=== PATIENT | male | born 1935 | race Caucasian/White ===

== ENCOUNTER 2020-10-14 10:46 | Outpatient (REF) | payer MEDICARE, OTHER, SELFPAY ==
[2020-10-14 14:36] LABS: Anion Gap 14 (12-20); Blood Urea Nitrogen 29 mg/dL (9-16); Carbon Dioxide 31 mmol/L (22-29); Chloride 101 mmol/L (96-108); Estimated Glomerular Filt Rate 49; Potassium 4.6 mmol/l (3.3-5.1); Sodium 141 mmol/L (135-145)
== END 2020-10-14 10:47 | disposition home or self-care (01) ==
LOC: HO.10HDL 10:46
PROVIDERS: PCP Family Medicine; Visit Provider Family Medicine
DX: I10 Essential (primary) hypertension (principal)
CPT/HCPCS: 80051; 82565; 84520

== ENCOUNTER 2021-05-25 11:34 | Outpatient (REF) | payer MEDICARE, OTHER, SELFPAY ==
[2021-05-25 12:53] LABS: Anion Gap 11 (12-20); Blood Urea Nitrogen 26 mg/dL (9-16); Carbon Dioxide 32 mmol/L (22-29); Chloride 104 mmol/L (96-108); Estimated Glomerular Filt Rate 46; Potassium 4.2 mmol/L (3.3-5.1); Sodium 143 mmol/L (135-145)
== END 2021-05-25 11:35 | disposition home or self-care (01) ==
LOC: HO.10HDL 11:34
PROVIDERS: Visit Provider Family Medicine
DX: I10 Essential (primary) hypertension (principal)
CPT/HCPCS: 36415; 80051; 82565; 84520

== ENCOUNTER 2021-12-01 12:27 | Outpatient (REF) | payer MEDICARE, OTHER, SELFPAY ==
[2021-12-01 14:33] LABS: Anion Gap 14 (12-20); Blood Urea Nitrogen 30 mg/dL (9-16); Carbon Dioxide 26 mmol/L (22-29); Chloride 107 mmol/L (96-108); Estimated Glomerular Filt Rate 46; Potassium 4.3 mmol/L (3.3-5.1); Sodium 143 mmol/L (135-145)
== END 2021-12-01 12:28 | disposition home or self-care (01) ==
LOC: HO.10HDL 12:27
PROVIDERS: Visit Provider Family Medicine
DX: I10 Essential (primary) hypertension (principal)
CPT/HCPCS: 36415; 80051; 82565; 84520

== ENCOUNTER 2022-06-20 12:03 | Outpatient (REF) | payer MEDICARE, OTHER, SELFPAY ==
[2022-06-20 13:18] LABS: MANUAL DIFF FLAG NO
[2022-06-20 13:26] LABS: Basophils Absolute Auto 0.1 X10*3/uL (0.0-0.2); Basophils Percent Auto 0.8 % (0-2); Eosinophils Absolute Auto 0.2 X10*3/uL (0.0-0.4); Eosinophils Percent Auto 2.9 % (0-4); Hematocrit 39.4 % (42.0-52.0); Hemoglobin 12.2 g/dl (14.0-18.0); Imm Gran Abs Auto 0.01 X10*3/uL (0.00-0.03); Imm Gran Pct Auto 0.2 % (0.0-0.4); Lymphocytes Absolute Auto 1.6 X10*3/uL (1.2-4.9); Lymphocytes Percent Auto 24.1 % (20-40); Mean Corpuscular Hemoglobin 29.1 pg (27.0-33.0); Mean Platelet Volume 10.6 fL (9.4-12.4); Monocytes Absolute Auto 0.6 X10*3/uL (0.1-1.2); Monocytes Percent Auto 9.1 % (2-11); Neutrophils Absolute Auto 4.1 x10*3/uL (2.0-8.3); Neutrophils Percent Auto 62.9 % (45-73); Platelet Count 194 X10*3/uL (160-400); Red Blood Count 4.19 X10*6/uL (4.60-5.80); Red Cell Distribution Width 13.2 % (11.0-16.0); White Blood Count 6.5 X10*3/uL (4.8-10.8)
[2022-06-20 13:52] LABS: Alanine Aminotransferase 11 U/L (0-40); Anion Gap 13 (12-20); Blood Urea Nitrogen 23 mg/dL (9-16); Carbon Dioxide 30 mmol/L (22-29); Chloride 105 mmol/L (96-108); Estimated Glomerular Filt Rate 46; Potassium 4.5 mmol/L (3.3-5.1); Sodium 143 mmol/L (135-145)
== END 2022-06-20 12:04 | disposition home or self-care (01) ==
LOC: HO.10HDL 12:03
PROVIDERS: Visit Provider Family Medicine
DX: I10 Essential (primary) hypertension (principal); G62.9 Polyneuropathy, unspecified
CPT/HCPCS: 36415; 80051; 82565; 84460; 84520; 85025

== ENCOUNTER 2022-12-23 11:24 | Outpatient (REF) | payer MEDICARE, OTHER, SELFPAY ==
[2022-12-23 13:17] LABS: MANUAL DIFF FLAG NO
[2022-12-23 13:22] LABS: Basophils Percent Auto 0.7 % (0-2); Eosinophils Absolute Auto 0.2 X10*3/uL (0.0-0.4); Eosinophils Percent Auto 4.2 % (0-4); Hematocrit 39.2 % (42.0-52.0); Hemoglobin 12.2 g/dl (14.0-18.0); Imm Gran Abs Auto 0.01 X10*3/uL (0.00-0.03); Imm Gran Pct Auto 0.2 % (0.0-0.4); Lymphocytes Absolute Auto 1.3 X10*3/uL (1.2-4.9); Lymphocytes Percent Auto 24.5 % (20-40); Mean Corpuscular HGB Conc 31.1 g/dl (31.0-36.0); Mean Corpuscular Hemoglobin 29.4 pg (27.0-33.0); Mean Corpuscular Volume 94.5 fL (80.0-98.0); Mean Platelet Volume 10.9 fL (9.4-12.4); Monocytes Absolute Auto 0.5 X10*3/uL (0.1-1.2); Monocytes Percent Auto 8.2 % (2-11); Neutrophils Absolute Auto 3.4 x10*3/uL (2.0-8.3); Neutrophils Percent Auto 62.2 % (45-73); Platelet Count 202 X10*3/uL (160-400); Red Blood Count 4.15 X10*6/uL (4.60-5.80); Red Cell Distribution Width 13.8 % (11.0-16.0); White Blood Count 5.5 X10*3/uL (4.8-10.8)
[2022-12-23 14:00] LABS: Alanine Aminotransferase 67 U/L (0-40); Anion Gap 11 (12-20); Blood Urea Nitrogen 20 mg/dL (9-16); Carbon Dioxide 30 mmol/L (22-29); Chloride 108 mmol/L (96-108); Estimated Glomerular Filt Rate 47; Potassium 4.6 mmol/L (3.3-5.1); Sodium 144 mmol/L (135-145)
[2022-12-23 14:18] LABS: Free T4 (Free Thyroxine) 1.04 ng/dL (0.71-1.85)
== END 2022-12-23 11:25 | disposition home or self-care (01) ==
LOC: HO.10HDL 11:24
PROVIDERS: Visit Provider Internal Medicine
DX: R53.83 Other fatigue (principal); I10 Essential (primary) hypertension
CPT/HCPCS: 36415; 80051; 82565; 84439; 84460; 84520; 85025

== ENCOUNTER 2023-03-29 10:36 | Outpatient (REF) | payer MEDICARE, OTHER, SELFPAY ==
[2023-03-29 14:14] LABS: Alanine Aminotransferase 11 U/L (0-40); Alkaline Phosphatase 61 U/L (39-117); Aspartate Amino Transferase 17 U/L (5-37); Bilirubin Direct 0.3 mg/dL (0.0-0.5); Bilirubin Total 0.9 mg/dL (0.0-1.0); Total Protein 6.4 g/dL (6.5-8.0)
== END 2023-03-29 10:37 | disposition home or self-care (01) ==
LOC: HO.10HDL 10:36
PROVIDERS: Internal Medicine; Visit Provider Family Medicine
DX: R94.6 Abnormal results of thyroid function studies (principal)
CPT/HCPCS: 36415; 80076

== ENCOUNTER 2023-09-19 12:18 | Outpatient (REF) | payer MEDICARE, OTHER, SELFPAY ==
[2023-09-19 13:09] LABS: MANUAL DIFF FLAG NO
[2023-09-19 13:17] LABS: Basophils Absolute Auto 0.1 X10*3/uL (0.0-0.2); Basophils Percent Auto 0.9 % (0-2); Eosinophils Absolute Auto 0.2 X10*3/uL (0.0-0.4); Eosinophils Percent Auto 2.2 % (0-4); Hematocrit 36.3 % (42.0-52.0); Hemoglobin 11.4 g/dl (14.0-18.0); Imm Gran Abs Auto 0.02 X10*3/uL (0.00-0.03); Imm Gran Pct Auto 0.3 % (0.0-0.4); Lymphocytes Absolute Auto 1.5 X10*3/uL (1.2-4.9); Lymphocytes Percent Auto 20.6 % (20-40); Mean Corpuscular HGB Conc 31.4 g/dl (31.0-36.0); Mean Corpuscular Hemoglobin 29.4 pg (27.0-33.0); Mean Corpuscular Volume 93.6 fL (80.0-98.0); Mean Platelet Volume 10.3 fL (9.4-12.4); Monocytes Absolute Auto 0.5 X10*3/uL (0.1-1.2); Monocytes Percent Auto 6.2 % (2-11); Neutrophils Absolute Auto 5.2 x10*3/uL (2.0-8.3); Neutrophils Percent Auto 69.8 % (45-73); Platelet Count 204 X10*3/uL (160-400); Red Blood Count 3.88 X10*6/uL (4.60-5.80); Red Cell Distribution Width 13.7 % (11.0-16.0); White Blood Count 7.4 X10*3/uL (4.8-10.8)
[2023-09-19 14:08] LABS: Anion Gap 11 (12-20); Blood Urea Nitrogen 30 mg/dL (9-16); Carbon Dioxide 29 mmol/L (22-29); Chloride 107 mmol/L (96-108); Estimated Glomerular Filt Rate 48; Potassium 4.4 mmol/L (3.3-5.1); Sodium 143 mmol/L (135-145)
== END 2023-09-19 12:19 | disposition home or self-care (01) ==
LOC: HO.10HDL 12:18
PROVIDERS: Visit Provider Family Medicine
DX: R53.83 Other fatigue (principal); I10 Essential (primary) hypertension
CPT/HCPCS: 36415; 80051; 82565; 84520; 85025

== ENCOUNTER 2023-11-13 14:09 | Outpatient (REF) | payer MEDICARE, OTHER, SELFPAY ==
[2023-11-13 15:01] LABS: Basophils Percent Auto 0.2 % (0-2); Hematocrit 41.4 % (42.0-52.0); Imm Gran Abs Auto 0.05 X10*3/uL (0.00-0.03); Imm Gran Pct Auto 0.4 % (0.0-0.4); Lymphocytes Absolute Auto 0.5 X10*3/uL (1.2-4.9); Lymphocytes Percent Auto 3.9 % (20-40); MANUAL DIFF FLAG SCAN; Mean Corpuscular HGB Conc 31.4 g/dl (31.0-36.0); Mean Corpuscular Volume 92.2 fL (80.0-98.0); Mean Platelet Volume 10.1 fL (9.4-12.4); Monocytes Absolute Auto 0.5 X10*3/uL (0.1-1.2); Monocytes Percent Auto 4.1 % (2-11); Neutrophils Absolute Auto 12.2 x10*3/uL (2.0-8.3); Neutrophils Percent Auto 91.4 % (45-73); Platelet Count 274 X10*3/uL (160-400); Red Blood Count 4.49 X10*6/uL (4.60-5.80); Red Cell Distribution Width 13.1 % (11.0-16.0); SCAN SMEAR FLAG 1; White Blood Count 13.3 X10*3/uL (4.8-10.8)
[2023-11-13 15:31] LABS: Alanine Aminotransferase 389 U/L (0-40); Aspartate Amino Transferase 623 U/L (5-37)
[2023-11-13 15:35] LABS: Lipase 1395 U/L (8-78); SLIDE REVIEW VERIFIED
[2023-11-13 16:03] LABS: Erythrocyte Sedimentation Rate 26 MM/HR (0-15)
== END 2023-11-13 14:10 | disposition home or self-care (01) ==
LOC: HO.LAB 14:09
PROVIDERS: PCP Family Medicine; Visit Provider Family Medicine
DX: Z13.89 Encounter for screening for other disorder (principal)
CPT/HCPCS: 36415; 83690; 84450; 84460; 85025; 85652

== ENCOUNTER 2023-11-14 10:25 | Inpatient (IN) | payer MEDICARE, OTHER, SELFPAY ==
[2023-11-14] VITALS (7 sets, daily range): BP systolic 127–152; BP diastolic 70–79; PULSE 92–100; RESP 16–19; TEMP 36.6–38.2; O2SAT 86–97; BMI 25.1
--- NOTE | ~2023-11-14 | XR_ITS ---
EXAMINATION: XR CHEST CLINICAL INFORMATION: Productive cough and hypoxia COMPARISON: None available. TECHNIQUE: 2 views of the chest were obtained. FINDINGS: There is low lung volume bilaterally with blunting of posterior costophrenic angles most likely due to trace of pleural effusion. Atelectasis seen in the left lung base. Cardiomediastinal silhouette is normal. XR/XR chest 2V IMPRESSION: Trace of pleural effusion and atelectasis in the left lung base.
--- NOTE | ~2023-11-14 | FL_ITS ---
EXAMINATION: XR FLUOROSCOPY WITH IMAGES CLINICAL INFORMATION: ERCP COMPARISON: CT abdomen pelvis on 11/14/2023 TECHNIQUE: Fluoroscopy Supervised By: Dr. Wolf Whaley. Fluoroscopy Time: 215.8 seconds. Cumulative Dose: 102.54 mGy. DAP: Not available. Images: 9. FINDINGS: Fluoroscopy performed during ERCP and stent placement. There is choledocholithiasis. The cystic duct is patent. No biliary ductal dilatation. FL/FL guidance in OR IMPRESSION: Fluoroscopy performed during ERCP. Please see operative report for additional information.
--- NOTE | ~2023-11-14 | CT_ITS ---
EXAMINATION: CT ABDOMEN AND PELVIS WITHOUT CONTRAST CLINICAL INFORMATION: Elevated AST, alkaline phosphatase, bilirubin and lipase. Ultrasound abdomen limited 11/14/2023. COMPARISON: Ultrasound abdomen 11/14/2023. TECHNIQUE: Multidetector volumetric imaging was performed from the superior aspect of the liver through the pubic symphysis. Sagittal and coronal reformatted images were obtained on the technologist's workstation. This CT examination was performed using dose optimization techniques as appropriate, variously including the following: *Automated exposure control *Adjustment of mA and/or kV according to patient size (this includes techniques or standardized protocols for targeted exams where dose is matched to indication/reason for exam; i.e. extremities or head) *Use of iterative reconstruction technique DLP: 647 mGy-cm FINDINGS: LUNG BASES: There is platelike atelectasis in both lung bases. There is moderate coronary artery calcifications. LIVER, GALLBLADDER, AND BILIARY TREE: The liver is normal in size, shape, and attenuation. No focal hepatic lesion or biliary ductal dilatation is present. There is mild perihepatic fluid collection. There are multiple radiopaque calcifications or stones in the gallbladder. There is small 3 mm radiopaque calculi mid CBD and several 2 mm radiopaque calculi in the distal CBD. There is no gross intrahepatic ductal dilatation. PANCREAS: The pancreas is homogeneous in density with pancreatic duct measuring 3 mm. The peripancreatic fat borders are preserved. There is mild haziness surrounding the pancreatic head and the alfonzo hepatis SPLEEN: Unremarkable. ADRENAL GLANDS: Unremarkable. KIDNEYS AND URETERS: The kidneys are normal in size, shape, and attenuation. No hydronephrosis, hydroureter, or calculi seen. No perinephric stranding. There is a 3.4 cm cyst in the upper pole right kidney. BLADDER: Unremarkable. GASTROINTESTINAL TRACT: There moderate gas seen in the transverse colon and scattered stool seen throughout the colon. Scattered diverticuli seen throughout the colon most prominent in the redundant sigmoid and descending colon. There is no suspicion for diverticulitis. ABDOMINAL WALL: A small umbilical hernia containing fat is noted.. LYMPH NODES: Normal. VASCULAR: Mild atherosclerosis without aneurysmal dilatation of the abdominal aorta. The branches of the aorta are widely patent. PELVIC VISCERA: Extensive sigmoid diverticulosis without fat stranding. The prostate gland is mildly enlarged extending the base of bladder. There are multiple phleboliths in the pelvis. No abnormal pelvic lymph nodes or hernia. OSSEOUS STRUCTURES: Grade 1 anterolisthesis L5 over S1 and grade 1 retrolisthesis L2 over L3 is noted. There is mild degenerative disc changes L2-L2 disc level. No visible acute fracture, dislocation or subluxation seen. CT/CT abdomen pelvis wo IV con IMPRESSION: Gallstones with contracted gallbladder. Choledocholithiasis. There CBD or intrahepatic ducts are nondilated. Recommend ERCP. Colonic diverticulosis most prominent in the sigmoid colon without diverticulitis. Small umbilical hernia containing fat. Simple cyst right kidney. No workup is needed Fleischner guidelines were followed.
--- NOTE | ~2023-11-14 | US_ITS ---
EXAMINATION: US ABDOMEN LIMITED CLINICAL INFORMATION: Elevated AST, ALT, alkaline phosphatase, bilirubin, lipase. COMPARISON: CT scan abdomen and pelvis 11/14/2023 TECHNIQUE: Real-time imaging of the right upper quadrant abdominal viscera. Technically limited study due to body habitus and bowel gas. FINDINGS: PANCREAS: The pancreas is obscured by bowel gas. LIVER: The left lobe of the liver is mostly obscured due to bowel gas. A small amount of free fluid is seen adjacent to the left lobe. Parenchymal echogenicity is normal. No focal hepatic lesion. There is no intrahepatic biliary duct dilatation seen. GALLBLADDER: The gallbladder is contracted. Small calcifications are seen within the gallbladder. COMMON BILE DUCT: Normal in caliber measuring 0.3 cm in diameter. Only the proximal common duct is seen. The mid and distal common duct are obscured by bowel gas. RIGHT KIDNEY: There is a 3.1 x 2.8 x 2.9 cm simple upper pole cyst for which no imaging follow-up is recommended. Possibly mildly dilated calyces without vickie hydronephrosis. No renal calculi or focal parenchymal lesions. The kidney measures 10.0 cm in maximum dimension. US/US abdomen limited IMPRESSION: 1. Technically limited study due to body habitus and bowel gas. 2. The gallbladder is contracted. Small calcifications are seen within the gallbladder. 3. The proximal common duct is normal caliber. The mid and distal common duct are obscured by bowel gas. 4. A small amount of free fluid is seen adjacent to the left lobe of the liver.
[2023-11-14 10:48] LABS: Basophils Percent Auto 0.2 % (0-2); Hematocrit 42.4 % (42.0-52.0); Hemoglobin 13.6 g/dl (14.0-18.0); Imm Gran Abs Auto 0.17 X10*3/uL (0.00-0.03); Imm Gran Pct Auto 0.7 % (0.0-0.4); Lymphocytes Absolute Auto 0.8 X10*3/uL (1.2-4.9); Lymphocytes Percent Auto 3.1 % (20-40); MANUAL DIFF FLAG SCAN; Mean Corpuscular HGB Conc 32.1 g/dl (31.0-36.0); Mean Corpuscular Hemoglobin 29.1 pg (27.0-33.0); Mean Corpuscular Volume 90.8 fL (80.0-98.0); Mean Platelet Volume 9.7 fL (9.4-12.4); Monocytes Absolute Auto 1.4 X10*3/uL (0.1-1.2); Monocytes Percent Auto 5.3 % (2-11); Neutrophils Absolute Auto 23.6 x10*3/uL (2.0-8.3); Neutrophils Percent Auto 90.7 % (45-73); Platelet Count 260 X10*3/uL (160-400); Red Blood Count 4.67 X10*6/uL (4.60-5.80); Red Cell Distribution Width 13.4 % (11.0-16.0); SCAN SMEAR FLAG 1
[2023-11-14 10:53] LABS: INTERNATIONAL NORM RATIO 1.1 (0.9-1.1); Prothrombin Time 13.4 SEC (11.1-13.3)
[2023-11-14 11:03] LABS: COVID-19 Test Negative (Negative); IDNOW Serial# 08D9AD1C
[2023-11-14 11:17] LABS: Alanine Aminotransferase 536 U/L (0-40); Albumin Level 4.2 g/dL (3.5-5.0); Alkaline Phosphatase 128 U/L (39-117); Anion Gap 13 (12-20); Aspartate Amino Transferase 458 U/L (5-37); Bilirubin Direct 2.3 mg/dL (0.0-0.5); Bilirubin Total 3.7 mg/dL (0.0-1.0); Blood Urea Nitrogen 29 mg/dL (9-16); Calcium 9.8 mg/dL (8.4-10.2); Carbon Dioxide 30 mmol/L (22-29); Chloride 102 mmol/L (96-108); Creatinine Clr Calc Pharmacy 31.1; Estimated Glomerular Filt Rate 37; Glucose Random 162 mg/dL (60-115); Potassium 4.4 mmol/L (3.3-5.1); Sodium 141 mmol/L (135-145); Total Protein 7.7 g/dL (6.5-8.0)
[2023-11-14 11:29] LABS: Lipase 281 U/L (8-78)
[2023-11-14 11:31] LABS: SLIDE REVIEW VERIFIED
--- NOTE | 2023-11-14 12:38 | ED_ITS ---
HPI - Abdominal Pain General Chief Complaint: Abdominal Pain Stated Complaint: Gallstones Pancreatitis Time Seen by Provider: 11/14/23 12:38 Source: patient and other (Dr. Jefry Hector) Mode of arrival: ambulatory Limitations: no limitations History of Present Illness HPI narrative: 88-year-old male history of hypertension, prostate cancer who was referred to the emergency department by his PCP, Dr. Jefry Hector for possible gallstone pancreatitis. Patient states that his pain started on Monday morning 11/12/2022 at 03:00 hours (2 days prior to evaluation). He states that the pain came on gradually and then got severe. He runs his hand across his lower abdomen when asked to localize the pain. He states the pain is a constant dull pain which is 7 to 10/10 at its worst. Patient denied fever but had chills and diaphoresis. He denied rhinorrhea, sore throat, cough, chest pain, shortness of breath. He denied nausea, vomiting, diarrhea, dark stools or bloody stools. This is his 1st episode of this type pain. Patient was seen by his PCP, Dr. Jefry Hector yesterday and his blood work came back today. Patient's WBC was 13,300. AST and ALT were elevated 623 and 389. Lipase was elevated 1395. Dr. Hector did call me and referred the patient to the emergency department for evaluation. Related Data Home Medications Medication Instructions Recorded Confirmed ascorbic acid (vitamin C) 500 mg 500 mg PO DAILY 11/14/23 11/14/23 tablet (Vitamin C) aspirin 81 mg chewable tablet 81 mg PO DAILY 11/14/23 11/15/23 calcium citrate 500 mg (2,376 mg) 500 mg PO DAILY 11/14/23 11/14/23 effervescent tablet cholecalciferol (vitamin D3) 125 125 mcg PO DAILY 11/14/23 11/14/23 mcg (5,000 unit) tablet gabapentin 300 mg capsule 300 mg PO BEDTIME 11/14/23 11/14/23 lisinopril 5 mg tablet 5 mg PO DAILY 11/14/23 11/14/23 magnesium 500 mg tablet 500 mg PO DAILY 11/14/23 11/14/23 omeprazole 20 mg capsule,delayed 20 mg PO DAILY 11/14/23 11/14/23 release wuiewnx-xtxj-[place]ak[place]-oreg-capryl 1 cap PO DAILY 11/14/23 11/14/23 vitamins A,C,H-zgiz-caqskv 2,148 2 tab PO BID 11/14/23 11/14/23 mcg-113 mg-45 mg-17.4 mg tablet (PreserVision AREDS) Allergies Allergy/AdvReac Type Severity Reaction Status Date / Time No Known Allergies Allergy Verified 11/17/23 12:38 Review of Systems Review of Systems Yes all other systems are reviewed and are negative [facility] Past Medical History [facility] Narrative: Past medical history: Hypertension, prostate cancer. Past surgical history: Lower back surgery 7 years prior. Social history: The patient denies tobacco use. He states that he drinks alcohol in moderation. He denies drug use. Onset Date is defined in the Problem List Problems that require an onset date and time if occurred within 24 hrs of arrival to the ED Aortic Dissection and Rupture; Neurologic impairment; Cardiopulmonary Arrest; Endotracheal Intubation; Insertion or Replacement of Mechanical Circulatory Assist Device Medical History Prostate cancer Urinary frequency Surgical History History of back surgery Social History Social History Household Members: Spouse Housing: House Do you presently have visiting nurse or other home services: No Patient Tobacco Use Status: Never used Tobacco Advance Directives Date on File: 11/15/23 service: Yes Physical Exam ED Vital Signs: Vital Signs - 24 hr 11/14/23 10:32 11/14/23 13:41 11/14/23 14:00 Temperature 98 F Pulse Rate 100 92 Respiratory Rate 19 16 Blood Pressure 127/79 144/76 H Pulse Oximetry 97 93 86 L Oxygen Delivery Method Room Air Room Air Room Air Oxygen Flow Rate 11/14/23 14:47 11/14/23 15:26 Temperature Pulse Rate 96 93 Respiratory Rate 16 19 Blood Pressure 145/73 H 134/70 Pulse Oximetry 92 Oxygen Delivery Method Nasal Cannula Oxygen Flow Rate 2 BMI result Body Mass Index 25.1 Vital signs were normal. Exam: General: Awake, alert in no distress Head: Normocephalic, atraumatic EENT: PERRL, Lids normal, sclera normal, conjunctiva normal, nose normal , ears normal, throat without erythema or exudates Neck: Supple, no adenopathy, no trachea midline or C-spine tenderness Lung: breath sounds symmetric, no wheezing, rales or rhonchi Chest: symmetric movement, nontender Heart: regular rate and rhythm, normal S1, S2 no murmurs or rubs Abdomen: Appears distended, normal bowel sounds, moderate lower abdominal tenderness, moderate right upper quadrant tenderness and epigastric tenderness, no rebound, no voluntary or involuntary guarding Back: no vertebral tenderness, no CVAT Extremities: no deformities, moves all extremities symmetrically Neuro: Awake, alert, oriented, normal speech, cranial nerves intact, moves all extremities symmetrically Psych: Pleasant, cooperative Medical Decision Making Medical Decision Making MDM Narrative: 88-year-old male with history of hypertension, prostate cancer, previous back surgery who presents emergency department for evaluation of 2 days of abdominal pain associated with chills and sweats. Patient evaluated by PCP yesterday and had elevated LFTs as well as an elevated lipase. Patient's vital signs were normal. Exam revealed a distended abdomen with lower abdominal tenderness as well as right upper quadrant tenderness. Following evaluation was ordered: CBC, liver panel, BNP, lipase, PT/INR, blood cultures x2, COVID-19, right upper quadrant ultrasound, CT scan of the abdomen pelvis without IV contrast. Patient was treated with the following: Lactated Ringer's x1 L, morphine 4 mg IV, Zofran 4 mg IV and Zosyn 4.5 g IV. 14:49 My interpretation patient's laboratory evaluation is as follows: WBC elevated 26,000. BUN creatinine elevated 29 and 1.76. AST ALT and alk-phos elevated 458, 536 and 128. Total bilirubin elevated 3.7. Direct bilirubin elevated 2.3. Lipase elevated 281. Ultrasound did reveal gallstones with a contracted gallbladder but did not reveal a dilated common bile duct. CT scan of the abdomen pelvis without IV does note choledocholithiasis but normal common bile duct. Based on the patient's laboratory evaluation he most likely does have a common bile duct stone.. I did discuss the patient's presentation with and consult Dr. Magana for Gastroenterology . He recommended MRCP. I also discuss the patient's presentation with and consulted Dr. Manjarrez. Patient's presentation was discussed over tiger text with the covering hospitalist, Aissatou Carmen. Differential Diagnosis Differential Diagnoses: The differential diagnosis associated with the presentation includes Differential diagnosis includes but is not limited to pancreatitis, cholecystitis, common bile duct obstructions Admission/Observation Consideration of admission/observation: Escalation of care including admission/observation considered Consult Healthcare Provider Management of the patient was discussed with: Hospitalist Lab Data MDM Lab Attestation statement: I reviewed the patient's lab results. 11/17/23 05:33 11/17/23 05:33 Labs: Lab Results 11/14/23 11/14/23 Range/Units 10:42 13:22 WBC 26.0 H (4.8-10.8) X10*3/uL RBC 4.67 (4.60-5.80) X10*6/uL Hgb 13.6 L (14.0-18.0) g/dl Hct 42.4 (42.0-52.0) % MCV 90.8 (80.0-98.0) fL MCH 29.1 (27.0-33.0) pg MCHC 32.1 (31.0-36.0) g/dl RDW 13.4 (11.0-16.0) % Plt Count 260 (160-400) X10*3/uL MPV 9.7 (9.4-12.4) fL Immature Gran % (Auto) 0.7 H (0.0-0.4) % Neut % (Auto) 90.7 H (45-73) % Lymph % (Auto) 3.1 L (20-40) % [place] % (Auto) 5.3 (2-11) % Eos % (Auto) 0.0 (0-4) % Baso % (Auto) 0.2 (0-2) % Lymph # (Auto) 0.8 L (1.2-4.9) X10*3/uL [place] # (Auto) 1.4 H (0.1-1.2) X10*3/uL Eos # (Auto) 0.0 (0.0-0.4) X10*3/uL Baso # (Auto) 0.0 (0.0-0.2) X10*3/uL Abs Immat Gran (auto) 0.17 H (0.00-0.03) X10*3/uL Absolute Neuts (auto) 23.6 H (2.0-8.3) x10*3/uL Absolute Nucleated RBC 0.000 (0.0-0.012) X10*3/uL Nucleated RBC % (auto) 0.0 (0.0-0.2) /100WBC Smear Tech's Comments VERIFIED PT 13.4 H (11.1-13.3) SEC INR 1.1 (0.9-1.1) Sodium 141 (135-145) mmol/L Potassium 4.4 (3.3-5.1) mmol/L Chloride 102 (96-108) mmol/L Carbon Dioxide 30 H (22-29) mmol/L Anion Gap 13 (12-20) BUN 29 H (9-16) mg/dL Creatinine 1.76 H (0.5-1.4) mg/dL Estim Creat Clear Calc 31.1 Estimated GFR 37 Random Glucose 162 H (60-115) mg/dL Lactic Acid 1.8 (0.5-2.0) mmol/L Calcium 9.8 (8.4-10.2) mg/dL Total Bilirubin 3.7 H (0.0-1.0) mg/dL Direct Bilirubin 2.3 H (0.0-0.5) mg/dL AST 458 H (5-37) U/L ALT 536 H (0-40) U/L Alkaline Phosphatase 128 H (39-117) U/L Total Protein 7.7 (6.5-8.0) g/dL Albumin 4.2 (3.5-5.0) g/dL Lipase 281 H (8-78) U/L COVID-19 (ILEANA) Negative (Negative) COVID-19 Clin Com See Note Radiology Impression Discussion of test interpretation with radiology: I have reviewed the radiologist's reading. Radiologist Impression: US abdomen limited IMPRESSION: 1. Technically limited study due to body habitus and bowel gas. 2. The gallbladder is contracted. Small calcifications are seen within the gallbladder. 3. The proximal common duct is normal caliber. The mid and distal common duct are obscured by bowel gas. 4. A small amount of free fluid is seen adjacent to the left lobe of the liver. Dictated By: Mai Rosenbaum MD CT abdomen pelvis wo IV con IMPRESSION: Gallstones with contracted gallbladder. Choledocholithiasis. There CBD or intrahepatic ducts are nondilated. Recommend ERCP. Colonic diverticulosis most prominent in the sigmoid colon without diverticulitis. Small umbilical hernia containing fat. Simple cyst right kidney. No workup is needed Fleischner guidelines were followed. Dictated By: Lloyd Rainey MD Independent Historian Clinical information obtained from an independent historian. History obtained from or confirmed by: Spouse and Other (Son) External Record Review External record reviewed: Office record Chronic Conditions Patient?s care impacted by: Hypertension Medications Administered Generic Name Dose Route Start Last Admin Trade Name Freq PRN Reason Stop Dose Admin Ascorbic Acid 500 mg 11/15/23 09:00 11/17/23 07:51 Ascorbic Acid 500 Mg Tablet PO 500 mg DAILY LUCIO Administration Benzonatate 200 mg 11/16/23 09:45 11/17/23 21:54 Benzonatate 100 Mg Capsule PO 200 mg TID LUCIO Administration Calcium Carbonate 500 mg 11/15/23 09:00 11/17/23 07:50 Calcium Carbonate 500 Mg Tablet PO 500 mg DAILY LUCIO Administration Docusate Sodium 100 mg 11/17/23 09:00 11/17/23 21:55 Docusate Sodium 100 Mg Capsule PO 100 mg BID LUCIO Administration Gabapentin 300 mg 11/14/23 21:00 11/17/23 21:55 Gabapentin 300 Mg Capsule PO 300 mg BEDTIME LUCIO Administration Guaifenesin/Dextromethorphan 2 tab 11/16/23 09:57 11/16/23 21:06 Guaifenesin Dm 600/30 1 Tab Tab.Er.12h PO 2 tab BID PRN Administration cough Piperacillin Sod/Tazobactam 50 mls @ 100 mls/hr 11/14/23 17:00 11/17/23 23:15 Sod 3.375 gm/ Sodium Chloride IV Infused Q6H LUCIO Infusion Lisinopril 5 mg 11/15/23 09:00 11/15/23 08:59 Lisinopril 5 Mg Tablet PO 5 mg DAILY LUCIO Administration Protocol Magnesium Oxide 400 mg 11/15/23 09:00 11/17/23 07:50 Magnesium Oxide 400 Mg Tablet PO 400 mg DAILY LUCIO Administration Morphine Sulfate 4 mg 11/15/23 18:15 11/17/23 08:55 Morphine Sulfate 4 Mg/Ml Cartridge IVPUSH 4 mg Q4H PRN Administration Pain, Severe (Pain Scale 7-10) Protocol Multivitamins/Vitamin C 2 tab 11/14/23 21:00 11/17/23 21:54 Multivitamin Tablet PO 2 tab BID LUCIO Administration Omeprazole 20 mg 11/15/23 06:30 11/17/23 05:37 Omeprazole 20 Mg Capsule.Dr PO 20 mg DAILY@0630 LUCIO Administration Oxycodone HCl 5 mg 11/15/23 18:15 11/16/23 08:14 Oxycodone Hcl Immed Release 5 Mg Tablet PO 5 mg Q4H PRN Administration Pain, Moderate(Pain Scale 4-6) Polyethylene Glycol 17 gm 11/17/23 09:00 11/17/23 08:51 Polyethylene Glycol 3350 17 Gm Powd.Pack PO 17 gm DAILY LUCIO Administration Sodium Chloride 3 ml 11/15/23 00:00 11/17/23 23:18 0.9 % Sodium Chloride Flush 3 Ml Syringe IVFLUSH 3 ml QSHIFT [facility] Administration Vitamin D 125 mcg 11/15/23 09:00 11/17/23 07:52 Cholecalciferol (Vitamin D3) 25 Mcg Tablet PO 125 mcg DAILY LUCIO Administration Discontinued Medications Generic Name Dose Route Start Last Admin Trade Name Freq PRN Reason Stop Dose Admin Fentanyl 25 mcg 11/15/23 13:26 11/15/23 17:23 Fentanyl Citrate/Pf 100 Mcg/2 Ml Vial IVPUSH 25 mcg Q5M PRN Administration Pain, Moderate(Pain Scale 4-6) Protocol Lactated Ringer's 1,000 mls @ 999 mls/hr 11/14/23 13:00 11/14/23 14:48 Lr IV 11/14/23 14:00 Infused .Q1H1M LUCIO Infusion Piperacillin Sod/Tazobactam 100 mls @ 200 mls/hr 11/14/23 12:54 11/14/23 15:51 Sod 4.5 gm/ Sodium Chloride IV 11/14/23 13:23 Infused ONCE ONE Infusion Lactated Ringer's 1,000 mls @ 125 mls/hr 11/14/23 14:45 11/17/23 11:11 Lr IVCONT Infused .Q8H LUCIO Infusion Indomethacin 100 mg 11/17/23 09:53 11/17/23 16:16 Indomethacin 50 Mg Supp.Rect ND 11/17/23 09:54 Not Given PRE PROCEDURE ONE Morphine Sulfate 4 mg 11/14/23 12:52 11/14/23 13:35 Morphine Sulfate 4 Mg/Ml Cartridge IVPUSH 11/14/23 12:53 4 mg ONCE STA Administration Protocol Morphine Sulfate 2 mg 11/14/23 16:55 11/14/23 22:21 Morphine Sulfate 4 Mg/Ml Cartridge IVPUSH 2 mg Q4H PRN Administration Pain, Severe (Pain Scale 7-10) Protocol Ondansetron HCl 4 mg 11/14/23 12:52 11/14/23 13:35 Ondansetron Hcl 4 Mg/2 Ml Vial IVPUSH 11/14/23 12:53 4 mg ONCE ONE Administration Critical Care Time Critical Care Time Critical Care Time: Yes Total Critical Care Time: 40 Attestation: Critical Care: The patient was critically ill with a high probability of imminent or life threatening deterioration. I spent greater than 30 minutes of discontinuous time evaluating the patient,delivering critical care at the bedside, discussing and evaluating pertinent data with consultants. Critical care time does not include time spent performing separately billable procedures or teaching. Total time spent performing critical care was 40 minutes. Discharge Plan Discharge Clinical Impression: Gallstone pancreatitis Patient Disposition: Admitted As Inpatient Interventions: Admission Worksheet (ED) Last Done: 11/15/23 12:46 Discharge Date/Time: 11/15/23 12:46
[2023-11-14] MEDS: Lactated Ringers 1,000 ML 999 ML IV (13:30)
[2023-11-14] MEDS: Piperacillin Sodium/Tazobactam 4.5 GM in 0.9 % Sodium Chloride 100 ML IV (13:35)
[2023-11-14] MEDS: ondansetron HCL 4 MG/2 ML VIAL IVPUSH (13:35)
[2023-11-14] MEDS: Morphine Sulfate 4 MG/ML CARTRIDGE IVPUSH (13:35)
[2023-11-14 13:42] LABS: Lactic Acid 1.8 mmol/L (0.5-2.0)
[2023-11-14] MEDS: Lactated Ringers 1,000 ML 125 ML IVCONT ×2 (14:47→22:24)
--- NOTE | 2023-11-14 15:53 | P.HPHOSP_ITS ---
History of Present Illness Date of Service: 11/14/23 Chief Complaint: Abdominal pain An 88-year-old, high-functioning man with a history of prostate cancer treated with Leuprolide injection ([place]illon), CKD 3b, and hypertension was referred to the emergency department by his PCP, Dr. Jefry Ortega, for evaluation of possible gallstone pancreatitis. The patient has been experiencing progressively severe abdominal pain since Monday, worsening on Monday and Monday. He describes the pain as located in the lower abdomen, radiating upwards. He also experienced vomiting on Monday but denies any fever. Labs were done yesterday 11/13 and show Lipase 1395 which is down to 281 today, WBC was 13 yesterdat but 26 today. AST/ALT 458/536, AKP 128. CT and US of abdomen show contracted gallbladder with stone and normal CBC Review of Systems 2 Review of Systems: Gen: no fever Resp: no sob, no cough CV: no chest, no SMITH, no leg edema GI:+ n/v, +abd pain Neuro: No confusion Yes all other systems are reviewed and are negative [facility] Social History Smoked in Last 30 Days: No Use of substances other than those prescribed or required for medical reasons: No Advance Directives: Yes Advance Directives Information Provided: Yes Advance Directives on File: No Meds Allergies Allergy/AdvReac Type Severity Reaction Status Date / Time No Known Allergies Allergy Verified 11/14/23 10:31 Active Medications: Current Medications Lactated Ringer's (Lr) 1,000 mls @ 125 mls/hr IVCONT .Q8H LUCIO Last Admin: 11/14/23 14:47 Dose: 125 mls/hr Home Medications Medication Instructions Recorded Confirmed Last Taken Type ascorbic acid (vitamin C) 500 mg 500 mg PO DAILY 11/14/23 11/14/23 11/14/23 History tablet (Vitamin C) aspirin 81 mg chewable tablet 81 mg PO DAILY 11/14/23 11/14/23 11/14/23 History calcium citrate 500 mg (2,376 mg) 500 mg PO DAILY 11/14/23 11/14/23 11/14/23 History effervescent tablet cholecalciferol (vitamin D3) 125 125 mcg PO DAILY 11/14/23 11/14/23 11/14/23 History mcg (5,000 unit) tablet gabapentin 300 mg capsule 300 mg PO BEDTIME 11/14/23 11/14/23 11/13/23 History lisinopril 5 mg tablet 5 mg PO DAILY 11/14/23 11/14/23 11/14/23 History magnesium 500 mg tablet 500 mg PO DAILY 11/14/23 11/14/23 11/14/23 History omeprazole 20 mg capsule,delayed 20 mg PO DAILY 11/14/23 11/14/23 11/14/23 History release xxiuspb-fqne-hbywd-oreg-capryl 1 cap PO DAILY 11/14/23 11/14/23 11/14/23 History vitamins A,C,U-kwtj-snqgqn 2,148 2 tab PO BID 11/14/23 11/14/23 11/14/23 History mcg-113 mg-45 mg-17.4 mg tablet (PreserVision AREDS) Physical Exam 2 Vital Signs and Narrative: Vital Signs: Last Vital Signs Temp 98 F 11/14/23 10:32 Pulse 93 11/14/23 15:26 Resp 19 11/14/23 15:26 BP 134/70 11/14/23 15:26 Pulse Ox 92 11/14/23 15:26 O2 Del Method Nasal Cannula 11/14/23 15:26 O2 Flow Rate 2 11/14/23 15:26 BMI result Body Mass Index 25.1 Constitutional: Alert, in no distress, overweight. Mental Status: Oriented to person, place and time. Eyes: Pupils are equal, round and reactive to light. Ear, Nose and Throat: Oropharynx clear, mucous membranes moist. Ears and nose without eformities. Trachea midline. Respiratory: Clear to auscultation. No wheezing, rales or rhonchi. Cardiovascular: S1 S2 regular. No murmurs, rubs or gallops. Gastrointestinal: Abdomen soft, non-tender, non-distended. Normal bowel sounds.? Neurologic: Cranial nerves II-XII grossly intact. No focal neurological deficits. Moves all extremities spontaneously.? Skin: No rashes or lesions.? Musculoskeletal: No cyanosis or clubbing. Psychiatric: Normal mood and affect? Results Labs 11/14/23 10:42 11/14/23 10:42 Labs: Laboratory Results - last 24 hr 11/14/23 11/14/23 10:42 13:22 MCV 90.8 MCH 29.1 MCHC 32.1 RDW 13.4 Plt Count 260 MPV 9.7 Immature Gran % (Auto) 0.7 H Neut % (Auto) 90.7 H Lymph % (Auto) 3.1 L [place] % (Auto) 5.3 Eos % (Auto) 0.0 Baso % (Auto) 0.2 Lymph # (Auto) 0.8 L [place] # (Auto) 1.4 H Eos # (Auto) 0.0 Baso # (Auto) 0.0 Abs Immat Gran (auto) 0.17 H Absolute Neuts (auto) 23.6 H Absolute Nucleated RBC 0.000 Nucleated RBC % (auto) 0.0 Smear Tech's Comments VERIFIED PT 13.4 H INR 1.1 Anion Gap 13 Estim Creat Clear Calc 31.1 Estimated GFR 37 Random Glucose 162 H Lactic Acid 1.8 Calcium 9.8 Total Bilirubin 3.7 H Direct Bilirubin 2.3 H AST 458 H ALT 536 H Alkaline Phosphatase 128 H Total Protein 7.7 Albumin 4.2 Lipase 281 H COVID-19 (ILEANA) Negative COVID-19 Clin Com See Note Imaging Radiologist's Impressions: Impressions Abdomen/Pelvis CT 11/14/23 13:33 IMPRESSION: Gallstones with contracted gallbladder. Choledocholithiasis. There CBD or intrahepatic ducts are nondilated. Recommend ERCP. Colonic diverticulosis most prominent in the sigmoid colon without diverticulitis. Small umbilical hernia containing fat. Simple cyst right kidney. No workup is needed Fleischner guidelines were followed. Abdomen Ultrasound 11/14/23 13:46 IMPRESSION: 1. Technically limited study due to body habitus and bowel gas. 2. The gallbladder is contracted. Small calcifications are seen within the gallbladder. 3. The proximal common duct is normal caliber. The mid and distal common duct are obscured by bowel gas. 4. A small amount of free fluid is seen adjacent to the left lobe of the liver. Assessment and Plan (1) Gallstone pancreatitis: Status: Acute (2) HTN (hypertension): Status: Acute Plan An 88-year-old, with history of prostate cancer treated with Leuprolide injection (Eligard) and hypertension here with abdominal pain and findings of gallstone pancreatitis. Gallstone pancreatitis, likely has passed stone given drastic decrease in Lipase from yesterday to today -GI consult for possible ERCP -Surgery for possible Cholecystectomy -Emipiric Abx (Zosyn) given extremely high WBC -Morphine for pain -LR 125 cc/hr -Repeat LFTS tomorrow HTN--hold lisinopril in light of Cr bump Transaminitis CKD3 with mild EVELIO, IVF and reassess in the morning GERD--PPI DVT prophylaxis--heparin Full code minimum 2 midnights admit for acute galstone pancreatitis, need for ERCP and possible cholecystectomy Quality Stroke Does the patient have a stroke diagnosis?: No VTE Prior VTE?: No VTE Risk Level:: Medical - moderate - high VTE Device Contraindication: Treatment Not Indicated VTE Drug Contraindication: N/A - Med Ordered
--- NOTE | 2023-11-14 16:02 | PHA.MEDREC ---
Pharmacy Consult ? Medication Reconciliation Pharmacy has completed the medication reconciliation. Patient's reported medications. Georgiana Guerra, AmarjitD
[2023-11-14] MEDS: Piperacillin Sodium/Tazobactam 3.375 GM in 0.9 % Sodium Chloride 50 ML IV ×2 (17:38→22:58)
[2023-11-14 18:32] LABS: Alanine Aminotransferase 381 U/L (0-40); Albumin Level 3.4 g/dL (3.5-5.0); Alkaline Phosphatase 110 U/L (39-117); Aspartate Amino Transferase 262 U/L (5-37); Bilirubin Direct 1.6 mg/dL (0.0-0.5); Bilirubin Total 2.7 mg/dL (0.0-1.0); Total Protein 6.3 g/dL (6.5-8.0)
--- NOTE | 2023-11-14 18:50 | PM.GICN ---
History of Present Illness Data of Consult Service Date: 11/14/23 Requesting physician: Eric Hearn Primary Care Provider: Jefry Ortega MD HPI Reason for consult: bile stones 88-year-old man with a history of prostate cancer treated with Leuprolide injection (Eligard), CKD 3b, and hypertension who I am seeing for assessment of gallstones Patient had noted 3 d of colicky 7/10 pain in the RUQ without radiation to the shoulder or back associated with emesis but no fever, jaundice or abnormal stools. Pain was worse with food , no relieving factors. He has had similar pain on and off in the past but never as bad. labs: Lipase 1395 which is down to 281 today, WBC 26. AST/ALT 458/536, AKP 128 Imaging: US with contracted GB, fluid around liver, CT with choledocholithiasis and gallstones Review of Systems Review of Systems: Constitutional : No Weight loss, No Fever, No Chills ENT/Mouth : No sore throat, No Rhinorrhea Eyes: No Swelling, No Redness Cardiovascular : No Chest Pain, No SOB, No Edema Respiratory : No Cough, No Sputum, No Wheezing Gastrointestinal : see HPI Genitourinary : NO Dysuria, No Urinary Frequency, No Hematuria, No Urgency Musculoskeletal : No joint pain, No Myalgias, No Joint Swelling Skin : No Skin Lesions, No rash Neuro : No Weakness, No Numbness, No Dizziness, No Headache Psych : No Anxiety/Panic, No Depression Heme/Lymph: No Bruising, No Lymphadenopathy Endocrine : No Polyuria, No Polydipsia All other systems reviewed and are negative. [facility] Family History Pertinent family history: no fh of gall bladder disease Social History Social History Smoked in Last 30 Days: No Use of substances other than those prescribed or required for medical reasons: No Advance Directives: Yes Advance Directives Information Provided: Yes Advance Directives on File: No Meds Allergies Allergy/AdvReac Type Severity Reaction Status Date / Time No Known Allergies Allergy Verified 11/14/23 10:31 Active Medications: Current Medications Al Hydroxide/Mg Hydroxide (Magnesium Hydrox/Alum Hydrox 30 Ml Oral.Susp) 30 ml PO Q4H PRN PRN Reason: Heartburn/Nausea Ascorbic Acid (Ascorbic Acid 500 Mg Tablet) 500 mg PO DAILY [facility] Calcium Carbonate (Calcium Carbonate 500 Mg Tablet) 500 mg PO DAILY [facility] Gabapentin (Gabapentin 300 Mg Capsule) 300 mg PO BEDTIME [facility] Lactated Ringer's (Lr) 1,000 mls @ 125 mls/hr IVCONT .Q8H [facility] Last Admin: 11/14/23 14:47 Dose: 125 mls/hr Piperacillin Sod/Tazobactam (Sod 3.375 gm/ Sodium Chloride) 50 mls @ 100 mls/hr IV Q6H [facility] Last Admin: 11/14/23 17:38 Dose: 100 mls/hr Lisinopril (Lisinopril 5 Mg Tablet) 5 mg PO DAILY [facility]; Protocol Magnesium Hydroxide (Milk Of Magnesia 30 Ml Oral.Susp) 30 ml PO DAILY PRN PRN Reason: Constipation Magnesium Oxide (Magnesium Oxide 400 Mg Tablet) 400 mg PO DAILY [facility] Melatonin (Melatonin 3 Mg Tablet) 6 mg PO BEDTIME PRN PRN Reason: Insomnia Morphine Sulfate (Morphine Sulfate 4 Mg/Ml Cartridge) 2 mg IVPUSH Q4H PRN; Protocol PRN Reason: Pain, Severe (Pain Scale 7-10) Multivitamins/Vitamin C (Multivitamin Tablet) 2 tab PO BID [facility] Omeprazole (Omeprazole 20 Mg Capsule.Dr) 20 mg PO DAILY@0630 [facility] Ondansetron HCl (Ondansetron Hcl 4 Mg/2 Ml Vial) 4 mg IVPUSH Q8H PRN PRN Reason: Nausea and Vomiting Sodium Chloride (0.9 % Sodium Chloride Flush 3 Ml Syringe) 3 ml IVFLUSH QSHIFT [facility] Vitamin D (Cholecalciferol (Vitamin D3) 25 Mcg Tablet) 125 mcg PO DAILY [facility] Home Medications Medication Instructions Recorded Confirmed Last Taken Type ascorbic acid (vitamin C) 500 mg 500 mg PO DAILY 11/14/23 11/14/23 11/14/23 History tablet (Vitamin C) aspirin 81 mg chewable tablet 81 mg PO DAILY 11/14/23 11/14/23 11/14/23 History calcium citrate 500 mg (2,376 mg) 500 mg PO DAILY 11/14/23 11/14/23 11/14/23 History effervescent tablet cholecalciferol (vitamin D3) 125 125 mcg PO DAILY 11/14/23 11/14/23 11/14/23 History mcg (5,000 unit) tablet gabapentin 300 mg capsule 300 mg PO BEDTIME 11/14/23 11/14/23 11/13/23 History lisinopril 5 mg tablet 5 mg PO DAILY 11/14/23 11/14/23 11/14/23 History magnesium 500 mg tablet 500 mg PO DAILY 11/14/23 11/14/23 11/14/23 History omeprazole 20 mg capsule,delayed 20 mg PO DAILY 11/14/23 11/14/23 11/14/23 History release vrbigea-ftai-sssnx-oreg-capryl 1 cap PO DAILY 11/14/23 11/14/23 11/14/23 History vitamins A,C,E-tlon-zjnqza 2,148 2 tab PO BID 11/14/23 11/14/23 11/14/23 History mcg-113 mg-45 mg-17.4 mg tablet (PreserVision AREDS) Physical Exam Vital Signs: Vital Signs: Last Vital Signs Temp 98 F 11/14/23 10:32 Pulse 93 11/14/23 15:26 Resp 19 11/14/23 15:26 BP 134/70 11/14/23 15:26 Pulse Ox 92 11/14/23 15:26 O2 Del Method Nasal Cannula 11/14/23 15:26 O2 Flow Rate 2 11/14/23 15:26 BMI result Body Mass Index 25.1 EXAM: GENERAL: The patient is well developed and nontoxic. VITAL SIGNS:see workflow HEENT: Nonicteric sclerae, PERRLA, EOMI. Oropharynx clear. Moist mucous membranes. Conjunctivae appear well perfused. No thyroid mass. CHEST: Chest wall is nontender. HEART: Regular rate and rhythm without murmurs. LUNGS: Clear to auscultation bilaterally. ABDOMEN: Soft, positive bowel sounds, nontender, no organomegaly.no flank tenderness SKIN: No rash, no excessive bruising, petechiae, or purpura. NEUROLOGIC: Cranial nerves II-XII intact without motor/sensory deficit. Psych: Appearance: grossly normal Results Labs 11/14/23 10:42 11/14/23 10:42 Labs: Short CBC 11/14/23 Range/Units 10:42 WBC 26.0 H (4.8-10.8) X10*3/uL Hgb 13.6 L (14.0-18.0) g/dl Hct 42.4 (42.0-52.0) % Plt Count 260 (160-400) X10*3/uL BMP 11/14/23 10:42 Sodium 141 Potassium 4.4 Chloride 102 Carbon Dioxide 30 H BUN 29 H Creatinine 1.76 H Calcium 9.8 Liver Function 11/14/23 11/14/23 Range/Units 10:42 18:06 Total Bilirubin 3.7 H 2.7 H (0.0-1.0) mg/dL Direct Bilirubin 2.3 H 1.6 H (0.0-0.5) mg/dL AST 458 H 262 H (5-37) U/L ALT 536 H 381 H (0-40) U/L Alkaline Phosphatase 128 H 110 (39-117) U/L Albumin 4.2 3.4 L (3.5-5.0) g/dL Imaging CT scan - abdomen: Attestation: I personally reviewed and interpreted this imaging study as follows: (choledocholithiasis, degen spine chnages , gallstones) Assessment and Plan (1) Gallstone pancreatitis: Status: Acute Plan 1/ Gallstone pancreatitis with stones noted in the CBD on imaging, PLAN: 1/ ERCP tomorrow, risks and benefits reviewed and pt wishes to proceed 2/ cont with ABX coverage to reduce risk of cholecystitis and cholangitis Procedures Date of Service Date of Service: 11/14/23
[2023-11-14] MEDS: Gabapentin 300 MG CAPSULE PO (20:38)
[2023-11-14] MEDS: Multivitamin TABLET 2 TAB PO (20:38)
--- NOTE | 2023-11-14 20:45 | PC.NURSE ---
This signwriter assumed care of this Pt at 1900. Pt A&Ox3, reports tolerable epigastric pain, states effectiveness to pain meds given by previous RN. Pt medicated per JAN. Pt ambulated independently to with steady gait.
[2023-11-14] MEDS: Morphine Sulfate 4 MG/ML CARTRIDGE 2 MG IVPUSH (22:21)
--- NOTE | 2023-11-14 22:54 | P.CONGS_ITS ---
History of Present Illness Consult details Consult date: 11/14/23 Reason for consult: gallstones Requesting physician: Jorge Bear Narrative: 88 YEAR old male with past hx of prostate cancer treated with meds not having previous surgery or aware had gallstones. had 2-3 day history of abdominal pain with some nausea and vomiting. Pt thought he was looking a little yellow - saw pt pcp and had labs whcih showed elevated lipase 1395 and pt sent to the ER. Here lfts elevated tbili 3 and lipase improved 281 but u/s and ct scan worisome for dilated cbd and stone in cbd. Pt has elevated wbc today 26 but looks good vitals fine afebrile. on iv antibx -zosyn. Pt seen by GI and plan for ERCP tomorrow. Review of Systems 2 Review of Systems: Yes all other systems are reviewed and are negative [facility]MERLY [facility], [facility]1983 Social History Social History Smoked in Last 30 Days: No Use of substances other than those prescribed or required for medical reasons: No Advance Directives: Yes Advance Directives Information Provided: Yes Advance Directives on File: No Meds Allergies Allergy/AdvReac Type Severity Reaction Status Date / Time No Known Allergies Allergy Verified 11/14/23 10:31 Active Medications: Current Medications Al Hydroxide/Mg Hydroxide (Magnesium Hydrox/Alum Hydrox 30 Ml Oral.Susp) 30 ml PO Q4H PRN PRN Reason: Heartburn/Nausea Ascorbic Acid (Ascorbic Acid 500 Mg Tablet) 500 mg PO DAILY [facility] Calcium Carbonate (Calcium Carbonate 500 Mg Tablet) 500 mg PO DAILY [facility] Gabapentin (Gabapentin 300 Mg Capsule) 300 mg PO BEDTIME [facility] Last Admin: 11/14/23 20:38 Dose: 300 mg Lactated Ringer's (Lr) 1,000 mls @ 125 mls/hr IVCONT .Q8H [facility] Last Admin: 11/14/23 22:24 Dose: 125 mls/hr Piperacillin Sod/Tazobactam (Sod 3.375 gm/ Sodium Chloride) 50 mls @ 100 mls/hr IV Q6H [facility] Last Infusion: 11/14/23 19:00 Dose: Infused Lisinopril (Lisinopril 5 Mg Tablet) 5 mg PO DAILY [facility]; Protocol Magnesium Hydroxide (Milk Of Magnesia 30 Ml Oral.Susp) 30 ml PO DAILY PRN PRN Reason: Constipation Magnesium Oxide (Magnesium Oxide 400 Mg Tablet) 400 mg PO DAILY [facility] Melatonin (Melatonin 3 Mg Tablet) 6 mg PO BEDTIME PRN PRN Reason: Insomnia Morphine Sulfate (Morphine Sulfate 4 Mg/Ml Cartridge) 2 mg IVPUSH Q4H PRN; Protocol PRN Reason: Pain, Severe (Pain Scale 7-10) Last Admin: 11/14/23 22:21 Dose: 2 mg Multivitamins/Vitamin C (Multivitamin Tablet) 2 tab PO BID [facility] Last Admin: 11/14/23 20:38 Dose: 2 tab Omeprazole (Omeprazole 20 Mg Capsule.Dr) 20 mg PO DAILY@0630 [facility] Ondansetron HCl (Ondansetron Hcl 4 Mg/2 Ml Vial) 4 mg IVPUSH Q8H PRN PRN Reason: Nausea and Vomiting Sodium Chloride (0.9 % Sodium Chloride Flush 3 Ml Syringe) 3 ml IVFLUSH QSHIFT [facility] Vitamin D (Cholecalciferol (Vitamin D3) 25 Mcg Tablet) 125 mcg PO DAILY [facility] Home Medications Medication Instructions Recorded Confirmed Last Taken Type ascorbic acid (vitamin C) 500 mg 500 mg PO DAILY 11/14/23 11/14/23 11/14/23 History tablet (Vitamin C) aspirin 81 mg chewable tablet 81 mg PO DAILY 11/14/23 11/14/23 11/14/23 History calcium citrate 500 mg (2,376 mg) 500 mg PO DAILY 11/14/23 11/14/23 11/14/23 History effervescent tablet cholecalciferol (vitamin D3) 125 125 mcg PO DAILY 11/14/23 11/14/23 11/14/23 History mcg (5,000 unit) tablet gabapentin 300 mg capsule 300 mg PO BEDTIME 11/14/23 11/14/23 11/13/23 History lisinopril 5 mg tablet 5 mg PO DAILY 11/14/23 11/14/23 11/14/23 History magnesium 500 mg tablet 500 mg PO DAILY 11/14/23 11/14/23 11/14/23 History omeprazole 20 mg capsule,delayed 20 mg PO DAILY 11/14/23 11/14/23 11/14/23 History release ofsocqc-miaj-nkmgp-oreg-capryl 1 cap PO DAILY 11/14/23 11/14/23 11/14/23 History vitamins A,C,W-krjg-oukklm 2,148 2 tab PO BID 11/14/23 11/14/2324 History mcg-113 mg-45 mg-17.4 mg tablet (PreserVision AREDS) Physical Exam 2 Vital Signs: Vital Signs: Last Vital Signs Temp 100.7 F H 11/14/23 20:39 Pulse 95 11/14/23 20:39 Resp 17 11/14/23 20:39 BP 152/79 H 11/14/23 20:39 Pulse Ox 95 11/14/23 20:39 O2 Del Method Nasal Cannula 11/14/23 20:39 O2 Flow Rate 2 11/14/23 20:39 BMI result Body Mass Index 25.1 Const: General: cooperative, healthy appearing, comfortable and no acute distress Orientation/consciousness: patient oriented x3 HEENT: Other: sclera mild icterus Resp: Effort & Inspection: normal respiratory effort Auscultation: clear to auscultation bilaterally Cardio: Rate: regular rate Rhythm: regular rhythm GI: Other: abdomen soft, rotund mildly distended tympanitic active bowel sounds some mild tenderness diffusely Skin: Other: slightly jaundiced Neuro: General: patient oriented x3, moves all extremities and CN's II-XI intact bilaterally Psych: Appearance: grossly normal Mental Status: mental status grossly normal Speech and movement: Normal speech and movement present Results Labs 11/14/23 10:42 11/14/23 10:42 Labs: Abnormal lab results 11/14/23 11/14/23 Range/Units 10:42 18:06 WBC 26.0 H (4.8-10.8) X10*3/uL Hgb 13.6 L (14.0-18.0) g/dl Immature Gran % (Auto) 0.7 H (0.0-0.4) % Neut % (Auto) 90.7 H (45-73) % Lymph % (Auto) 3.1 L (20-40) % Lymph # (Auto) 0.8 L (1.2-4.9) X10*3/uL [place] # (Auto) 1.4 H (0.1-1.2) X10*3/uL Abs Immat Gran (auto) 0.17 H (0.00-0.03) X10*3/uL Absolute Neuts (auto) 23.6 H (2.0-8.3) x10*3/uL PT 13.4 H (11.1-13.3) SEC Carbon Dioxide 30 H (22-29) mmol/L BUN 29 H (9-16) mg/dL Creatinine 1.76 H (0.5-1.4) mg/dL Random Glucose 162 H (60-115) mg/dL Total Bilirubin 3.7 H 2.7 H (0.0-1.0) mg/dL Direct Bilirubin 2.3 H 1.6 H (0.0-0.5) mg/dL AST 458 H 262 H (5-37) U/L ALT 536 H 381 H (0-40) U/L Alkaline Phosphatase 128 H (39-117) U/L Total Protein 6.3 L (6.5-8.0) g/dL Albumin 3.4 L (3.5-5.0) g/dL Lipase 281 H (8-78) U/L Short CBC 11/14/23 Range/Units 10:42 WBC 26.0 H (4.8-10.8) X10*3/uL Hgb 13.6 L (14.0-18.0) g/dl Hct 42.4 (42.0-52.0) % Plt Count 260 (160-400) X10*3/uL BMP 11/14/23 10:42 Sodium 141 Potassium 4.4 Chloride 102 Carbon Dioxide 30 H BUN 29 H Creatinine 1.76 H Calcium 9.8 Liver Function 11/14/23 11/14/23 Range/Units 10:42 18:06 Total Bilirubin 3.7 H 2.7 H (0.0-1.0) mg/dL Direct Bilirubin 2.3 H 1.6 H (0.0-0.5) mg/dL AST 458 H 262 H (5-37) U/L ALT 536 H 381 H (0-40) U/L Alkaline Phosphatase 128 H 110 (39-117) U/L Albumin 4.2 3.4 L (3.5-5.0) g/dL All other labs normal. Imaging Abdomen CT scan report/results: report reviewed and image reviewed CT scan - pelvis: report reviewed and image reviewed Assessment and Plan (1) Gallstone pancreatitis: Status: Acute Plan 88 year old male with gallstone pancreatitis and elevated wbc 26 but generally benign abdo - ct and us showing cbd stone - for ERCP tomorrow with GI- will plan on doing lap romel on him after duct is cleared and pancreatitis resolved. Pt and family agree with plan. Will follow along Procedures Date of Service Date of Service: 11/14/23
[2023-11-14] MEDS: 0.9 % Sodium Chloride Flush 3 ML SYRINGE IVFLUSH (23:01)
[2023-11-15] VITALS (13 sets, daily range): BP systolic 131–160; BP diastolic 62–76; PULSE 72–87; RESP 14–20; TEMP 36.2–37.5; O2SAT 93–97
--- NOTE | 2023-11-15 04:55 | PC.NURSE ---
Pt awake, up independently using urinal at bedside.
[2023-11-15] MEDS: Piperacillin Sodium/Tazobactam 3.375 GM in 0.9 % Sodium Chloride 50 ML IV ×4 (05:00→22:39)
[2023-11-15] MEDS: Omeprazole 20 MG CAPSULE.DR PO (06:28)
[2023-11-15] MEDS: Lactated Ringers 1,000 ML 125 ML IVCONT ×2 (06:29→18:28)
--- NOTE | 2023-11-15 06:31 | PM.PNGS ---
Subjective Subjective Date of Service: 11/15/23 Interval history: Patient bordered in ER last evening. Modest improvement of his abdominal symptoms. LFTs and lipase improved this a.m.. Physical Exam Vital Signs: Vital Signs: Last Vital Signs Temp 99.5 F 11/15/23 05:02 Pulse 87 11/15/23 05:02 Resp 14 11/15/23 05:02 BP 136/76 11/15/23 05:02 Pulse Ox 94 11/15/23 05:02 O2 Del Method Nasal Cannula 11/15/23 05:02 O2 Flow Rate 1 11/15/23 05:02 BMI result Body Mass Index 25.1 GI: Other: corpulent, distended abdomen. Mild epigastric tenderness . No evidence of any guarding, rebound, or rigidity. Objective Data Active Medications Al Hydroxide/Mg Hydroxide (Magnesium Hydrox/Alum Hydrox 30 Ml Oral.Susp) 30 ml PO Q4H PRN PRN Reason: Heartburn/Nausea Ascorbic Acid (Ascorbic Acid 500 Mg Tablet) 500 mg PO DAILY [facility] Calcium Carbonate (Calcium Carbonate 500 Mg Tablet) 500 mg PO DAILY [facility] Gabapentin (Gabapentin 300 Mg Capsule) 300 mg PO BEDTIME [facility] Last Admin: 11/14/23 20:38 Dose: 300 mg Documented By: DARIA Lactated Ringer's (Lr) 1,000 mls @ 125 mls/hr IVCONT .Q8H [facility] Last Admin: 11/15/23 06:29 Dose: 125 mls/hr Documented By: DARIA Piperacillin Sod/Tazobactam (Sod 3.375 gm/ Sodium Chloride) 50 mls @ 100 mls/hr IV Q6H [facility] Last Infusion: 11/15/23 06:28 Dose: Infused Documented By: DARIA Lisinopril (Lisinopril 5 Mg Tablet) 5 mg PO DAILY [facility]; Protocol Magnesium Hydroxide (Milk Of Magnesia 30 Ml Oral.Susp) 30 ml PO DAILY PRN PRN Reason: Constipation Magnesium Oxide (Magnesium Oxide 400 Mg Tablet) 400 mg PO DAILY [facility] Melatonin (Melatonin 3 Mg Tablet) 6 mg PO BEDTIME PRN PRN Reason: Insomnia Morphine Sulfate (Morphine Sulfate 4 Mg/Ml Cartridge) 2 mg IVPUSH Q4H PRN; Protocol PRN Reason: Pain, Severe (Pain Scale 7-10) Last Admin: 11/14/23 22:21 Dose: 2 mg Documented By: DARIA Multivitamins/Vitamin C (Multivitamin Tablet) 2 tab PO BID [facility] Last Admin: 11/14/23 20:38 Dose: 2 tab Documented By: DARIA Omeprazole (Omeprazole 20 Mg Capsule.Dr) 20 mg PO DAILY@0630 [facility] Last Admin: 11/15/23 06:28 Dose: 20 mg Documented By: DARIA Ondansetron HCl (Ondansetron Hcl 4 Mg/2 Ml Vial) 4 mg IVPUSH Q8H PRN PRN Reason: Nausea and Vomiting Sodium Chloride (0.9 % Sodium Chloride Flush 3 Ml Syringe) 3 ml IVFLUSH QSHIFT [facility] Last Admin: 11/14/23 23:01 Dose: 3 ml Documented By: DARIA Vitamin D (Cholecalciferol (Vitamin D3) 25 Mcg Tablet) 125 mcg PO DAILY [facility] Labs 11/15/23 06:17 11/15/23 06:17 Labs: Laboratory Results - last 24 hr 11/14/23 11/14/23 11/14/23 10:42 13:22 18:06 MCV 90.8 MCH 29.1 MCHC 32.1 RDW 13.4 Plt Count 260 MPV 9.7 Immature Gran % (Auto) 0.7 H Neut % (Auto) 90.7 H Lymph % (Auto) 3.1 L [place] % (Auto) 5.3 Eos % (Auto) 0.0 Baso % (Auto) 0.2 Lymph # (Auto) 0.8 L [place] # (Auto) 1.4 H Eos # (Auto) 0.0 Baso # (Auto) 0.0 Abs Immat Gran (auto) 0.17 H Absolute Neuts (auto) 23.6 H Absolute Nucleated RBC 0.000 Nucleated RBC % (auto) 0.0 Smear Tech's Comments VERIFIED PT 13.4 H INR 1.1 Anion Gap 13 Estim Creat Clear Calc 31.1 Estimated GFR 37 Random Glucose 162 H Lactic Acid 1.8 Calcium 9.8 Total Bilirubin 3.7 H 2.7 H Direct Bilirubin 2.3 H 1.6 H AST 458 H 262 H ALT 536 H 381 H Alkaline Phosphatase 128 H 110 Total Protein 7.7 6.3 L Albumin 4.2 3.4 L Lipase 281 H COVID-19 (ILEANA) Negative COVID-19 Clin Com See Note Procedures Date of Service Date of Service: 11/15/23 Progress Note: A&P Assessment and plan (1) Gallstone pancreatitis: Status: Acute Plan Patient scheduled for ERCP today. Will tentatively schedule lap cholecystectomy for tomorrow /11-16 Risks, benefits, alternatives of laparoscopic cholecystectomy possible open with cholangiogram reviewed the patient and included but not limited to bleeding, infection, recurrence of symptoms, numbness, pain, scarring, pancreatitis, bowel or bile duct injury and the patient wished to proceed. All questions answered. Time Spent With Patient Time: Total time managing care of this patient today ____ minutes. Quality Stroke Does the patient have a stroke diagnosis?: No VTE Prior VTE?: No VTE Risk Level:: Medical - moderate - high VTE Device Contraindication: Treatment Not Indicated VTE Drug Contraindication: N/A - Med Ordered
[2023-11-15 06:44] LABS: Hematocrit 35.5 % (42.0-52.0); Hemoglobin 11.1 g/dl (14.0-18.0); Mean Corpuscular HGB Conc 31.3 g/dl (31.0-36.0); Mean Corpuscular Volume 92.7 fL (80.0-98.0); Platelet Count 168 X10*3/uL (160-400); Red Blood Count 3.83 X10*6/uL (4.60-5.80); Red Cell Distribution Width 13.6 % (11.0-16.0); White Blood Count 26.1 X10*3/uL (4.8-10.8)
[2023-11-15 06:57] LABS: INTERNATIONAL NORM RATIO 1.2 (0.9-1.1); Prothrombin Time 14.8 SEC (11.1-13.3)
[2023-11-15 07:11] LABS: Anion Gap 15 (12-20); Blood Urea Nitrogen 26 mg/dL (9-16); Calcium 8.7 mg/dL (8.4-10.2); Carbon Dioxide 25 mmol/L (22-29); Chloride 106 mmol/L (96-108); Creatinine Clr Calc Pharmacy 40.5; Estimated Glomerular Filt Rate 50; Glucose Random 104 mg/dL (60-115); Potassium 4.3 mmol/L (3.3-5.1); Sodium 142 mmol/L (135-145)
[2023-11-15] MEDS: Cholecalciferol (Vitamin D3) 25 MCG TABLET 125 MCG PO (08:58)
[2023-11-15] MEDS: 0.9 % Sodium Chloride Flush 3 ML SYRINGE IVFLUSH ×2 (08:58→22:40)
[2023-11-15] MEDS: Magnesium Oxide 400 MG TABLET PO (08:59)
[2023-11-15] MEDS: lisinopriL 5 MG TABLET PO (08:59)
[2023-11-15] MEDS: Ascorbic Acid 500 MG TABLET PO (08:59)
[2023-11-15] MEDS: Multivitamin TABLET 2 TAB PO ×2 (08:59→21:07)
--- NOTE | 2023-11-15 09:04 | PC.NURSE ---
this RN resumed care of pt at this time. medication administered per provider order. pt verbalizing abd pain is a 3/10 at this time. denies feeling nauseous. no episodes of vomiting. pt remains NPO aside from slight water intake when taking medication. no sob/wob noted. respirations even and unlabored. call moctezuma placed within reach.
--- NOTE | 2023-11-15 09:16 | MHC.CM.PN ---
PT REPORTS HE LIVES AT HOME WITH HIS AND IS INDEPENDENT WITH CARE HE HAS NO DME AND NO SERVICES PT REPORTS HE HAS A HCP COMPLETED AT HOME, COPY REQUESTED PCP: SUSHMA SALEEM IMM DELIVERED DCP: HOME NO SERVICES VIA FAMILY TRANSPORT
--- NOTE | 2023-11-15 09:25 | PC.NURSE ---
pt speaking w/ admitting provider at this time. pt aware of plan of care at this time.
--- NOTE | 2023-11-15 09:51 | HO.PM.IMPN ---
Subjective Subjective Date of Service: 11/15/23 Interval History: pain under control, NPO for ERCP Review of Systems Review of Systems: Yes all other systems are reviewed and are negative Physical Exam Vital Signs: Vital Signs: Last Vital Signs Temp 99.5 F 11/15/23 05:02 Pulse 87 11/15/23 05:02 Resp 14 11/15/23 05:02 BP 136/76 11/15/23 05:02 Pulse Ox 94 11/15/23 05:02 O2 Del Method Nasal Cannula 11/15/23 05:02 O2 Flow Rate 1 11/15/23 05:02 BMI result Body Mass Index 25.1 Gen: in no acute distress HEENT: sclera anicteric, moist mucus membranes Neck: supple Lungs: clear to auscultation bilaterally Heart: regular rate and rhythm, no murmurs Abd: soft, minimal RUQ tenderness, non-distended Ext: no edema Skin: warm/well-perfused Neuro: alert and oriented x3, no focal findings Psych: appropriate affect Objective Data Active Medications Al Hydroxide/Mg Hydroxide (Magnesium Hydrox/Alum Hydrox 30 Ml Oral.Susp) 30 ml PO Q4H PRN PRN Reason: Heartburn/Nausea Ascorbic Acid (Ascorbic Acid 500 Mg Tablet) 500 mg PO DAILY [facility] Last Admin: 11/15/23 08:59 Dose: 500 mg Documented By: LESLEY Calcium Carbonate (Calcium Carbonate 500 Mg Tablet) 500 mg PO DAILY [facility] Last Admin: 11/15/23 08:59 Dose: 500 mg Documented By: LESLEY Gabapentin (Gabapentin 300 Mg Capsule) 300 mg PO BEDTIME [facility] Last Admin: 11/14/23 20:38 Dose: 300 mg Documented By: DARIA Lactated Ringer's (Lr) 1,000 mls @ 125 mls/hr IVCONT .Q8H [facility] Last Admin: 11/15/23 06:29 Dose: 125 mls/hr Documented By: DARIA Piperacillin Sod/Tazobactam (Sod 3.375 gm/ Sodium Chloride) 50 mls @ 100 mls/hr IV Q6H [facility] Last Infusion: 11/15/23 06:28 Dose: Infused Documented By: DARIA Lisinopril (Lisinopril 5 Mg Tablet) 5 mg PO DAILY [facility]; Protocol Last Admin: 11/15/23 08:59 Dose: 5 mg Documented By: LESLEY Magnesium Hydroxide (Milk Of Magnesia 30 Ml Oral.Susp) 30 ml PO DAILY PRN PRN Reason: Constipation Magnesium Oxide (Magnesium Oxide 400 Mg Tablet) 400 mg PO DAILY [facility] Last Admin: 11/15/23 08:59 Dose: 400 mg Documented By: LESLEY Melatonin (Melatonin 3 Mg Tablet) 6 mg PO BEDTIME PRN PRN Reason: Insomnia Morphine Sulfate (Morphine Sulfate 4 Mg/Ml Cartridge) 2 mg IVPUSH Q4H PRN; Protocol PRN Reason: Pain, Severe (Pain Scale 7-10) Last Admin: 11/14/23 22:21 Dose: 2 mg Documented By: DARIA Multivitamins/Vitamin C (Multivitamin Tablet) 2 tab PO BID [facility] Last Admin: 11/15/23 08:59 Dose: 2 tab Documented By: LESLEY Omeprazole (Omeprazole 20 Mg Capsule.Dr) 20 mg PO DAILY@0630 [facility] Last Admin: 11/15/23 06:28 Dose: 20 mg Documented By: DARIA Ondansetron HCl (Ondansetron Hcl 4 Mg/2 Ml Vial) 4 mg IVPUSH Q8H PRN PRN Reason: Nausea and Vomiting Sodium Chloride (0.9 % Sodium Chloride Flush 3 Ml Syringe) 3 ml IVFLUSH QSHIFT [facility] Last Admin: 11/15/23 08:58 Dose: 3 ml Documented By: LESLEY Vitamin D (Cholecalciferol (Vitamin D3) 25 Mcg Tablet) 125 mcg PO DAILY [facility] Last Admin: 11/15/23 08:58 Dose: 125 mcg Documented By: LESLEY Labs 11/15/23 06:17 11/15/23 06:17 Labs: Laboratory Results - last 24 hr 11/14/23 11/14/23 11/14/23 10:42 13:22 18:06 MCV 90.8 MCH 29.1 MCHC 32.1 RDW 13.4 Plt Count 260 MPV 9.7 Immature Gran % (Auto) 0.7 H Neut % (Auto) 90.7 H Lymph % (Auto) 3.1 L [place] % (Auto) 5.3 Eos % (Auto) 0.0 Baso % (Auto) 0.2 Lymph # (Auto) 0.8 L [place] # (Auto) 1.4 H Eos # (Auto) 0.0 Baso # (Auto) 0.0 Abs Immat Gran (auto) 0.17 H Absolute Neuts (auto) 23.6 H Absolute Nucleated RBC 0.000 Nucleated RBC % (auto) 0.0 Smear Tech's Comments VERIFIED PT 13.4 H INR 1.1 Anion Gap 13 Estim Creat Clear Calc 31.1 Estimated GFR 37 Random Glucose 162 H Lactic Acid 1.8 Calcium 9.8 Total Bilirubin 3.7 H 2.7 H Direct Bilirubin 2.3 H 1.6 H AST 458 H 262 H ALT 536 H 381 H Alkaline Phosphatase 128 H 110 Total Protein 7.7 6.3 L Albumin 4.2 3.4 L Lipase 281 H COVID-19 (ILEANA) Negative COVID-19 Clin Com See Note 11/15/23 06:17 MCV 92.7 MCH 29.0 MCHC 31.3 RDW 13.6 Plt Count 168 D MPV 10.0 Immature Gran % (Auto) Neut % (Auto) Lymph % (Auto) [place] % (Auto) Eos % (Auto) Baso % (Auto) Lymph # (Auto) [place] # (Auto) Eos # (Auto) Baso # (Auto) Abs Immat Gran (auto) Absolute Neuts (auto) Absolute Nucleated RBC 0.000 Nucleated RBC % (auto) 0.0 Smear Tech's Comments PT 14.8 H INR 1.2 H Anion Gap 15 Estim Creat Clear Calc 40.5 Estimated GFR 50 Random Glucose 104 Lactic Acid Calcium 8.7 D Total Bilirubin Direct Bilirubin AST ALT Alkaline Phosphatase Total Protein Albumin Lipase COVID-19 (ILEANA) COVID-19 Clin Com Assessment and Plan (1) Gallstone pancreatitis: Status: Acute Plan d2 88yo M with hx prostate CA on leuprolide, HTN admitted for gallstone pancreatitis gallstone pancreatitis - GI consulted, ERCP today - Gen Surg consulted, lap romel tomorrow - continue pip-martine 11/14- EVELIO/CKD3 - continue IV LR, Cr back to baseline, hold lisinopril HTN - hold lisinopril VTE ppx - SCDs dispo - eventual home In my clinical judgment, the patient requires continued inpatient hospitalization for the following reasons: operative management, IV ABX Total time managing care of this patient today: 35 minutes. Quality Stroke Does the patient have a stroke diagnosis?: No VTE Prior VTE?: No VTE Risk Level:: Medical - moderate - high VTE Device Contraindication: Treatment Not Indicated VTE Drug Contraindication: N/A - Med Ordered
--- NOTE | 2023-11-15 11:12 | PC.NURSE ---
report given to RN in short stay.
--- NOTE | 2023-11-15 11:20 | PC.NURSE ---
pt to short stay at this time.
--- NOTE | 2023-11-15 11:59 | PC.NURSE ---
Patient arrived to preop. Two PRN angios present, #20 L AC and #20 R AC. Both sites flushed well, asymptomatic. Left site dressing changed due to dried blood around site.
--- NOTE | 2023-11-15 13:23 | P.CONAN_ITS ---
[facility] Active Problems Active Problems: All Active Problems (Updated 11/15/23 @ 12:46 by Estela Ocasio) HTN (hypertension) (Acute) Gallstone pancreatitis (Acute) Past Medical History Medical History Prostate cancer Urinary frequency Surgical History Surgical History History of back surgery History of Problems with Anesthesia: No Social History Social History Patient Tobacco Use Status: Never used Tobacco Advance Directives Date on File: 11/15/23 service: Yes Meds Allergies Allergy/AdvReac Type Severity Reaction Status Date / Time No Known Allergies Allergy Verified 11/15/23 11:39 Active Medications: Current Medications Al Hydroxide/Mg Hydroxide (Magnesium Hydrox/Alum Hydrox 30 Ml Oral.Susp) 30 ml PO Q4H PRN PRN Reason: Heartburn/Nausea Ascorbic Acid (Ascorbic Acid 500 Mg Tablet) 500 mg PO DAILY [facility] Last Admin: 11/15/23 08:59 Dose: 500 mg Calcium Carbonate (Calcium Carbonate 500 Mg Tablet) 500 mg PO DAILY [facility] Last Admin: 11/15/23 08:59 Dose: 500 mg Gabapentin (Gabapentin 300 Mg Capsule) 300 mg PO BEDTIME [facility] Last Admin: 11/14/23 20:38 Dose: 300 mg Lactated Ringer's (Lr) 1,000 mls @ 125 mls/hr IVCONT .Q8H [facility] Last Admin: 11/15/23 06:29 Dose: 125 mls/hr Piperacillin Sod/Tazobactam (Sod 3.375 gm/ Sodium Chloride) 50 mls @ 100 mls/hr IV Q6H [facility] Last Admin: 11/15/23 12:39 Dose: 100 mls/hr Lisinopril (Lisinopril 5 Mg Tablet) 5 mg PO DAILY [facility]; Protocol Last Admin: 11/15/23 08:59 Dose: 5 mg Magnesium Hydroxide (Milk Of Magnesia 30 Ml Oral.Susp) 30 ml PO DAILY PRN PRN Reason: Constipation Magnesium Oxide (Magnesium Oxide 400 Mg Tablet) 400 mg PO DAILY [facility] Last Admin: 11/15/23 08:59 Dose: 400 mg Melatonin (Melatonin 3 Mg Tablet) 6 mg PO BEDTIME PRN PRN Reason: Insomnia Morphine Sulfate (Morphine Sulfate 4 Mg/Ml Cartridge) 2 mg IVPUSH Q4H PRN; Protocol PRN Reason: Pain, Severe (Pain Scale 7-10) Last Admin: 11/14/23 22:21 Dose: 2 mg Multivitamins/Vitamin C (Multivitamin Tablet) 2 tab PO BID [facility] Last Admin: 11/15/23 08:59 Dose: 2 tab Omeprazole (Omeprazole 20 Mg Capsule.Dr) 20 mg PO DAILY@0630 [facility] Last Admin: 11/15/23 06:28 Dose: 20 mg Ondansetron HCl (Ondansetron Hcl 4 Mg/2 Ml Vial) 4 mg IVPUSH Q8H PRN PRN Reason: Nausea and Vomiting Sodium Chloride (0.9 % Sodium Chloride Flush 3 Ml Syringe) 3 ml IVFLUSH QSHIFT [facility] Last Admin: 11/15/23 08:58 Dose: 3 ml Vitamin D (Cholecalciferol (Vitamin D3) 25 Mcg Tablet) 125 mcg PO DAILY [facility] Last Admin: 11/15/23 08:58 Dose: 125 mcg Home Medications Medication Instructions Recorded Confirmed Last Taken Type ascorbic acid (vitamin C) 500 mg 500 mg PO DAILY 11/14/23 11/14/23 11/14/23 History tablet (Vitamin C) aspirin 81 mg chewable tablet 81 mg PO DAILY 11/14/23 11/15/23 11/12/23 History calcium citrate 500 mg (2,376 mg) 500 mg PO DAILY 11/14/23 11/14/23 11/14/23 History effervescent tablet cholecalciferol (vitamin D3) 125 125 mcg PO DAILY 11/14/23 11/14/23 11/14/23 History mcg (5,000 unit) tablet gabapentin 300 mg capsule 300 mg PO BEDTIME 11/14/23 11/14/23 11/13/23 History lisinopril 5 mg tablet 5 mg PO DAILY 11/14/23 11/14/23 11/14/23 History magnesium 500 mg tablet 500 mg PO DAILY 11/14/23 11/14/23 11/14/23 History omeprazole 20 mg capsule,delayed 20 mg PO DAILY 11/14/23 11/14/23 11/14/23 History release cymqftf-seuc-hkcif-oreg-capryl 1 cap PO DAILY 11/14/23 11/14/23 11/14/23 History vitamins A,C,U-ekor-dglwum 2,148 2 tab PO BID 11/14/23 11/14/23 11/14/23 History mcg-113 mg-45 mg-17.4 mg tablet ([facility]erVision AREDS) Exam Height,Weight and Vital Signs: Height 5 ft 10 in Weight 79.379 kg Last Vital Signs Temp 99.2 F 11/15/23 11:41 Pulse 79 11/15/23 11:41 Resp 16 11/15/23 11:41 BP 154/71 H 11/15/23 11:41 Pulse Ox 94 11/15/23 11:41 O2 Del Method Room Air 11/15/23 11:41 O2 Flow Rate 1 11/15/23 05:02 Pertinent Lab Results Pertinent Lab Results: Laboratory Tests 11/14/23 11/14/23 11/14/23 10:42 13:22 18:06 WBC 26.0 H RBC 4.67 Hgb 13.6 L Hct 42.4 MCV 90.8 MCH 29.1 MCHC 32.1 RDW 13.4 Plt Count 260 MPV 9.7 Immature Gran % (Auto) 0.7 H Neut % (Auto) 90.7 H Lymph % (Auto) 3.1 L [place] % (Auto) 5.3 Eos % (Auto) 0.0 Baso % (Auto) 0.2 Lymph # (Auto) 0.8 L [place] # (Auto) 1.4 H Eos # (Auto) 0.0 Baso # (Auto) 0.0 Abs Immat Gran (auto) 0.17 H Absolute Neuts (auto) 23.6 H Absolute Nucleated RBC 0.000 Nucleated RBC % (auto) 0.0 Smear Tech's Comments VERIFIED PT 13.4 H INR 1.1 Sodium 141 Potassium 4.4 Chloride 102 Carbon Dioxide 30 H Anion Gap 13 BUN 29 H Creatinine 1.76 H Estim Creat Clear Calc 31.1 Estimated GFR 37 Random Glucose 162 H Lactic Acid 1.8 Calcium 9.8 Total Bilirubin 3.7 H 2.7 H Direct Bilirubin 2.3 H 1.6 H AST 458 H 262 H ALT 536 H 381 H Alkaline Phosphatase 128 H 110 Total Protein 7.7 6.3 L Albumin 4.2 3.4 L Lipase 281 H COVID-19 (ILEANA) Negative COVID-19 Clin Com See Note 11/15/23 06:17 WBC 26.1 H RBC 3.83 L Hgb 11.1 L Hct 35.5 L MCV 92.7 MCH 29.0 MCHC 31.3 RDW 13.6 Plt Count 168 D MPV 10.0 Immature Gran % (Auto) Neut % (Auto) Lymph % (Auto) [place] % (Auto) Eos % (Auto) Baso % (Auto) Lymph # (Auto) [place] # (Auto) Eos # (Auto) Baso # (Auto) Abs Immat Gran (auto) Absolute Neuts (auto) Absolute Nucleated RBC 0.000 Nucleated RBC % (auto) 0.0 Smear Tech's Comments PT 14.8 H INR 1.2 H Sodium 142 Potassium 4.3 Chloride 106 Carbon Dioxide 25 Anion Gap 15 BUN 26 H Creatinine 1.35 Estim Creat Clear Calc 40.5 Estimated GFR 50 Random Glucose 104 Lactic Acid Calcium 8.7 D Total Bilirubin Direct Bilirubin AST ALT Alkaline Phosphatase Total Protein Albumin Lipase COVID-19 (ILEANA) COVID-19 Clin Com Airway Mallampati Class: III TM Dist: >3cm Neck ROM: Limited Partial: Upper and Lower Loose/Missing/Broken Teeth: Yes, Upper and Lower Heart: RRR Lungs: CTA Assessment and Plan Assessment Anesthesia Assessment: Anesthesia Plan Discussed and Chart Reviewed Final Anesthetic Review History of Problems with Anesthesia: No NPO: Yes ASA Class: III Final Preanesthetic Review: Meds/Allgs Chart Reviewed, Consent Obtained/Reviewed and Anes Risks/Benef Reviewed Patient Risk: Intermediate Procedure Risk: Intermediate Anesthetic Plan Anesthetic Plan: GA Disposition: Standard PACU
--- NOTE | 2023-11-15 13:49 | PC.NURSE ---
[facility] floor order hung in preop by this RN. Jonel Pulido, Director.
--- NOTE | 2023-11-15 13:50 | PC.NURSE ---
Patient in preop. SaO2 88-92% on room air. No SOB, lung sounds clear throughout. O2 placed on patient via NC, SaO2 96%. Patient does not need oxygen at home however has worn it intermittently since here at [facility] [place]. Dr. Ambrose at bedside and made aware. No new orders at this time.
--- NOTE | 2023-11-15 16:38 | W.PM.OPN ---
Operative Note Operative Note Date of Service: 11/15/23 Narrative: Preoperative diagnosis: [] History of gallstone pancreatitis, chronic biliary symptoms, incidental finding of incarcerated umbilical hernia Postop diagnosis: [] Same, phlegmonous necrotic gallbladder with dense omental and transverse colonic adhesions. Procedure [] laparoscopic converted open cholecystectomy, primary repair of incarcerated umbilical hernia Surgeon: [] Phillip [employer] And Nurs[employer] Specialist: [] Edis Type of Anesthesia: [] General Indication for surgery: [] Patient had dense and profound adhesions of transverse colon and omentum to the gallbladder. The gallbladder was necrotic and had multiple small gallstones. Because of indistinct anatomy secondary to marked inflammation and cicatrization of the hilum, conversion from laparoscopic to open cholecystectomy was performed. Because of total obliteration of normal anatomy, no cholangiogram could be undertaken. Patient had incidental finding of incarcerated umbilical hernia measuring approximately 2 cm with incarcerated omental contents. This was served as the umbilical port site for the initial laparoscopic procedure. Findings: [] Patient brought to the operating room, placed on table supine position, after adequate level of general anesthesia was induced, the patient's abdomen is prepped and draped in usual sterile fashion. A curvilinear supraumbilical incision was made over the umbilical hernia site and carried down through skin, subcutaneous tissue, where hernia sac was dissected from posterior aspect of the umbilicus, dissected down the fascia, and opened. Incarcerated omental contents were amputated from the sac which was amputated as well and sent to pathology. Magana technique was used to insufflate the abdominal cavity to 15 mm of CO2. Upper midline and right subcostal ports were placed under direct laparoscopic view, the patient placed in reverse Trendelenburg position, tilted to the left. Findings were as noted above. Additional attempts at taking down the omentum and transverse colon were limited because of the marked cicatrization and dense adhesions of the structures to the gallbladder. Because of the indistinct and unclear anatomy, conversion to an open procedure was performed. All ports removed under left direct laparoscopic view. Umbilical port has fascia reapproximated using interrupted 0 sutures which also served to repair primarily the incarcerated umbilical hernia. Using a right subcostal incision connecting the upper midline to the medial right subcostal port, this carried down through skin, subcutaneous tissue, anterior fascia, rectus abdominis and posterior fascia and peritoneum. Next, packs and retractors were placed to enhance exposure. Dense omental and transverse colonic adhesions were swept off the gallbladder which was necrotic and literally falling apart. The gallbladder was both digitally and using Bovie dissected from the fundus down toward the hilum. Because of complete loss of anatomy secondary to the marked inflammation and scarring at the gallbladder hilum, the gallbladder was transected at what appeared to be the cystic duct /Igor's pouch junction. Attempts at cholangiogram was undertaken but there was inability to find the passing catheter beyond the infundibulum into the cystic duct . Because of the intense scarring, the hilum was not further encroached because of concern of possibly causing a common bile duct iatrogenic injury. Specimen sent to pathology. Abdominal cavity was copiously irrigated and secured for secured hemostasis. Through the right lateral subcostal port site, a Antoni-Andersen drain exited. This was secured to the skin using 2-0 nylon. This was placed in the gallbladder fossa. Omentum was placed in the right upper quadrant and wound was closed in the following manner; posterior fascia and perineum were closed using running 0 Maxon suture. Anterior fascia was closed using running 0 Maxon suture. Interrupted inverted dermal 3-0 Vicryl sutures followed by Steri-Strips and sterile dressings were applied. Sponge, needle, instrument counts reported correct. Patient tolerated the procedure well emerged anesthesia stable condition. EBL minimal. Incisions were all infiltrated 0.5% Marcaine at completion.
[2023-11-15] MEDS: fentaNYL citrate/PF 100 MCG/2 ML VIAL 25 MCG IVPUSH (17:23)
[2023-11-15] MEDS: Gabapentin 300 MG CAPSULE PO (21:07)
[2023-11-16] MEDS: Lactated Ringers 1,000 ML 125 ML IVCONT ×3 (02:10→18:59)
[2023-11-16 03:17] VITALS: BP 149/78; PULSE 85; RESP 18; TEMP 36.4; O2SAT 93
[2023-11-16] MEDS: Piperacillin Sodium/Tazobactam 3.375 GM in 0.9 % Sodium Chloride 50 ML IV ×4 (04:35→22:59)
[2023-11-16] MEDS: Omeprazole 20 MG CAPSULE.DR PO (06:11)
[2023-11-16 07:15] LABS: Hematocrit 33.2 % (42.0-52.0); Hemoglobin 10.5 g/dl (14.0-18.0); Mean Corpuscular HGB Conc 31.6 g/dl (31.0-36.0); Mean Corpuscular Hemoglobin 29.2 pg (27.0-33.0); Mean Corpuscular Volume 92.2 fL (80.0-98.0); Platelet Count 176 X10*3/uL (160-400); Red Cell Distribution Width 13.5 % (11.0-16.0); White Blood Count 17.3 X10*3/uL (4.8-10.8)
[2023-11-16 07:40] LABS: Alanine Aminotransferase 180 U/L (0-40); Albumin Level 2.9 g/dL (3.5-5.0); Alkaline Phosphatase 80 U/L (39-117); Anion Gap 11 (12-20); Aspartate Amino Transferase 85 U/L (5-37); Bilirubin Total 1.4 mg/dL (0.0-1.0); Blood Urea Nitrogen 26 mg/dL (9-16); Calcium 8.4 mg/dL (8.4-10.2); Carbon Dioxide 28 mmol/L (22-29); Chloride 104 mmol/L (96-108); Creatinine Clr Calc Pharmacy 44.5; Estimated Glomerular Filt Rate 56; Glucose Random 126 mg/dL (60-115); Lipase 34 U/L (8-78); Sodium 139 mmol/L (135-145); Total Protein 5.8 g/dL (6.5-8.0)
[2023-11-16 07:42] VITALS: BP 139/71; PULSE 89; RESP 17; TEMP 36.4
--- NOTE | 2023-11-16 07:43 | PM.PNGS ---
Subjective Subjective Date of Service: 11/16/23 Interval history: Feels ok this morning, some soreness at incision site. Has not been OOB yet. Passing flatus. Physical Exam Vital Signs: Vital Signs: Last Vital Signs Temp 97.5 F 11/16/23 03:17 Pulse 85 11/16/23 03:17 Resp 18 11/16/23 03:17 BP 149/78 H 11/16/23 03:17 Pulse Ox 93 11/16/23 03:17 O2 Del Method Nasal Cannula 11/16/23 03:17 O2 Flow Rate 1.5 11/16/23 03:17 BMI result Body Mass Index 25.1 Const: General: comfortable, no acute distress and alert Orientation/consciousness: patient oriented x3 Resp: Effort & Inspection: normal respiratory effort GI: Other: HARINI drainage scant, serosanguineous Inspection: Yes distended and Yes incision (clean) Palpation (GI): Soft to palpation, Tenderness to palpation present (GI) (mild incisional), no guarding and not rigid Percussion: Yes tympanic to percussion Skin: General skin exam: no rashes or lesions noted and no jaundice Neuro: General: patient oriented x3 and moves all extremities Objective Data Active Medications Al Hydroxide/Mg Hydroxide (Magnesium Hydrox/Alum Hydrox 30 Ml Oral.Susp) 30 ml PO Q4H PRN PRN Reason: Heartburn/Nausea Ascorbic Acid (Ascorbic Acid 500 Mg Tablet) 500 mg PO DAILY [facility] Last Admin: 11/15/23 08:59 Dose: 500 mg Documented By: LESLEY Calcium Carbonate (Calcium Carbonate 500 Mg Tablet) 500 mg PO DAILY [facility] Last Admin: 11/15/23 08:59 Dose: 500 mg Documented By: LESLEY Gabapentin (Gabapentin 300 Mg Capsule) 300 mg PO BEDTIME [facility] Last Admin: 11/15/23 21:07 Dose: 300 mg Documented By: EDILMA Lactated Ringer's (Lr) 1,000 mls @ 125 mls/hr IVCONT .Q8H [facility] Last Admin: 11/16/23 02:10 Dose: 125 mls/hr Documented By: EDILMA Piperacillin Sod/Tazobactam (Sod 3.375 gm/ Sodium Chloride) 50 mls @ 100 mls/hr IV Q6H [facility] Last Infusion: 11/16/23 05:05 Dose: Infused Documented By: EDILMA Lisinopril (Lisinopril 5 Mg Tablet) 5 mg PO DAILY [facility]; Protocol Last Admin: 11/15/23 08:59 Dose: 5 mg Documented By: LESLEY Magnesium Hydroxide (Milk Of Magnesia 30 Ml Oral.Susp) 30 ml PO DAILY PRN PRN Reason: Constipation Magnesium Oxide (Magnesium Oxide 400 Mg Tablet) 400 mg PO DAILY [facility] Last Admin: 11/15/23 08:59 Dose: 400 mg Documented By: LESLEY Melatonin (Melatonin 3 Mg Tablet) 6 mg PO BEDTIME PRN PRN Reason: Insomnia Morphine Sulfate (Morphine Sulfate 4 Mg/Ml Cartridge) 4 mg IVPUSH Q4H PRN; Protocol PRN Reason: Pain, Severe (Pain Scale 7-10) Multivitamins/Vitamin C (Multivitamin Tablet) 2 tab PO BID [facility] Last Admin: 11/15/23 21:07 Dose: 2 tab Documented By: EDILMA Omeprazole (Omeprazole 20 Mg Capsule.Dr) 20 mg PO DAILY@0630 [facility] Last Admin: 11/16/23 06:11 Dose: 20 mg Documented By: EDILMA Ondansetron HCl (Ondansetron Hcl 4 Mg/2 Ml Vial) 4 mg IVPUSH Q8H PRN PRN Reason: Nausea and Vomiting Oxycodone HCl (Oxycodone Hcl Immed Release 5 Mg Tablet) 5 mg PO Q4H PRN PRN Reason: Pain, Moderate(Pain Scale 4-6) Oxycodone HCl (Oxycodone Hcl Immed Release 5 Mg Tablet) 10 mg PO Q4H PRN PRN Reason: Pain, Severe (Pain Scale 7-10) Sodium Chloride (0.9 % Sodium Chloride Flush 3 Ml Syringe) 3 ml IVFLUSH QSHIFT [facility] Last Admin: 11/15/23 22:40 Dose: 3 ml Documented By: EDILMA Vitamin D (Cholecalciferol (Vitamin D3) 25 Mcg Tablet) 125 mcg PO DAILY [facility] Last Admin: 11/15/23 08:58 Dose: 125 mcg Documented By: LESLEY Labs 11/16/23 05:37 11/16/23 05:37 Labs: Laboratory Results - last 24 hr 11/16/23 05:37 MCV 92.2 MCH 29.2 MCHC 31.6 RDW 13.5 Plt Count 176 MPV 11.0 Absolute Nucleated RBC 0.000 Nucleated RBC % (auto) 0.0 Anion Gap 11 L Estim Creat Clear Calc 44.5 Estimated GFR 56 Random Glucose 126 H Calcium 8.4 Total Bilirubin 1.4 H AST 85 H ALT 180 H Alkaline Phosphatase 80 Total Protein 5.8 L Albumin 2.9 L Lipase 34 Microbiology Microbiology Results: Microbiology 11/14/23 13:22 Blood Culture - Preliminary Blood - Venous No growth after 24 hours. 11/14/23 13:22 Blood Culture - Preliminary Blood - Venous No growth after 24 hours. Procedures Date of Service Date of Service: 11/16/23 Progress Note: A&P Assessment and plan (1) Acute gangrenous cholecystitis: Status: Acute (2) Gallstone pancreatitis: Status: Acute Plan POD #1 s/p laparoscopic converted open cholecystectomy, primary repair of incarcerated umbilical hernia for phlegmonous necrotic gallbladder with dense omental and transverse colonic adhesions. He is doing well post op with good pain control. Abd benign with appropriate post op tenderness, clean incision. HARINI output nonbilious. WBC downtrending. LFTs continue to improve suggesting passed stone. Will advance to regular diet, encouraged OOB/ambulation and IS use today. Keep HARINI in place for now. Time Spent With Patient Time: Total time managing care of this patient today ____ minutes. Quality Stroke Does the patient have a stroke diagnosis?: No VTE Prior VTE?: No VTE Risk Level:: Medical - moderate - high VTE Device Contraindication: Treatment Not Indicated VTE Drug Contraindication: N/A - Med Ordered
[2023-11-16] MEDS: Cholecalciferol (Vitamin D3) 25 MCG TABLET 125 MCG PO (08:11)
[2023-11-16] MEDS: Magnesium Oxide 400 MG TABLET PO (08:11)
[2023-11-16] MEDS: Multivitamin TABLET 2 TAB PO ×2 (08:11→21:06)
[2023-11-16] MEDS: Ascorbic Acid 500 MG TABLET PO (08:11)
[2023-11-16] MEDS: oxyCODONE HCl Immed Release 5 MG TABLET PO (08:14)
[2023-11-16] MEDS: guaiFENesin DM 600/30 1 TAB TAB.ER.12H 2 TAB PO ×2 (10:13→21:06)
[2023-11-16] MEDS: Morphine Sulfate 4 MG/ML CARTRIDGE IVPUSH ×3 (10:24→21:07)
[2023-11-16] MEDS: Benzonatate 100 MG CAPSULE 200 MG PO ×3 (10:48→21:06)
--- NOTE | 2023-11-16 11:20 | HO.PM.IMPN ---
Subjective Subjective Date of Service: 11/16/23 Interval History: POD1 open romel pain controlled c/o cough limited PO intake passing gas Review of Systems Review of Systems: Yes all other systems are reviewed and are negative Physical Exam Vital Signs: Vital Signs: Last Vital Signs Temp 97.6 F 11/16/23 07:42 Pulse 89 11/16/23 07:42 Resp 17 11/16/23 07:42 BP 139/71 11/16/23 07:42 Pulse Ox 93 11/16/23 03:17 O2 Del Method Nasal Cannula 11/16/23 03:17 O2 Flow Rate 1.5 11/16/23 03:17 BMI result Body Mass Index 25.1 Gen: in no acute distress HEENT: sclera anicteric, moist mucus membranes Neck: supple Lungs: clear to auscultation bilaterally Heart: regular rate and rhythm, no murmurs Abd: soft, incision with dry dressing, HARINI with serosanguinous drainage, scattered bowel sounds Ext: no edema Skin: warm/well-perfused Neuro: alert and oriented x3, no focal findings Psych: appropriate affect Objective Data Active Medications Al Hydroxide/Mg Hydroxide (Magnesium Hydrox/Alum Hydrox 30 Ml Oral.Susp) 30 ml PO Q4H PRN PRN Reason: Heartburn/Nausea Ascorbic Acid (Ascorbic Acid 500 Mg Tablet) 500 mg PO DAILY [facility] Last Admin: 11/16/23 08:11 Dose: 500 mg Documented By: NISH Benzonatate (Benzonatate 100 Mg Capsule) 200 mg PO TID [facility] Last Admin: 11/16/23 10:48 Dose: 200 mg Documented By: NISH Calcium Carbonate (Calcium Carbonate 500 Mg Tablet) 500 mg PO DAILY [facility] Last Admin: 11/16/23 08:11 Dose: 500 mg Documented By: NISH Gabapentin (Gabapentin 300 Mg Capsule) 300 mg PO BEDTIME [facility] Last Admin: 11/15/23 21:07 Dose: 300 mg Documented By: EDILMA Guaifenesin/Dextromethorphan (Guaifenesin Dm 600/30 1 Tab Tab.Er.12h) 2 tab PO BID PRN PRN Reason: cough Last Admin: 11/16/23 10:13 Dose: 2 tab Documented By: NISH Guaifenesin/Dextromethorphan (Guaifenesin Dm 100/10/5 Ml 5 Ml Syrup) 5 ml PO Q4H PRN PRN Reason: Cough Lactated Ringer's (Lr) 1,000 mls @ 125 mls/hr IVCONT .Q8H [facility] Last Infusion: 11/16/23 09:47 Dose: 0 mls/hr Documented By: NISH Piperacillin Sod/Tazobactam (Sod 3.375 gm/ Sodium Chloride) 50 mls @ 100 mls/hr IV Q6H [facility] Last Infusion: 11/16/23 10:54 Dose: Infused Documented By: NISH Lisinopril (Lisinopril 5 Mg Tablet) 5 mg PO DAILY [facility]; Protocol Last Admin: 11/15/23 08:59 Dose: 5 mg Documented By: LESLEY Magnesium Hydroxide (Milk Of Magnesia 30 Ml Oral.Susp) 30 ml PO DAILY PRN PRN Reason: Constipation Magnesium Oxide (Magnesium Oxide 400 Mg Tablet) 400 mg PO DAILY [facility] Last Admin: 11/16/23 08:11 Dose: 400 mg Documented By: NISH Melatonin (Melatonin 3 Mg Tablet) 6 mg PO BEDTIME PRN PRN Reason: Insomnia Morphine Sulfate (Morphine Sulfate 4 Mg/Ml Cartridge) 4 mg IVPUSH Q4H PRN; Protocol PRN Reason: Pain, Severe (Pain Scale 7-10) Last Admin: 11/16/23 10:24 Dose: 4 mg Documented By: NISH Multivitamins/Vitamin C (Multivitamin Tablet) 2 tab PO BID [facility] Last Admin: 11/16/23 08:11 Dose: 2 tab Documented By: NISH Omeprazole (Omeprazole 20 Mg Uvaldo.) 20 mg PO DAILY@0630 [facility] Last Admin: 11/16/23 06:11 Dose: 20 mg Documented By: EDILMA Ondansetron HCl (Ondansetron Hcl 4 Mg/2 Ml Vial) 4 mg IVPUSH Q8H PRN PRN Reason: Nausea and Vomiting Oxycodone HCl (Oxycodone Hcl Immed Release 5 Mg Tablet) 5 mg PO Q4H PRN PRN Reason: Pain, Moderate(Pain Scale 4-6) Last Admin: 11/16/23 08:14 Dose: 5 mg Documented By: NISH Oxycodone HCl (Oxycodone Hcl Immed Release 5 Mg Tablet) 10 mg PO Q4H PRN PRN Reason: Pain, Severe (Pain Scale 7-10) Sodium Chloride (0.9 % Sodium Chloride Flush 3 Ml Syringe) 3 ml IVFLUSH QSHIFT [facility] Last Admin: 11/16/23 08:18 Dose: Not Given Documented By: NISH Non-Admin Reason: IV Running Vitamin D (Cholecalciferol (Vitamin D3) 25 Mcg Tablet) 125 mcg PO DAILY [facility] Last Admin: 11/16/23 08:11 Dose: 125 mcg Documented By: NISH Labs 11/16/23 05:37 11/16/23 05:37 Labs: Laboratory Results - last 24 hr 11/16/23 05:37 MCV 92.2 MCH 29.2 MCHC 31.6 RDW 13.5 Plt Count 176 MPV 11.0 Absolute Nucleated RBC 0.000 Nucleated RBC % (auto) 0.0 Anion Gap 11 L Estim Creat Clear Calc 44.5 Estimated GFR 56 Random Glucose 126 H Calcium 8.4 Total Bilirubin 1.4 H AST 85 H ALT 180 H Alkaline Phosphatase 80 Total Protein 5.8 L Albumin 2.9 L Lipase 34 Microbiology Microbiology Results: Microbiology 11/14/23 13:22 Blood Culture - Preliminary Blood - Venous No growth after 24 hours. 11/14/23 13:22 Blood Culture - Preliminary Blood - Venous No growth after 24 hours. Assessment and Plan (1) Gallstone pancreatitis: Status: Acute Plan d3 88yo M with hx prostate CA on leuprolide, HTN admitted for gallstone pancreatitis gallstone pancreatitis acute cholecystitis - LFTS improved suggestive of passed stone, ERCP cancelled - underwent open romel 11/15/23 + repair of incarcerated umbilical hernia; intraop findings of phlegmonous necrotic gallbladder with dense omental + transverse colon adhesions - pip/martine 11/14- - postop care per Surgery EVELIO/CKD3 - continue IV LR, Cr back to baseline, hold lisinopril cough - neg for flu/RSV/Covid, symptomatic relief HTN - hold lisinopril VTE ppx - SCDs dispo - PT eval In my clinical judgment, the patient requires continued inpatient hospitalization for the following reasons: operative management, IV ABX Total time managing care of this patient today: 35 minutes. Quality Stroke Does the patient have a stroke diagnosis?: No VTE Prior VTE?: No VTE Risk Level:: Medical - moderate - high VTE Device Contraindication: Treatment Not Indicated VTE Drug Contraindication: N/A - Med Ordered
[2023-11-16 11:27] LABS: Influenza A PCR NEGATIVE (Negative); Influenza B PCR NEGATIVE (Negative); Resp Syncy Virus RNA Qual PCR NEGATIVE (Negative); SARS COV2 PCR INHOUSE NEGATIVE (Negative)
[2023-11-16 15:21] VITALS: BP 116/65; PULSE 93; RESP 18; TEMP 36.3; O2SAT 93
--- NOTE | 2023-11-16 15:22 | HO.POSTANES ---
Post Anesthesia Evaluation Post Anesthesia Evaluation Date of Service: 11/16/23 Vital Signs: Vital Signs Temp Pulse Resp BP 11/16/23 07:42 97.6 F 89 17 139/71 Anesthesia: General Endotracheal-GETA Mental Status: Awake Pain Control: Satisfactory Nausea/Vomiting: None Hydration: Adequate Anesthesia-Related Issues: No Anes. Related Issues
--- NOTE | 2023-11-16 17:17 | PC.NURSE ---
report received from overnight RN, medical superintendent per JAN. pt c/o intermittent pain to abd, medicated per JAN with (+) effect on reassessments. Pt assisted OOB to chair with stand by assistance. at 1700, new blood staining noted to HARINI drain dsg with increase and change in output from sanguineous to bilious output. Provider notified of change. Pt assisted back to bed, ice packs given as needed. Respirations even and unlabored, abd distended/tender/firm, passing flatus. safety precautions remain in place, bed alarm on, call mo[place]ezuma within reach, pt offers verbal reassurance.
[2023-11-16 19:38] VITALS: BP 155/72; PULSE 87; RESP 16; TEMP 36.4; O2SAT 93
[2023-11-16] MEDS: Gabapentin 300 MG CAPSULE PO (21:06)
[2023-11-16] MEDS: 0.9 % Sodium Chloride Flush 3 ML SYRINGE IVFLUSH (21:08)
[2023-11-17] VITALS (13 sets, daily range): BP systolic 120–143; BP diastolic 60–76; PULSE 70–84; RESP 14–20; TEMP 36–37.1; O2SAT 91–96
--- NOTE | 2023-11-17 02:52 | PC.NURSE ---
HARINI drainage - rustic coffee ground color, dark blood. 70 mL out since 19:00 - 03:00. will continue to monitor
[2023-11-17] MEDS: Lactated Ringers 1,000 ML 125 ML IVCONT (02:54)
[2023-11-17] MEDS: Morphine Sulfate 4 MG/ML CARTRIDGE IVPUSH ×2 (03:06→08:55)
[2023-11-17] MEDS: Piperacillin Sodium/Tazobactam 3.375 GM in 0.9 % Sodium Chloride 50 ML IV ×4 (04:37→22:42)
[2023-11-17] MEDS: Omeprazole 20 MG CAPSULE.DR PO (05:37)
[2023-11-17] MEDS: Multivitamin TABLET 2 TAB PO ×2 (07:50→21:54)
[2023-11-17] MEDS: Magnesium Oxide 400 MG TABLET PO (07:50)
[2023-11-17] MEDS: Ascorbic Acid 500 MG TABLET PO (07:51)
[2023-11-17] MEDS: Benzonatate 100 MG CAPSULE 200 MG PO ×2 (07:51→21:54)
[2023-11-17] MEDS: 0.9 % Sodium Chloride Flush 3 ML SYRINGE IVFLUSH ×3 (07:52→23:18)
[2023-11-17] MEDS: Cholecalciferol (Vitamin D3) 25 MCG TABLET 125 MCG PO (07:52)
--- NOTE | 2023-11-17 07:52 | PM.PNGS ---
Subjective Subjective Date of Service: 11/17/23 Interval history: Feels ok this morning. Has some incisional pain. Physical Exam Vital Signs: Vital Signs: Last Vital Signs Temp 96.8 F 11/17/23 02:39 Pulse 84 11/17/23 02:39 Resp 16 11/17/23 03:06 BP 131/74 11/17/23 02:39 Pulse Ox 94 11/17/23 02:39 O2 Del Method Nasal Cannula 11/17/23 02:39 O2 Flow Rate 1.0 11/16/23 15:21 BMI result Body Mass Index 25.1 Const: General: comfortable, no acute distress and alert Orientation/consciousness: patient oriented x3 Resp: Effort & Inspection: normal respiratory effort GI: Other: incision clean HARINI drain with sanguineous, bilious output Inspection: Yes distended Palpation (GI): Soft to palpation, Tenderness to palpation present (GI) (mild incisional), no guarding and not rigid Skin: General skin exam: no rashes or lesions noted Neuro: General: patient oriented x3 and moves all extremities Objective Data Active Medications Al Hydroxide/Mg Hydroxide (Magnesium Hydrox/Alum Hydrox 30 Ml Oral.Susp) 30 ml PO Q4H PRN PRN Reason: Heartburn/Nausea Ascorbic Acid (Ascorbic Acid 500 Mg Tablet) 500 mg PO DAILY [facility] Last Admin: 11/16/23 08:11 Dose: 500 mg Documented By: NISH Benzonatate (Benzonatate 100 Mg Capsule) 200 mg PO TID [facility] Last Admin: 11/16/23 21:06 Dose: 200 mg Documented By: EDILMA Calcium Carbonate (Calcium Carbonate 500 Mg Tablet) 500 mg PO DAILY [facility] Last Admin: 11/16/23 08:11 Dose: 500 mg Documented By: NISH Gabapentin (Gabapentin 300 Mg Capsule) 300 mg PO BEDTIME [facility] Last Admin: 11/16/23 21:06 Dose: 300 mg Documented By: EDILMA Guaifenesin/Dextromethorphan (Guaifenesin Dm 600/30 1 Tab Tab.Er.12h) 2 tab PO BID PRN PRN Reason: cough Last Admin: 11/16/23 21:06 Dose: 2 tab Documented By: EDILMA Guaifenesin/Dextromethorphan (Guaifenesin Dm 100/10/5 Ml 5 Ml Syrup) 5 ml PO Q4H PRN PRN Reason: Cough Piperacillin Sod/Tazobactam (Sod 3.375 gm/ Sodium Chloride) 50 mls @ 100 mls/hr IV Q6H [facility] Last Infusion: 11/17/23 05:07 Dose: Infused Documented By: EDILMA Lisinopril (Lisinopril 5 Mg Tablet) 5 mg PO DAILY [facility]; Protocol Last Admin: 11/15/23 08:59 Dose: 5 mg Documented By: LESLEY Magnesium Hydroxide (Milk Of Magnesia 30 Ml Oral.Susp) 30 ml PO DAILY PRN PRN Reason: Constipation Magnesium Oxide (Magnesium Oxide 400 Mg Tablet) 400 mg PO DAILY [facility] Last Admin: 11/16/23 08:11 Dose: 400 mg Documented By: NISH Melatonin (Melatonin 3 Mg Tablet) 6 mg PO BEDTIME PRN PRN Reason: Insomnia Morphine Sulfate (Morphine Sulfate 4 Mg/Ml Cartridge) 4 mg IVPUSH Q4H PRN; Protocol PRN Reason: Pain, Severe (Pain Scale 7-10) Last Admin: 11/17/23 03:06 Dose: 4 mg Documented By: EDILMA Multivitamins/Vitamin C (Multivitamin Tablet) 2 tab PO BID [facility] Last Admin: 11/16/23 21:06 Dose: 2 tab Documented By: EDILMA Omeprazole (Omeprazole 20 Mg Capsule.Dr) 20 mg PO DAILY@0630 [facility] Last Admin: 11/17/23 05:37 Dose: 20 mg Documented By: EDILMA Ondansetron HCl (Ondansetron Hcl 4 Mg/2 Ml Vial) 4 mg IVPUSH Q8H PRN PRN Reason: Nausea and Vomiting Oxycodone HCl (Oxycodone Hcl Immed Release 5 Mg Tablet) 5 mg PO Q4H PRN PRN Reason: Pain, Moderate(Pain Scale 4-6) Last Admin: 11/16/23 08:14 Dose: 5 mg Documented By: NISH Oxycodone HCl (Oxycodone Hcl Immed Release 5 Mg Tablet) 10 mg PO Q4H PRN PRN Reason: Pain, Severe (Pain Scale 7-10) Sodium Chloride (0.9 % Sodium Chloride Flush 3 Ml Syringe) [facility] Last Admin: 11/16/23 21:08 Dose: 3 ml Documented By: EDILMA Vitamin D (Cholecalciferol (Vitamin D3) 25 Mcg Tablet) 125 mcg PO DAILY [facility] Last Admin: 11/16/23 08:11 Dose: 125 mcg Documented By: NISH Labs 11/16/23 05:37 11/16/23 05:37 Labs: Laboratory Results - last 24 hr 11/16/23 10:30 Influenza Type A (PCR) NEGATIVE Influenza Type B (PCR) NEGATIVE RSV RNA Qual (PCR) NEGATIVE SARS-CoV-2 RNA (RT-PCR) NEGATIVE Microbiology Microbiology Results: Microbiology 11/14/23 13:22 Blood Culture - Preliminary Blood - Venous No growth after 48 hours. 11/14/23 13:22 Blood Culture - Preliminary Blood - Venous No growth after 48 hours. Procedures Date of Service Date of Service: 11/17/23 Progress Note: A&P Assessment and plan (1) Acute gangrenous cholecystitis: Status: Acute (2) Bile leak: Status: Acute Plan POD #2 s/p laparoscopic converted open cholecystectomy, primary repair of incarcerated umbilical hernia for phlegmonous necrotic gallbladder with dense omental and transverse colonic adhesions. HARINI now has bilious output. Keep NPO for likely ERCP with stenting today. Patient understands plan. Begin bowel regimen. Encouraged OOB/ambulation and IS use. Time Spent With Patient Time: Total time managing care of this patient today ____ minutes. Quality Stroke Does the patient have a stroke diagnosis?: No VTE Prior VTE?: No VTE Risk Level:: Medical - moderate - high VTE Device Contraindication: Treatment Not Indicated VTE Drug Contraindication: N/A - Med Ordered
[2023-11-17 07:56] LABS: Hematocrit 31.2 % (42.0-52.0); Hemoglobin 9.7 g/dl (14.0-18.0); Mean Corpuscular HGB Conc 31.1 g/dl (31.0-36.0); Mean Corpuscular Hemoglobin 29.2 pg (27.0-33.0); Mean Platelet Volume 11.1 fL (9.4-12.4); Platelet Count 184 X10*3/uL (160-400); Red Blood Count 3.32 X10*6/uL (4.60-5.80); Red Cell Distribution Width 13.7 % (11.0-16.0); White Blood Count 15.2 X10*3/uL (4.8-10.8)
[2023-11-17 08:17] LABS: Alanine Aminotransferase 105 U/L (0-40); Albumin Level 2.6 g/dL (3.5-5.0); Alkaline Phosphatase 62 U/L (39-117); Anion Gap 9 (12-20); Aspartate Amino Transferase 38 U/L (5-37); Bilirubin Total 0.9 mg/dL (0.0-1.0); Blood Urea Nitrogen 28 mg/dL (9-16); Calcium 8.1 mg/dL (8.4-10.2); Carbon Dioxide 31 mmol/L (22-29); Chloride 104 mmol/L (96-108); Creatinine Clr Calc Pharmacy 51.1; Estimated Glomerular Filt Rate > 60; Glucose Random 100 mg/dL (60-115); Potassium 3.9 mmol/L (3.3-5.1); Sodium 140 mmol/L (135-145); Total Protein 5.3 g/dL (6.5-8.0)
[2023-11-17] MEDS: Docusate Sodium 100 MG CAPSULE PO ×2 (08:51→21:55)
[2023-11-17] MEDS: polyethylene glycoL 3350 17 GM POWD.PACK PO (08:51)
--- NOTE | 2023-11-17 10:43 | P.PNIM_ITS ---
Subjective Subjective Date of Service: 11/17/23 Interval History: passing gas HARINI with bilious output no fever cough resolved Review of Systems Review of Systems: Yes all other systems are reviewed and are negative Physical Exam 2 Vital Signs: Vital Signs: Last Vital Signs Temp 97.0 F 11/17/23 07:50 Pulse 83 11/17/23 07:50 Resp 16 11/17/23 07:50 BP 123/69 11/17/23 07:50 Pulse Ox 93 11/17/23 07:50 O2 Del Method Nasal Cannula 11/17/23 07:50 O2 Flow Rate 1.0 11/17/23 07:50 BMI result Body Mass Index 25.1 Gen: in no acute distress HEENT: sclera anicteric, moist mucus membranes Neck: supple Lungs: clear to auscultation bilaterally Heart: regular rate and rhythm, no murmurs Abd: soft, incision with dry dressing, HARINI with bilious liquid, scattered bowel sounds Ext: no edema Skin: warm/well-perfused Neuro: alert and oriented x3, no focal findings Psych: appropriate affect Objective Data Active Medications Al Hydroxide/Mg Hydroxide (Magnesium Hydrox/Alum Hydrox 30 Ml Oral.Susp) 30 ml PO Q4H PRN PRN Reason: Heartburn/Nausea Ascorbic Acid (Ascorbic Acid 500 Mg Tablet) 500 mg PO DAILY [facility] Last Admin: 11/17/23 07:51 Dose: 500 mg Documented By: NISH Benzonatate (Benzonatate 100 Mg Capsule) 200 mg PO TID [facility] Last Admin: 11/17/23 07:51 Dose: 200 mg Documented By: NISH Calcium Carbonate (Calcium Carbonate 500 Mg Tablet) 500 mg PO DAILY [facility] Last Admin: 11/17/23 07:50 Dose: 500 mg Documented By: NISH Docusate Sodium (Docusate Sodium 100 Mg Capsule) 100 mg PO BID [facility] Last Admin: 11/17/23 08:51 Dose: 100 mg Documented By: NISH Gabapentin (Gabapentin 300 Mg Capsule) 300 mg PO BEDTIME [facility] Last Admin: 11/16/23 21:06 Dose: 300 mg Documented By: EDILMA Guaifenesin/Dextromethorphan (Guaifenesin Dm 600/30 1 Tab Tab.Er.12h) 2 tab PO BID PRN PRN Reason: cough Last Admin: 11/16/23 21:06 Dose: 2 tab Documented By: EDILMA Guaifenesin/Dextromethorphan (Guaifenesin Dm 100/10/5 Ml 5 Ml Syrup) 5 ml PO Q4H PRN PRN Reason: Cough Piperacillin Sod/Tazobactam (Sod 3.375 gm/ Sodium Chloride) 50 mls @ 100 mls/hr IV Q6H [facility] Last Infusion: 11/17/23 05:07 Dose: Infused Documented By: EDILMA Lisinopril (Lisinopril 5 Mg Tablet) 5 mg PO DAILY [facility]; Protocol Last Admin: 11/15/23 08:59 Dose: 5 mg Documented By: LESLEY Magnesium Hydroxide (Milk Of Magnesia 30 Ml Oral.Susp) 30 ml PO DAILY PRN PRN Reason: Constipation Magnesium Oxide (Magnesium Oxide 400 Mg Tablet) 400 mg PO DAILY [facility] Last Admin: 11/17/23 07:50 Dose: 400 mg Documented By: NISH Melatonin (Melatonin 3 Mg Tablet) 6 mg PO BEDTIME PRN PRN Reason: Insomnia Morphine Sulfate (Morphine Sulfate 4 Mg/Ml Cartridge) 4 mg IVPUSH Q4H PRN; Protocol PRN Reason: Pain, Severe (Pain Scale 7-10) Last Admin: 11/17/23 08:55 Dose: 4 mg Documented By: NISH Multivitamins/Vitamin C (Multivitamin Tablet) 2 tab PO BID [facility] Last Admin: 11/17/23 07:50 Dose: 2 tab Documented By: NISH Omeprazole (Omeprazole 20 Mg Capsule.Dr) 20 mg PO DAILY@0630 [facility] Last Admin: 11/17/23 05:37 Dose: 20 mg Documented By: EDILMA Ondansetron HCl (Ondansetron Hcl 4 Mg/2 Ml Vial) 4 mg IVPUSH Q8H PRN PRN Reason: Nausea and Vomiting Oxycodone HCl (Oxycodone Hcl Immed Release 5 Mg Tablet) 5 mg PO Q4H PRN PRN Reason: Pain, Moderate(Pain Scale 4-6) Last Admin: 11/16/23 08:14 Dose: 5 mg Documented By: NISH Oxycodone HCl (Oxycodone Hcl Immed Release 5 Mg Tablet) 10 mg PO Q4H PRN PRN Reason: Pain, Severe (Pain Scale 7-10) Polyethylene Glycol (Polyethylene Glycol 3350 17 Gm Powd.Pack) 17 gm PO DAILY [facility] Last Admin: 11/17/23 08:51 Dose: 17 gm Documented By: NISH Sodium Chloride (0.9 % Sodium Chloride Flush 3 Ml Syringe) 3 ml IVFLUSH QSHIFT [facility] Last Admin: 11/17/23 07:52 Dose: 3 ml Documented By: NISH Vitamin D (Cholecalciferol (Vitamin D3) 25 Mcg Tablet) 125 mcg PO DAILY [facility] Last Admin: 11/17/23 07:52 Dose: 125 mcg Documented By: NISH Labs 11/17/23 05:33 11/17/23 05:33 Labs: Laboratory Results - last 24 hr 11/16/23 11/17/23 10:30 05:33 MCV 94.0 MCH 29.2 MCHC 31.1 RDW 13.7 Plt Count 184 MPV 11.1 Absolute Nucleated RBC 0.000 Nucleated RBC % (auto) 0.0 Anion Gap 9 L Estim Creat Clear Calc 51.1 Estimated GFR > 60 Random Glucose 100 Calcium 8.1 L Total Bilirubin 0.9 AST 38 H ALT 105 H Alkaline Phosphatase 62 Total Protein 5.3 L Albumin 2.6 L Influenza Type A (PCR) NEGATIVE Influenza Type B (PCR) NEGATIVE RSV RNA Qual (PCR) NEGATIVE SARS-CoV-2 RNA (RT-PCR) NEGATIVE Microbiology Microbiology Results: Microbiology 11/14/23 13:22 Blood Culture - Preliminary Blood - Venous No growth after 48 hours. 11/14/23 13:22 Blood Culture - Preliminary Blood - Venous No growth after 48 hours. Assessment and Plan (1) Gallstone pancreatitis: Status: Acute Plan d4 88yo M with hx prostate CA on leuprolide, HTN admitted for gallstone pancreatitis gallstone pancreatitis acute cholecystitis - LFTS improved suggestive of passed stone, ERCP cancelled - underwent open romel 11/15/23 + repair of incarcerated umbilical hernia; intraop findings of phlegmonous necrotic gallbladder with dense omental + transverse colon adhesions - now has possible bile leak and will need ERCP/stenting, will discuss with Surg/GI - pip/martine 11/14- EVELIO/CKD3 - Cr back to baseline after giving IV LR and holding lisinopril cough - neg for flu/RSV/Covid, symptomatic relief HTN - hold lisinopril VTE ppx - SCDs dispo - anticipate eventual home with VNA In my clinical judgment, the patient requires continued inpatient hospitalization for the following reasons: operative management, IV ABX, ERCP Total time managing care of this patient today: 35 minutes. Quality Stroke Does the patient have a stroke diagnosis?: No VTE Prior VTE?: No VTE Risk Level:: Medical - moderate - high VTE Device Contraindication: Treatment Not Indicated VTE Drug Contraindication: N/A - Med Ordered
--- NOTE | 2023-11-17 12:03 | MHC.SHP ---
Pre-Procedural Eval Section A Date of Service: 11/17/23 The patient is an INPATIENT: Yes Changes since office visit: No Cold of Flu in the past 2 weeks, No New Medical Problems, No Changes in Medication and No Patient answered all questions The History & Physical has been completed within 30 days and I have reviewed it.: Yes Section B Chief Complaint: Gallstones Pancreatitis Allergies: Allergies Allergy/AdvReac Type Severity Reaction Status Date / Time No Known Allergies Allergy Verified 11/15/23 11:39 Plan I have reviewed the history and physical and performed a pertinent physical examination on my patient. No changes have occurred unless specified. Time Spent With Patient Time: Total time managing care of this patient today ____ minutes.
--- NOTE | 2023-11-17 12:05 | PM.EVENT ---
Event Note Date of Service: 11/17/23 Event Note: GI Asked to see pt by gen surg. HARINI shows large amount of bilious drainage c/w bile leak. ERCP planned for later today. I discussed risks and benefits of the procedure with Mr Barboza, who understands and agrees to proceed. Time Spent With Patient Time: Total time managing care of this patient today ____ minutes.
--- NOTE | 2023-11-17 13:29 | P.CONAN_ITS ---
[facility] / [facility] Active Problems Active Problems: All Active Problems (Updated 11/17/23 @ 07:54 by Arcelia Randhawa PA-C) Bile leak (Acute) Acute gangrenous cholecystitis (Acute) HTN (hypertension) (Acute) Gallstone pancreatitis (Acute) Past Medical History Medical History Prostate cancer Urinary frequency Surgical History Surgical History History of back surgery History of Problems with Anesthesia: No Social History Social History Household Members: Spouse Housing: House Do you presently have visiting nurse or other home services: No Patient Tobacco Use Status: Never used Tobacco Advance Directives Date on File: 11/15/23 service: Yes Meds Allergies Allergy/AdvReac Type Severity Reaction Status Date / Time No Known Allergies Allergy Verified 11/17/23 12:38 Active Medications: Current Medications Al Hydroxide/Mg Hydroxide (Magnesium Hydrox/Alum Hydrox 30 Ml Oral.Susp) 30 ml PO Q4H PRN PRN Reason: Heartburn/Nausea Ascorbic Acid (Ascorbic Acid 500 Mg Tablet) 500 mg PO DAILY [facility] Last Admin: 11/17/23 07:51 Dose: 500 mg Benzonatate (Benzonatate 100 Mg Capsule) 200 mg PO TID [facility] Last Admin: 11/17/23 07:51 Dose: 200 mg Calcium Carbonate (Calcium Carbonate 500 Mg Tablet) 500 mg PO DAILY [facility] Last Admin: 11/17/23 07:50 Dose: 500 mg Docusate Sodium (Docusate Sodium 100 Mg Capsule) 100 mg PO BID [facility] Last Admin: 11/17/23 08:51 Dose: 100 mg Gabapentin (Gabapentin 300 Mg Capsule) 300 mg PO BEDTIME [facility] Last Admin: 11/16/23 21:06 Dose: 300 mg Guaifenesin/Dextromethorphan (Guaifenesin Dm 600/30 1 Tab Tab.Er.12h) 2 tab PO BID PRN PRN Reason: cough Last Admin: 11/16/23 21:06 Dose: 2 tab Guaifenesin/Dextromethorphan (Guaifenesin Dm 100/10/5 Ml 5 Ml Syrup) 5 ml PO Q4H PRN PRN Reason: Cough Piperacillin Sod/Tazobactam (Sod 3.375 gm/ Sodium Chloride) 50 mls @ 100 mls/hr IV Q6H [facility] Last Infusion: 11/17/23 11:48 Dose: Infused Lisinopril (Lisinopril 5 Mg Tablet) 5 mg PO DAILY [facility]; Protocol Last Admin: 11/15/23 08:59 Dose: 5 mg Magnesium Hydroxide (Milk Of Magnesia 30 Ml Oral.Susp) 30 ml PO DAILY PRN PRN Reason: Constipation Magnesium Oxide (Magnesium Oxide 400 Mg Tablet) 400 mg PO DAILY [facility] Last Admin: 11/17/23 07:50 Dose: 400 mg Melatonin (Melatonin 3 Mg Tablet) 6 mg PO BEDTIME PRN PRN Reason: Insomnia Morphine Sulfate (Morphine Sulfate 4 Mg/Ml Cartridge) 4 mg IVPUSH Q4H PRN; Protocol PRN Reason: Pain, Severe (Pain Scale 7-10) Last Admin: 11/17/23 08:55 Dose: 4 mg Multivitamins/Vitamin C (Multivitamin Tablet) 2 tab PO BID [facility] Last Admin: 11/17/23 07:50 Dose: 2 tab Omeprazole (Omeprazole 20 Mg Capsule.Dr) 20 mg PO DAILY@0630 [facility] Last Admin: 11/17/23 05:37 Dose: 20 mg Ondansetron HCl (Ondansetron Hcl 4 Mg/2 Ml Vial) 4 mg IVPUSH Q8H PRN PRN Reason: Nausea and Vomiting Oxycodone HCl (Oxycodone Hcl Immed Release 5 Mg Tablet) 5 mg PO Q4H PRN PRN Reason: Pain, Moderate(Pain Scale 4-6) Last Admin: 11/16/23 08:14 Dose: 5 mg Oxycodone HCl (Oxycodone Hcl Immed Release 5 Mg Tablet) 10 mg PO Q4H PRN PRN Reason: Pain, Severe (Pain Scale 7-10) Polyethylene Glycol (Polyethylene Glycol 3350 17 Gm Powd.Pack) 17 gm PO DAILY [facility] Last Admin: 11/17/23 08:51 Dose: 17 gm Sodium Chloride (0.9 % Sodium Chloride Flush 3 Ml Syringe) 3 ml IVFLUSH QSHIFT [facility] Last Admin: 11/17/23 07:52 Dose: 3 ml Vitamin D (Cholecalciferol (Vitamin D3) 25 Mcg Tablet) 125 mcg PO DAILY [facility] Last Admin: 11/17/23 07:52 Dose: 125 mcg Home Medications Medication Instructions Recorded Confirmed Last Taken Type ascorbic acid (vitamin C) 500 mg 500 mg PO DAILY 11/14/23 11/14/23 11/14/23 History tablet (Vitamin C) aspirin 81 mg chewable tablet 81 mg PO DAILY 11/14/23 11/15/23 11/12/23 History calcium citrate 500 mg (2,376 mg) 500 mg PO DAILY 11/14/23 11/14/23 11/14/23 History effervescent tablet cholecalciferol (vitamin D3) 125 125 mcg PO DAILY 11/14/23 11/14/23 11/14/23 History mcg (5,000 unit) tablet gabapentin 300 mg capsule 300 mg PO BEDTIME 11/14/23 11/14/23 11/13/23 History lisinopril 5 mg tablet 5 mg PO DAILY 11/14/23 11/14/23 11/14/23 History magnesium 500 mg tablet 500 mg PO DAILY 11/14/23 11/14/23 11/14/23 History omeprazole 20 mg capsule,delayed 20 mg PO DAILY 11/14/23 11/14/23 11/14/23 History release vfknlki-oeki-asdke-oreg-capryl 1 cap PO DAILY 11/14/23 11/14/23 11/14/23 History vitamins A,C,F-vkib-leltcg 2,148 2 tab PO BID 11/14/23 11/14/23 11/14/23 History mcg-113 mg-45 mg-17.4 mg tablet (PreserVision AREDS) Exam Height,Weight and Vital Signs: Height 5 ft 10 in Weight 79.379 kg Last Vital Signs Temp 98.5 F 11/17/23 12:41 Pulse 79 11/17/23 12:41 Resp 16 11/17/23 12:41 BP 132/76 11/17/23 12:41 Pulse Ox 92 11/17/23 12:41 O2 Del Method Room Air 11/17/23 12:41 O2 Flow Rate 2 11/17/23 12:41 Pertinent Lab Results Pertinent Lab Results: Laboratory Tests 11/14/23 11/14/23 11/14/23 10:42 13:22 18:06 WBC 26.0 H RBC 4.67 Hgb 13.6 L Hct 42.4 MCV 90.8 MCH 29.1 MCHC 32.1 RDW 13.4 Plt Count 260 MPV 9.7 Immature Gran % (Auto) 0.7 H Neut % (Auto) 90.7 H Lymph % (Auto) 3.1 L [place] % (Auto) 5.3 Eos % (Auto) 0.0 Baso % (Auto) 0.2 Lymph # (Auto) 0.8 L [place] # (Auto) 1.4 H Eos # (Auto) 0.0 Baso # (Auto) 0.0 Abs Immat Gran (auto) 0.17 H Absolute Neuts (auto) 23.6 H Absolute Nucleated RBC 0.000 Nucleated RBC % (auto) 0.0 Smear Tech's Comments VERIFIED PT 13.4 H INR 1.1 Sodium 141 Potassium 4.4 Chloride 102 Carbon Dioxide 30 H Anion Gap 13 BUN 29 H Creatinine 1.76 H Estim Creat Clear Calc 31.1 Estimated GFR 37 Random Glucose 162 H Lactic Acid 1.8 Calcium 9.8 Total Bilirubin 3.7 H 2.7 H Direct Bilirubin 2.3 H 1.6 H AST 458 H 262 H ALT 536 H 381 H Alkaline Phosphatase 128 H 110 Total Protein 7.7 6.3 L Albumin 4.2 3.4 L Lipase 281 H COVID-19 ([facility]) Negative COVID-19 Clin Com See Note Influenza Type A (PCR) Influenza Type B (PCR) RSV RNA Qual (PCR) SARS-CoV-2 RNA (RT-PCR) 11/15/23 11/16/23 11/16/23 06:17 05:37 10:30 WBC 26.1 H 17.3 H RBC 3.83 L 3.60 L Hgb 11.1 L 10.5 L Hct 35.5 L 33.2 L MCV 92.7 92.2 MCH 29.0 29.2 MCHC 31.3 31.6 RDW 13.6 13.5 Plt Count 168 D 176 MPV 10.0 11.0 Immature Gran % (Auto) Neut % (Auto) Lymph % (Auto) [place] % (Auto) Eos % (Auto) Baso % (Auto) Lymph # (Auto) [place] # (Auto) Eos # (Auto) Baso # (Auto) Abs Immat Gran (auto) Absolute Neuts (auto) Absolute Nucleated RBC 0.000 0.000 Nucleated RBC % (auto) 0.0 0.0 Smear Tech's Comments PT 14.8 H INR 1.2 H Sodium 142 139 Potassium 4.3 4.0 Chloride 106 104 Carbon Dioxide 25 28 Anion Gap 15 11 L BUN 26 H 26 H Creatinine 1.35 1.23 Estim Creat Clear Calc 40.5 44.5 Estimated GFR 50 56 Random Glucose 104 126 H Lactic Acid Calcium 8.7 D 8.4 Total Bilirubin 1.4 H Direct Bilirubin AST 85 H ALT 180 H Alkaline Phosphatase 80 Total Protein 5.8 L Albumin 2.9 L Lipase 34 COVID-19 ([facility]) COVID-19 Clin Com Influenza Type A (PCR) NEGATIVE Influenza Type B (PCR) NEGATIVE RSV RNA Qual (PCR) NEGATIVE SARS-CoV-2 RNA (RT-PCR) NEGATIVE 11/17/23 05:33 WBC 15.2 H RBC 3.32 L Hgb 9.7 L Hct 31.2 L MCV 94.0 MCH 29.2 MCHC 31.1 RDW 13.7 Plt Count 184 MPV 11.1 Immature Gran % (Auto) Neut % (Auto) Lymph % (Auto) [place] % (Auto) Eos % (Auto) Baso % (Auto) Lymph # (Auto) [place] # (Auto) Eos # (Auto) Baso # (Auto) Abs Immat Gran (auto) Absolute Neuts (auto) Absolute Nucleated RBC 0.000 Nucleated RBC % (auto) 0.0 Smear Tech's Comments PT INR Sodium 140 Potassium 3.9 Chloride 104 Carbon Dioxide 31 H Anion Gap 9 L BUN 28 H Creatinine 1.07 Estim Creat Clear Calc 51.1 Estimated GFR > 60 Random Glucose 100 Lactic Acid Calcium 8.1 L Total Bilirubin 0.9 Direct Bilirubin AST 38 H ALT 105 H Alkaline Phosphatase 62 Total Protein 5.3 L Albumin 2.6 L Lipase COVID-19 ([facility]) COVID-19 Clin Com Influenza Type A (PCR) Influenza Type B (PCR) RSV RNA Qual (PCR) SARS-CoV-2 RNA (RT-PCR) Airway Mallampati Class: III TM Dist: >3cm Neck ROM: Limited Loose/Missing/Broken Teeth: Yes, Upper and Lower Heart: RRR Lungs: CTA Assessment and Plan Assessment Anesthesia Assessment: Anesthesia Plan Discussed and Chart Reviewed Final Anesthetic Review History of Problems with Anesthesia: No NPO: Yes ASA Class: III Final Preanesthetic Review: Meds/Allgs Chart Reviewed, Consent Obtained/Reviewed and Anes Risks/Benef Reviewed Patient Risk: Intermediate Procedure Risk: Low Anesthetic Plan Anesthetic Plan: GA Disposition: Standard PACU
--- NOTE | 2023-11-17 15:06 | PM.EVENT ---
Event Note Date of Service: 11/17/23 Event Note: ERCP note dictated multiple cbd stones extracted after sphincterotomy 10F 7cm biliary stent placed without difficulty, good drainage of clear yellow bile. Advance diet Stent removal in 10 Time Spent With Patient Time: Total time managing care of this patient today ____ minutes.
[2023-11-17] MEDS: Gabapentin 300 MG CAPSULE PO (21:55)
--- NOTE | 2023-11-17 22:45 | OP_ITS ---
DATE OF SERVICE: 11/17/2023 SURGEON: Wolf Whaley MD INDICATIONS: Bile leak. PREOPERATIVE DIAGNOSIS: POSTOPERATIVE DIAGNOSIS: PROCEDURE PERFORMED: Endoscopic retrograde cholangiopancreatography with sphincterotomy and stone extraction, with biliary stent placement. ESTIMATED BLOOD LOSS: COMPLICATIONS: ANESTHESIA: General anesthesia. ASSISTANTS: SPECIMENS: DESCRIPTION OF PROCEDURE: History and physical were performed. The risks and benefits of the procedure were explained to the patient. Informed consent was obtained. The patient was placed in the prone position with a wedge under the right shoulder. The Olympus therapeutic duodenoscope was introduced into the esophagus, stomach, and duodenum. Examination was performed. The scope was removed. He tolerated the procedure well and was returned to recovery room in stable condition. FINDINGS: Endoscopy: Limited examination of the esophagus, stomach, and duodenum was within normal limits. There was a small amount of retained food material in the stomach. The scope tended to form a loop in the stomach. Because of the patient's anatomy and cannulation of the duodenum, took approximately 15 minutes. The major papilla appeared normal. No bile was seen to drain. The common bile duct was accessed with a guidewire and sphincterotome. Injection of contrast showed at least 2 filling defects in the common bile duct, which measured approximately 6-7 mm. The cystic duct was seen to fill and there was a suggestion of a bile leak in the vicinity of the clips. A sphincterotomy was performed to approximately 8 mm with no immediate complications. Multiple sweeps of a 12 mm balloon produced approximately 6 small common bile duct stones measuring upwards of 5 mm. Occlusion cholangiography following stone extraction showed no further filling defects. Next, a 10-Ivorian 7 cm biliary stent was placed to allow drainage preferentially into the duodenum because of the bile leak. No hepatic pancreatogram was attempted or obtained. After stent placement, there was excellent drainage of clear yellow bile into the duodenum. IMPRESSION: 1. Bile leak. 2. Choledocholithiasis. RECOMMENDATION: 1. Advance diet. 2. The stent will be removed in approximately 10-12 weeks. MD PILAR Plata/ANGLE / [id number]
--- NOTE | 2023-11-17 23:00 | CONS_ITS ---
DATE OF SERVICE: 11/17/2023 REFERRING PHYSICIAN: Arcelia Randhawa PA-C REASON FOR CONSULTATION: Bile leak. HISTORY OF PRESENT ILLNESS: The patient is a pleasant 88-year-old man who was admitted to the hospital on November 14. He was found to have acute cholecystitis and underwent cholecystectomy with open technique on November 15. Findings at that time included a necrotic gallbladder with multiple small gallstones. No biopsy could be performed and the gallbladder was transected at the cystic duct/Igor's pouch junction with placement of a drain. Postoperatively, he did well, but today started having bilious drainage with copious amounts of drainage consistent with a bile leak. Preoperatively, imaging studies including CAT scan were undertaken and were interpreted as showing possible common bile duct stones. However, the patient did not undergo ERCP as his liver function tests improved. He was also noted to have a gallstone pancreatitis on admission. PAST MEDICAL HISTORY: 1. Gallstones as above. 2. Prostate cancer. 3. Hypertension. 4. Chronic kidney disease 3B. CURRENT MEDICATIONS: His current medication list is reviewed in the chart. ALLERGIES: THERE ARE NONE REPORTED. FAMILY HISTORY: This is reviewed with the patient and is noncontributory. SOCIAL HISTORY: There is no current tobacco, alcohol, or substance abuse. REVIEW OF SYSTEMS: SKIN: No pruritus. HEENT: Negative. CARDIOPULMONARY: He denies shortness of breath or chest pain. GASTROINTESTINAL: As above. GENITOURINARY: Negative. NEUROPSYCHIATRIC: Negative. PHYSICAL EXAMINATION: GENERAL: Shows a pleasant male, sitting comfortably in bed. VITAL SIGNS: Reviewed in electronic medical record and are stable. SKIN: Anicteric. HEENT: Shows no scleral icterus. NECK: Without lymphadenopathy or thyromegaly. LUNGS: Clear. HEART: Shows a regular rate and rhythm. ABDOMEN: Soft. There is a dressing over the right upper quadrant cholecystectomy site. HARINI drain is completely full with bilious drainage. EXTREMITIES: Without edema. LABORATORY DATA: Including imaging studies and chemistries are reviewed. IMPRESSION: Bile leak. I have recommended he undergo ERCP with stent placement and extraction of any residual common bile duct stones. I have discussed risks and benefits of the procedure with him including pancreatitis. He understands these and agrees to proceed. This will be scheduled for later this afternoon. MD PILAR Plata/ANGLE / [phone]
[2023-11-18] VITALS (8 sets, daily range): BP systolic 135–158; BP diastolic 62–75; PULSE 71–80; RESP 16–20; TEMP 36.1–36.9; O2SAT 92–96
[2023-11-18] MEDS: Piperacillin Sodium/Tazobactam 3.375 GM in 0.9 % Sodium Chloride 50 ML IV ×4 (04:16→22:26)
[2023-11-18] MEDS: Omeprazole 20 MG CAPSULE.DR PO (06:24)
[2023-11-18 07:06] LABS: MANUAL DIFF FLAG NO
[2023-11-18 07:22] LABS: Basophils Percent Auto 0.2 % (0-2); Eosinophils Absolute Auto 0.3 X10*3/uL (0.0-0.4); Eosinophils Percent Auto 2.5 % (0-4); Hematocrit 30.8 % (42.0-52.0); Hemoglobin 9.5 g/dl (14.0-18.0); Imm Gran Abs Auto 0.07 X10*3/uL (0.00-0.03); Imm Gran Pct Auto 0.6 % (0.0-0.4); Lymphocytes Absolute Auto 0.9 X10*3/uL (1.2-4.9); Lymphocytes Percent Auto 7.3 % (20-40); Mean Corpuscular HGB Conc 30.8 g/dl (31.0-36.0); Mean Corpuscular Hemoglobin 28.7 pg (27.0-33.0); Mean Corpuscular Volume 93.1 fL (80.0-98.0); Mean Platelet Volume 10.3 fL (9.4-12.4); Monocytes Absolute Auto 1.2 X10*3/uL (0.1-1.2); Monocytes Percent Auto 9.6 % (2-11); Neutrophils Absolute Auto 10.1 x10*3/uL (2.0-8.3); Neutrophils Percent Auto 79.8 % (45-73); Platelet Count 187 X10*3/uL (160-400); Red Blood Count 3.31 X10*6/uL (4.60-5.80); Red Cell Distribution Width 13.6 % (11.0-16.0); White Blood Count 12.7 X10*3/uL (4.8-10.8)
[2023-11-18 07:29] LABS: Alanine Aminotransferase 72 U/L (0-40); Albumin Level 2.5 g/dL (3.5-5.0); Alkaline Phosphatase 61 U/L (39-117); Anion Gap 11 (12-20); Aspartate Amino Transferase 25 U/L (5-37); Bilirubin Direct 0.5 mg/dL (0.0-0.5); Bilirubin Total 0.8 mg/dL (0.0-1.0); Blood Urea Nitrogen 28 mg/dL (9-16); Calcium 8.3 mg/dL (8.4-10.2); Carbon Dioxide 30 mmol/L (22-29); Chloride 105 mmol/L (96-108); Creatinine Clr Calc Pharmacy 40.5; Estimated Glomerular Filt Rate 50; Glucose Random 114 mg/dL (60-115); Potassium 3.7 mmol/L (3.3-5.1); Sodium 142 mmol/L (135-145); Total Protein 5.3 g/dL (6.5-8.0)
--- NOTE | 2023-11-18 08:43 | P.PNGS_ITS ---
Subjective Subjective Date of Service: 11/18/23 Interval history: Overall feels improved today. Denies nausea or vomiting. He appears to be tolerating his regular diet. Physical Exam 2 Vital Signs: Vital Signs: Last Vital Signs Temp 98 F 11/18/23 07:01 Pulse 74 11/18/23 07:01 Resp 17 11/18/23 07:01 BP 158/75 H 11/18/23 07:01 Pulse Ox 92 11/18/23 07:01 O2 Del Method Nasal Cannula 11/18/23 07:01 O2 Flow Rate 2 11/18/23 07:01 BMI result Body Mass Index 25.1 Const: General: comfortable and no acute distress Nutritional Appearance: w ell nourished Orientation/consciousness: patient oriented x3 Eyes: Sclerae: sclerae normal GI: Other: Subcostal incision is clean, dry, and intact. HARINI intact with serous fluid noted. No bile appreciated. Skin: Other: Warm, dry, no rash, normal color Neuro: General: patient oriented x3 Objective Data Active Medications Al Hydroxide/Mg Hydroxide (Magnesium Hydrox/Alum Hydrox 30 Ml Oral.Susp) 30 ml PO Q4H PRN PRN Reason: Heartburn/Nausea Ascorbic Acid (Ascorbic Acid 500 Mg Tablet) 500 mg PO DAILY [facility] Last Admin: 11/17/23 07:51 Dose: 500 mg Documented By: NISH Benzonatate (Benzonatate 100 Mg Capsule) 200 mg PO TID [facility] Last Admin: 11/17/23 21:54 Dose: 200 mg Documented By: SUKI Calcium Carbonate (Calcium Carbonate 500 Mg Tablet) 500 mg PO DAILY [facility] Last Admin: 11/17/23 07:50 Dose: 500 mg Documented By: NISH Docusate Sodium (Docusate Sodium 100 Mg Capsule) 100 mg PO BID [facility] Last Admin: 11/17/23 21:55 Dose: 100 mg Documented By: SUKI Fentanyl (Fentanyl Citrate/Pf 100 Mcg/2 Ml Vial) 25 mcg IVPUSH Q5M PRN; Protocol PRN Reason: Pain, Moderate(Pain Scale 4-6) Gabapentin (Gabapentin 300 Mg Capsule) 300 mg PO BEDTIME [facility] Last Admin: 11/17/23 21:55 Dose: 300 mg Documented By: SUKI Guaifenesin/Dextromethorphan (Guaifenesin Dm 600/30 1 Tab Tab.Er.12h) 2 tab PO BID PRN PRN Reason: cough Last Admin: 11/16/23 21:06 Dose: 2 tab Documented By: EDILMA Guaifenesin/Dextromethorphan (Guaifenesin Dm 100/10/5 Ml 5 Ml Syrup) 5 ml PO Q4H PRN PRN Reason: Cough Piperacillin Sod/Tazobactam (Sod 3.375 gm/ Sodium Chloride) 50 mls @ 100 mls/hr IV Q6H [facility] Last Infusion: 11/18/23 04:51 Dose: Infused Documented By: RUCHI Lisinopril (Lisinopril 5 Mg Tablet) 5 mg PO DAILY [facility]; Protocol Last Admin: 11/15/23 08:59 Dose: 5 mg Documented By: LESLEY Magnesium Hydroxide (Milk Of Magnesia 30 Ml Oral.Susp) 30 ml PO DAILY PRN PRN Reason: Constipation Magnesium Oxide (Magnesium Oxide 400 Mg Tablet) 400 mg PO DAILY [facility] Last Admin: 11/17/23 07:50 Dose: 400 mg Documented By: NISH Melatonin (Melatonin 3 Mg Tablet) 6 mg PO BEDTIME PRN PRN Reason: Insomnia Morphine Sulfate (Morphine Sulfate 4 Mg/Ml Cartridge) 4 mg IVPUSH Q4H PRN; Protocol PRN Reason: Pain, Severe (Pain Scale 7-10) Last Admin: 11/17/23 08:55 Dose: 4 mg Documented By: NISH Multivitamins/Vitamin C (Multivitamin Tablet) 2 tab PO BID [facility] Last Admin: 11/17/23 21:54 Dose: 2 tab Documented By: SUKI Omeprazole (Omeprazole 20 Mg Capsule.) 20 mg PO DAILY@0630 [facility] Last Admin: 11/18/23 06:24 Dose: 20 mg Documented By: RUCHI Ondansetron HCl (Ondansetron Hcl 4 Mg/2 Ml Vial) 4 mg IVPUSH Q8H PRN PRN Reason: Nausea and Vomiting Oxycodone HCl (Oxycodone Hcl Immed Release 5 Mg Tablet) 5 mg PO Q4H PRN PRN Reason: Pain, Moderate(Pain Scale 4-6) Last Admin: 11/16/23 08:14 Dose: 5 mg Documented By: NISH Oxycodone HCl (Oxycodone Hcl Immed Release 5 Mg Tablet) 10 mg PO Q4H PRN PRN Reason: Pain, Severe (Pain Scale 7-10) Oxycodone HCl (Oxycodone Hcl Immed Release 5 Mg Tablet) 5 mg PO ONCE PRN PRN Reason: Pain, Severe (Pain Scale 7-10) Polyethylene Glycol (Polyethylene Glycol 3350 17 Gm Powd.Pack) 17 gm PO DAILY [facility] Last Admin: 11/17/23 08:51 Dose: 17 gm Documented By: NISH Sodium Chloride (0.9 % Sodium Chloride Flush 3 Ml Syringe) 3 ml IVFLUSH QSHIFT [facility] Last Admin: 11/17/23 23:18 Dose: 3 ml Documented By: RUCHI Vitamin D (Cholecalciferol (Vitamin D3) 25 Mcg Tablet) 125 mcg PO DAILY [facility] Last Admin: 11/17/23 07:52 Dose: 125 mcg Documented By: NISH Labs 11/18/23 06:38 11/18/23 06:38 Labs: Laboratory Results - last 24 hr 11/18/23 11/18/23 06:37 06:38 MCV Cancelled 93.1 MCH Cancelled 28.7 MCHC Cancelled 30.8 L RDW Cancelled 13.6 Plt Count Cancelled 187 MPV Cancelled 10.3 Immature Gran % (Auto) 0.6 H Neut % (Auto) 79.8 H Lymph % (Auto) 7.3 L [place] % (Auto) 9.6 Eos % (Auto) 2.5 Baso % (Auto) 0.2 Lymph # (Auto) 0.9 L [place] # (Auto) 1.2 Eos # (Auto) 0.3 Baso # (Auto) 0.0 Abs Immat Gran (auto) 0.07 H Absolute Neuts (auto) 10.1 H Absolute Nucleated RBC Cancelled 0.000 Nucleated RBC % (auto) Cancelled 0.0 Anion Gap 11 L Estim Creat Clear Calc 40.5 Estimated GFR 50 Random Glucose 114 Calcium 8.3 L Total Bilirubin 0.8 Direct Bilirubin 0.5 AST 25 ALT 72 H Alkaline Phosphatase 61 Total Protein 5.3 L Albumin 2.5 L Procedures Date of Service Date of Service: 11/18/23 Progress Note: A&P Assessment and plan (1) Acute gangrenous cholecystitis: Status: Acute (2) Bile leak: Status: Acute Plan POD #3 s/p laparoscopic converted open cholecystectomy, primary repair of incarcerated umbilical hernia for phlegmonous necrotic gallbladder with dense omental and transverse colonic adhesions. Postoperatively patient developed evidence of bile leak and subsequently underwent ERCP with stent placement yesterday. Multiple stones removed from common bile duct. Patient is much improved today. HARINI appears nonbilious. He is tolerating regular diet. Will monitor HARINI output. Continue out of bed and ambulation. Time Spent With Patient Time: Total time managing care of this patient today ____ minutes. Quality Stroke Does the patient have a stroke diagnosis?: No VTE Prior VTE?: No VTE Risk Level:: Medical - moderate - high VTE Device Contraindication: Treatment Not Indicated VTE Drug Contraindication: N/A - Med Ordered
[2023-11-18] MEDS: Magnesium Oxide 400 MG TABLET PO (09:08)
[2023-11-18] MEDS: Multivitamin TABLET 2 TAB PO ×2 (09:08→19:27)
[2023-11-18] MEDS: Benzonatate 100 MG CAPSULE 200 MG PO ×3 (09:08→19:27)
[2023-11-18] MEDS: Ascorbic Acid 500 MG TABLET PO (09:08)
[2023-11-18] MEDS: polyethylene glycoL 3350 17 GM POWD.PACK PO (09:09)
[2023-11-18] MEDS: 0.9 % Sodium Chloride Flush 3 ML SYRINGE IVFLUSH ×3 (09:09→23:59)
[2023-11-18] MEDS: Docusate Sodium 100 MG CAPSULE PO ×2 (09:09→19:27)
[2023-11-18] MEDS: Cholecalciferol (Vitamin D3) 25 MCG TABLET 125 MCG PO (09:19)
--- NOTE | 2023-11-18 10:04 | P.PNGI_ITS ---
Subjective Subjective Date of Service: 11/18/23 Interval History: incisional pain with coughing Critical Care Time (minutes): 0 Physical Exam 2 Vital Signs: Vital Signs: Last Vital Signs Temp 98 F 11/18/23 07:01 Pulse 74 11/18/23 07:01 Resp 17 11/18/23 07:01 BP 158/75 H 11/18/23 07:01 Pulse Ox 92 11/18/23 07:01 O2 Del Method Nasal Cannula 11/18/23 07:01 O2 Flow Rate 2 11/18/23 07:01 BMI result Body Mass Index 25.1 GI: Other: abdomen is soft and nontender HARINI drainage decreasing Objective Data Labs 11/18/23 06:38 11/18/23 06:38 Microbiology Microbiology Results: Microbiology 11/14/23 13:22 Blood - Venous Blood Culture - Preliminary No growth after 48 hours. 11/14/23 13:22 Blood - Venous Blood Culture - Preliminary No growth after 48 hours. Procedures Date of Service Date of Service: 11/18/23 Progress Note: A&P Assessment and plan (1) Bile leak: Status: Acute Assessment and Plan: doing well following ERCP stone removal and stent. lfts improved. Time Spent With Patient Time: Total time managing care of this patient today ____ minutes. Quality Stroke Does the patient have a stroke diagnosis?: No VTE Prior VTE?: No VTE Risk Level:: Medical - moderate - high VTE Device Contraindication: Treatment Not Indicated VTE Drug Contraindication: N/A - Med Ordered
--- NOTE | 2023-11-18 10:07 | P.PNIM_ITS ---
Subjective Subjective Date of Service: 11/18/23 Interval History: had ERCP yesterday for bile leak, multiple stones removed from CBD feels well with minimal pain; tolerating diet without N/V no fever Review of Systems Review of Systems: Yes all other systems are reviewed and are negative Physical Exam 2 Vital Signs: Vital Signs: Last Vital Signs Temp 98 F 11/18/23 07:01 Pulse 74 11/18/23 07:01 Resp 17 11/18/23 07:01 BP 158/75 H 11/18/23 07:01 Pulse Ox 92 11/18/23 07:01 O2 Del Method Nasal Cannula 11/18/23 07:01 O2 Flow Rate 2 11/18/23 07:01 BMI result Body Mass Index 25.1 Gen: in no acute distress HEENT: sclera anicteric, moist mucus membranes Neck: supple Lungs: clear to auscultation bilaterally Heart: regular rate and rhythm, no murmurs Abd: soft, incision with dry dressing, HARINI with serosanguinous liquid Ext: no edema Skin: warm/well-perfused Neuro: alert and oriented x3, no focal findings Psych: appropriate affect Objective Data Active Medications Al Hydroxide/Mg Hydroxide (Magnesium Hydrox/Alum Hydrox 30 Ml Oral.Susp) 30 ml PO Q4H PRN PRN Reason: Heartburn/Nausea Ascorbic Acid (Ascorbic Acid 500 Mg Tablet) 500 mg PO DAILY [facility] Last Admin: 11/18/23 09:08 Dose: 500 mg Documented By: YESI Benzonatate (Benzonatate 100 Mg Capsule) 200 mg PO TID [facility] Last Admin: 11/18/23 09:08 Dose: 200 mg Documented By: YESI Calcium Carbonate (Calcium Carbonate 500 Mg Tablet) 500 mg PO DAILY [facility] Last Admin: 11/18/23 09:08 Dose: 500 mg Documented By: YESI Docusate Sodium (Docusate Sodium 100 Mg Capsule) 100 mg PO BID [facility] Last Admin: 11/18/23 09:09 Dose: 100 mg Documented By: YESI Fentanyl (Fentanyl Citrate/Pf 100 Mcg/2 Ml Vial) 25 mcg IVPUSH Q5M PRN; Protocol PRN Reason: Pain, Moderate(Pain Scale 4-6) Gabapentin (Gabapentin 300 Mg Capsule) 300 mg PO BEDTIME [facility] Last Admin: 11/17/23 21:55 Dose: 300 mg Documented By: HO.COOK Guaifenesin/Dextromethorphan (Guaifenesin Dm 600/30 1 Tab Tab.Er.12h) 2 tab PO BID PRN PRN Reason: cough Last Admin: 11/16/23 21:06 Dose: 2 tab Documented By: EDILMA Guaifenesin/Dextromethorphan (Guaifenesin Dm 100/10/5 Ml 5 Ml Syrup) 5 ml PO Q4H PRN PRN Reason: Cough Piperacillin Sod/Tazobactam (Sod 3.375 gm/ Sodium Chloride) 50 mls @ 100 mls/hr IV Q6H [facility] Last Infusion: 11/18/23 04:51 Dose: Infused Documented By: RUCHI Lisinopril (Lisinopril 5 Mg Tablet) 5 mg PO DAILY [facility]; Protocol Last Admin: 11/15/23 08:59 Dose: 5 mg Documented By: LESLEY Magnesium Hydroxide (Milk Of Magnesia 30 Ml Oral.Susp) 30 ml PO DAILY PRN PRN Reason: Constipation Magnesium Oxide (Magnesium Oxide 400 Mg Tablet) 400 mg PO DAILY [facility] Last Admin: 11/18/23 09:08 Dose: 400 mg Documented By: YESI Melatonin (Melatonin 3 Mg Tablet) 6 mg PO BEDTIME PRN PRN Reason: Insomnia Morphine Sulfate (Morphine Sulfate 4 Mg/Ml Cartridge) 4 mg IVPUSH Q4H PRN; Protocol PRN Reason: Pain, Severe (Pain Scale 7-10) Last Admin: 11/17/23 08:55 Dose: 4 mg Documented By: NISH Multivitamins/Vitamin C (Multivitamin Tablet) 2 tab PO BID [facility] Last Admin: 11/18/23 09:08 Dose: 2 tab Documented By: YESI Omeprazole (Omeprazole 20 Mg Capsule.Dr) 20 mg PO DAILY@0630 [facility] Last Admin: 11/18/23 06:24 Dose: 20 mg Documented By: RUCHI Ondansetron HCl (Ondansetron Hcl 4 Mg/2 Ml Vial) 4 mg IVPUSH Q8H PRN PRN Reason: Nausea and Vomiting Oxycodone HCl (Oxycodone Hcl Immed Release 5 Mg Tablet) 5 mg PO Q4H PRN PRN Reason: Pain, Moderate(Pain Scale 4-6) Last Admin: 11/16/23 08:14 Dose: 5 mg Documented By: NISH Oxycodone HCl (Oxycodone Hcl Immed Release 5 Mg Tablet) 10 mg PO Q4H PRN PRN Reason: Pain, Severe (Pain Scale 7-10) Oxycodone HCl (Oxycodone Hcl Immed Release 5 Mg Tablet) 5 mg PO ONCE PRN PRN Reason: Pain, Severe (Pain Scale 7-10) Polyethylene Glycol (Polyethylene Glycol 3350 17 Gm Powd.Pack) 17 gm PO DAILY [facility] Last Admin: 11/18/23 09:09 Dose: 17 gm Documented By: YESI Sodium Chloride (0.9 % Sodium Chloride Flush 3 Ml Syringe) 3 ml IVFLUSH QSHIFT [facility] Last Admin: 11/18/23 09:09 Dose: 3 ml Documented By: YESI Vitamin D (Cholecalciferol (Vitamin D3) 25 Mcg Tablet) 125 mcg PO DAILY [facility] Last Admin: 11/18/23 09:19 Dose: 125 mcg Documented By: YESI Labs 11/18/23 06:38 11/18/23 06:38 Labs: Laboratory Results - last 24 hr 11/18/23 11/18/23 06:37 06:38 MCV Cancelled 93.1 MCH Cancelled 28.7 MCHC Cancelled 30.8 L RDW Cancelled 13.6 Plt Count Cancelled 187 MPV Cancelled 10.3 Immature Gran % (Auto) 0.6 H Neut % (Auto) 79.8 H Lymph % (Auto) 7.3 L [place] % (Auto) 9.6 Eos % (Auto) 2.5 Baso % (Auto) 0.2 Lymph # (Auto) 0.9 L [place] # (Auto) 1.2 Eos # (Auto) 0.3 Baso # (Auto) 0.0 Abs Immat Gran (auto) 0.07 H Absolute Neuts (auto) 10.1 H Absolute Nucleated RBC Cancelled 0.000 Nucleated RBC % (auto) Cancelled 0.0 Anion Gap 11 L Estim Creat Clear Calc 40.5 Estimated GFR 50 Random Glucose 114 Calcium 8.3 L Total Bilirubin 0.8 Direct Bilirubin 0.5 AST 25 ALT 72 H Alkaline Phosphatase 61 Total Protein 5.3 L Albumin 2.5 L Assessment and Plan (1) Gallstone pancreatitis: Status: Acute Plan d4 88yo M with hx prostate CA on leuprolide, HTN admitted for gallstone pancreatitis gallstone pancreatitis acute cholecystitis - LFTS improved suggestive of passed stone, ERCP cancelled initially - underwent open romel 11/15/23 + repair of incarcerated umbilical hernia; intraop findings of phlegmonous necrotic gallbladder with dense omental + transverse colon adhesions - suspected bile leak prompting ERCP 11/18/23, confirmed bile leak. Underwent sphincterotomy, sweeping of 6 CBD stones, placement of biliary sent - continue pip/martine 11/14- - will need Surg follow-up and GI follow-up to remove biliary stent in 10-12 wk EVELIO/CKD3 - Cr back to baseline after giving IV LR and holding lisinopril cough - neg for flu/RSV/Covid, symptomatic relief HTN - hold lisinopril VTE ppx - SCDs dispo - anticipate eventual home with VNA In my clinical judgment, the patient requires continued inpatient hospitalization for the following reasons: postop care, IV ABX Total time managing care of this patient today: 35 minutes. Quality Stroke Does the patient have a stroke diagnosis?: No VTE Prior VTE?: No VTE Risk Level:: Medical - moderate - high VTE Device Contraindication: Treatment Not Indicated VTE Drug Contraindication: N/A - Med Ordered
[2023-11-18] MEDS: oxyCODONE HCl Immed Release 5 MG TABLET PO (16:30)
[2023-11-18] MEDS: guaiFENesin DM 100/10/5 ML 5 ML SYRUP PO (16:30)
--- NOTE | 2023-11-18 18:20 | HO.POSTANES ---
Post Anesthesia Evaluation Post Anesthesia Evaluation Date of Service: 11/18/23 Vital Signs: Vital Signs Temp Pulse Resp BP Pulse Ox O2 Del Method O2 Flow Rate 11/18/23 15:01 97.0 F 74 18 140/63 H 93 Nasal Cannula 2 11/18/23 12:00 98 F 79 18 137/62 93 Nasal Cannula 2 11/18/23 07:01 98 F 74 17 158/75 H 92 Nasal Cannula 2 Anesthesia: General Endotracheal-GETA Mental Status: Awake Pain Control: Satisfactory Nausea/Vomiting: None Hydration: Adequate Anesthesia-Related Issues: No Anes. Related Issues
[2023-11-18] MEDS: Gabapentin 300 MG CAPSULE PO (19:26)
[2023-11-18] MEDS: Morphine Sulfate 4 MG/ML CARTRIDGE IVPUSH (19:38)
[2023-11-19 03:25] VITALS: BP 146/71; PULSE 78; RESP 14; TEMP 36.4; O2SAT 93
[2023-11-19] MEDS: Piperacillin Sodium/Tazobactam 3.375 GM in 0.9 % Sodium Chloride 50 ML IV ×4 (05:15→22:12)
[2023-11-19] MEDS: Omeprazole 20 MG CAPSULE.DR PO (05:59)
[2023-11-19 06:29] LABS: Alanine Aminotransferase 50 U/L (0-40); Albumin Level 2.5 g/dL (3.5-5.0); Alkaline Phosphatase 61 U/L (39-117); Anion Gap 11 (12-20); Aspartate Amino Transferase 21 U/L (5-37); Bilirubin Total 0.6 mg/dL (0.0-1.0); Blood Urea Nitrogen 24 mg/dL (9-16); Carbon Dioxide 29 mmol/L (22-29); Chloride 105 mmol/L (96-108); Creatinine Clr Calc Pharmacy 43.4; Estimated Glomerular Filt Rate 54; Glucose Random 94 mg/dL (60-115); Potassium 3.7 mmol/L (3.3-5.1); Sodium 141 mmol/L (135-145); Total Protein 5.1 g/dL (6.5-8.0)
[2023-11-19 06:40] LABS: Hematocrit 29.1 % (42.0-52.0); Hemoglobin 9.3 g/dl (14.0-18.0); Mean Corpuscular Hemoglobin 29.5 pg (27.0-33.0); Mean Corpuscular Volume 92.4 fL (80.0-98.0); Mean Platelet Volume 10.4 fL (9.4-12.4); Platelet Count 201 X10*3/uL (160-400); Red Blood Count 3.15 X10*6/uL (4.60-5.80); Red Cell Distribution Width 13.6 % (11.0-16.0); White Blood Count 12.1 X10*3/uL (4.8-10.8)
[2023-11-19 07:08] VITALS: BP 152/82; PULSE 74; RESP 16; TEMP 36.1; O2SAT 95
[2023-11-19] MEDS: amLODIPine Besylate 2.5 MG TABLET PO (08:37)
[2023-11-19] MEDS: Cholecalciferol (Vitamin D3) 25 MCG TABLET 125 MCG PO (08:38)
[2023-11-19] MEDS: Multivitamin TABLET 2 TAB PO ×2 (08:38→19:46)
[2023-11-19] MEDS: Docusate Sodium 100 MG CAPSULE PO ×2 (08:38→19:47)
[2023-11-19] MEDS: 0.9 % Sodium Chloride Flush 3 ML SYRINGE IVFLUSH ×2 (08:38→17:08)
[2023-11-19] MEDS: Ascorbic Acid 500 MG TABLET PO (08:38)
[2023-11-19] MEDS: Magnesium Oxide 400 MG TABLET PO (08:38)
[2023-11-19] MEDS: Benzonatate 100 MG CAPSULE 200 MG PO ×3 (08:38→19:46)
[2023-11-19] MEDS: polyethylene glycoL 3350 17 GM POWD.PACK PO (08:47)
--- NOTE | 2023-11-19 09:55 | PM.PNGS ---
Subjective Subjective Date of Service: 11/19/23 Interval history: Overall feeling improved today with decreased abdominal pain. No bowel movement yet. Physical Exam Vital Signs: Vital Signs: Last Vital Signs Temp 97 F 11/19/23 07:08 Pulse 74 11/19/23 07:08 Resp 16 11/19/23 07:08 BP 152/82 H 11/19/23 07:08 Pulse Ox 95 11/19/23 07:08 O2 Del Method Nasal Cannula 11/19/23 07:08 O2 Flow Rate 2 11/19/23 07:08 BMI result Body Mass Index 25.1 Const: General: comfortable and no acute distress Nutritional Appearance: well nourished Orientation/consciousness: patient oriented x3 Eyes: Sclerae: sclerae normal GI: Other: Subcostal incision is clean, dry, and intact. HARINI intact with serous fluid noted. No bile appreciated. Skin: Other: Warm, dry, no rash, normal color Neuro: General: patient oriented x3 Objective Data Active Medications Al Hydroxide/Mg Hydroxide (Magnesium Hydrox/Alum Hydrox 30 Ml Oral.Susp) 30 ml PO Q4H PRN PRN Reason: Heartburn/Nausea Amlodipine Besylate (Amlodipine Besylate 2.5 Mg Tablet) 2.5 mg PO DAILY [facility]; Protocol Last Admin: 11/19/23 08:37 Dose: 2.5 mg Documented By: YESI Ascorbic Acid (Ascorbic Acid 500 Mg Tablet) 500 mg PO DAILY [facility] Last Admin: 11/19/23 08:38 Dose: 500 mg Documented By: YESI Benzonatate (Benzonatate 100 Mg Capsule) 200 mg PO TID [facility] Last Admin: 11/19/23 08:38 Dose: 200 mg Documented By: YESI Calcium Carbonate (Calcium Carbonate 500 Mg Tablet) 500 mg PO DAILY [facility] Last Admin: 11/19/23 08:38 Dose: 500 mg Documented By: YESI Docusate Sodium (Docusate Sodium 100 Mg Capsule) 100 mg PO BID [facility] Last Admin: 11/19/23 08:38 Dose: 100 mg Documented By: YESI Fentanyl (Fentanyl Citrate/Pf 100 Mcg/2 Ml Vial) 25 mcg IVPUSH Q5M PRN; Protocol PRN Reason: Pain, Moderate(Pain Scale 4-6) Gabapentin (Gabapentin 300 Mg Capsule) 300 mg PO BEDTIME [facility] Last Admin: 11/18/23 19:26 Dose: 300 mg Documented By: NADIRA Guaifenesin/Dextromethorphan (Guaifenesin Dm 600/30 1 Tab Tab.Er.12h) 2 tab PO BID PRN PRN Reason: cough Last Admin: 11/16/23 21:06 Dose: 2 tab Documented By: EDILMA Guaifenesin/Dextromethorphan (Guaifenesin Dm 100/10/5 Ml 5 Ml Syrup) 5 ml PO Q4H PRN PRN Reason: Cough Last Admin: 11/18/23 16:30 Dose: 5 ml Documented By: NADIRA Piperacillin Sod/Tazobactam (Sod 3.375 gm/ Sodium Chloride) 50 mls @ 100 mls/hr IV Q6H [facility] Last Infusion: 11/19/23 05:45 Dose: Infused Documented By: RUCHI Magnesium Hydroxide (Milk Of Magnesia 30 Ml Oral.Susp) 30 ml PO DAILY PRN PRN Reason: Constipation Magnesium Oxide (Magnesium Oxide 400 Mg Tablet) 400 mg PO DAILY [facility] Last Admin: 11/19/23 08:38 Dose: 400 mg Documented By: YESI Melatonin (Melatonin 3 Mg Tablet) 6 mg PO BEDTIME PRN PRN Reason: Insomnia Morphine Sulfate (Morphine Sulfate 4 Mg/Ml Cartridge) 4 mg IVPUSH Q4H PRN; Protocol PRN Reason: Pain, Severe (Pain Scale 7-10) Last Admin: 11/18/23 19:38 Dose: 4 mg Documented By: NADIRA Multivitamins/Vitamin C (Multivitamin Tablet) 2 tab PO BID [facility] Last Admin: 11/19/23 08:38 Dose: 2 tab Documented By: YESI Omeprazole (Omeprazole 20 Mg Capsule.Dr) 20 mg PO DAILY@0630 [facility] Last Admin: 11/19/23 05:59 Dose: 20 mg Documented By: RUCHI Ondansetron HCl (Ondansetron Hcl 4 Mg/2 Ml Vial) 4 mg IVPUSH Q8H PRN PRN Reason: Nausea and Vomiting Oxycodone HCl (Oxycodone Hcl Immed Release 5 Mg Tablet) 5 mg PO Q4H PRN PRN Reason: Pain, Moderate(Pain Scale 4-6) Last Admin: 01/13/24 16:30 Dose: 5 mg Documented By: NADIRA Oxycodone HCl (Oxycodone Hcl Immed Release 5 Mg Tablet) 10 mg PO Q4H PRN PRN Reason: Pain, Severe (Pain Scale 7-10) Oxycodone HCl (Oxycodone Hcl Immed Release 5 Mg Tablet) 5 mg PO ONCE PRN PRN Reason: Pain, Severe (Pain Scale 7-10) Polyethylene Glycol (Polyethylene Glycol 3350 17 Gm Powd.Pack) 17 gm PO DAILY [facility] Last Admin: 11/19/23 08:47 Dose: 17 gm Documented By: YESI Sodium Chloride (0.9 % Sodium Chloride Flush 3 Ml Syringe) 3 ml IVFLUSH QSHIFT [facility] Last Admin: 11/19/23 08:38 Dose: 3 ml Documented By: YESI Vitamin D (Cholecalciferol (Vitamin D3) 25 Mcg Tablet) 125 mcg PO DAILY [facility] Last Admin: 11/19/23 08:38 Dose: 125 mcg Documented By: YESI Labs 11/19/23 05:58 11/19/23 05:58 Labs: Laboratory Results - last 24 hr 11/19/23 05:58 MCV 92.4 MCH 29.5 MCHC 32.0 RDW 13.6 Plt Count 201 MPV 10.4 Absolute Nucleated RBC 0.000 Nucleated RBC % (auto) 0.0 Anion Gap 11 L Estim Creat Clear Calc 43.4 Estimated GFR 54 Random Glucose 94 Calcium 8.0 L Total Bilirubin 0.6 AST 21 ALT 50 H Alkaline Phosphatase 61 Total Protein 5.1 L Albumin 2.5 L Procedures Date of Service Date of Service: 11/19/23 Progress Note: A&P Assessment and plan (1) Acute gangrenous cholecystitis: Status: Acute (2) Bile leak: Status: Acute Plan POD #4 s/p laparoscopic converted open cholecystectomy, primary repair of incarcerated umbilical hernia for phlegmonous necrotic gallbladder with dense omental and transverse colonic adhesions. Postoperatively patient developed evidence of bile leak and subsequently underwent ERCP with stent placement yesterday. Multiple stones removed from common bile duct. Patient is much improved today. HARINI continues to appear nonbilious. He is tolerating regular diet. Will monitor HARINI output. Continue out of bed and ambulation. He is passing flatus, awaiting BM. Time Spent With Patient Time: Total time managing care of this patient today ____ minutes. Quality Stroke Does the patient have a stroke diagnosis?: No VTE Prior VTE?: No VTE Risk Level:: Medical - moderate - high VTE Device Contraindication: Treatment Not Indicated VTE Drug Contraindication: N/A - Med Ordered
--- NOTE | 2023-11-19 11:04 | P.PNGI_ITS ---
Subjective Subjective Date of Service: 11/19/23 Interval History: tolerating diet feels well Critical Care Time (minutes): 0 Physical Exam 2 Vital Signs: Vital Signs: Last Vital Signs Temp 97 F 11/19/23 07:08 Pulse 74 11/19/23 07:08 Resp 16 11/19/23 07:08 BP 152/82 H 11/19/23 07:08 Pulse Ox 95 11/19/23 07:08 O2 Del Method Nasal Cannula 11/19/23 07:08 O2 Flow Rate 2 11/19/23 07:08 BMI result Body Mass Index 25.1 Const: Other: looks well GI: Other: abdomen is soft and nontender Objective Data Labs 11/19/23 05:58 11/19/23 05:58 Microbiology Microbiology Results: Microbiology 11/14/23 13:22 Blood - Venous Blood Culture - Preliminary No growth after 48 hours. 11/14/23 13:22 Blood - Venous Blood Culture - Preliminary No growth after 48 hours. Procedures Date of Service Date of Service: 11/19/23 Progress Note: A&P Assessment and plan (1) Bile leak: Status: Acute Assessment and Plan: doing well drain output decreasing appropriately lfts better Time Spent With Patient Time: Total time managing care of this patient today ____ minutes. Quality Stroke Does the patient have a stroke diagnosis?: No VTE Prior VTE?: No VTE Risk Level:: Medical - moderate - high VTE Device Contraindication: Treatment Not Indicated VTE Drug Contraindication: N/A - Med Ordered
[2023-11-19 11:10] VITALS: BP 158/72; PULSE 72; RESP 18; TEMP 36.2; O2SAT 92
--- NOTE | 2023-11-19 13:08 | P.PNIM_ITS ---
Subjective Subjective Date of Service: 11/19/23 Interval History: Feeling better good pain control tolerating diet, no bowel movement, no fevers, no chills, no nausea, no vomiting no acute issues overnight. Review of Systems All other system reviewed and negative. Physical Exam 2 Vital Signs: Vital Signs: Last Vital Signs Temp 97.2 F 11/19/23 11:10 Pulse 72 11/19/23 11:10 Resp 18 11/19/23 11:10 BP 158/72 H 11/19/23 11:10 Pulse Ox 92 11/19/23 11:10 O2 Del Method Nasal Cannula 11/19/23 11:10 O2 Flow Rate 1 11/19/23 11:10 BMI result Body Mass Index 25.1 Const: Other: Gen:awake ,alert, in no acute distress HEENT: sclera anicteric, moist mucus membranes Neck: supple Lungs: clear to auscultation bilaterally Heart: regular rate and rhythm, no murmurs Abd: soft, incision with dry dressing, HARINI with serosanguinous liquid Ext: no edema Skin: warm/well-perfused Neuro: alert and oriented x3, no focal findings Psych: appropriate affect Objective Data Active Medications Al Hydroxide/Mg Hydroxide (Magnesium Hydrox/Alum Hydrox 30 Ml Oral.Susp) 30 ml PO Q4H PRN PRN Reason: Heartburn/Nausea Amlodipine Besylate (Amlodipine Besylate 2.5 Mg Tablet) 2.5 mg PO DAILY [facility]; Protocol Last Admin: 11/19/23 08:37 Dose: 2.5 mg Documented By: YESI Ascorbic Acid (Ascorbic Acid 500 Mg Tablet) 500 mg PO DAILY [facility] Last Admin: 11/19/23 08:38 Dose: 500 mg Documented By: YESI Benzonatate (Benzonatate 100 Mg Capsule) 200 mg PO TID [facility] Last Admin: 11/19/23 08:38 Dose: 200 mg Documented By: YESI Calcium Carbonate (Calcium Carbonate 500 Mg Tablet) 500 mg PO DAILY [facility] Last Admin: 11/19/23 08:38 Dose: 500 mg Documented By: YESI Docusate Sodium (Docusate Sodium 100 Mg Capsule) 100 mg PO BID [facility] Last Admin: 11/19/23 08:38 Dose: 100 mg Documented By: YESI Fentanyl (Fentanyl Citrate/Pf 100 Mcg/2 Ml Vial) 25 mcg IVPUSH Q5M PRN; Protocol PRN Reason: Pain, Moderate(Pain Scale 4-6) Gabapentin (Gabapentin 300 Mg Capsule) 300 mg PO BEDTIME [facility] Last Admin: 11/18/23 19:26 Dose: 300 mg Documented By: NADIRA Guaifenesin/Dextromethorphan (Guaifenesin Dm 600/30 1 Tab Tab.Er.12h) 2 tab PO BID PRN PRN Reason: cough Last Admin: 11/16/23 21:06 Dose: 2 tab Documented By: EDILMA Guaifenesin/Dextromethorphan (Guaifenesin Dm 100/10/5 Ml 5 Ml Syrup) 5 ml PO Q4H PRN PRN Reason: Cough Last Admin: 11/18/23 16:30 Dose: 5 ml Documented By: NADIRA Piperacillin Sod/Tazobactam (Sod 3.375 gm/ Sodium Chloride) 50 mls @ 100 mls/hr IV Q6H [facility] Last Admin: 11/19/23 12:11 Dose: 100 mls/hr Documented By: YESI Magnesium Hydroxide (Milk Of Magnesia 30 Ml Oral.Susp) 30 ml PO DAILY PRN PRN Reason: Constipation Magnesium Oxide (Magnesium Oxide 400 Mg Tablet) 400 mg PO DAILY [facility] Last Admin: 11/19/23 08:38 Dose: 400 mg Documented By: YESI Melatonin (Melatonin 3 Mg Tablet) 6 mg PO BEDTIME PRN PRN Reason: Insomnia Morphine Sulfate (Morphine Sulfate 4 Mg/Ml Cartridge) 4 mg IVPUSH Q4H PRN; Protocol PRN Reason: Pain, Severe (Pain Scale 7-10) Last Admin: 11/18/23 19:38 Dose: 4 mg Documented By: NADIRA Multivitamins/Vitamin C (Multivitamin Tablet) 2 tab PO BID [facility] Last Admin: 11/19/23 08:38 Dose: 2 tab Documented By: YESI Omeprazole (Omeprazole 20 Mg Capsule.Dr) 20 mg PO DAILY@0630 [facility] Last Admin: 11/19/23 05:59 Dose: 20 mg Documented By: RUCHI Ondansetron HCl (Ondansetron Hcl 4 Mg/2 Ml Vial) 4 mg IVPUSH Q8H PRN PRN Reason: Nausea and Vomiting Oxycodone HCl (Oxycodone Hcl Immed Release 5 Mg Tablet) 5 mg PO Q4H PRN PRN Reason: Pain, Moderate(Pain Scale 4-6) Last Admin: 11/18/23 16:30 Dose: 5 mg Documented By: NADIRA Oxycodone HCl (Oxycodone Hcl Immed Release 5 Mg Tablet) 10 mg PO Q4H PRN PRN Reason: Pain, Severe (Pain Scale 7-10) Oxycodone HCl (Oxycodone Hcl Immed Release 5 Mg Tablet) 5 mg PO ONCE PRN PRN Reason: Pain, Severe (Pain Scale 7-10) Polyethylene Glycol (Polyethylene Glycol 3350 17 Gm Powd.Pack) 17 gm PO DAILY [facility] Last Admin: 11/19/23 08:47 Dose: 17 gm Documented By: YESI Sodium Chloride (0.9 % Sodium Chloride Flush 3 Ml Syringe) 3 ml IVFLUSH QSHIFT [facility] Last Admin: 11/19/23 08:38 Dose: 3 ml Documented By: YESI Vitamin D (Cholecalciferol (Vitamin D3) 25 Mcg Tablet) 125 mcg PO DAILY [facility] Last Admin: 11/19/23 08:38 Dose: 125 mcg Documented By: YESI Labs 11/19/23 05:58 11/19/23 05:58 Labs: Laboratory Results - last 24 hr 11/19/23 05:58 MCV 92.4 MCH 29.5 MCHC 32.0 RDW 13.6 Plt Count 201 MPV 10.4 Absolute Nucleated RBC 0.000 Nucleated RBC % (auto) 0.0 Anion Gap 11 L Estim Creat Clear Calc 43.4 Estimated GFR 54 Random Glucose 94 Calcium 8.0 L Total Bilirubin 0.6 AST 21 ALT 50 H Alkaline Phosphatase 61 Total Protein 5.1 L Albumin 2.5 L Assessment and Plan (1) Gallstone pancreatitis: Status: Acute Plan 88yo M with hx prostate CA on leuprolide, HTN ,admitted for gallstone pancreatitis gallstone pancreatitis acute cholecystitis - LFTS improved suggestive of passed stone, ERCP cancelled initially - underwent open romel 11/15/23 + repair of incarcerated umbilical hernia; intraop findings of phlegmonous necrotic gallbladder with dense omental + transverse colon adhesions - suspected bile leak prompting ERCP 11/18/23, confirmed bile leak. Underwent sphincterotomy, sweeping of 6 CBD stones, placement of biliary sent - WBC trending down, LFTs improved, no fevers, continue pip/martine 11/14- - will need Surg follow-up and GI follow-up to remove biliary stent in 10-12 wk - good pain control, constipated, continue stool softeners, will add protein supplements. EVELIO/CKD3 - Cr back to baseline , status post IV fluids , will DC lisinopril 5mg cough - neg for flu/RSV/Covid, symptomatic relief HTN lisinopril discontinued due to EVELIO will place patient on Norvasc 2.5 mg daily VTE ppx - SCDs dispo - anticipate eventual home with VNA In my clinical judgment, the patient requires continued inpatient hospitalization for the following reasons: postop care, IV ABX Total time managing care of this patient today: 35 minutes. Quality Stroke Does the patient have a stroke diagnosis?: No VTE Prior VTE?: No VTE Risk Level:: Medical - moderate - high VTE Device Contraindication: Treatment Not Indicated VTE Drug Contraindication: N/A - Med Ordered
[2023-11-19 15:50] VITALS: BP 140/74; PULSE 81; RESP 15; TEMP 36.6; O2SAT 96
[2023-11-19] MEDS: Milk of Magnesia 30 ML ORAL.SUSP PO (17:20)
[2023-11-19 19:16] VITALS: BP 145/79; PULSE 88; RESP 16; TEMP 36.2; O2SAT 93
[2023-11-19] MEDS: Gabapentin 300 MG CAPSULE PO (19:46)
[2023-11-19 23:56] VITALS: BP 157/72; PULSE 72; RESP 16; TEMP 36; O2SAT 94
[2023-11-20] MEDS: 0.9 % Sodium Chloride Flush 3 ML SYRINGE IVFLUSH (00:06)
[2023-11-20 03:37] VITALS: BP 165/73; PULSE 76; RESP 16; TEMP 36; O2SAT 93
[2023-11-20 05:10] LABS: Hematocrit 29.8 % (42.0-52.0); Hemoglobin 9.6 g/dl (14.0-18.0); Mean Corpuscular HGB Conc 32.2 g/dl (31.0-36.0); Mean Corpuscular Hemoglobin 29.2 pg (27.0-33.0); Mean Corpuscular Volume 90.6 fL (80.0-98.0); Mean Platelet Volume 10.2 fL (9.4-12.4); Platelet Count 234 X10*3/uL (160-400); Red Blood Count 3.29 X10*6/uL (4.60-5.80); Red Cell Distribution Width 13.3 % (11.0-16.0); White Blood Count 11.3 X10*3/uL (4.8-10.8)
[2023-11-20 05:25] LABS: Anion Gap 12 (12-20); Blood Urea Nitrogen 21 mg/dL (9-16); Calcium 8.1 mg/dL (8.4-10.2); Carbon Dioxide 30 mmol/L (22-29); Chloride 103 mmol/L (96-108); Creatinine Clr Calc Pharmacy 48.4; Estimated Glomerular Filt Rate > 60; Glucose Random 115 mg/dL (60-115); Potassium 3.5 mmol/L (3.3-5.1); Sodium 141 mmol/L (135-145)
[2023-11-20] MEDS: Omeprazole 20 MG CAPSULE.DR PO (05:35)
[2023-11-20] MEDS: Piperacillin Sodium/Tazobactam 3.375 GM in 0.9 % Sodium Chloride 50 ML IV ×2 (05:35→11:01)
[2023-11-20 07:18] VITALS: BP 150/64; PULSE 72; RESP 20; TEMP 36.4; O2SAT 95
[2023-11-20] MEDS: Multivitamin TABLET 2 TAB PO (08:27)
[2023-11-20] MEDS: Cholecalciferol (Vitamin D3) 25 MCG TABLET 125 MCG PO (08:27)
[2023-11-20] MEDS: polyethylene glycoL 3350 17 GM POWD.PACK PO (08:27)
[2023-11-20] MEDS: Benzonatate 100 MG CAPSULE 200 MG PO (08:27)
[2023-11-20] MEDS: Docusate Sodium 100 MG CAPSULE PO (08:27)
[2023-11-20] MEDS: Ascorbic Acid 500 MG TABLET PO (08:28)
[2023-11-20] MEDS: bisacodyL 10 MG SUPP.RECT PR (08:28)
[2023-11-20] MEDS: Magnesium Oxide 400 MG TABLET PO (08:28)
[2023-11-20] MEDS: amLODIPine Besylate 2.5 MG TABLET PO (08:28)
--- NOTE | 2023-11-20 08:38 | P.PNGS_ITS ---
Subjective Subjective Date of Service: 11/20/23 Interval history: Doing well. Still having some incisional pain but mild. Passing flatus but no BM. Tolerating diet but no significant appetite. Physical Exam 2 Vital Signs: Vital Signs: Last Vital Signs Temp 97.6 F 11/20/23 07:18 Pulse 72 11/20/23 07:18 Resp 20 11/20/23 07:18 BP 150/64 H 11/20/23 07:18 Pulse Ox 95 11/20/23 07:18 O2 Del Method Nasal Cannula 11/20/23 07:18 O2 Flow Rate 1 11/20/23 07:18 BMI result Body Mass Index 25.1 Const: General: comfortable, no acute distress and alert O rientation/consciousness: patient oriented x3 Resp: Effort & Inspection: normal respiratory effort GI: Other: HARINI with scant serosanguineous output Inspection: Yes distended (mild, decreasingly) and Yes incision (clean) Palpation (GI): Soft to palpation, Tenderness to palpation present (GI) (incision), no guarding and not rigid Skin: General skin exam: no rashes or lesions noted and no jaundice Neuro: General: patient oriented x3 Objective Data Active Medications Al Hydroxide/Mg Hydroxide (Magnesium Hydrox/Alum Hydrox 30 Ml Oral.Susp) 30 ml PO Q4H PRN PRN Reason: Heartburn/Nausea Amlodipine Besylate (Amlodipine Besylate 2.5 Mg Tablet) 2.5 mg PO DAILY REPLACED BY [facility]; Protocol Last Admin: 11/19/23 08:37 Dose: 2.5 mg Documented By: YESI Ascorbic Acid (Ascorbic Acid 500 Mg Tablet) 500 mg PO DAILY REPLACED BY [facility] Last Admin: 11/19/23 08:38 Dose: 500 mg Documented By: YESI Benzonatate (Benzonatate 100 Mg Capsule) 200 mg PO TID REPLACED BY [facility] Last Admin: 11/19/23 19:46 Dose: 200 mg Documented By: NADIRA Calcium Carbonate (Calcium Carbonate 500 Mg Tablet) 500 mg PO DAILY REPLACED BY [facility] Last Admin: 11/19/23 08:38 Dose: 500 mg Documented By: YESI Docusate Sodium (Docusate Sodium 100 Mg Capsule) 100 mg PO BID REPLACED BY [facility] Last Admin: 11/19/23 19:47 Dose: 100 mg Documented By: NADIRA Fentanyl (Fentanyl Citrate/Pf 100 Mcg/2 Ml Vial) 25 mcg IVPUSH Q5M PRN; Protocol PRN Reason: Pain, Moderate(Pain Scale 4-6) Gabapentin (Gabapentin 300 Mg Capsule) 300 mg PO BEDTIME REPLACED BY [facility] Last Admin: 11/19/23 19:46 Dose: 300 mg Documented By: NADIRA Guaifenesin/Dextromethorphan (Guaifenesin Dm 600/30 1 Tab Tab.Er.12h) 2 tab PO BID PRN PRN Reason: cough Last Admin: 11/16/23 21:06 Dose: 2 tab Documented By: EDILMA Guaifenesin/Dextromethorphan (Guaifenesin Dm 100/10/5 Ml 5 Ml Syrup) 5 ml PO Q4H PRN PRN Reason: Cough Last Admin: 11/18/23 16:30 Dose: 5 ml Documented By: NADIRA Piperacillin Sod/Tazobactam (Sod 3.375 gm/ Sodium Chloride) 50 mls @ 100 mls/hr IV Q6H REPLACED BY [facility] Last Infusion: 11/20/23 06:10 Dose: Infused Documented By: TON Magnesium Hydroxide (Milk Of Magnesia 30 Ml Oral.Susp) 30 ml PO DAILY PRN PRN Reason: Constipation Last Admin: 11/19/23 17:20 Dose: 30 ml Documented By: NADIRA Magnesium Oxide (Magnesium Oxide 400 Mg Tablet) 400 mg PO DAILY REPLACED BY [facility] Last Admin: 11/19/23 08:38 Dose: 400 mg Documented By: YESI Melatonin (Melatonin 3 Mg Tablet) 6 mg PO BEDTIME PRN PRN Reason: Insomnia Multivitamins/Vitamin C (Multivitamin Tablet) 2 tab PO BID REPLACED BY [facility] Last Admin: 11/19/23 19:46 Dose: 2 tab Documented By: NADIRA Omeprazole (Omeprazole 20 Mg Capsule.) 20 mg PO DAILY@0630 REPLACED BY [facility] Last Admin: 11/20/23 05:35 Dose: 20 mg Documented By: TON Ondansetron HCl (Ondansetron Hcl 4 Mg/2 Ml Vial) 4 mg IVPUSH Q8H PRN PRN Reason: Nausea and Vomiting Oxycodone HCl (Oxycodone Hcl Immed Release 5 Mg Tablet) 5 mg PO Q4H PRN PRN Reason: Pain, Moderate(Pain Scale 4-6) Last Admin: 11/18/23 16:30 Dose: 5 mg Documented By: NADIRA Oxycodone HCl (Oxycodone Hcl Immed Release 5 Mg Tablet) 5 mg PO ONCE PRN PRN Reason: Pain, Severe (Pain Scale 7-10) Polyethylene Glycol (Polyethylene Glycol 3350 17 Gm Powd.Pack) 17 gm PO DAILY REPLACED BY [facility] Last Admin: 11/19/23 08:47 Dose: 17 gm Documented By: YESI Sodium Chloride (0.9 % Sodium Chloride Flush 3 Ml Syringe) 3 ml IVFLUSH QSHIFT REPLACED BY [facility] Last Admin: 11/20/23 07:06 Dose: Not Given Documented By: TON Non-Admin Reason: Previously Administered Vitamin D (Cholecalciferol (Vitamin D3) 25 Mcg Tablet) 125 mcg PO DAILY REPLACED BY [facility] Last Admin: 11/19/23 08:38 Dose: 125 mcg Documented By: YESI Labs 11/20/23 04:10 11/20/23 04:10 Labs: Laboratory Results - last 24 hr 11/20/23 04:10 MCV 90.6 MCH 29.2 MCHC 32.2 RDW 13.3 Plt Count 234 MPV 10.2 Absolute Nucleated RBC 0.000 Nucleated RBC % (auto) 0.0 Anion Gap 12 Estim Creat Clear Calc 48.4 Estimated GFR > 60 Random Glucose 115 Calcium 8.1 L Microbiology Microbiology Results: Microbiology 11/14/23 13:22 Blood Culture - Final Blood - Venous No growth after 5 days. 11/14/23 13:22 Blood Culture - Final Blood - Venous No growth after 5 days. Procedures Date of Service Date of Service: 11/20/23 Progress Note: A&P Assessment and plan (1) Acute gangrenous cholecystitis: Status: Acute (2) Gallstone pancreatitis: Status: Acute Plan Doing well s/p open CCY and ERCP. Abd remains benign with clean incision. LFTs remain normal, CBC almost normalized. HARINI without bilious output and therefore removed. No BM for close to a week- on bowel regimen. Will add suppository. Stable for dc from surgical standpoint when has BM. F/u in office in 1 week. F/u with Dr. Whaley in 1 month. Patient comfortable with plan. Time Spent With Patient Time: Total time managing care of this patient today ____ minutes. Quality Stroke Does the patient have a stroke diagnosis?: No VTE Prior VTE?: No VTE Risk Level:: Medical - moderate - high VTE Device Contraindication: Treatment Not Indicated VTE Drug Contraindication: N/A - Med Ordered
--- NOTE | 2023-11-20 09:55 | P.DS_ITS ---
DS: Providers Provider Date of Service: 11/20/23 Date of admission: 11/14/23 16:57 Primary care physician: Jefry Ortega MD Consults: 11/14/23 14:47 Consult to Gastroenterology Stat Consulting Provider: Boubacar Magana Reason for consultation: Gallstone pancreatitis Has provider been notified: Yes 11/14/23 14:48 Consult to General Surgery Stat Consulting Provider: [facility] General Surgeons Reason for consultation: Gallstone pancreatitis Has provider been notified: Yes DS: Diagnosis Discharge Diagnosis (1) Acute gangrenous cholecystitis: Status: Acute (2) Gallstone pancreatitis: Status: Acute DS: Summary Hospital Course Hospital Course: History of presenting illness: Date of Service: 11/14/23 Chief Complaint: Abdominal pain An 88-year-old, high-functioning man with a history of prostate cancer treated with Leuprolide injection (Eligard), CKD 3b, and hypertension was referred to the emergency department by his PCP, Dr. Jefry Ortega, for evaluation of possible gallstone pancreatitis. The patient has been experiencing progressively severe abdominal pain since Monday, worsening on Monday and Monday. He describes the pain as located in the lower abdomen, radiating upwards. He also experienced vomiting on Monday but denies any fever. Labs were done yesterday 11/13 and show Lipase 1395 which is down to 281 today, WBC was 13 yesterdat but 26 today. AST/ALT 458/536, AKP 128. CT and US of abdomen show contracted gallbladder with stone and normal CBC. Hospital course: 88yo M with hx prostate CA on leuprolide, HTN ,admitted for gallstone pancreatitis, treated with IV fluids, LFTs improved suggestive of passed stone therefore ERCP was canceled initially patient underwent open cholecystectomy on 11/15/2023 +repair of incarcerated umbilical hernia, noted to have phlegmonous necrotic gallbladder with dense omental + transverse colon adhesions, postprocedure was suspected to have bile leak prompting ERCP 11/18/23, confirmed bile leak. Underwent sphincterotomy, sweeping of 6 CBD stones, placement of biliary stent, patient incision is well healed HARINI drain removed today patient is tolerating diet with no nausea no vomiting had a regular bowel movement this morning therefore he is being discharged home with recommendation to have outpatient follow-up with General surgery in 1 week and follow-up with Dr. Whaley in 4 weeks, need removal of biliary stent in 10-12 weeks, will discharge home on oxycodone and Augmentin for 5 more days recommend to take stool softeners as needed. EVELIO/CKD3 on admission noted to be in acute kidney injury likely prerenal treated with IV fluids renal function normalized HTN resume lisinopril follow blood pressure closely. Time Attestation Discharge coordination time: Greater than 30 minutes Quality: Safe Use of Opioids Does Pt have an Active Cancer Diagnosis on the Problem List?: No Quality: Stroke Does the patient have a stroke diagnosis?: No Physical Exam Vital Signs: Vital Signs: Last Vital Signs Temp 97.6 F 11/20/23 07:18 Pulse 72 11/20/23 07:18 Resp 20 11/20/23 07:18 BP 150/64 H 11/20/23 07:18 Pulse Ox 95 11/20/23 07:18 O2 Del Method Nasal Cannula 11/20/23 07:18 O2 Flow Rate 1 11/20/23 07:18 BMI result Body Mass Index 25.1 Const: Other: Gen:awake ,alert, in no acute distress HEENT: sclera anicteric, moist mucus membranes Neck: supple,no jvd. Lungs: clear to auscultation bilaterally Heart: regular rate and rhythm, no murmurs Abd: soft, incision with dry dressing, bowel sounds audible. Ext: no edema Skin: warm/well-perfused Neuro: alert and oriented x3, no focal findings Psych: appropriate affect DS: Data Data Completed and Pending Completed studies during hospitalization [Text1]: Pending at discharge 11/15/23 15:38 Surgical [PTH] Routine Pending studies at discharge: Pending at discharge 11/15/23 16:30 Surgical [PTH] Routine Labs on day of discharge: Laboratory Results - last 24 hr 11/20/23 04:10 WBC 11.3 H RBC 3.29 L Hgb 9.6 L Hct 29.8 L MCV 90.6 MCH 29.2 MCHC 32.2 RDW 13.3 Plt Count 234 MPV 10.2 Absolute Nucleated RBC 0.000 Nucleated RBC % (auto) 0.0 Sodium 141 Potassium 3.5 Chloride 103 Carbon Dioxide 30 H Anion Gap 12 BUN 21 H Creatinine 1.13 Estim Creat Clear Calc 48.4 Estimated GFR > 60 Random Glucose 115 Calcium 8.1 L Discharge Plan Discharge Anticipated Discharge Date/Time: 11/20/23 09:43 Patient Disposition: Home, Self-Care Discharge Diagnosis: Acute gallstone pancreatitis Acute cholecystitis Acute kidney injury on chronic kidney disease stage 3 Referrals: Jefry Ortega MD [Primary Care Provider] - 1 Week Elton Fisher MD [Physician] - 1 Week Discharge Medications: New polyethylene glycol 3350 17 gram Powder In Packet 17 g PO DAILY Qty: 30 0RF amoxicillin-pot clavulanate 875-125 mg tablet 1 tab PO BID Qty: 10 0RF oxycodone 5 mg Tablet 5 mg PO Q6H PRN (Reason: Pain, Moderate(Pain Scale 4-6)) Qty: 12 0RF Rx Instructions: Partial Fill upon patient request. docusate sodium 100 mg Capsule 100 mg PO BID Qty: 30 0RF Continued magnesium 500 mg Tablet 500 mg PO DAILY ascorbic acid (vitamin C) [Vitamin C] 500 mg Tablet 500 mg PO DAILY calcium citrate 500 mg Tablet, Effervescent 500 mg PO DAILY gabapentin 300 mg capsule 300 mg PO BEDTIME omeprazole 20 mg capsule,delayed release(DR/EC) 20 mg PO DAILY aspirin 81 mg Tablet,Chewable 81 mg PO DAILY lisinopril 5 mg tablet 5 mg PO DAILY cholecalciferol (vitamin D3) 125 mcg (5,000 unit) Tablet 125 mcg PO DAILY PreserVision AREDS 2,148 mcg-113 mg-45 mg-17.4mg Tablet 2 tab PO BID Rx Instructions: administer with AM and PM meals dwyhrzf-nsxh-cfiwe-oreg-capryl 1 cap PO DAILY Discharge Orders: Discharge Order (Routine); Ordered 11/20/23 Ordered By: Aleisha Jama Diet: Advance to usual diet Activity on Discharge: As tolerated Stand Alone Forms: Patient Portal Discharge page Activity Restrictions/Additional Instructions: May shower. No strenuous activities. Ice pack to wound 20 minutes on and off every few hours Take Augmentin 1 tablet twice daily for 5 more days with food Take MiraLax daily and use stool softeners for constipation, if noted to have diarrhea hold stool softeners Follow-up with general surgery in [address] Fisher Outpatient follow-up with Dr. Whaley in 1 month call for appointment Care Plan Goals: Take Tylenol for mild pain, and oxycodone for moderate to severe pain Health Concerns: Take all home medication as before Plan of Treatment: Outpatient follow-up with Dr. Fisher in [address] Whaley in 1 month Assessment: As above
--- NOTE | 2023-11-20 09:58 | MHC.CM.PN ---
PT WILL DC HOME TODAY WITH NO SERVICE VIA PRIVATE TRANSPORT
[2023-11-20 10:00] VITALS: PULSE 76; RESP 20; O2SAT 94
[2023-11-20 11:47] VITALS: BP 150/70; PULSE 68; RESP 20; TEMP 36.4; O2SAT 95
== END 2023-11-20 13:02 | disposition home or self-care (01) | DRG 414 ==
LOC: HO.ED 13:20 → HO.EDOVER 17:49 → HO.S3 11-15 16:58
PROVIDERS: Family Medicine; Internal Medicine Gastroenterology; Surgery; Admitting Provider Internal Medicine; Emergency Provider Emergency Medicine Emergency Medical Services; PCP Family Medicine; Visit Provider Hospitalist
PROC: 0FT44ZZ Resection of Gallbladder, Percutaneous Endoscopic Approach (ICD-10-PCS; CPT 47562; principal; 2023-11-15 13:00)
PROC: 0FC98ZZ Extirpation of Matter from Common Bile Duct, Via Natural or Artificial Opening Endoscopic (ICD-10-PCS; CPT 43260; principal; 2023-11-17 13:30)
DX: K80.42 Calculus of bile duct with acute cholecystitis without obstruction (principal); K85.10 Biliary acute pancreatitis without necrosis or infection; K42.0 Umbilical hernia with obstruction, without gangrene; N17.9 Acute kidney failure, unspecified; K91.89 Other postprocedural complications and disorders of digestive system; K82.A1 Gangrene of gallbladder in cholecystitis; K82.8 Other specified diseases of gallbladder; N18.32 Chronic kidney disease, stage 3b; C61 Malignant neoplasm of prostate; I12.9 Hypertensive chronic kidney disease with stage 1 through stage 4 chronic kidney disease, or unspecified chronic kidney disease; K21.9 Gastro-esophageal reflux disease without esophagitis; Z20.822 Contact with and (suspected) exposure to COVID-19; Z79.82 Long term (current) use of aspirin; Z79.899 Other long term (current) drug therapy
CPT/HCPCS: 0241U; 36415; 71046; 74176; 76705; 80048; 80053; 80076; 82248; 83605; 83690; 84450; 84460; 85025; 85027; 85610; 85652; 87040; 87635; 88304; 97161; 99024; 99285; C1769; C2617; J0131; J0665; J1100; J2270; J2371; J2405; J2543; J2598; J2704; J3010; J7120; Q9967

== ENCOUNTER → 2023-11-14 16:57 | Outpatient (BNV) | payer MEDICARE, OTHER, SELFPAY | PROVIDERS: Admitting Provider Internal Medicine; Emergency Provider Emergency Medicine Emergency Medical Services; PCP Family Medicine; Visit Provider Internal Medicine Gastroenterology | DX: K85.10 Biliary acute pancreatitis without necrosis or infection (principal) | CPT/HCPCS: 99222 ==

== ENCOUNTER → 2023-11-14 16:57 | Outpatient (BNV) | payer MEDICARE, OTHER, SELFPAY | PROVIDERS: Admitting Provider Internal Medicine; Emergency Provider Emergency Medicine Emergency Medical Services; PCP Family Medicine; Visit Provider Family Medicine | DX: K85.10 Biliary acute pancreatitis without necrosis or infection (principal); C61 Malignant neoplasm of prostate; N18.30 Chronic kidney disease, stage 3 unspecified; N17.9 Acute kidney failure, unspecified; I10 Essential (primary) hypertension | CPT/HCPCS: 99223; 99232; 99233; 99239 ==

== ENCOUNTER → 2023-11-14 16:57 | Outpatient (BNV) | payer MEDICARE, OTHER, SELFPAY | PROVIDERS: Admitting Provider Internal Medicine; Emergency Provider Emergency Medicine Emergency Medical Services; PCP Family Medicine; Visit Provider Surgery | DX: K85.10 Biliary acute pancreatitis without necrosis or infection (principal) | CPT/HCPCS: 47600; 99024; 99212; 99222 ==

== ENCOUNTER 2023-11-29 12:49 | Outpatient (AMB) | payer MEDICARE, OTHER, SELFPAY ==
--- NOTE | 2023-11-29 12:52 | MHC.OFFVIS ---
Intake Vital Signs 11/29/23 12:54 Height 5 ft 10 in Weight 175 lb 14.862 oz BMI 25.2 BP 104/58 L Blood Pressure Location Rt brachial Position Sitting Pulse 108 H Intake Visit Reasons: gallstones, pancreatitis Intake Note: Patient referred by pcp Dr. Ortega for gallstones, pancreatitis. Abd US on 11-14-23. Fluoroscopy by Dr. Whaley on 11-17-23. Patient c/o: denies pain, nausea, no vomiting Political Science Instructor Required: No Accompanied by: Monalisa Allergies No Known Allergies Allergy (Verified 11/29/23 13:00) HPI HPI Comments History of Present Illness Details Patient presents with his for follow-up. He is doing well. He has tolerating a diet. He is having regular bowel habits. He has minimal incisional discomfort. He is increasing his activity level. [facility] Medical History HTN (hypertension) Prostate cancer Urinary frequency Surgical History History of back surgery Social History Household Members: Spouse Housing: House Do you presently have visiting nurse or other home services: No Patient Tobacco Use Status: Never used Tobacco Advance Directives Date on File: 11/15/23 service: Yes Physical Exam Vital Signs: Last Vital Signs Pulse 108 H 11/29/23 12:54 BP 104/58 L 11/29/23 12:54 BMI result Body Mass Index 25.2 Eyes Other: Anicteric GI Other: Abdomen soft. All wounds clean dry and intact healing very well. Assessment & Plan Assessment & Plan (1) Status post cholecystectomy: Code(s): Z90.49 - Acquired absence of other specified parts of digestive tract Plan Patient is doing well. He has been given local instructions and will follow-up with me p.r.n.. All questions answered. He is scheduled to follow-up with Dr. Whaley/KELSEY in the few weeks time regarding stent removal. Coding Level of Care Code Global (84542) Diagnoses Status post cholecystectomy Z90.49
[2023-11-29 12:54] VITALS: BP 104/58; PULSE 108; BMI 25.2
== END 2023-11-29 13:20 | disposition home or self-care (01) ==
PROVIDERS: PCP Family Medicine; Visit Provider Surgery
DX: Z90.49 Acquired absence of other specified parts of digestive tract (principal)
CPT/HCPCS: 99024

== ENCOUNTER → 2023-11-29 12:49 | Outpatient (BNVA) | payer MEDICARE, OTHER, SELFPAY | PROVIDERS: PCP Family Medicine; Visit Provider Surgery | DX: Z90.49 Acquired absence of other specified parts of digestive tract (principal) | CPT/HCPCS: 99212 ==

== ENCOUNTER 2023-12-08 08:08 | Outpatient (REF) | payer MEDICARE, OTHER, SELFPAY ==
[2023-12-08 10:48] LABS: MANUAL DIFF FLAG NO
[2023-12-08 10:58] LABS: Basophils Percent Auto 0.5 % (0-2); Eosinophils Absolute Auto 0.2 X10*3/uL (0.0-0.4); Eosinophils Percent Auto 2.9 % (0-4); Hematocrit 36.5 % (42.0-52.0); Hemoglobin 11.4 g/dl (14.0-18.0); Imm Gran Abs Auto 0.01 X10*3/uL (0.00-0.03); Imm Gran Pct Auto 0.1 % (0.0-0.4); Lymphocytes Absolute Auto 2.1 X10*3/uL (1.2-4.9); Lymphocytes Percent Auto 26.1 % (20-40); Mean Corpuscular HGB Conc 31.2 g/dl (31.0-36.0); Mean Corpuscular Hemoglobin 29.2 pg (27.0-33.0); Mean Corpuscular Volume 93.6 fL (80.0-98.0); Mean Platelet Volume 10.4 fL (9.4-12.4); Monocytes Absolute Auto 0.8 X10*3/uL (0.1-1.2); Monocytes Percent Auto 9.4 % (2-11); Neutrophils Absolute Auto 4.9 x10*3/uL (2.0-8.3); Platelet Count 234 X10*3/uL (160-400); Red Cell Distribution Width 13.6 % (11.0-16.0)
[2023-12-08 11:05] LABS: Alanine Aminotransferase 10 U/L (0-40); Albumin Level 3.7 g/dL (3.5-5.0); Alkaline Phosphatase 70 U/L (39-117); Anion Gap 13 (12-20); Aspartate Amino Transferase 16 U/L (5-37); Bilirubin Total 0.5 mg/dL (0.0-1.0); Blood Urea Nitrogen 24 mg/dL (9-16); Calcium 9.2 mg/dL (8.4-10.2); Carbon Dioxide 29 mmol/L (22-29); Chloride 104 mmol/L (96-108); Estimated Glomerular Filt Rate 50; Glucose Random 124 mg/dL (60-115); Potassium 4.3 mmol/L (3.3-5.1); Sodium 142 mmol/L (135-145); Total Protein 7.1 g/dL (6.5-8.0)
== END 2023-12-08 08:09 | disposition home or self-care (01) ==
LOC: HO.10HDL 08:08
PROVIDERS: Visit Provider Family Medicine
DX: D64.9 Anemia, unspecified (principal); R53.83 Other fatigue; R63.4 Abnormal weight loss
CPT/HCPCS: 36415; 80053; 85025

== ENCOUNTER → 2024-01-24 13:48 | Outpatient (REF) | payer MEDICARE, OTHER, SELFPAY ==
--- NOTE | 2024-01-24 13:55 | CA_ITS ---
Transthoracic Echocardiogram Patient (Last, First, Middle): Matias Barboza, Gender: Male Date of : 1935 Age: 88 Procedure Date: 01/24/2024 Procedure Type: Transthoracic Echocardiogram Location: OP Height: 177.8 cm Weight: 79.38 kg BSA: 1.97 m2 Heart Rate: bpm BP: 110 / 66 mmHg Professor Of Medicine: TO Referring MD: Jefry Ortega MD Symptoms: SHORTNESS OF BREATH. R06.02 Study Quality: Fair ECG Rhythm: Sinus Conclusions: - The left ventricular systolic function is normal. The calculated ejection fraction is 61% by biplane method. - No obvious valvular pathology seen on this study. Findings Left Ventricle Normal left ventricular cavity size. The left ventricular systolic function is normal. The calculated ejection fraction is 61% by biplane method. There is no evidence of regional wall motion abnormalities. Diastolic function is normal for age. There is mild septal asymmetric hypertrophy. Right Ventricle Normal right ventricular cavity size and systolic function. Atria Both atria are normal in size. Aortic Valve There is a normal trileaflet aortic valve. There is no aortic valve stenosis. There is trace (trivial) aortic valve regurgitation. Mitral Valve The mitral valve appears normal. There is no mitral valve regurgitation. There is no mitral valve stenosis. Pulmonic Valve The pulmonic valve is likely normal. Tricuspid Valve There is trace tricuspid valve regurgitation. There is no evidence of pulmonary hypertension. Great Vessels The asc aorta is normal in size. Venous The inferior vena cava was not well visualized. Pericardium/Pleural There is no evidence of pericardial effusion. Prior Study Comparison No significant change compared to prior study dated: 02/27/2008. Recommendations, Care & Conclusions No obvious valvular pathology seen on this study. Measurements 2D Linear Measurements IVSd: 1.06 0.6-0.9/0.6-1.0 cm LVIDd: 4.66 3.9-5.3/4.2-5.9 cm LVIDd Index: 2.37 2.4-3.2/2.2-3.1 cm/m2 LVIDs: 3.05 2.0-3.6 cm LVPWd: 0.81 0.7-1.1 cm LA Diam: 3.20 2.7-3.8/3.0-4.0 cm LAIDs Index: 1.62 1.5-2.3 cm/m2 LV Mass: 184.07 67-162/88-224 g LV Mass Index: 93.44 43-95/49-115 g/m2 LVOT Diam: 2.20 3.0+(-)1.3 cm 2D Systolic Function EF 4C: 55.10 >55% EF 2C: 63.50 >55% EF BiP: 60.80 >55% Mitral Valve MV Pk E: 0.56 MV PK A: 0.78 MV Decel Time: 236.00 E/A: 0.70 E'Lateral: 6.20 E'Medial: 4.90 E/E' Med: 11.40 E/E' Lat: 9.00 PHT: 69.00 MVA PHT: 3.19 Decel [place]: 2.36 Aortic Valve AoV Pk Aldo: 1.38 AoV Mn Aldo: 0.87 AoV VTI: 0.28 AoV Pk Grad: 8.00 Aov Mn Grad: 4.00 KINSEY Cont.VTI: 2.68 LVOT LVOT Pk Aldo: 0.91 LVOT Mn Aldo: 0.60 LVOT VTI: 0.20 LVOT Pk Grad: 3.00 LVOT Mn Grad: 2.00 LVOT Diam: 2.20 LVOT Area: 3.80 Diastolic Function MV Pk E: 0.56 MV Pk A: 0.78 E/A: 0.70 E'Medial: 4.90 E/E' Med: 11.40 E' Laterial: 6.20 E/E' Lat: 9.00 Right Ventricle TAPSE (mm): 17.80 TVS' Aldo: 8.54 Great Vessels Aorta Sinus of Valsalva: 3.79 2.0-3.[address] [place]: 2.89 1.7-3.4 cm Ao Asc: 3.50 2.1-3.4 cm Updated in Other Vendor System with Status of Final Marcellus High MD electronically signed on 01/25/2024 1:40:42 PM with status of Final
== END ==
LOC: HO.CARD 13:48
PROVIDERS: PCP Family Medicine; Visit Provider Family Medicine
DX: R06.02 Shortness of breath (principal)
CPT/HCPCS: 93306

== ENCOUNTER → 2024-01-24 13:55 | Outpatient (BNV) | payer MEDICARE, OTHER, SELFPAY | PROVIDERS: PCP Family Medicine; Visit Provider Internal Medicine | DX: R06.02 Shortness of breath (principal) | CPT/HCPCS: 93306 ==

== ENCOUNTER 2024-02-09 09:38 | Day surgery (SDC) | payer MEDICARE, OTHER, SELFPAY ==
[2024-01-29 09:44] VITALS: BMI 25.1
--- NOTE | 2024-02-07 11:58 | P.CONAN_ITS ---
Documented by User: Gege Figueroa NP 02/07/24 11:59 HPI - Anesthesia Eval Consult details Narrative: 88yo M for ERCP w/ stent removal s/p ERCP 11/2023 with NICHOLAS JOHNSON Active Problems Active Problems: All Active Problems (Updated 11/21/23 @ 00:02 by Faina Estrada) Status post cholecystectomy (Acute) Past Medical History Medical History Prostate cancer Urinary frequency HTN (hypertension) Surgical History Surgical History (Updated 02/09/24 @ 10:45 by Margie Lewis RN) History of ERCP History of back surgery History of Problems with Anesthesia: No Social History Social History Household Members: Spouse Housing: House Do you presently have visiting nurse or other home services: No Patient Tobacco Use Status: Never used Tobacco Use of substances other than those prescribed or required for medical reasons: No Are you DNR?: No Advance Directives: No Advance Directives Information Provided: Yes Advance Directives Date on File: 11/15/23 service: Yes Meds Allergies Allergy/AdvReac Type Severity Reaction Status Date / Time No Known Allergies Allergy Verified 02/09/24 10:45 Home Medications ?Medication ?Instructions ?Recorded ?Confirmed ?Last Taken ?Type ascorbic acid (vitamin C) 500 mg 500 mg PO DAILY 11/14/23 02/09/24 11/14/23 History tablet (Vitamin C) aspirin 81 mg chewable tablet 81 mg PO DAILY 11/14/23 02/09/24 02/02/24 History calcium citrate 500 mg (2,376 mg) 500 mg PO DAILY 11/14/23 02/09/24 11/14/23 History effervescent tablet cholecalciferol (vitamin D3) 125 125 mcg PO DAILY 11/14/23 02/09/24 11/14/23 History mcg (5,000 unit) tablet gabapentin 300 mg capsule 300 mg PO BEDTIME 11/14/23 02/09/24 11/13/23 History lisinopril 5 mg tablet 5 mg PO DAILY 11/14/23 02/09/24 11/14/23 History magnesium 500 mg tablet 500 mg PO DAILY 11/14/23 02/09/24 11/14/23 History omeprazole 20 mg capsule,delayed 20 mg PO DAILY 11/14/23 02/09/24 11/14/23 History release wjkgyim-nrkz-fwqir-oreg-capryl 1 cap PO DAILY 11/14/23 02/09/24 01/26/24 History vitamins A,C,X-qjhm-xjryem 2,148 2 tab PO BID 11/14/23 02/09/24 11/14/23 History mcg-113 mg-45 mg-17.4 mg tablet (PreserVision AREDS) Exam Height,Weight and Vital Signs: Height 5 ft 10 in Weight 79.379 kg Pertinent Lab Results Pertinent Lab Results: Laboratory Tests 12/08/23 08:15 WBC 8.0 Hgb 11.4 L Hct 36.5 L D Plt Count 234 Sodium 142 Potassium 4.3 D Chloride 104 Carbon Dioxide 29 BUN 24 H Creatinine 1.36 Narrative Narrative: ECHO 01/2024 Conclusions: - The left ventricular systolic function is normal. The calculated ejection fraction is 61% by biplane method. - No obvious valvular pathology seen on this study. Assessment and Plan Assessment Anesthesia Assessment: Chart Reviewed Final Anesthetic Review History of Problems with Anesthesia: No Documented by User: To Jackson MD 02/09/24 11:38 [facility] Past Medical History Medical History Prostate cancer Urinary frequency HTN (hypertension) Surgical History Surgical History (Updated 02/09/24 @ 10:45 by Margie Lewis RN) History of ERCP History of back surgery Social History Social History Household Members: Spouse Housing: House Do you presently have visiting nurse or other home services: No Patient Tobacco Use Status: Never used Tobacco Use of substances other than those prescribed or required for medical reasons: No Are you DNR?: No Advance Directives: No Advance Directives Information Provided: Yes Advance Directives Date on File: 11/15/23 service: Yes Meds Allergies Allergy/AdvReac Type Severity Reaction Status Date / Time No Known Allergies Allergy Verified 02/09/24 10:45 Home Medications ?Medication ?Instructions ?Recorded ?Confirmed ?Last Taken ?Type ascorbic acid (vitamin C) 500 mg 500 mg PO DAILY 11/14/23 02/09/24 11/14/23 History tablet (Vitamin C) aspirin 81 mg chewable tablet 81 mg PO DAILY 11/14/23 02/09/24 02/02/24 History calcium citrate 500 mg (2,376 mg) 500 mg PO DAILY 11/14/23 02/09/24 11/14/23 History effervescent tablet cholecalciferol (vitamin D3) 125 125 mcg PO DAILY 11/14/23 02/09/24 11/14/23 History mcg (5,000 unit) tablet gabapentin 300 mg capsule 300 mg PO BEDTIME 11/14/23 02/09/24 11/13/23 History lisinopril 5 mg tablet 5 mg PO DAILY 11/14/23 02/09/24 11/14/23 History magnesium 500 mg tablet 500 mg PO DAILY 11/14/23 02/09/24 11/14/23 History omeprazole 20 mg capsule,delayed 20 mg PO DAILY 11/14/23 02/09/24 11/14/23 History release rfzhpjs-zuwm-swpqf-oreg-capryl 1 cap PO DAILY 11/14/23 02/09/24 01/26/24 History vitamins A,C,U-uoae-skuyvq 2,148 2 tab PO BID 11/14/23 02/09/24 11/14/23 History mcg-113 mg-45 mg-17.4 mg tablet (PreserVision AREDS) Exam Airway Mallampati Class: II TM Dist: >3cm Neck ROM: Full Partial: Upper and Lower Loose/Missing/Broken Teeth: No Heart: rrr Lungs: cta Assessment and Plan Final Anesthetic Review NPO: Yes ASA Class: II Final Preanesthetic Review: No Changes in Pt Med Stat, Meds/Allgs Chart Reviewed, Consent Obtained/Reviewed and Anes Risks/Benef Reviewed Patient Risk: Intermediate Procedure Risk: Intermediate Anesthetic Plan Anesthetic Plan: GA Disposition: Standard PACU
--- NOTE | ~2024-02-09 | XR_ITS ---
EXAMINATION: XR ABDOMEN KUB CLINICAL INDICATION: Evaluate gallbladder stent. COMPARISON: 11/17/2023 and 11/14/2023 TECHNIQUE: 2 views of the abdomen. FINDINGS: Imaged lung bases are clear. Nonobstructive bowel gas pattern with moderate gas and stool throughout the colon. No abnormally dilated loops of small bowel are appreciated. There are multiple pelvic phleboliths. A biliary stent projects over the right upper quadrant. Surgical clips in the gallbladder fossa. XR/XR abdomen 1V IMPRESSION: As above.
--- NOTE | ~2024-02-09 | FL_ITS ---
EXAMINATION: XR FLUOROSCOPY WITH IMAGES CLINICAL INFORMATION: ERCP. COMPARISON: Fluoroscopy dated 11/18/2023; CT abdomen and pelvis dated 11/14/2023. TECHNIQUE: Fluoroscopy Supervised By: Dr. Wolf Whaley. Fluoroscopy Time: 1.8 minutes. Cumulative Dose: 39.6 mGy. DAP: 10.8 Gycm2. Images: 6. FINDINGS: The submitted images show a choledocholith, with contrast injection of the common bile duct. No stricture or filling defect is presently seen. The previously noted biliary stent is not presently identified. FL/FL guidance in OR IMPRESSION: Intraoperative fluoroscopic guidance is provided during ERCP. Please see the patient's Operative Report for full procedural details.
[2024-02-09 10:55] VITALS: BP 136/68; PULSE 71; RESP 16; TEMP 36.3; O2SAT 96; BMI 26.1
[2024-02-09] MEDS: Lactated Ringers 1,000 ML 100 ML IVCONT (11:15)
--- NOTE | 2024-02-09 12:38 | MHC.SHP ---
Pre-Procedural Eval Section A - 24 Hr Update-Section A only Date of Service: 02/09/24 Section B - Complete if H&P > 30 days Chief Complaint: Perforation of bile duct Details of Present Illness: CBD stones and bile leak requiring stent placement. Relevant Family History (Specify if Yes): No Relevant Social History: None Present Medications: see Short Stay Collaborative assessment Medical History: No relevant PMH Allergies: Allergies Allergy/AdvReac Type Severity Reaction Status Date / Time No Known Allergies Allergy Verified 02/09/24 10:45 Review of Systems Sugical H&P ROS: Negative: Constitution, Cardiovascular, Respiratory, Neurological, Psychiatric, Hem-Onc, Allergic/Immunologic, Gastrointestinal, Genitourinary, Musculoskeletal, Integumentary, Endocrine and Eyes/Ears/Nose/Throat Exam Surgical H&P Exam: Normal: HEENT, Normal: Heart, Normal: Lungs, Normal: Extremities, Normal: Abdomen, Normal: Skin and Normal: Neurological Plan Diagnosis/Plan: Unchanged I have reviewed the history and physical and performed a pertinent physical examination on my patient. No changes have occurred unless specified. Time Spent With Patient Time: Total time managing care of this patient today ____ minutes.
--- NOTE | 2024-02-09 14:52 | PM.OP ---
Brief Operative Note Date of Service: 02/09/24 Pre-op diagnosis: bile leak Post-op diagnosis: same (cbd stone) Procedure: ERCP Surgeon: Wolf Whaley MD Anesthesia: GETA Was an Dust Collector Operator used for this Procedure?: No Estimated blood loss (mL): 2 Pathology: none sent Condition: stable Disposition: PACU
[2024-02-09 14:56] VITALS: BP 136/63; PULSE 61; RESP 15; TEMP 36.1; O2SAT 95
[2024-02-09 15:01] VITALS: BP 127/56; PULSE 62; RESP 16; O2SAT 99
[2024-02-09 15:06] VITALS: BP 126/64; PULSE 56; RESP 16; O2SAT 100
[2024-02-09 15:16] VITALS: BP 126/72; PULSE 56; RESP 16; TEMP 36.1; O2SAT 97
--- NOTE | 2024-02-10 01:49 | OP_ITS ---
DATE OF SERVICE: 02/09/2024 SURGEON: Wolf Whaley MD INDICATIONS: Bile leak. PREOPERATIVE DIAGNOSIS: POSTOPERATIVE DIAGNOSIS: PROCEDURE PERFORMED: ERCP with stent removal and stone extraction. ESTIMATED BLOOD LOSS: COMPLICATIONS: ANESTHESIA: General anesthesia. ASSISTANTS: SPECIMENS: DESCRIPTION OF PROCEDURE: A history and physical were performed. The risks and benefits of the procedure were explained to the patient and informed consent was obtained. The patient was placed in the prone position with a wedge under the right shoulder. The Olympus therapeutic duodenoscope was introduced into the esophagus and stomach. The endoscope could not initially be advanced into the duodenum. The scope was removed. The gastroscope was inserted, but also could not be advanced into the duodenum. The patient was repositioned into a left lateral decubitus position. The Olympus video gastroscope was introduced into the esophagus, stomach, and duodenum. Examination was performed. The stent was removed. The scope was removed and replaced with the duodenoscope for cholangiography. Examination was performed. The scope was removed. He tolerated the procedure well and was returned to recovery area in stable condition. FINDINGS: Endoscopy: Limited examination of the esophagus, stomach, and duodenum was within normal limits. The patient had a large J-shaped stomach, which did not permit access to the duodenum in the prone position with a wedge under the right shoulder and required repositioning as above. The stent was seen excellent position in the major papilla. This was grasped with a snare and removed with a gastroscope. The duodenoscope was then used to access the common bile duct. Cholangiography showed a possible filling defect and a 9 to 12 mm balloon was used to extract a 5 mm stone from the common bile duct. Cholangiography was then repeated with no further filling defects identified. No bile leak was identified. Excellent drainage of clear yellow bile was noted at the termination of the procedure. No pancreatogram was attempted or obtained.. IMPRESSION: 1. Bile leak. 2. Common bile duct stone. RECOMMENDATION: Follow up as needed. MD PILAR Plata/ANGLE / [id number] MTDD
== END 2024-02-09 15:30 | disposition home or self-care (01) ==
PROVIDERS: PCP Family Medicine; Visit Provider Internal Medicine Gastroenterology
PROC: (CPT 43260; principal; 2024-02-09 13:20)
DX: K83.2 Perforation of bile duct (principal); I12.9 Hypertensive chronic kidney disease with stage 1 through stage 4 chronic kidney disease, or unspecified chronic kidney disease; N18.32 Chronic kidney disease, stage 3b; C61 Malignant neoplasm of prostate; Z79.82 Long term (current) use of aspirin; Z79.899 Other long term (current) drug therapy; Z90.49 Acquired absence of other specified parts of digestive tract; Z98.890 Other specified postprocedural states
CPT/HCPCS: 43275; 43264; 74018; C1769; J1100; J1610; J1956; J2405; J2704; J3010; Q9967

== ENCOUNTER 2024-03-25 09:53 | Outpatient (REF) | payer MEDICARE, OTHER, SELFPAY ==
[2024-03-25 11:26] LABS: Estimated Average Glucose 128 mg/dL; Hemoglobin A1c % 6.1 % (<6.0)
[2024-03-25 11:32] LABS: Glucose Fasting 106 mg/dL (60-99)
== END 2024-03-25 09:54 | disposition home or self-care (01) ==
LOC: HO.10HDL 09:53
PROVIDERS: Visit Provider Family Medicine
DX: R73.9 Hyperglycemia, unspecified (principal)
CPT/HCPCS: 36415; 82947; 83036

== ENCOUNTER 2024-06-14 11:24 | Outpatient (REF) | payer MEDICARE, OTHER, SELFPAY ==
[2024-06-14 13:20] LABS: MANUAL DIFF FLAG NO
[2024-06-14 13:23] LABS: Basophils Absolute Auto 0.1 X10*3/uL (0.0-0.2); Basophils Percent Auto 0.9 % (0-2); Eosinophils Absolute Auto 0.2 X10*3/uL (0.0-0.4); Eosinophils Percent Auto 2.5 % (0-4); Hematocrit 38.7 % (42.0-52.0); Hemoglobin 12.2 g/dl (14.0-18.0); Imm Gran Abs Auto 0.01 X10*3/uL (0.00-0.03); Imm Gran Pct Auto 0.1 % (0.0-0.4); Lymphocytes Percent Auto 29.1 % (20-40); Mean Corpuscular HGB Conc 31.5 g/dl (31.0-36.0); Mean Corpuscular Hemoglobin 29.8 pg (27.0-33.0); Mean Corpuscular Volume 94.4 fL (80.0-98.0); Mean Platelet Volume 10.4 fL (9.4-12.4); Monocytes Absolute Auto 0.6 X10*3/uL (0.1-1.2); Monocytes Percent Auto 8.5 % (2-11); Neutrophils Percent Auto 58.9 % (45-73); Platelet Count 167 X10*3/uL (160-400); Red Cell Distribution Width 14.1 % (11.0-16.0); White Blood Count 6.7 X10*3/uL (4.8-10.8)
== END 2024-06-14 11:25 | disposition home or self-care (01) ==
LOC: HO.10HDL 11:24
PROVIDERS: Visit Provider Family Medicine
DX: R53.83 Other fatigue (principal)
CPT/HCPCS: 36415; 85025

== ENCOUNTER 2024-10-24 09:59 | Outpatient (REF) | payer MEDICARE, OTHER, SELFPAY ==
--- OUTSIDE RECORDS SUMMARY | 2024-10-24 10:02 | XMS_ITS | Continuity of Care Document ---
Author Name [facility] Organization [facility] Care Team Providers Care Helper Driver Name Role Phone [facility] Unavailable Unavailable Problems Combined list of problems from Department of Defense and Veterans Affairs facilities. It does not include entries that were removed or entered in error. Problem Status Onset Date Problem Type Date of Resolution Comments Source Hearing disorder Active 11/06/2016 Condition 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 Medication Details Route Status Patient Instructions Prescription Expires Prescription Number Last Dispense Date Ordering Provider Order Date Order Qty Source ASPIRIN 81MG TAB,EC TAKE ONE TABLET BY MOUTH EVERY DAY ORAL ACTIVE DENA,BETO VAZQUEZ D 2016 [facility] LISINOPRIL 5MG TAB TAKE ONE TABLET BY MOUTH EVERY DAY ORAL ACTIVE DENA,BETO VAZQUEZ D 2016 [facility] Immunizations Combined list of available immunizations from the Department of Defense and Veterans Affairs facilities. Immunization Series Date Given Administered By Site Reaction Lot Number CVX Code Drug Design Technician Status Comments Source INFLUENZA, HIGH-DOSE, TRIVALENT, PF 2023 AMOS DOSHI LEFT DELTO ID [id number] 135 complet ed [facility] INFLUENZA, UNSPECIFIED FORMULATION 2022 88 complet ed [facility] INFLUENZA VACCINE, QUADRIVALENT, ADJUVANTED 2020 205 complet ed [facility] [place] [facility] COVID-19 (MODERNA), MRNA, LNP-S, PF, 100 MCG/0.5 ML DOSE 2 2020 207 complet ed [facility] COVID-19 (MODERNA), MRNA, LNP-S, PF, 100 MCG/0.5 ML DOSE 1 2020 207 complet ed [facility] INFLUENZA, SEASONAL, INJECTABLE 2017 141 complet ed [facility] TDAP 2016 115 complet ed Site: Right Deltoid [facility] ZOSTER (HISTORICAL) 2011 121 complet ed [facility] Vital Signs Combined list of inpatient and outpatient Vital Signs from Department of Defense and Veterans Affairs, ranging from 12 months to all on record, depending upon the facility. Vital Sign Value Date Comments Source SYSTOLIC BLOOD PRESSURE 125 07/15/20 24 08:50:57 [facility] DIASTOLIC BLOOD PRESSURE 71 024 08:50:57 [facility] PULSE OXIMETRY 95 07/15/2024 08:50:57 [facility] WEIGHT 186 07/15/2024 08:50:57 [facility] BMI 27kg/m2 07/15/2024 08:50:57 [facility] PAIN 0 07/15/2024 08:50:57 [facility] HEIGHT 70 07/15/2024 08:50:57 [facility] TEMPERATURE 97.1 07/15/2024 08:50:57 [facility] PULSE 85 07/15/2024 08:50:57 [facility] RESPIRATION 20 07/15/2024 08:50:57 [facility] Encounters Combined list of: 1) Encounters from Department of Veterans Affairs facilities going back up to thelast 18 months. 2) Encounters from the Department of Defense facilities going back up to 280 months. Location Location Details Encounter Type Encounter Number Reason For Visit Attending Provider ADM Date DC Date Status Disposition Source [facility] Out[facility]counter [id number] 07/07 [facility] OFFICE O/P EST LOW 20-29 MIN [id number] Diagnos is: ICD-10- CM H91.09 Ototoxi c hearing loss, unspeci fied ear<br/ > MAHESH FERNANDES RD D 07/14 [facility] Outpatient [facility]counter [id number] 07/11 [facility] OFFICE O/P EST LOW 20 MIN [id number] Diagnos is: ICD-10- CM H91.09 Ototoxi c hearing loss, unspeci fied ear<br/ > MAHESH FERNANDES RD D 07/15 [facility] Social History Combined list of available smoking, tobacco, and other social history from Department of Defense and Veterans Affairs facilities. Social History Type Response Date Comment Sour e Tobacco smoking status NHIS VA-TOBACCO FORMER USER 07/15/2024 [facility] History of tobacco use VA-TOBACCO QUIT 15 YRS OR MORE 07/15/2024 [facility] History of tobacco use VA-TOBACCO FORMER USER 07/14/2023 [facility] History of tobacco use VA-TOBACCO NEVER USED 07/12/2022 [facility] History of tobacco use VA-TOBACCO NEVER USED 07/16/2021 [facility] History of tobacco use VA-TOBACCO NEVER USED 09/04/2018 [facility] History of tobacco use LIFETIME NON-TOBACCO USER 08/17/2017 [facility]
--- OUTSIDE RECORDS SUMMARY | 2024-10-24 10:02 | XMS_ITS ---
Author Name [facility] [place] Organization [facility] Address [address] [place] [address] Care Team Providers Care Financial Services Manager Name Role Phone ROGER FERNANDES Primary Care Provider Unavailabl e Insurance Providers: All historical and current Section Date Range: From patient's date of to the date document was created. This section includes the names of all active insurance providers for the patient. Insurance Provider Type of Coverage Plan Name Start of Policy Coverage End of Policy Coverage Group Number Member ID Insurance Provider's Telephone Number Policy [place]'s Name Patient's Relationship to Policy [place] MEDICARE (WNR) MEDICARE (M) PART A Apr 06, 2002 PART A [id number] FAUSTINAntoine PATIENT MEDICARE (WNR) MEDICARE (M) PART B Apr 06, 2002 PART B [id number] Antoine FAUSTIN [facility] * Nov 06, 2006 [id number] FAUSTINAntoine PATIENT Selected Encounter This section includes the information on record at [place] for the Encounter. Date/Time Encounter Type Encounter Description Reason Pro vider Source Jul 11, 2024 02:29 PM Outpatient Encounter PRIMARY CARE/MEDICINE IHE Encounter Template Text not used by [place] Plan of Treatment: Future Appointments (+ 6 months) and Future Tests (+/- 45 days) The Plan of Treatment section includes future care activities for the patient from all VA treatmentfacilities. This section includes future appointments and future orders which are active, pending or scheduled. Future Appointments This section includes appointments that were scheduled to occur 6 months from the date of the Encounter, up to a maximum of 20 appointments. The data comes from all [place] treatment facilities. Appointment Date/Time Appointment Type Appointme nt Facility Name Jul 15, 2024 09:00 AM AMBULAT[facility] - [facility]IC[facility] Social History: Smoking Status (Most current) and Tobacco Use (All prior to encounter date) This section includes the most current, and the historical, smoking and tobacco- related health factors from the [place] facility where the Encounter took place. Current Smoking Status This section includes the most current smoking, or tobacco-related health factor, from the [place] facility where the Encounter took place. Date/Time Current Smoking Status Comment Facil ity Jul 14, 2023 08:30 AM [facility] Tobacco Use History This section includes a history of the smoking, or tobacco-related health factors, that were collected on or before the date of the Encounter. The data comes from the [place] facility where the Encounter took place. Date/Time Smoking Status/Tobacco Use Comment F acility Jul 14, 2023 08:30 AM VA-TOBACCO QUIT 15 YRS OR MORE [facility] Jul 12, 2022 09:00 AM VA-TOBACCO NEVER USED [facility] Jul 16, 2021 10:00 AM VA-TOBACCO NEVER USED [facility] Sep 04, 2018 08:18 AM VA-TOBACCO NEVER USED [facility] Aug 17, 2017 10:54 AM LIFETIME NON-TOBACCO [facility] Encounter Notes: All associated encounter notes This section contains the clinical notes associated to the Encounter. Date/Time Encounter Note(s) Provider Source Jul 11, 2024 02:29 PM ADMINISTRATIVE NOTE: LOCAL TITLE: ADMINISTRATIVE NOTE STANDARD TITLE: ADMINISTRATIVE NOTE DATE OF NOTE: JUL 11, 2024@14:29 ENTRY DATE: JUL 11, 2024@14:29:18 AUTHOR: ARIC GEE EXP COSIGNER: URGENCY: STATUS: COMPLETED Reminder call for your upcoming Primary Care Appointment and the need for preparations prior to your upcoming appt. [X] Location [facility] [ ] Fasting labs [ ] Lab work within 30 days [ ] Urine [ ] No Preparation Action taken: [ ] Called , left voice message [ ] Called , unable to leave voice mail [X] Spoke to /managed care specialist to remind them of upcoming appt/preparations Upcoming Appointments: 07/15/2024 09:00 CWM/NO/PACT 2 /es/ ARIC GEE AMS Signed: 07/11/2024 14:29 ARIC GEE [place] [facility] [place] [facility]
--- OUTSIDE RECORDS SUMMARY | 2024-10-24 10:03 | XMS_ITS | Encounter Summary ---
Author Name [facility] [place] Organization [facility] [place] Address [address] [place] [address] Care Team Providers Care Gaming Commissioner Name Role Phone NASEEM JOINER Primary Care Provider Unavailabl e Insurance Providers: [...] PART A Apr 06, 2002 PART A [id number] Antoine FAUSTIN PATIENT MEDICARE (WNR) MEDICARE (M) PART B Apr 06, 2002 PART B [id number] Antoine FAUSTIN PATIENT [facility] ) [facility] * Nov 06, 2006 [id number] Antoine FAUSTIN PATIENT Selected Encounter This section includes the information on record at [place] for the Encounter. 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 Date/Time Primary/Secondary Diagnosis Diagnosis Name Provider Source Jul 15, 2024 09:21 AM PRIMARY Ototoxic hearing loss, unspecified ear NASEEM JOINER [place] [facility] [place] [facility] Jul 15, 2024 09:21 AM SECONDARY Encounter for immunization VEE SCHMIDT [place] [facility] Vital Signs: All taken on the encounter date This section contains inpatient and outpatient Vital Signs collected on the date of the Encounter. Date/Time Temperature Pulse Blood Pressure Respiratory Rate SP02 Pain Height Weight Body Mass Index Source Jul 15, 2024 08:50 AM 97.1 85 125/71 20 95 0 70 186 27 [facility] Immunizations: All administered on the encounter date This section contains immunizations associated to the Encounter. Immunization Series Date Issued Reaction Comments INFLUENZA, HIGH-DOSE, TRIVALENT, PF Jul 15 Social History: Smoking Status (Most current) and Tobacco Use (All prior to encounter date) This section includes the most current, and the historical, smoking and tobacco- related health factors from the [place] facility where the Encounter took place. Current Smoking Status This section includes the most current smoking, or tobacco-related health factor, from the [place] facility where the Encounter took place. Date/Time Current Smoking Status Comment Facil ity Jul 15, 2024 09:00 AM VA-TOBACCO FORMER USER [place] [facility] Tobacco Use History This section includes a history of the smoking, or tobacco-related health factors, that were collected on or before the date of the Encounter. The data comes from the [place] facility where the Encounter took place. Date/Time Smoking Status/Tobacco Use Comment F acility Jul 15, 2024 09:00 AM VA-TOBACCO QUIT 15 YRS OR MORE [place] [facility] [place] [facility] Jul 14, 2023 08:30 AM VA-TOBACCO FORMER USER NM [facility] [place] [facility] Jul 14, 2023 08:30 AM VA-TOBACCO QUIT 15 YRS OR MORE [place] [facility] [place] [facility] Jul 12, 2022 09:00 AM VA-TOBACCO NEVER USED NM [facility] [place] [facility] Jul 16, 2021 10:00 AM VA-TOBACCO NEVER USED [place] [facility] [place] [facility] Sep 04, 2018 08:18 AM VA-TOBACCO NEVER [facility] Aug 17, 2017 10:54 AM LIFET[facility] Encounter Notes: All associated encounter notes This section contains the clinical notes associated to the Encounter. Date/Time Encounter Note(s) Provider Source Jul 15, 2024 09:27 AM PREVENTIVE MEDICIN E NURSING NOTE: LOCAL TITLE: CLINICAL REMINDERS/NURSING STANDARD TITLE: PREVENTIVE MEDICINE NURSING NOTE DATE OF NOTE: JUL 15, 2024@09:27 ENTRY DATE: JUL 15, 2024@09:27:14 AUTHOR: VEE SCHMIDT EXP COSIGNER: URGENCY: STATUS: COMPLETED Influenza Immunization: Influenza, High-Dose, Trivalent, Preservative Free (Fluzone-Syringe) Administered: INFLUENZA, HIGH-DOSE, TRIVALENT, PF Date Administered: Jul 15, 2024 09:00 Series: Complete Dormitory Supervisor: SANOFI PASTEUR Lot: [id number] Exp Date: May 05, 2025 [facility]: [id number] Admin Route/Site: INTRAMUSCULAR/LEFT DELTOID Dosage: 0.5mL Vaccine Information Statement(s): INFLUENZA(FLU) VACC(INACTIVATED OR RECOMBINANT)VIS Jun 11, 2021 (SERBIAN) Order By: Policy Administered By: Vee Schmidt The Influenza Vaccine Information Statement (VIS) was reviewed with the patient/caregiver which lists the benefits and risks of the vaccine and the risks of not receiving the Influenza vaccine. The patient/caregiver denied any prior severe reaction to this vaccine or its components or a severe allergic reaction, such as anaphylaxis, to any vaccine or any injectable therapy. The patient/caregiver gave verbal consent to receive the vaccine. /michael/ Vee Schmidt RN, BSN Primary Care Signed: 07/15/2024 09:27 VEE SCHMIDT [facility] Jul 15, 2024 09:16 AM PHYSICIAN NOTE: LOCAL TITLE: MD NOTE STANDARD TITLE: PHYSICIAN NOTE DATE OF NOTE: JUL 15, 2024@09:16 ENTRY DATE: JUL 15, 2024@09:16:59 AUTHOR: NASEEM JOINER EXP COSIGNER: URGENCY: STATUS: COMPLETED Patient Name: AALIYAH FAUSTIN VITALS: Patient temperature: 97.1 F [36.2 C] (07/15/2024 08:50) Blood pressure: 125/71 (07/15/2024 08:50) Patient height: 70 in [177.8 cm] (07/15/2024 08:50) Patient weight: 186 lb [84.37 kg] (07/15/2024 08:50) Patient BMI: BMI: 26.7 Patient pulse: 85 (07/15/2024 08:50) Patient respiration: 20 (07/15/2024 08:50) Patient Pulse Oximetry: 95% (07/15/2024 08:50) Pain Ratin (07/15/2024 08:50) Active VA Medications: Active Outpatient Medications (including Supplies): Active Non-VA Medications Status 1) Non-VA ASPIRIN 81MG EC TAB 81MG BY MOUTH EVERY DAY ACTIVE 2) Non-VA LISINOPRIL 5MG TAB 5MG BY MOUTH EVERY DAY ACTIVE Remote Medications: No Active Remote Medications for this patient fancy stitcher note Chief complaint: Hard of hearing all primary care private Dr. Ortega, me for audiology History of present illness patient reports that he does not wear hearing aids. He feels well today with no complaints. He feels his hearing is satisfactory. Review of systems No chest pain or dyspnea No abdominal pain no trouble urinating No fever or chills no cough physical examination Well-developed well-nourished male in no acute distress Ears no erythema or cerumen Assessment and plan: 1. Hard of hearing: Followed by audiology Plan: Continue above Follow-up 1 year Patient declined all vaccines today Medication Reconciliation: Outpatient: Has the patient been taking medications as documented in the EMLR? YES: The patient has been taking medications as documented in the EMLR. Essential Medication List for Review used to complete this medication reconciliation. INCLUDED IN THIS LIST: Alphabetical list of active outpatient prescriptions dispensed from this [place] (local) and dispensed from another [place] or DoD facility (remote) as well as inpatient orders (local, pending and active), local clinic medications, locally documented non-VA medications, and local prescriptions that have or been discontinued in the past 90 days. - All changes in medications, including all non-VA/Herbal/OTC medications were entered into CPRS. - If there were any medications the patient should no longer take, they were discontinued. - The patient/caregiver was instructed to update this list, discard old lists, and take this list to the next appointment, whether with a VA or non-VA provider. Pneumococcal Conjugate Vaccine (PCV15/PCV20): Refuses PCV vaccine Immunization: PNEUMOCOCCAL CONJUGATE, UNSPECIFIED FORMULATION Refusal Reason: PATIENT DECISION Patient refuses all immunization(s) in the PneumoPCV group Date Documented: 07/15/24 09:20 Herpes Zoster (Shingles) Vaccine: The patient declines to receive the recommended dose of zoster (shingles) vaccine. Immunization: ZOSTER RECOMBINANT Refusal Reason: PATIENT DECISION Patient refuses all immunization(s) in the ZOSTER group Date Documented: 07/15/24 09:21 Sexual Orientation: The patient thinks of their sexual orientation as: Straight or Heterosexual /michael/ Naseem Joiner MD Staff Physician Signed: 07/15/2024 09:21 NASEEM JOINER [place] [facility] [place] [facility] Jul 15, 2024 08:54 AM PREVENTIVE MEDICIN E NURSING NOTE: LOCAL TITLE: CLINICAL REMINDERS/NURSING STANDARD TITLE: PREVENTIVE MEDICINE NURSING NOTE DATE OF NOTE: JUL 15, 2024@08:54 ENTRY DATE: JUL 15, 2024@08:54:18 AUTHOR: CHANG WELLS COSIGNER: URGENCY: STATUS: COMPLETED Advance Directive Screen MH AD: Patient does not have an Advance Directive completed and is requesting more information. A consult was sent to Social Work Services at this visit so that an appointment can be made with the patient to review the advance directive. The patient received education about Advance Directives and written notification of his/her rights. Suicide Screen: C-SSRS Screening [place]-Suicide Severity Rating Scale (C-SSRS Screener) 1. Over the past month, have you wished you were or wished you could go to sleep and not wake up? No 2. Over the past month, have you had any actual thoughts of killing yourself? No 3. Over the past month, have you been thinking about how you might do this? Response not required due to responses to other questions. 4. Over the past month, have you had these thoughts and had some intention of acting on them? Response not required due to responses to other questions. 5. Over the past month, have you started to work out or worked out the details of how to kill yourself? Response not required due to responses to other questions. 6. If yes, at any time in the past month did you intend to carry out this plan? Response not required due to responses to other questions. 7. In your lifetime, have you ever done anything, started to do anything, or prepared to do anything to end your life (for example, collected pills, obtained a gun, gave away valuables, went to the roof but didn't jump)? No 8. If YES, was this within the past 3 months? Response not required due to responses to other questions. Homelessness/Food Insecurity Screen: In the past 2 months, have you been living in stable housing that you own, rent, or stay in as part of a household? Yes - Living in stable housing. Are you worried or concerned that in the next 2 months you may NOT have stable housing that you own, rent, or stay in as part of a household? No - Not worried about housing near future The reports the following: Within the past 12 months, you worried whether your food would run out before you got money to buy more. Never true Within the past 12 months, the food you bought just didn't last and you didn't have money to get more. Never true Depression Screening: Perform PHQ-2 A PHQ-2 screen was performed. The score was 0 which is a negative screen for depression. Over the past two weeks, how often have you been bothered by the following problems? 1. Little interest or pleasure in doing things Not at all 2. Feeling down, depressed, or hopeless Not at all Falls & Incontinence Screen: Falls Screen: During the past 12 months, did the patient report any falls? 4. No falls within the past year. Incontinence Screen: During the past 12 months, has the patient has any characteristics of incontinence (ability, voiding, leakage, etc.)? No incontinence. Tobacco Use Screening: The patient is a former tobacco user. The patient quit fifteen or more years ago. Alcohol Use Screen (AUDIT-C): Alcohol Screen: SCREEN FOR ALCOHOL (AUDIT-C) An alcohol screening test (AUDIT-C) was negative (score=1). 1. How often did you have a drink containing alcohol in the past year? Consider a drink to be a 12 ounce can or bottle of regular beer, 8 ounces of malt liquor, a 5 ounce glass of table wine, or a 1.5 ounce shot of liquor (like scotch, gin, or vodka). Monthly or less 2. How many drinks containing alcohol did you have on a typical day when you were drinking in the past year? One or two drinks 3. How often did you have six or more drinks on one occasion in the past year? Never RHS Screen: RHS Screen Session Format: Face to Face Environmental Check Upon inquiry, the individual reports that the environment is safe to proceed. Informed Consent to Screen and Document The individual consents to proceed with screening. The individual consents to documentation of responses. PRIMARY SCREEN: In the past 12 months, how often did a current or former intimate partner (e.g., boyfriend, girlfriend, , , sexual partner): 1. Scream or curse at you Never 2. Insult or talk down to you Never 3. Threaten you with harm Never 4. Physically hurt you Never 5. Force or pressure you to have sexual contact against your will, or when you were unable to say no Never ?? The HITS tool (items 1-4 above) is [place] copyright protected by Anupam Kohli MD, and the user has full rights to use it throughout the [place] system. PRIMARY SCREEN RESULT: The Primary Screen is NEGATIVE. The individual answered never to all forms of IPV above (i.e., answered never to all 5 items) The individual accepts education and/or resources: No EDUCATION: Other: not interested at this time /michael/ [facility] Time Piece Repairer DATABASE DESIGNER,PRIMARY CARE Signed: 07/15/2024 08:57 CHANG WELLS [facility]
[2024-10-24 12:56] LABS: MANUAL DIFF FLAG NO
[2024-10-24 13:09] LABS: Basophils Absolute Auto 0.1 X10*3/uL (0.0-0.2); Basophils Percent Auto 0.9 % (0-2); Eosinophils Absolute Auto 0.2 X10*3/uL (0.0-0.4); Eosinophils Percent Auto 2.3 % (0-4); Hematocrit 39.1 % (42.0-52.0); Hemoglobin 12.6 g/dl (14.0-18.0); Imm Gran Abs Auto 0.02 X10*3/uL (0.00-0.03); Imm Gran Pct Auto 0.3 % (0.0-0.4); Lymphocytes Absolute Auto 1.5 X10*3/uL (1.2-4.9); Lymphocytes Percent Auto 22.4 % (20-40); Mean Corpuscular HGB Conc 32.2 g/dl (31.0-36.0); Mean Corpuscular Hemoglobin 30.1 pg (27.0-33.0); Mean Corpuscular Volume 93.5 fL (80.0-98.0); Mean Platelet Volume 10.3 fL (9.4-12.4); Monocytes Absolute Auto 0.5 X10*3/uL (0.1-1.2); Monocytes Percent Auto 8.2 % (2-11); Neutrophils Absolute Auto 4.4 x10*3/uL (2.0-8.3); Neutrophils Percent Auto 65.9 % (45-73); Platelet Count 170 X10*3/uL (160-400); Red Blood Count 4.18 X10*6/uL (4.60-5.80); Red Cell Distribution Width 13.4 % (11.0-16.0); White Blood Count 6.6 X10*3/uL (4.8-10.8)
[2024-10-24 13:30] LABS: Anion Gap 13 (12-20); Blood Urea Nitrogen 32 mg/dL (9-16); Carbon Dioxide 28 mmol/L (22-29); Chloride 106 mmol/L (96-108); Estimated Glomerular Filt Rate 45; Potassium 4.4 mmol/L (3.3-5.1); Sodium 143 mmol/L (135-145)
== END 2024-10-24 10:00 | disposition home or self-care (01) ==
LOC: HO.10HDL 09:59
PROVIDERS: Visit Provider Family Medicine
DX: I10 Essential (primary) hypertension (principal); D64.9 Anemia, unspecified
CPT/HCPCS: 36415; 80051; 82565; 84520; 85025

== ENCOUNTER 2025-03-13 11:05 | Outpatient (REF) | payer MEDICARE, OTHER, SELFPAY ==
--- OUTSIDE RECORDS SUMMARY | 2025-03-13 12:36 | XMS_ITS ---
Author Organization [facility] Address [address] [place] [address] Care Team Providers Care Immigration Officer Name Role Phone Jordan BALDERRAMA, Jefry Primary Care Provider Linda Cesar Unavailable [phone] Allergies No Known Allergies REASON FOR VISIT Painful nail(s) aggrevated by shoes causing difficulty standing/walking, Skin Problem Medications Medication SIG (Take, Route, Frequency, Duration) Notes Start Date End Date Status Turmeric 01/18/2024 Not-Takin g Ciclopirox Olamine 0.77 % 1 application Externally Twice a day for 30 days Not-Taki ng Vitamin C 01/18/2024 Active Magnesium 01/18/2024 Active Calcium Citrate 01/18/2024 Act lacey Aspirin 81 MG 1 tablet Orally Once a day for 30 day(s) 01/18/2024 Active Gabapentin 300 MG TAKE 1 CAPSULE BY [facility] EVERYDAY AT BEDTIME Oral for 90 Days Active Omeprazole 20 MG Oral for 90 Days Active Lisinopril 5 MG Oral for 90 Days Active Vitamin D3 01/18/2024 Active Social History Tobacco Use: Social History Observation Description Date Details (start date - stop date) Never Smoker NA - NA Tobacco Use/Smoking Question Answer Notes Are you a: nonsmoker Additional Findings: Tobacco Non-User Current no n-smoker Tobacco use other than smoking: Question Answer Notes Are you an other tobacco user? No Vital Signs Height 5 ft 10 in in 12/06/2024 Weight 180 lbs 12/06/2024 BMI 25.82 kg/m2 12/06/2024 Blood pressure systolic 115 mm Hg 12/06/19 25 Blood pressure diastolic 75 mm Hg 025 Encounters Encounter Location Date Provider Diagnosis [facility] [address] [address] 12/06/2024 Linda Castro Tinea unguium B35.1 ; Tinea pedis of both feet B35.3 ; Pain in right toe(s) M79.674 ; Pain in left toe(s) M79.675 and Neuropathy G62.9 Assessments Encounter Date Diagnosis (ICD Code) Assessment Notes Treatment Notes Treatment Clinical Notes Section Notes 12/06/2024 Tinea unguium (ICD-10 - B35.1) 12/06/2024 Tinea pedis of both feet (ICD-10 - B35.3) 12/06/2024 Pain in right toe(s) (ICD-10 - M79.674) 12/06/2024 Pain in left toe(s) (ICD-10 - M79.675) 12/06/2024 Neuropathy (ICD-10 - G62.9) Plan Of Treatment Next Appt Details Follow Up: 2 Months, Reason: Provider Name:Linda caraballo, 05/21/2025 03:30:00 PM, [address] [place] [address], [phone], Procedure Notes * Category Sub-Category Detail Notes Debride Nail 6-10 Nail debridement Due to the cl inical pathology outlined in the exam findings, performance of this nail treatment is medically necessary as its management by an unskilled/untrained nonprofessional would put this patients foot and overall health at risk. Therefore, debridement to affected nail(s), as described in exam ( TA, T1, T2, T3, T4, T5, T6, T7, T8, T9, ), was performed exclusively by the physician of record to reduce/remove overall nail length, girth, thickness, subungual debris, and necrotic tissue, by manual and/or electrical means through the use of a nail nipper and/or dremel-type tool grinder operator external, to a more viable healthy nail plate or bed tissue 6-10 nails in total. Silver nitrate was used for any petechial bleeding as necessary. Definitive antifungal treatment options, both pharmaceutical and surgical, have been reviewed and discussed with the patient. The patient solely prefers the use of intermittent/as needed professional debridement services for their nail condition and understands the need for additional periodic treatments to maintain effectiveness in symptomatic relief - 53594 Progress Notes * Matias FAUSTINDOB:1935 (89 yo M)Acc No.[id number]:12/06/2024 Progress Note Patient:?Matias FAUSTIN Provider:?Linda Castro DPM :1935???Age:89 Y???Sex:Male Alejo e:12/06/2024 Address:[address] [place], [place] [id number] Pcp:Jefry Ortega MD Subjective: * Chief Complaints: * ???Painful nail(s) aggrevate d by shoes causing difficulty standing/walkingSkin Problem * HPI: ???Painful Nails:?Pt States Last PCP Visit:?Date:?10/06/2024 ???Skin problems:?Nature:?scaling , redness.?Location:?B/L .?Course:?improved.?Treatments:?Medication (Ciclopirox Olamine 0.77 Cream).? * ROS:?General/Constitutional:?Nausea?denies.?Vomiting?denies.?Hunger Thirst?denies.?Loss appetite?denies.?Chills?denies.?Fatigue?denies.?Fever?denies.?Night Sweats?denies.?Unexplained weight loss?denies.?Unexplained weight gain?denies.?HEENTM:?Dentures?denies.?Dizziness?denies.?Glasses/contacts?admits.?Retinopathy?de nies.?Blurred/double vision?denies.?TMJ?denies.?Discharge/drainage?denies.?Implants?denies.?Sore throat?denies.?Dental implants?denies.?Hard of hearing ?admits.?Difficulty chewing/swallowing/speaking?denies.?Nose bleeds?denies.?Sore mouth?denies.?Respiratory:?On Oxygen?denies.?Pneumonia/pleurisy?denies.?Bronchitis?denies.?Emphysema?denies.?C oughing?denies.?Cough blood?denies.?Shortness of breath?denies.?Wheezing?denies.?Cardiovascular:?Pacemaker?denies.?MVP?denies.?WPW?denies.?CHF?denies.?Heart attack?denies.?Septal defect?denies.?Rapid beat?denies.?Chest pain ?denies.?Atrial Fib.?denies.?Murmur/Palpitations?denies.?Gastrointestinal:?Hemorrhoids?denies.?Stomach/Abdominal pain?denies.?Dark blood stool?denies.?Irritable bowel ?denies.?Constipation?denies.?Diarrhea?denies.?Hematology:?Swelling?denies.?Clots?denies.?Varicose Veins?denies.?Bruising?admits.?Bleeding problem?denies.?Genitourinary:?Blood urine?denies.?Frequent/Painfu/urination/bladder control?denies.?Kidney stones?denies.?Infection (UTI)?denies.?Nephropathy?denies.?sex trans dis (STD)?denies.?Prostate?admits.?Musculoskeletal:?Hammertoes?denies.?Bunions?denies.?Back Pain?admits.?Muscle Cramps/ Resting?admits.?Muscle cramps / walking?denies.?Generalized aches and pains?denies.?Weakness?denies.?Integ.:?Cast?denies.?Scars?denies.?Corns/calluses?denies.?Ingrown nails?denies.?Painful nails?denies.?Open Sores?denies.?Rashes?denies.?Neurologic:?Difficulty sleeping?denies.?Brain disorder?denies.?Numbness?admits.?Balance trouble?denies.?Confusion?denies.?Fainting/blackouts?denies.?Tingling?admits.?Tr emors?denies.? * Medical History:? * Surgical History:?Britton krishna er removal [id number] * Hospitalization/Major Diagno stic Procedure:?Denies Past Hospitalization * Family History:?Mother: dece ased, diagnosed with Diabetic - NIDDM, Unspecified essential hypertension.?Father: , kidney/liver disease, diagnosed with Unspecified heart disease, Family history of arthritis.? * Social History:?Tobacco Use:?Tobacco Use/Smoking?Are you a:?nonsmoker ?Additional Findings: Tobacco Non-User?Current non-smoker ?Tobacco use other than smoking?Are you an other tobacco user??No ???Miscellaneous:?Caffeine: yes, decaff. ?Children: yes. ?Exercise: no. ?Marital status: . 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 * Medications:?TakingLisinopri l 5 MG Tablet Oral Omeprazole 20 MG Capsule Delayed Release Oral Gabapentin 300 MG Capsule TAKE 1 CAPSULE BY MOUTH EVERYDAY AT BEDTIME Oral Aspirin 81 MG Tablet Chewable 1 tablet Orally Once a day Vitamin D3 Calcium Citrate Magnesium Vitamin C Taking Lisinopril 5 MG Tablet Oral Taking Omeprazole 20 MG Capsule Delayed Release Oral Taking Gabapentin 300 MG Capsule TAKE 1 CAPSULE BY MOUTH EVERYDAY AT BEDTIME Oral Taking Aspirin 81 MG Tablet Chewable 1 tablet Orally Once a day Taking Vitamin D3 Taking Calcium Citrate Taking Magnesium Taking Vitamin C Not-Taking/PRNCiclopirox Olamine 0.77 % Cream 1 application Externally Twice a day Turmeric Medication List reviewed and reconciled with the patientNot-Taking/PRN Ciclopirox Olamine 0.77 % Cream 1 application Externally Twice a day Not- Taking/PRN Turmeric Medication List reviewed and reconciled with the patient * Allergies:?N.K.D.A.yes[Aller gies Verified] Objective: * Vitals:?Ht: 5 ft 10 in, Wt: 180, BMI: 25.82, Shoe size: 9.5EE, BP: 115/75 mm Hg, Ht-cm: 177.8 cm, Wt-k.65 kg. * Examination: ???General Examination: ?GENERAL APPEARANCE:?Reveals a pleasant, alert, well-nourished, well- developed, well hydrated individual, who demonstrates proper attention to hygiene/body habitus, and is in no acute distress, Pt serves as own?historian for office visit today.?ORIENTED:?person, place, and time.?Neurological: ?SENSORY:?Neurological exam demonstrates , reduced light touch sensation , reduced sharp/dull pin prick discrimination , reduced vibration sensation , reduced proprioception sensation , in a stocking fashion , plantar aspects , 5.07 monofilament test performed at plantar aspects of 5 varied sites per foot shows sensation , reduced , B/L.?Vascular: ?DP PULSES (B):?3/4, B/L.?PT PULSES (B):?3/4, B/L.?CAPILLARY FILL TIME:?immediate, all digits, B/L.?TROPHIC CONDITION-TEXTURE/ELASTICITY/TURGOR/HAIR GROWTH (B):?normal, B/L.?TEMPERTURE GRADIENT (C):?warm to cool, proximal to distal, B/L.?PIGMENTATION:?normal, B/L.?EDEMA (C):?absent, B/L.?Dermatologic: ?SKIN FINDINGS:?Skin shows sign(s) of, erythema, scaling, in a moccasin fashion, no fissure(s) present, B/L.?Orthopedic: ?MUSCLE STRENGTH:?5/5 all groups in a symmetrical fashion , B/L.?Nails: ?NAILS are:?Elongated, overgrown, dystrophic, lytic, greater than 3mm thick, discolored and friable with crumbly malodorous subungual debris, with pain on palpation , TA, T1, T2, T3, T4, T5, T6, T7, T8, T9.? Assessment: * Assessment: 1.?Tinea unguium - B35.1 (Pr imary)???2.?Tinea pedis of both feet - B35.3???Specify :Response to treatment - Improvement???3.?Pain in right toe(s) - M79.674???4.?Pain in left toe(s) - M79.675???5.?Neuropathy - G62.9??? Plan: * Treatment: * Procedures:?Debride Nail 6-10:?Nail debridement?Due to the clinical pathology outlined in the exam findings, performance of this nail treatment is medically necessary as its management by an unskilled/untrained nonprofessional would put this patients foot and overall health at risk. Therefore, debridement to affected nail(s), as described in exam ( TA, T1, T2, T3, T4, T5, T6, T7, T8, T9, ), was performed exclusively by the physician of record to reduce/remove overall nail length, girth, thickness, subungual debris, and necrotic tissue, by manual and/or electrical means through the use of a nail nipper and/or dremel-type tool grinder operator external, to a more viable healthy nail plate or bed tissue 6- 10 nails in total. Silver nitrate was used for any petechial bleeding as necessary. Definitive antifungal treatment options, both pharmaceutical and surgical, have been reviewed and discussed with the patient. The patient solely prefers the use of intermittent/as needed professional debridement services for their nail condition and understands the need for additional periodic treatments to maintain effectiveness in symptomatic relief - 32667.? * Procedure Codes:?09878 DEBRI DE NAIL, 6 OR MORE * Follow Up:?2 Months * Images: * Sign off status: Completed true * Provider:?Linda Castro DPM Date:? Generated for Thom rodriguez/Carlos/Jozef on:?03/13/2025 12:36 PM EDT History and Physical Notes * HPI (History of Present Illness) Category Sub-Category Detail Notes Category Not es Painful Nails Pt States Last PCP Visit: Date:: 10/06/2024 Skin problems Nature: scaling , redness Location: B/L Course: improved Treatments: Medication (Ciclopir ox Olamine 0.77 Cream) Examination Category Sub-Category Detail Notes Category Not es Neurological SENSORY: Neurological exa m demonstrates , reduced light touch sensation , reduced sharp/dull pin prick discrimination , reduced vibration sensation , reduced proprioception sensation , in a stocking fashion , plantar aspects , 5.07 monofilament test performed at plantar aspects of 5 varied sites per foot shows sensation , reduced , B/L Dermatologic SKIN FINDINGS: Skin shows sign( s) of, erythema, scaling, in a moccasin fashion, no fissure(s) present, B/L Orthopedic MUSCLE STRENGTH: 5/5 all groups in a symmetrical fashion , B/L General Examination GENERAL APPEARANCE: Reveals a pleasant, alert, well-nourished, well-developed, well hydrated individual, who demonstrates proper attention to hygiene/body habitus, and is in no acute distress, Pt serves as own historian for office visit today ORIENTED: person, place, and t alexus Vascular DP PULSES (B): 3/4, B/L PT PULSES (B): 3/4, B/L CAPILLARY FILL TIME: immediate, all digi ts, B/L TEMPERTURE GRADIENT (C): warm to cool, p roximal to distal, B/L TROPHIC CONDITION-TEXTURE/ELASTICITY/TURGOR/HAIR GROWTH (B): normal, B/L EDEMA (C): absent, B/L PIGMENTATION: normal, B/L Nails NAILS are: Elongated, overg rown, dystrophic, lytic, greater than 3mm thick, discolored and friable with crumbly malodorous subungual debris, with pain on palpation , TA, T1, T2, T3, T4, T5, T6, T7, T8, T9
--- OUTSIDE RECORDS SUMMARY | 2025-03-13 12:36 | XMS_ITS ---
Author Organization [facility] Address [address] [place] [address] Care Team Providers Care Bobbin Drier Name Role Phone Jefry Ortega MD Primary Care Provider Linda Cesar Unavailable [phone] Allergies No Known Allergies REASON FOR VISIT Painful nail(s) aggrevated by shoes causing difficulty standing/walking, Skin Problem Medications Medication SIG (Take, Route, Frequency, Duration) Notes Start Date End Date Status Omeprazole 20 MG Oral for 90 Days Active Gabapentin 300 MG TAKE 1 CAPSULE BY [facility] EVERYDAY AT BEDTIME Oral for 90 Days Active Aspirin 81 MG 1 tablet Orally Once a day for 30 day(s) 01/18/2024 Active Ketoconazole 2 % 1 application Externally Once a day to both feet for Athletes feet for 30 days 02/28/2025 Active Lisinopril 5 MG Oral for 90 Days Active Turmeric 01/18/2024 Not-Takin g Calcium Citrate 01/18/2024 Act lacey Magnesium 01/18/2024 Active Vitamin C 01/18/2024 Active Ciclopirox Olamine 0.77 % 1 application Externally Twice a day for 30 days Not-Taking Vitamin D3 01/18/2024 Active Social History Tobacco Use: Social History Observation Description Date Details (start date - stop date) Never Smoker NA - NA Tobacco Use/Smoking Question Answer Notes Are you a: nonsmoker Additional Findings: Tobacco Non-User Current no n-smoker Tobacco use other than smoking: Question Answer Notes Are you an other tobacco user? No Vital Signs Height 5 ft 10 in in 02/28/2025 Weight 1803 lbs 02/28/2025 BMI 258.68 kg/m2 02/28/2025 Blood pressure systolic 115 mm Hg 02/29/20 Blood pressure diastolic 75 mm Hg 025 Encounters Encounter Location Date Provider Diagnosis [facility] [address] [address] 02/28/2025 Linda Gloria Tinea unguium B35.1 ; Tinea pedis of both feet B35.3 ; Pain in right toe(s) M79.674 ; Pain in left toe(s) M79.675 and Neuropathy G62.9 Assessments Encounter Date Diagnosis (ICD Code) Assessment Notes Treatment Notes Treatment Clinical Notes Section Notes 02/28/2025 Tinea unguium (ICD-10 - B35.1) 02/28/2025 Tinea pedis of both feet (ICD-10 - B35.3) 02/28/2025 Pain in right toe(s) (ICD-10 - M79.674) 02/28/2025 Pain in left toe(s) (ICD-10 - M79.675) 02/28/2025 Neuropathy (ICD-10 - G62.9) Plan Of Treatment Medication Medication Name Sig Start Date Stop Date Notes Ketoconazole 2 % 1 application Rn Otolaryngology ally Once a day to both feet for Athletes feet for 30 days 02/28/2025 Next Appt Details Follow Up: 2 Months, Reason: Provider Name:Linda caraballo, 05/21/2025 03:30:00 PM, [address] [place] [address], [phone], Procedure Notes * Category Sub-Category Detail Notes [...] use of a nail nipper and/or dremel-type blade grinder, to a more viable healthy nail plate [...] to maintain effectiveness in symptomatic relief - 52820 Progress Notes * Matias FAUSTINDOB:1935 (89 yo M)Acc No.[id number]:02/28/2025 Progress Note Patient:?Matias FAUSTIN Provider:?Linda Castro DPM :1935???Age:89 Y???Sex:Male Alejo e:02/28/2025 Address:[address] [place] [address] Pcp:Jefry Ortega MD Subjective: * Chief Complaints: * ???Painful nail(s) aggrevate d by shoes causing difficulty standing/walkingSkin Problem * HPI: ???Painful Nails:?Pt States Last PCP Visit:?Date:?10/06/2024 ???Skin problems:?Nature:?scaling , redness.?Location:?B/L .?Duration:?a few months.?Course:?recurrent.?Treatments:?Medication (Ciclopirox Olamine 0.77 Cream).? * ROS:?General/Constitutional:?Nausea?denies.?Vomiting?denies.?Hunger Thirst?denies.?Loss [...] History:? * Surgical History:?Britton krishna er removal [id number] * Hospitalization/Major Diagno stic Procedure:?Denies Past Hospitalization [...] * Vitals:?Ht: 5 ft 10 in, Wt: 1803, BMI: 258.68, Shoe size: 9.5EE, BP: 115/75 mm Hg, Ht-cm: 177.8 cm, Wt-k.84 kg. * Examination: ???General Examination: ?GENERAL APPEARANCE:?Reveals [...] B/L.?PIGMENTATION:?normal, B/L.?EDEMA (C):?absent, B/L.?Dermatologic: ?SKIN FINDINGS:?Skin shows recurrent sign(s) of, erythema, scaling, in a moccasin fashion, no fissure(s) present, B/L.?Orthopedic: ?MUSCLE STRENGTH:?5/5 all groups in a symmetrical fashion , B/L.?Nails: ?NAILS are:?Elongated, overgrown, dystrophic, lytic, greater than 3mm thick, discolored and friable with crumbly malodorous subungual debris, with pain on palpation , TA, T1, T2, T3, T4, T5, T6, T7, T8, T9.? Assessment: * Assessment: 1.?Tinea unguium - B35.1???2 .?Tinea pedis of both feet - B35.3 (Primary)???Specify :Acute problem, worse???3.?Pain in right toe(s) - M79.674???4.?Pain in left [...] use of a nail nipper and/or dremel-type blade grinder, to a more viable healthy nail plate [...] to maintain effectiveness in symptomatic relief - 40725.? * Procedure Codes:?72413 DEBRI DE NAIL, 6 OR MORE * Preventive Medicine:? ??Counseling:?Discussion:?-13: Office or other outpatient visit for the evaluation and management of an established patient, which required a medically appropriate history and/or examination and LOW level of DECISION MAKING for: 1 STABLE ACUTE UNCOMPLICATED PROBLEM, 2 OR MORE MINOR PROBLEMS, OR 1 STABLE CHRONIC PROBLEM, THAT POSE(S) A LOW RISK FOR MORBIDITY/MORTALITY. The visit on the day of the encounter encompassed interpreting the data and educating the patient as to the nature of their condition, treatment options available according to their individual PMH, meds, allergies, and overall health/living conditions, as well as any potential risks or complications that may occur from a failure to adhere to, and participate in, the recommended course of therapy. The discussion included a complete verbal, and/or written explanation of the examination results, any x-rays taken, the proposed diagnosis, and outline of the treatment plan. A schedule for future care needs was also explained. The patient verbalized an understanding of the instructions at this time and agreed to be an active participant in their treatment. If the patient should think of any questions or concerns after the visit, I have encouraged the patient to call the office.?Tinea Pedis:?The patient was counseled on the diagnosis, potential etiologies, and treatment options for their skin condition. We discussed the risks and benefits of each option from performing no treatment, to utilizing OTC topical skin creams, prescription topical creams, customized compounded topical medications, and, if necessary, to utilize oral antifungal therapy. We discussed the advantages and disadvantages of each possible treatment and importance for adherence to all the recommended therapies for optimum success and avoid potential complications such as open sore/infection/possible hospitalization. We discussed the potential effectiveness of each topical preparation as well as each ones possible side effects and/or patient medication interactions if oral therapy is selected. Patient questions re: the advantages and disadvantages of each treatment choice, medication use/dosage, successful outcomes, and application consistency were reviewed and the patient verbalized that all answers were clearly understood. The patient was told they can help alleviate symptoms by utilizing moisture absorbant innersoles with activated charcoal and baking soda, applying antifungal sprays daily, aerating toe web spaces at night by putting cotton or lambs wool between the toes, alternating shoe gear daily if possible so they can dry out, changing socks at least once during the day, wearing well-ventilated shoes or sandals. The patient has decided to apply antifungal skin creams to their feet as directed. Rx was sent to their pharmacy at the time of visit.? * Follow Up:?2 Months * Images: * Sign off status: Completed true * Provider:?Linda Castro DPM Date:? Generated for Thom rodriguez/Carlos/Jozef on:?03/13/2025 12:36 PM EDT History and Physical Notes * HPI (History of Present Illness) Category Sub-Category Detail Notes Category Not es Painful Nails Pt States Last PCP Visit: Date:: 10/06/2024 Skin problems Nature: scaling , redness Location: B/L Duration: a few months Course: recurrent Treatments: Medication (Ciclopir ox Olamine 0.77 Cream) [...] , B/L Dermatologic SKIN FINDINGS: Skin shows recur rent sign(s) of, erythema, scaling, in a moccasin [...]
--- OUTSIDE RECORDS SUMMARY | 2025-03-13 12:37 | XMS_ITS | Continuity of Care Document ---
Author Name [facility] Organization [facility] Care Team Providers Care Production Manager Name Role Phone [facility] Unavailable Unavailable Problems Combined list of problems from Department of Defense and Veterans Affairs facilities. It does not include entries that were removed or entered in error. 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 Immunization Series Date Given Administered By Site Reaction Lot Number CVX Code Drug Internet Cafe Manager Status Comments Source INFLUENZA, HIGH-DOSE, TRIVALENT, PF 2023 AMOS DOSHI LEFT DELTO ID [id number] 135 complet ed Completed Series, ADMINISTE [place], [facility] INFLUENZA, UNSPECIFIED FORMULATION 2022 88 complet ed HISTORICA L INFORMATI ON - FROM PATIENT'S RECALL, [facility] INFLUENZA VACCINE, QUADRIVALENT, ADJUVANTED 2020 205 complet ed [facility] COVID-19 (MODERNA), MRNA, LNP-S, PF, 100 [...] 08:50:57 [facility] BMI 27 kg/m2 07/15/2024 08:50:57 [facility] [...] from Department of Veterans Affairs facilities going backup to the last 18 months, not all VA inpatient encounters are included; 2) Encounters from the Department of Defense facilities going backup to 280 months. Location Location Details Encounter Type Encounter Number Reason For Visit Attending Provider ADM Date DC Date Status Disposition Source [facility] [place] [facility] Outpatient Encounter [id number] [facility] [place] [facility] [place] [facility] OFFICE O/P EST LOW 20 MIN [id number] Diagnos is: ICD-10- CM H91.09 Ototoxi c hearing loss, unspeci fied ear MAHESH FERNANDES RD D 07/15 [facility] [place] [facility] Social History Combined list of available smoking, tobacco, and other social history from Department of Defense and Veterans Affairs facilities. Social History Type Response Date Comment Sourc e Tobacco smoking status [place] FORMER USER 07/15/2024 [facility] [place] [facility] of [facility]20[facility] [place] [facility] History of tobacco use [place] FORMER USER 07/14/2023 [facility] [place] [facility] of [facility] 07/12/2022 [facility] [place] [facility] of [facility] 07/16/2021 [facility] [place] [place] [facility] of [facility]2018 [facility] History of tobacco use LIFETIME NON-TOBACCO USER 08/17/2017 [facility] Plan of Care List of future care activities from Department of Veterans Affairs facilities. Additional future care activities may be listed in the Assessment and Plan section. Date/Time Care Activity Care Activity Detail Facili ty 07/15/2025 AMBULATORY - MEDICINE AMBULATORY - MEDICI [facility] [place] [facility]
--- OUTSIDE RECORDS SUMMARY | 2025-03-13 12:37 | XMS_ITS ---
Author Organization [facility] Address [address] [place] [address] Care Team Providers Care Internal Combustion Engine Inspector Name Role Phone Jordan BALDERRAMA, Jefry Primary Care Provider Wolf Perez Jr Unavailable REASON FOR VISIT BILE LEAK Encounters Encounter Location Date Provider Diagnosis [facility] [address] [place], [place] [phone] 02/09/2024 Wolf Whaley Jr Bile leak K83.9 [...] No Information Progress Notes * AALIYAH FAUSTINDOB:1935 (89 yo M)Acc No.[id number]:02/09/2024 Progress Notes Patient:?AALIYAH FAUSTIN Provider:?Wolf Whaley MD :1935???Age:88 Y???Sex:Male Alejo e:02/09/2024 Address:[address] [place] [address] Pcp:Jefry Ortega MD Subjective: * Chief Complaints: * ???1. BILE LEAK. * Medical History:? Objective: * Vitals:? Assessment: * Assessment: 1.?Bile leak - K83.9 (Primar y)???2.?Other specified postprocedural states - Z98.890???3.?Common bile duct stone - K80.50??? Plan: * Treatment: * Procedure Codes:?26644 ENDO CHOLANGIOPANCREATOGRAPH, Modifiers: 22 , 42616 ERCP REMOVE FORGN BODY DUCT, Modifiers: 59 * * The named appointment provid er may or may not be the originator of this progress note, and it is not deemed complete until electronically signed by the appointment provider. Sign off status: Pending * Provider:?Wolf Whaley MD Date:?0 02/09/2024 Generated for Thom rodriguez/Carlos/eTransmitting on:?03/13/2025 12:36 PM EDT
--- OUTSIDE RECORDS SUMMARY | 2025-03-13 12:37 | XMS_ITS | Patient Health Record ---
Author Organization [facility] Address [address] [place] [address] Care Team Providers Care Auto Service Advisor Name Role Phone Jordan BALDERRAMA, Jefry Primary Care Provider UnavailWolf Seth Jr Unavailable Reason For Referral No Information Problems Problem Type SNOMED Code ICD Code Onset Dates Problem Status W/U Status Risk Notes Problem 119579268 Bile leak (K83.9) Active confirmed Problem 989036853 History of biliary duct stent placement (Z98.890) Active confirmed Plan Of Treatment Pending Test Test Name Order Date XR abdomen 1V 11/21/2023 Insurance Providers Payer Name Payer Address Payer Phone Subscriber Number Group Number Insured Name Patient Relationship to Insured Coverage Start Date Coverage End Date MEDICARE OF [place] [address] [place] [address] [id number] AALIYAH FAUSTIN Self - patient is the insured [employer] [address] [place] [address] [id number] AALIYAH FAUSTIN Self - patient is the insured
--- OUTSIDE RECORDS SUMMARY | 2025-03-13 12:37 | XMS_ITS | Patient Health Record ---
Author Organization [facility] [place] Address [address] [place] [address] Care Team Providers Care Food Safety Scientist Name Role Phone Jefry Ortega MD Primary Care Provider UnavailLinda Garcia Unavailable [phone] Allergies No Known Allergies Reason For Referral No Information Medications Medication SIG (Take, Route, Frequency, Duration) Notes Start Date End Date Status Turmeric 01/18/2024 Not-Takin g Ciclopirox Olamine 0.77 % 1 APPLICATION EXTERNALLY TWICE A DAY 30 DAYS for 30 Active Calcium Citrate 01/18/2024 Act lacey Magnesium 01/18/2024 Active Vitamin C 01/18/2024 Active Omeprazole 20 MG Oral for 90 Days Active Gabapentin 300 MG TAKE 1 CAPSULE BY [facility] EVERYDAY AT BEDTIME Oral for 90 Days Active Aspirin 81 MG 1 tablet Orally Once a day for 30 day(s) 01/18/2024 Active Vitamin D3 01/18/2024 Active Ketoconazole 2 % 1 application Externally Once a day to both feet for Athletes feet for 30 days 02/28/2025 Active Lisinopril 5 MG Oral for 90 Days Active Social History Tobacco Use: Social History Observation Description Date Details (start date - stop date) Never Smoker NA - NA Tobacco Use/Smoking Question Answer Notes Are you a: nonsmoker Additional Findings: Tobacco Non-User Current no n-smoker Alcohol Screen Question Answer Notes Did you have a drink contain ing alcohol in the past year? Yes How often did you have a dri nk containing alcohol in the past year? Monthly or less (1 point) Points 1 Interpretation Negative Tobacco use other than smoking: Question Answer Notes Are you an other tobacco user? No Problems Problem Type SNOMED Code ICD Code Onset Dates Problem Status W/U Status Risk Notes Problem 260464767 Neuropathy (G62.9) Active confirmed Vital Signs Blood pressure diastolic 75 mm Hg 02/28/2025 Height 5 ft 10 in in 02/28/2025 Blood pressure systolic 115 mm Hg 02/28/2025 Weight 1803 lbs 02/28/2025 BMI 258.68 kg/m2 02/28/2025 Encounters Encounter Location Date Provider Diagnosis [address] [address] 03/29/2024 Linda Perica Tinea unguium B35.1 ; Tinea pedis of both feet B35.3 ; Pain in right toe(s) M79.674 ; Pain in left toe(s) M79.675 and Neuropathy G62.[address] [address] 06/21/2024 Linda Perica Tinea unguium B35.1 ; Tinea pedis of both feet B35.3 ; Pain in right toe(s) M79.674 ; Pain in left toe(s) M79.675 and Neuropathy G62.[address] [address] 09/13/2024 Linda Perica Tinea unguium B35.1 ; Tinea pedis of both feet B35.3 ; Pain in right toe(s) M79.674 ; Pain in left toe(s) M79.675 and Neuropathy G62.[address] [address] 12/06/2024 Linda Perica Tinea unguium B35.1 ; Tinea pedis of both feet B35.3 ; Pain in right toe(s) M79.674 ; Pain in left toe(s) M79.675 and Neuropathy G62.[address] [address] 02/28/2025 Linda Perica Tinea unguium B35.1 ; Tinea pedis of both feet B35.3 ; Pain in right toe(s) M79.674 ; Pain in left toe(s) M79.675 and Neuropathy G62.9 Assessments Encounter Date Diagnosis (ICD Code) Assessment Notes Treatment Notes Treatment Clinical Notes Section Notes 03/29/2024 Tinea unguium (ICD-10 - B35.1) 03/29/2024 Tinea pedis of both feet (ICD-10 - B35.3) 06/21/2024 Tinea unguium (ICD-10 - B35.1) 09/13/2024 Tinea unguium (ICD-10 - B35.1) 12/06/2024 Tinea unguium (ICD-10 - B35.1) 12/06/2024 Tinea pedis of both feet (ICD-10 - B35.3) 02/28/2025 Tinea unguium (ICD-10 - B35.1) 02/28/2025 Tinea pedis of both feet (ICD-10 - B35.3) 02/28/2025 Pain in right toe(s) (ICD-10 - M79.674) 12/06/2024 Pain in right toe(s) (ICD-10 - M79.674) 06/21/2024 Tinea pedis of both feet (ICD-10 - B35.3) 09/13/2024 Tinea pedis of both feet (ICD-10 - B35.3) 03/29/2024 Pain in right toe(s) (ICD-10 - M79.674) 03/29/2024 Pain in left toe(s) (ICD-10 - M79.675) 06/21/2024 Pain in right toe(s) (ICD-10 - M79.674) 12/06/2024 Pain in left toe(s) (ICD-10 - M79.675) 09/13/2024 Pain in right toe(s) (ICD-10 - M79.674) 02/28/2025 Pain in left toe(s) (ICD-10 - M79.675) 12/06/2024 Neuropathy (ICD-10 - G62.9) 02/28/2025 Neuropathy (ICD-10 - G62.9) 09/13/2024 Pain in left toe(s) (ICD-10 - M79.675) 06/21/2024 Pain in left toe(s) (ICD-10 - M79.675) 03/29/2024 Neuropathy (ICD-10 - G62.9) 06/21/2024 Neuropathy (ICD-10 - G62.9) 09/13/2024 Neuropathy (ICD-10 - G62.9) Plan Of Treatment Next Appt Details Provider Name:Linda caraballo, 05/21/2025 03:30:00 PM, [address] [place], [address], Insurance Providers Payer Name Payer Address Payer Phone Subscriber Number Group Number Insured Name Patient Relationship to Insured Coverage Start Date Coverage End Date Medicare National [employer]t [employer] [address] [place] [address] [id number] Matias Jay Self - patient is the insured [facility] [address] [place] [address] [id number] Matias Jay Self - patient is the insured Medical (General) History Medical History History ICD Code Arthritis Cancer High blood pressure Macular degeneration Numbness Measles Mumps Chicken pox Gall bladder problems Surgical History Surgery Date(Month/Year) 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
--- OUTSIDE RECORDS SUMMARY | 2025-03-13 12:37 | XMS_ITS ---
Author Organization [facility] Address [address] [place] [address] Care Team Providers Care Logistics Operations Manager Name Role Phone Jordan BALDERRAMA, eJfry Primary Care Provider Unavailab Mayda Nolan, Wolf Hernandez REASON FOR VISIT Bile leak Encounters Encounter Location Date Provider Diagnosis [facility] [place] [address] [place], [place] [phone] 01/31/2024 Wolf Whaley Jr Plan Of Treatment No Information Progress Notes * AALIYAH FAUSTINDOB:1935 (89 yo M)Acc No.[id number]:01/31/2024 Progress Notes Patient:?AALIYAH FAUSTIN Provider:?Wolf Whaley MD :1935???Age:88 Y???Sex:Male Alejo e:01/31/2024 Address:[address] [place], [place] [phone] Pcp:Jefry Ortega MD Subjective: * Chief Complaints: * ???1. Bile leak. * Medical History:? Objective: * Vitals:? Assessment: Plan: * Treatment: * * The named appointment provid er may or may not be the originator of this progress note, and it is not deemed complete until electronically signed by the appointment provider. Sign off status: Pending * Provider:?Wolf Whaley MD Date:?0 01/31/2024 Generated for Thom rodriguez/Carlos/eTransmitting on:?03/13/2025 12:36 PM EDT
--- OUTSIDE RECORDS SUMMARY | 2025-03-13 12:38 | XMS_ITS ---
Author Organization [facility] Address [address] [place] [address] Care Team Providers Care Indoor Sports Centre Manager Name Role Phone Jordan BALDERRAMA, Jefry Primary Care Provider Linda Cesar Unavailable [phone] Allergies No Known Allergies REASON FOR VISIT Painful nail(s) aggrevated by shoes causing difficulty standing/walking, Skin Problem Medications Medication SIG (Take, Route, Frequency, Duration) Notes Start Date End Date Status Turmeric 01/18/2024 Not-Takin g Ciclopirox Olamine 0.77 % 1 application Externally Twice a day for 30 days Active Vitamin C 01/18/2024 Active Magnesium 01/18/2024 Active Calcium Citrate 01/18/2024 Act lacey Vitamin D3 01/18/2024 Active Aspirin 81 MG 1 tablet Orally Once a day for 30 day(s) 01/18/2024 Active Gabapentin 300 MG TAKE 1 CAPSULE BY [facility] EVERYDAY AT BEDTIME Oral for 90 [...] Signs Height 5 ft 10 in in 09/13/2024 Weight 175 lbs 09/13/2024 BMI 25.11 kg/m2 09/13/2024 Encounters Encounter Location Date Provider Diagnosis [facility] [place] [address] [place] [address] 09/13/2024 Linda Gloria Tinea unguium B35.1 ; Tinea pedis of both feet B35.3 ; Pain in right toe(s) M79.674 ; Pain in left toe(s) M79.675 and Neuropathy G62.9 Assessments Encounter Date Diagnosis (ICD Code) Assessment Notes Treatment Notes Treatment Clinical Notes Section Notes 09/13/2024 Tinea unguium (ICD-10 - B35.1) 09/13/2024 Tinea pedis of both feet (ICD-10 - B35.3) 09/13/2024 Pain in right toe(s) (ICD-10 - M79.674) 09/13/2024 Pain in left toe(s) (ICD-10 - M79.675) 09/13/2024 Neuropathy (ICD-10 - G62.9) Plan Of Treatment Next Appt Details Follow Up: 2 Months, Reason: Provider Name:Linda caraballo, 05/21/2025 03:30:00 PM, [address] [place] [address], [phone], Procedure Notes * Category Sub-Category Detail Notes Debride Nail 6-10 Nail debridement Nail debridem ent performed extensively to reduce/remove overall nail length, girth, thickness, subungual debris, and necrotic tissue, by manual and electrical means through the use of a nail nipper and/or dremel, to more viable healthy nail plate or bed tissue 1-5. Silver nitrate used for any petechial bleeding as necessary. Patient chooses, no pharmaceutical tx (31582) Progress Notes * Matias FAUSTINDOB:1935 (89 yo M)Acc No.[id number]:09/13/2024 Progress Note Patient:Matias Salazar Provider:?Linda Castro DPM :1935???Age:89 Y???Sex:Male Alejo e:09/13/2024 Address:[address] [place], [place] [phone] Pcp:Jefry Ortega MD Subjective: * Chief Complaints: * ???Painful nail(s) aggrevate d by shoes causing difficulty standing/walkingSkin Problem * HPI: ???Painful Nails:?Pt States Last PCP Visit:?Date:?06/06/2024 ???Skin problems:?Nature:?scaling , redness.?Location:?B/L .?Course:?improved.?Treatments:?Medication (Ciclopirox Olamine [...] trouble?denies.?Confusion?denies.?Fainting/blackouts?denies.?Tingling?admits.?Tr emors?denies.? * Medical History:? * Surgical History:?Gall bladd er removal [id number] * Hospitalization/Major Diagno stic Procedure:?Denies Past Hospitalization * Family History:?Mother: dece ased, diagnosed with Diabetic - NIDDM, Unspecified essential hypertension.?Father: , kidney/liver disease, diagnosed with Family history of arthritis, Unspecified heart disease.? * Social History:?Tobacco Use:?Tobacco Use/Smoking?Are you a:?nonsmoker ?Additional Findings: Tobacco Non-User?Current non-smoker ?Tobacco use other than smoking?Are you an other tobacco user??No ???Drugs/Alcohol:?Drugs?Have you used drugs other than those for medical reasons in the past 12 months??No ?Alcohol Screen?Did you have a drink containing alcohol in the past year??Yes ?How often did you have a drink containing alcohol in the past year??Monthly or less (1 point) ?Points?1 ?Interpretation?Negative ???Miscellaneous:?Caffeine: yes, decaff. ?Children: yes. ?no Exercise. ?Marital status: . 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 * Medications:?TakingLisinopri l 5 MG Tablet Oral Omeprazole 20 MG Capsule Delayed Release Oral Gabapentin 300 MG Capsule TAKE 1 CAPSULE BY MOUTH EVERYDAY AT BEDTIME Oral Aspirin 81 MG Tablet Chewable 1 tablet Orally Once a dayVitamin D3 Calcium Citrate Magnesium Vitamin C Ciclopirox Olamine 0.77 % Cream 1 application Externally Twice a dayTaking Lisinopril 5 MG Tablet Oral Taking Omeprazole 20 MG Capsule Delayed Release Oral Taking Gabapentin 300 MG Capsule TAKE 1 CAPSULE BY MOUTH EVERYDAY AT BEDTIME Oral Taking Aspirin 81 MG Tablet Chewable 1 tablet Orally Once a dayTaking Vitamin D3 Taking Calcium Citrate Taking Magnesium Taking Vitamin C Taking Ciclopirox Olamine 0.77 % Cream 1 application Externally Twice a dayNot-Taking/PRNTurmeric Medication List reviewed and reconciled with the patientNot-Taking/PRN Turmeric Medication List reviewed and reconciled with the patient * Allergies:?N.K.D.A.yes[Aller gies Verified] Objective: * Vitals:?Ht: 5 ft 10 in, Wt: 175, BMI: 25.11, Shoe size: 9.5EE, Ht-cm: 177.8 cm, Wt-k.38 kg. * Examination: ???General Examination: ?GENERAL APPEARANCE:?Reveals [...] per foot shows sensation , reduced , B/L.?DEEP TENDON REFLEXES:?Achilles, 2/4, B/L.?Vascular: ?DP PULSES(B):?3/4, B/L.?PT PULSES(B):?3/4, B/L.?CAPILLARY FILL TIME:?immediate, all digits, B/L.?TROPHIC CONDITION-TEXTURE/ELASTICITY/TURGOR/HAIR GROWTH(B):?normal, B/L.?TEMPERTURE GRADIENT(C):?warm to cool, proximal to distal, B/L.?PIGMENTATION:?normal, B/L.?EDEMA(C):?absent, B/L.?Dermatologic: ?SKIN FINDINGS:?Skin shows approximately 90___% LESS, sign(s) of, erythema, scaling, in a moccasin fashion, no fissure(s) present, B/L.?Orthopedic: ?MUSCLE STRENGTH:?5/5 all groups in a symmetrical fashion , B/L.?Nails: ?NAILS are:?Elongated, overgrown, dystrophic, lytic, greater than 3mm thick, discolored and friable with crumbly malodorous subungual debris, with pain on palpation , 1-5 B/L.? Assessment: * Assessment: 1.?Tinea unguium - B35.1?2.? Tinea pedis of both feet - B35.3 (Primary), Acute problem, Uncomplicated (3),Rx drug management (4)?3.?Pain in right toe(s) - M79.674?4.?Pain in left toe(s) - M79.675?5.?Neuropathy - G62.9? Plan: * Treatment: * Procedures:?Debride Nail 6-10:?Nail debridement?Nail debridement performed extensively to reduce/remove overall nail length, girth, thickness, subungual debris, and necrotic tissue, by manual and electrical means through the use of a nail nipper and/or dremel, to more viable healthy nail plate or bed tissue 1-5. Silver nitrate used for any petechial bleeding as necessary. Patient chooses, no pharmaceutical tx (81538).? * Procedure Codes:?43004 DEBRI DE NAIL, 6 OR MORE * Preventive Medicine:? ??Counseling:?Discussion:?-12: Office or other outpatient visit for the evaluation and management of an established patient, which required a medically appropriate history and/or examination and STRAIGHTFORWARD level of MEDICAL DECISION MAKING, 1 SELF-LIMITED OR MINOR PROBLEM, MINIMAL- NO AMOUNT/COMPLEXITY OF DATA TO BE REVIEWED/ANALYZED, AND MINIMAL RISK OF COMPLICATION/MORBIDITY. The visit on the day of the [...] encouraged the patient to call the office.?Tinea Pedis:?Given recent successful results to treatment, The patient is to cont the rx cream as directed as needed.? * Follow Up:?2 Months * Images: * Sign off status: Completed true * Provider:?Linda Castro DPM Date:?06/2024 Generated for Thom rodriguez/Carlos/Jozef on:?03/13/2025 12:37 PM EDT History and Physical Notes * HPI (History of Present Illness) Category Sub-Category Detail Notes Category Not es Painful Nails Pt States Last PCP Visit: Date:: 06/06/2024 Skin problems Nature: scaling , redness Location: [...] foot shows sensation , reduced , B/L DEEP TENDON REFLEXES: Achilles, 2/4, B/L Dermatologic SKIN FINDINGS: Skin shows appro ximately 90___% LESS, sign(s) of, erythema, scaling, in a moccasin fashion, no fissure(s) present, B/L Orthopedic MUSCLE STRENGTH: 5/5 all groups in a symm etrical fashion , B/L General Examination GENERAL APPEARANCE: Reveals a pleasant, alert, well- nourished, well-developed, well hydrated individual, who demonstrates proper [...] subungual debris, with pain on palpation , 1-5 B/L
--- OUTSIDE RECORDS SUMMARY | 2025-03-13 12:38 | XMS_ITS ---
Author Organization [facility] Address [address] [place] [address] Care Team Providers Care Market Development Trainer Name Role Phone Jordan BALDERRAMA, Jefry Primary Care Provider Unavailab yuni Whaley Jr, Wolf Unavailable REASON FOR VISIT took turmeric and aspirin Encounters Encounter Location Date Provider Diagnosis [facility] [address] [place] [phone] 01/29/2024 Wolf Whaley Jr Plan Of Treatment No Information Progress Notes * AALIYAH FAUSTINDOB:1935 (88 yo M)Acc No.[id number]:01/29/2024 Patient:?FAUSTIN AALIYAH :1935???Age:88 Y???Sex:Male Address:[address] [place] [address], [address] * true * Date:? Generated for Thom rodriguez/Carlos/eTransmitting on:?03/13/2025 12:37 PM EDT
--- OUTSIDE RECORDS SUMMARY | 2025-03-13 12:38 | XMS_ITS | Encounter Summary ---
Author Name [facility] Organization [facility] [place] Address [address] [place] [address] Care Team Providers Care Concert Or Lecture Hall Manager Name Role Phone NASEEM JOINER Primary Care [...] PART A Apr 06, 2002 PART A [id number] Antoine FAUSTIN PATIENT MEDICARE (WNR) MEDICARE (M) PART B Apr 06, 2002 PART B [id number] Antoine FAUSTIN PATIENT WE[employer] EXPENSE (OPT/PROF ) [facility] * Nov 06, 2006 [id number] Antoine FAUSTIN PATIENT Selected Encounter This section includes the information on record at [place] for the Encounter. 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 Date/Time Primary/Secondary Diagnosis Diagnosis Name Provider Source Jul 15, 2024 09:21 AM PRIMARY Ototoxic hearing loss, unspecified ear NASEEM JOINER [facility] Jul 15, 2024 09:21 AM SECONDARY Encounter for immunization VEE SCHMIDT [facility] Vital Signs: All taken on the encounter date This section contains inpatient and outpatient Vital Signs collected on the date of the Encounter. Date/Time Temperature Pulse Blood Pressure Respiratory Rate SP02 Pain Height Weight Body Mass Index Source Jul 15, 2024 08:50 AM 97.1 85 125/71 20 95 0 70 186 27 [facility] Immunizations: All administered on the encounter date This section contains immunizations associated to the Encounter. Immunization Series Date Issued Administered By Site Reaction Lot Number CVX Code Drug Passenger Attendant Comment(s) Source INFLUENZA, HIGH-DOSE, TRIVALENT, PF Jul 15, 2024 VEE SCHMIDT LEFT DELTO ID [id number] SANOFI PASTEUR Completed Series, ADMINISTERRoland D AT [facility] Social History: Smoking Status (Most current) and Tobacco Use (All prior to encounter date) This section includes the most current, and the historical, smoking and tobacco- related health factors from the [place] facility where the Encounter took place. Current Smoking Status This section includes the most current smoking, or tobacco-related health factor, from the [place] facility where the Encounter took place. Date/Time Current Smoking Status Comment Facil ity Jul 15, 2024 09:00 AM VA-TOBACCO FORMER USER [facility] Tobacco Use History This section includes a history of the smoking, or tobacco-related health factors, that were collected on or before the date of the Encounter. The data comes from the [place] facility where the Encounter took place. Date/Time Smoking Status/Tobacco Use Comment F acility Jul 15, 2024 09:00 AM [place]-TOBACCO QUIT 15 YRS OR MORE [facility] Jul 14, 2023 08:30 AM VA-TOBACCO FORMER [facility]ER [facility] Jul 14, 2023 08:30 AM [place]-TOBACCO QUIT 15 YRS OR MORE [facility] Jul 12, 2022 09:00 AM VA-TOBACCO NEVER USED [facility] [place] [facility] Jul 16, 2021 10:00 AM VA-TOBACCO NEVER USED [facility] [place] [facility] Sep 04, 2018 08:18 AM VA-TOBACCO NEVER USED [facility] [place] [facility] Aug 17, 2017 10:54 AM LIFETIME NON-TOBACCO USER [facility] [place] [facility] Encounter Notes: All associated encounter notes [...] Administered: Jul 15, 2024 09:00 Series: Complete Passenger Attendant: SANOFI PASTEUR Lot: [id number] Exp Date: May 05, 2025 ND: [id number] Admin Route/Site: INTRAMUSCULAR/LEFT DELTOID Dosage: 0.5mL Vaccine Information Statement(s): INFLUENZA(FLU) VACC(INACTIVATED OR RECOMBINANT)VIS Jun 11, 2021 (MACANESE) Order By: Policy Administered By: Vee Schmidt [...] Primary Care Signed: 07/15/2024 09:27 [facility] [place] [facility] [place] [facility] Jul 15, 2024 09:16 AM PHYSICIAN [...] No Active Remote 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 Ortega, [place] for audiology History of present illness patient [...] of active outpatient prescriptions dispensed from this [place] (local) and dispensed from another [place] or [place] facility (remote) as well as [...] their sexual orientation as: Straight or Heterosexual /es/ Naseem Joiner MD Staff Physician Signed: 07/15/2024 09:21 NASEEM JOINER [place] [facility] [place] [facility] Jul 15, 2024 08:54 AM PREVENTIVE MEDICIN E NURSING NOTE: LOCAL TITLE: CLINICAL REMINDERS/NURSING STANDARD TITLE: PREVENTIVE MEDICINE NURSING NOTE DATE OF NOTE: JUL 15, 2024@08:54 ENTRY DATE: JUL 15, 2024@08:54:18 AUTHOR: CHANG WELLS EXP COSIGNER: URGENCY: STATUS: COMPLETED Advance Directive Screen [...] of his/her rights. Suicide Screen: C-SSRS Screening Mobile-Suicide Severity Rating Scale (C-SSRS Screener) 1. Over [...] full rights to use it throughout the [place] system. PRIMARY SCREEN RESULT: The Primary Screen is NEGATIVE. The individual answered never to all forms of IPV above (i.e., answered never to all 5 items) The individual accepts education and/or resources: No EDUCATION: Other: not interested at this time /michael/ [facility] Laundry Bag Punch Operator ACRYLIC FABRICATOR,PRIMARY CARE Signed: 07/15/2024 08:57 CHANG WELLS [place] [facility]
[2025-03-13 13:33] LABS: MANUAL DIFF FLAG NO
[2025-03-13 13:42] LABS: Basophils Absolute Auto 0.1 X10*3/uL (0.0-0.2); Basophils Percent Auto 0.9 % (0-2); Eosinophils Absolute Auto 0.1 X10*3/uL (0.0-0.4); Eosinophils Percent Auto 2.5 % (0-4); Hematocrit 39.3 % (42.0-52.0); Hemoglobin 12.9 g/dl (14.0-18.0); Imm Gran Abs Auto 0.01 X10*3/uL (0.00-0.03); Imm Gran Pct Auto 0.2 % (0.0-0.4); Lymphocytes Absolute Auto 1.5 X10*3/uL (1.2-4.9); Lymphocytes Percent Auto 26.3 % (20-40); Mean Corpuscular HGB Conc 32.8 g/dl (31.0-36.0); Mean Corpuscular Hemoglobin 30.4 pg (27.0-33.0); Mean Corpuscular Volume 92.7 fL (80.0-98.0); Mean Platelet Volume 10.8 fL (9.4-12.4); Monocytes Absolute Auto 0.5 X10*3/uL (0.1-1.2); Monocytes Percent Auto 8.9 % (2-11); Neutrophils Absolute Auto 3.5 x10*3/uL (2.0-8.3); Neutrophils Percent Auto 61.2 % (45-73); Platelet Count 175 X10*3/uL (160-400); Red Blood Count 4.24 X10*6/uL (4.60-5.80); Red Cell Distribution Width 13.2 % (11.0-16.0); White Blood Count 5.7 X10*3/uL (4.8-10.8)
[2025-03-13 13:50] LABS: Anion Gap 12 (12-20); Blood Urea Nitrogen 26 mg/dL (9-16); Carbon Dioxide 28 mmol/L (22-29); Chloride 108 mmol/L (96-108); Estimated Glomerular Filt Rate 45; Potassium 4.5 mmol/L (3.3-5.1); Sodium 143 mmol/L (135-145)
== END 2025-03-13 11:06 | disposition home or self-care (01) ==
LOC: HO.10HDL 11:05
PROVIDERS: Visit Provider Family Medicine
DX: I10 Essential (primary) hypertension (principal); R53.83 Other fatigue
CPT/HCPCS: 36415; 80051; 82565; 84520; 85025

== ENCOUNTER 2025-05-05 12:53 | Outpatient (REF) | payer MEDICARE, OTHER, SELFPAY ==
--- NOTE | ~2025-05-05 | XR_ITS ---
EXAMINATION: X-ray lumbar spine). CLINICAL INFORMATION: Dorsalgia. TECHNIQUE: AP and lateral views. Lateral views during flexion and extension position. COMPARISON: June 28, 2018. FINDINGS: Multilevel endplate sclerosis and volume loss of the lower thoracic and lumbar spine vertebral bodies representing 40-50% volume loss more pronounced at L4 vertebra. Grade 1 anterolisthesis L5-S1. Grade 1 retrolisthesis L2-3 and L4-5. There is no reduction or worsening listhesis during flexion and or extension position. No lytic or blastic lesions. S-shaped curvature of the thoracolumbar spine. Osteopenia versus osteoporosis. Vascular calcifications, aorta. Vascular clips right upper quadrant abdomen. XR/XR lumbar spine 4V min IMPRESSION: Multilevel old compression fracture deformities likely osteoporotic. Multilevel spondylosis resulting in grade 1 anterolisthesis L5-S1 and grade 1 retrolisthesis L2-3 and L4-5 levels without gross instability. Atherosclerosis disease. Electronically signed by: Baljeet Echevarria MD 05/05/2025 02:10 PM EDT
== END 2025-05-05 12:54 | disposition home or self-care (01) ==
LOC: HO.HOSX 12:53
PROVIDERS: PCP Family Medicine; Referring Provider Family Medicine; Visit Provider Physician Assistant
DX: M54.42 Lumbago with sciatica, left side (principal)
CPT/HCPCS: 72110; 99202

== ENCOUNTER 2025-05-05 12:53 | Outpatient (AMB) | payer MEDICARE, OTHER, SELFPAY ==
--- OUTSIDE RECORDS SUMMARY | 2024-01-31 09:00 | XMS_ITS ---
Author Organization [facility] Address [address] [place] [address] Care Team Providers Care News Reporter Name Role Phone Jordan BALDERRAMA, Jefry Primary Care Provider Unavailab yuni Whaley Jr, Wolf Hernandez REASON FOR VISIT Bile leak Encounters Encounter Location Date Provider Diagnosis [facility] [place] [address] [place], [place] [phone] 01/31/2024 Wolf Whaley Jr Plan Of Treatment No Information Progress Notes * AALIYAH FAUSTINDOB:1935 (89 yo M)Acc No.[id number]:01/31/2024 Progress Notes Patient: AALIYAH ESCALANTE Provider: Alicia Whaley MD :1935 A ge:88 Y S ex:Male Date:01/31/2024 Address:[address] [place], [place] [phone] Pcp:Jefry Ortega MD Subjective: * Chief Complaints: * 1 . Bile leak. * Medical History: Objective: * Vitals: Assessment: Plan: * Treatment: * * The named appointment provid er may or may not be the originator of this progress note, and it is not deemed complete until electronically signed by the appointment provider. Sign off status: Pending * Provider: Alicia Whaley MD Date: 01/31/2024 Generated for Thom rodriguez/Carlos/Cristinaitting on: 05/05/2025 01:14 PM EDT
--- OUTSIDE RECORDS SUMMARY | 2025-05-05 08:13 | XMS_ITS | Continuity of Care Document ---
Author Name [facility] Organization [facility] Care Team Providers Care Bench Inspector Name Role Phone [facility] Unavailable Unavailable Problems Combined list of problems from Department of Defense and Veterans Affairs facilities. It does not include entries that were removed or entered in error. 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 Immunization Series Date Given Administered By Site Reaction Lot Number CVX Code Drug C.O.D. Biller Status Comments Source INFLUENZA, HIGH-DOSE, TRIVALENT, PF 2023 AMOS DOSHI LEFT DELTO ID [id number] 135 complet ed Completed Series, ADMINISTE RED AT [place], [facility] INFLUENZA, UNSPECIFIED FORMULATION 2022 88 complet ed HISTORICA L INFORMATI ON - FROM PATIENT'S RECALL, [facility] INFLUENZA VACCINE, QUADRIVALENT, ADJUVANTED 2020 205 complet ed [facility] COVID-19 (MODERNA), MRNA, LNP-S, PF, 100 [...] ADM Date DC Date Status Disposition Source [facility] [place] [facility] Outpatient Encounter [id number] [facility] [place] [facility] [place] [facility] OFFICE O/P EST LOW 20 MIN [id number] Diagnos is: ICD-10- CM H91.09 Ototoxi c hearing loss, unspeci fied ear MAHESH FERNANDES RD D 07/15 [facility] [place] [facility] Social History Combined list of available smoking, tobacco, and other social history from Department of Defense and Veterans Affairs facilities. Social History Type Response Date Comment Sourc e Tobacco smoking status NHIS [place]-TOBACCO FORMER USER 07/15/2024 [facility] [place] [facility] History of tobacco use [facility] SSDTOB[facility]CO QUIT 15 YRS OR MORE 07/15/2024 [facility] [place] [facility] History of tobacco use MA-TOBACCO FORMER USER 07/14/2023 [facility] [place] [facility] History of tobacco use [facility] SSD[facility] NEVER USED 07/12/2022 [facility] [place] [facility] History of tobacco use [facility] SSDTOBACCO NEVER USED 07/16/2021 [facility] [place] [facility] History of tobacco use [facility] SSDTOBACCO NEVER USED 09/04/2018 [facility] History of tobacco use LIFETIME NON-TOBACCO USER 08/17/2017 [facility] Plan of Care List of future care activities from Department of Veterans Affairs facilities. Additional future care activities may be listed in the Assessment and Plan section. Date/Time Care Activity Care Activity Detail Facili ty 07/15/2025 AMBULATORY - MEDICINE [facility] [place] [facility]
--- NOTE | 2025-05-05 13:04 | A.SPINEOV_ITS ---
Intake Visit Reasons: sciatica and chronic back pain Intake Note: Mr. Jay is here today c/o severe back pain. Final Application Reviewer Required: No Allergies No Known Allergies Allergy (Verified 02/09/24 10:45) Assessment & Plan Assessment & Plan (1) Back pain: Code(s): M54.9 - Dorsalgia, unspecified Category: Medical Plan Dear Dr Ortega Thank you for referring Mr Jay to our office today. He is a very nice 89-year-old gentleman who has history of a previous L4-[address] aGrcia about 5 or 6 years ago. It sounds like he had a herniated disc and had severe leg pain and that went away after the surgery. Within a few years of the surgery he has noticed a progressive lower lumbar pain, more on the left. It starts just around the area of the incision it radiates out to the side. He does not have any significant lower extremity symptoms report other than some tingling down the leg and an intermittent feeling of tightness in his ankle. He has tried things like ibuprofen and Tylenol but they generally do not work. If he is up on his feet for more than about 5 or 10 minutes in the yd doing work, the pain will become intense enough that it will send him back into the house making him have to sit down or lay down for few minutes. He will then get back up and start going again. He did physical therapy many years ago, but never really felt there was any yield to this. He has not done any cortisone injections or any interventional pain procedures. He comes today with an MRI done at the [facility] showing multilevel degenerative disc disease amongst other things PMH: Reasonably healthy gentleman for his age, he has a history of a slow growing prostate cancer which is managed with hormonal treatments, hypertension, restless legs, cholecystectomy and as mentioned microdiskectomy done in 2018. Social hx: He does not smoke, drink use any recreational drugs Medications: Lisinopril, gabapentin, magnesium, aspirin, vitamin-D, calcium, Adarol inj q6 months. Allergies: None Physical exam: Awake alert oriented no acute distress, he has a well healed scar over his lower lumbar spine along with tenderness to palpation in this area. The patient has full strength and normal reflexes in the lower extremities. Imaging review: Lumbar MRI shows what looks like healed compression fracture at T12 and L4. He has significant disc degeneration with Modic endplate changes at L2-3 with retrolisthesis. He has degenerative disc disease at L5-S1. He also has varying degrees of facet arthropathy throughout his lumbar spine. I sent the patient for standing flexion-extension x-rays and there is slight increase in the retrolisthesis in the standing position. X-rays also show he has what looks like osteoporosis. Impression: 89-year-old gentleman presents with complaints of chronic low back pain in the lower lumbar region more off to the left, who has diffuse arthritic findings throughout his lumbar spine. I explained to him the difficulty with doing spine surgery for back pain especially in the setting of someone with multifocal disk disease and thinning bones. I think he would be best served to just start with something a bit less invasive to his spine, maybe some injections, or possibly a radiofrequency ablation to his facets etc.. If we could just get him a little more mobile and walking a little better with some interventional procedures I think he would accept that is a meaningful improvement in his quality of life. At think surgery would absolutely have to be the last option here given his age in his bone quality. Unfortunately there is nothing here that lends itself to the small procedure like did 7 years ago. I will refer him to our colleague Dr. Venegas who does our interventional procedures to be evaluated. Thank you for allowing us to care for your patient. The total time spent with this visit with this patient was 45 minutes reviewing history, physical exam, lumbar imaging review, and implementation of treatment plan or further diagnostic testing Dom Welch MD,PhD [facility] Orders: Orders XR lumbar spine 4V min Today M54.9 - Dorsalgia, unspecified Referrals Pain Management Referral M54.9 - Dorsalgia, unspecified Coding Level of Care Code New Pt Level 4 (38344) Diagnoses Back pain M54.9
--- OUTSIDE RECORDS SUMMARY | 2025-05-05 13:14 | XMS_ITS | Patient Health Record ---
Author Organization [facility] [place] Address [address] [place] [address] Care Team Providers Care Wheel Alignment Mechanic Name Role Phone Jefry Ortega MD Primary Care Provider UnavailLinda Garcia Unavailable [phone] Allergies No Known Allergies Reason For Referral No Information Medications Medication SIG (Take, Route, Frequency, Duration) Notes Start Date End Date Status Turmeric 01/18/2024 Not-Takin g Ciclopirox Olamine 0.77 % 1 APPLICATION EXTERNALLY TWICE A DAY 30 DAYS; Duration: 30 Active Calcium Citrate 01/18/2024 Act lacey Magnesium 01/18/2024 Active Vitamin C 01/18/2024 Active Omeprazole 20 MG Oral; Duration: 90 Days Active Gabapentin 300 MG TAKE 1 CAPSULE BY [facility] EVERYDAY AT BEDTIME Oral; Duration: 90 Days Active Aspirin 81 MG 1 tablet Orally Once a day; Duration: 30 day(s) 01/18/2024 Active Vitamin D3 01/18/2024 Active Ketoconazole 2 % 1 application Externally Once a day to both feet for Athletes feet; Duration: 30 days 02/28/2025 Active Lisinopril 5 MG Oral; Duration: 90 Days Active Social History Tobacco Use: [...] Problem Status W/U Status Risk Notes Problem Neuropathy (655781237) Neuropathy (G62.9) Active confirmed Vital Signs Blood pressure diastolic 75 mm Hg 02/28/2025 Height 5 ft 10 in in 02/28/2025 Blood pressure systolic 115 mm Hg 02/28/2025 Weight 1803 lbs 02/28/2025 BMI 258.68 kg/m2 02/28/2025 Encounters Encounter Location Date Provider Diagnosis [address] [address] 06/21/2024 Linda Perica Tinea unguium B35.1 ; Tinea pedis of both feet B35.3 ; Pain in right toe(s) M79.674 ; Pain in left toe(s) M79.675 and Neuropathy G62.[address] [address] 09/13/2024 Linda Perica Tinea unguium B35.1 ; Tinea pedis of both feet B35.3 ; Pain in right toe(s) M79.674 ; Pain in left toe(s) M79.675 and Neuropathy G62.[address] [address] 12/06/2024 Linda Perica Tinea unguium B35.1 ; Tinea pedis of both feet B35.3 ; Pain in right toe(s) M79.674 ; Pain in left toe(s) M79.675 and Neuropathy G62.[address] [address] 02/28/2025 Linda Perica Tinea unguium B35.1 ; Tinea pedis of both feet B35.3 ; Pain in right toe(s) M79.674 ; Pain in left toe(s) M79.675 and Neuropathy G62.9 Assessments Encounter Date Diagnosis (ICD Code) Assessment Notes Treatment Notes Treatment Clinical Notes Section Notes 06/21/2024 Tinea unguium (ICD-10 - B35.1) 09/13/2024 [...] of both feet (ICD-10 - B35.3) 06/21/2024 Pain in right toe(s) (ICD-10 - M79.674) 12/06/2024 Pain in left toe(s) (ICD-10 - M79.675) 09/13/2024 Pain in right toe(s) (ICD-10 - M79.674) 02/28/2025 Pain in left toe(s) (ICD-10 - M79.675) 12/06/2024 Neuropathy (ICD-10 - G62.9) 02/28/2025 Neuropathy (ICD-10 - G62.9) 09/13/2024 Pain in left toe(s) (ICD-10 - M79.675) 06/21/2024 Pain in left toe(s) (ICD-10 - M79.675) 06/21/2024 Neuropathy (ICD-10 - G62.9) 09/13/2024 Neuropathy (ICD-10 - G62.9) Plan Of Treatment Next Appt Details Provider Name:Linda caraballo, 05/21/2025 03:30:00 PM, [address] [facility], [place], [address], Insurance Providers Payer Name Payer Address Payer Phone Subscriber Number Group Number Insured Name Patient Relationship to Insured Coverage Start Date Coverage End Date Medicare National [employer] [address] [place] [address] [id number] Matias Jay Self - patient is the insured [facility] [address] [place] [address] [id number] Misty Matias Self - patient is the insured Medical (General) History Medical History History ICD Code Arthritis Cancer High blood pressure Macular degeneration Numbness Measles Mumps Chicken pox Gall bladder problems Surgical History Surgery Date(Month/Year) 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
== END 2025-05-05 14:30 | disposition home or self-care (01) ==
LOC: HO.HNS 12:53
PROVIDERS: PCP Family Medicine; Referring Provider Family Medicine; Visit Provider Physician Assistant
DX: M54.9 Dorsalgia, unspecified (principal)
CPT/HCPCS: 99204

== ENCOUNTER → 2025-05-05 13:30 | Outpatient (BNV) | payer MEDICARE, OTHER, SELFPAY | PROVIDERS: PCP Family Medicine; Referring Provider Family Medicine; Visit Provider Radiology Diagnostic Radiology | DX: M47.816 Spondylosis without myelopathy or radiculopathy, lumbar region (principal) | CPT/HCPCS: 72110 ==

== ENCOUNTER 2025-05-26 09:41 | Outpatient (AMB) | payer MEDICARE, OTHER, SELFPAY ==
--- OUTSIDE RECORDS SUMMARY | 2024-01-31 09:00 | XMS_ITS ---
Author Organization [facility] Address [address] [place] [address] Care Team Providers Care Bill Sorter Name Role Phone Jordan (RETIRED) , Jefry Primary Care Provider Unavailable Wolf Whaley Jr REASON FOR VISIT Bile leak Encounters Encounter Location Date Provider Diagnosis [facility] [place] [address] [place] [phone] 01/31/2024 Wolf Whaley Jr Plan Of Treatment No Information Progress Notes * AALIYAH FAUSTINDOB:1935 (89 yo M)Acc No.[id number]:01/31/2024 Progress Notes Patient: AALIYAH ESCALANTE Provider: Alicia Whaley MD :1935 A ge:88 Y S ex:Male Date:01/31/2024 Address:[address] [place], [place] [phone] Pcp:Jefry Ortega (RETIRED) MD Subjective: * Chief [...] 0 01/31/2024 Generated for Thom rodriguez/Carlos/Cristinaitting on: 05/26/2025 10:17 AM EDT
--- OUTSIDE RECORDS SUMMARY | 2025-05-05 08:13 | XMS_ITS | Continuity of Care Document ---
Author Name [facility] Organization [facility] Care Team Providers Care Brigadier Name Role Phone [facility] Unavailable Unavailable Problems Combined list of problems from Department of Defense and Veterans Affairs facilities. It does not include entries that were removed or entered in error. 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 [employer] [facility] LISINOPRIL 5MG TAB TAKE ONE TABLET BY MOUTH EVERY DAY ORAL ACTIVE BETO FERNANDES VAZQUEZ D 2016 [facility] SETS [facility] Immunizations Combined list of available immunizations from the Department of Defense and Veterans Affairs facilities. 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 Comments Source INFLUENZA, HIGH-DOSE, TRIVALENT, PF 2023 AMOS DOSHI LEFT DELTO ID [id number] 135 complet ed Completed Series, ADMINISTE RED AT [place], [facility] INFLUENZA, UNSPECIFIED FORMULATION 2022 88 complet ed HISTORICA L INFORMATI ON - FROM PATIENT'S RECALL, [facility] INFLUENZA VACCINE, QUADRIVALENT, ADJUVANTED 2020 205 complet ed [facility] COVID-19 (MODERNA), MRNA, LNP-S, PF, 100 [...] ADM Date DC Date Status Disposition Source [facility] [place] [facility] Outpatient Encounter [id number] [facility] [place] [facility] [place] [place] [facility] OFFICE O/P EST LOW 20 MIN [id number] Diagnos is: ICD-10- CM H91.09 Ototoxi c hearing loss, unspeci fied ear MAHESH FERNANDES RD D 07[facility] [place] [facility] Social History Combined list of available smoking, tobacco, and other social history from Department of Defense and Veterans Affairs facilities. Social History Type Response Date Comment Sourc e Tobacco smoking status NHIS [place]-TOBACCO FORMER USER [facility] [place] [facility] History of tobacco use [facility] 15 YRS OR MORE 07/15/[facility]24 [facility] [place] [facility] History of tobacco use UT-TOBACCO FORMER USER 07/14/2023 [facility] [place] [facility] History of tobacco use [facility] SSD[facility] NEVER USED 07/12/2022 [facility] [place] [facility] History of tobacco use [facility] SSDTO[facility] NEVER USED 07/16/2021 [facility] [place] [facility] History of tobacco use [facility] SSDTO[facility] NEVER USED 09/04/2018 [facility] History of tobacco use LIFETIME NON-TOBACCO USER 08/17/2017 [facility] Plan of Care List of future care activities from Department of Veterans Affairs facilities. Additional future care activities may be listed in the Assessment and Plan section. Date/Time Care Activity Care Activity Detail Facili ty 07/15/2025 AMBULATORY - MEDICINE [facility] [place] [facility]
[2025-05-26 09:45] VITALS: BP 121/58; PULSE 94; RESP 16; O2SAT 96; BMI 26.1
--- NOTE | 2025-05-26 09:45 | A.OFFVIS_ITS ---
Vital Signs 05/26/25 09:45 Height 5 ft 10 in Weight 182 lb BMI 26.1 BP 121/58 L Blood Pressure Location Lt brachial Position Sitting Respiration 16 Pulse 94 Pulse Source Pulse Oximeter Pulse Oximetry (%) 96 Oxygen Delivery Method Room Air Intake Visit Reasons: Dorsalgia Toe Puller Required: No Accompanied by: Self / Same As Patient Allergies No Known Allergies Allergy (Verified 05/26/25 09:48) HPI HPI Dorsalgia: Details: History of Present Illness The patient is an 89-year-old male presenting with chronic lumbar radicular pain and neurogenic claudication. He has a history of L4-5 microdiscectomy performed approximately six years ago for a herniated disc with severe leg pain. Recently, he has experienced progressive lower lumbar pain, predominantly on the left side, which starts around the incision area and radiates laterally. The pain is described as a pins and needles burning sensation in the back and legs, significantly impairing his ability to perform daily activities. The pain intensifies with activity, particularly when standing or walking for more than 5 to 10 minutes, necessitating rest. He has attempted management with ibuprofen, Tylenol, and physical therapy, all of which have been ineffective. The patient was evaluated in the spine surgery clinic, where surgery was ruled out due to multifocal disc disease and osteopenia, with surgery being considered a last resort given his age and bone quality. He is currently on gabapentin, which he takes in the morning, but it has been suggested to switch to nighttime dosing to potentially improve sleep and manage tingling symptoms. Pain Description - Onset: Progressive lower lumbar pain, more on the left side - Quality: Pins and needles burning sensation - Location: Starts around incision area, radiates laterally - Exacerbating factors: Standing or walking for more than 5 to 10 minutes - Relieving factors: Rest - Interference: Impairs daily activities Physical Exam - Musculoskeletal: No pain on leg raise, twisting, or bending forward/backward initially, but pain starts with prolonged activity Results - Imaging: multilevel DDD, DJD, spondylolisthesis with facet and endplate degeneration. Pain Management - Affect: Pain significantly impairs daily activities - Analgesia: Currently using gabapentin, ibuprofen, and Tylenol; gabapentin to be taken at night - Adverse Effects: None reported - Activities of Daily Living: Pain limits standing and walking, necessitating frequent rest - Aberrant Drug Related Behaviors: None reported [facility], [facility] Medical History (Updated 07/22/25 @ 09:18 by Mike Venegas MD) Chronic kidney disease Gallstone Dorsalgia Prostate cancer Urinary frequency HTN (hypertension) Surgical History (Updated 02/09/24 @ 10:45 by Margie Lewis RN) History of ERCP History of back surgery Social History Household Members: Spouse Housing: House Do you presently have visiting nurse or other home services: No Patient Tobacco Use Status: Never used Tobacco Advance Directives Date on File: 11/15/23 service: Yes Physical Exam Vital Signs: Last Vital Signs Pulse 94 05/26/25 09:45 Resp 16 05/26/25 09:45 BP 121/58 L 05/26/25 09:45 Pulse Ox 96 05/26/25 09:45 Oxygen Delivery Method Room Air 05/26/25 09:45 BMI result Body Mass Index 26.1 Assessment & Plan Assessment & Plan (1) Lumbar radicular pain: Code(s): M54.16 - Radiculopathy, lumbar region Category: Medical Plan Plan - Plan for L2-3 interlaminar midline epidural steroid injection for lumbar radicular symptoms and neurogenic claudication - Consider neuromodulation for NSB pain if steroid injection is not effective - Gabapentin to be taken at night to improve sleep and manage tingling symptoms - Obtain insurance authorization and schedule procedure under x-ray guidance Patient was informed and verbally consented to the use of an ambient scribe for clinic note documentation during this visit. Discussion Notes I discussed with the patient the plan for an L2-3 interlaminar midline epidural steroid injection to address lumbar radicular symptoms and neurogenic claudication. We reviewed the potential for neuromodulation if the injection does not provide relief. I advised switching gabapentin to nighttime dosing to help with sleep and tingling symptoms. We will proceed with obtaining insurance authorization and scheduling the procedure under x-ray guidance. The patient expressed understanding and agreed with the plan. Patient Instructions - Take gabapentin at night to help with sleep and tingling. - Await a call for scheduling the epidural steroid injection. - Rest as needed to manage pain during activities. Coding Level of Care Code New Pt Level 4 (19199) Diagnoses Lumbar radicular pain M54.16
== END 2025-05-26 10:28 | disposition home or self-care (01) ==
LOC: HO.PMC 09:41
PROVIDERS: PCP Family Medicine; Referring Provider Physician Assistant; Visit Provider Internal Medicine
DX: M54.16 Radiculopathy, lumbar region (principal)
CPT/HCPCS: 99204

== ENCOUNTER → 2025-05-26 09:41 | Outpatient (BNVA) | payer MEDICARE, OTHER, SELFPAY | PROVIDERS: PCP Family Medicine; Referring Provider Physician Assistant; Visit Provider Internal Medicine | DX: M54.16 Radiculopathy, lumbar region (principal) | CPT/HCPCS: 99202 ==

== ENCOUNTER 2025-06-26 06:10 | Outpatient (REF) | payer MEDICARE, OTHER, SELFPAY ==
--- OUTSIDE RECORDS SUMMARY | 2024-01-31 09:00 | XMS_ITS ---
Author Organization [facility] Address [address] [place] [address] Care Team Providers Care Regional Coordinator Name Role Phone Jordan (RETIRED) , Jefry Primary Care Provider Unavailable Wolf Whaley Jr REASON FOR VISIT Bile leak Encounters Encounter Location Date Provider Diagnosis [facility] [place] [address] [place] [id number] 01/31/2024 Wolf Whaley Jr Plan Of Treatment No Information Progress Notes * AALIYAH FAUSTINDOB:1935 (89 yo M)Acc No.[id number]:01/31/2024 Progress Notes Patient: AALIYAH ESCALANTE Provider: Alicia Whaley MD :1935 A ge:88 Y S ex:Male Date:01/31/2024 Address:[address] [place], [place] [phone] Pcp:Jefry Ortega (RETIRED) MD Subjective: * Chief Complaints: * 1 . Bile leak. * Medical History: Objective: * Vitals: Assessment: Plan: * Treatment: * * The named appointment provid er may or may not be the originator of this progress note, and it is not deemed complete until electronically signed by the appointment provider. Sign off status: Pending * Provider: Alicia Whaley MD Date: 0 01/31/2024 Generated for Thom rodriguez/Carlos/Cristinaitting on: 06/26/2025 06:12 AM EDT
--- OUTSIDE RECORDS SUMMARY | 2025-05-05 08:13 | XMS_ITS | Continuity of Care Document ---
Author Name [facility] Organization [facility] Care Team Providers Care Vice President Marketing & Development Name Role Phone [facility] Unavailable Unavailable Problems Combined list of problems from Department of Defense and Veterans Affairs facilities. It does not include entries that were removed or entered in error. 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 Status Comments Source INFLUENZA, HIGH-DOSE, TRIVALENT, PF 2023 AMOS DOSHI LEFT DELTO ID [id number] 135 complet ed Completed Series, ADMINISTE RED AT ID, [facility] INFLUENZA, UNSPECIFIED FORMULATION 2022 88 complet ed HISTORICA L INFORMATI ON - FROM PATIENT'S RECALL, [facility] INFLUENZA VACCINE, QUADRIVALENT, ADJUVANTED 2020 205 complet ed [facility] COVID-19 (MODERNA), MRNA, LNP-S, PF, 100 MCG/0.5 [...] ADM Date DC Date Status Disposition Source [facility] [place] [place] [facility] Outpatient Encounter [id number] [facility] [place] [facility] [place] [facility] OFFICE O/P EST LOW 20 MIN [id number] Diagnos is: ICD-10- CM H91.09 Ototoxi c hearing loss, unspeci fied ear MAHESH FERNANDES RD D 07[facility]15 [facility] [place] [facility] [facility] Social History Combined list of available smoking, tobacco, and other social history from Department of Defense and Veterans Affairs facilities. Social History Type Response Date Comment Sourc e Tobacco smoking status NHIS ID-TOBACCO FORMER USER [facility] [place] [facility] of [facility] OR [facility] 07[facility]15[facility]2024 [facility] [place] [facility] History of tobacco use ID-TOBACCO FORMER USER 07/14/2023 [facility] [place] [facility] History of tobacco [facility] 07/12/2022 [facility] [place] [facility] History of tobacco use [facility] 07/16/2021 [facility] [place] [facility] History of tobacco use [facility] 09/04/2018 [facility] History of tobacco use LIFETIME NON-TOBACCO USER 08/17/2017 [facility] Plan of Care List of future care activities from Department of Veterans Affairs facilities. Additional future care activities may be listed in the Assessment and Plan section. Date/Time Care Activity Care Activity Detail Facili ty 07/15/2025 AMBULATORY - MEDICINE AMBULATORY - MEDICI [facility] [place] [facility]
--- NOTE | ~2025-06-26 | FL_ITS ---
EXAMINATION: XR FLUOROSCOPY WITH IMAGES CLINICAL INFORMATION: Lumbar spine epidural pain management injection. COMPARISON: None available. TECHNIQUE: Fluoroscopy provided to: Dr. Venegas Fluoroscopy time: 9.3 seconds DAP: [id number] Gycm2 Images: 3 FINDINGS: 3 fluoroscopic spot images of the lumbar spine taken during epidural pain management injection. Please refer to the full operative report for details. FL/FL guidance in treatment room IMPRESSION: Fluoroscopic guidance. Electronically signed by: Dev Philip MD 06/27/2025 09:08 AM EDT
--- OUTSIDE RECORDS SUMMARY | 2025-06-26 06:12 | XMS_ITS | Patient Health Record ---
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 Name Role Phone Jordan BALDERRAMA, Jefry Primary Care Provider Linda Cesar Unavailable [phone] Allergies No Known Allergies Reason For Referral No Information Medications Medication SIG (Take, Route, Frequency, Duration) Notes Start Date End Date Status Ketoconazole 2 % 1 application Externally Once a day to both feet for Athletes feet; Duration: 30 days 02/28/2025 Active Turmeric 01/18/2024 Not-Takin g Ciclopirox Olamine 0.77 % 1 APPLICATION EXTERNALLY TWICE A DAY 30 DAYS; Duration: 30 Active Calcium Citrate 01/18/2024 Act lacey Vitamin D3 01/18/2024 Active Vitamin C 01/18/2024 Active Magnesium 01/18/2024 Active Omeprazole 20 MG Oral; Duration: 90 Days Active Lisinopril 5 MG Oral; Duration: 90 Days Active Aspirin 81 MG 1 tablet Orally Once a day; Duration: 30 day(s) 01/18/2024 Active Gabapentin 300 MG TAKE 1 CAPSULE BY [facility] EVERYDAY AT BEDTIME Oral; Duration: 90 Days Active Immunizations Vaccine Route Administration Date Status Comme nts Influenza Unknown 08/16/2024 Administered Social History Tobacco Use: Social History Observation Description Date Details (start date - stop date) Never Smoker NA - NA Tobacco use other than smoking: Question Answer Notes Are you an other tobacco user? No Tobacco Control (Standard) Question Answer Notes Tobacco use: Nonsmoker Additional Findings: Tobacco non-user Current no nsmoker AUDIT-C (Standard) Question Answer Notes Did you have a drink containing alcohol in the p ast year? No Points 0 Interpretation Negative Problems Problem Type SNOMED Code ICD Code Onset Dates Problem Status W/U Status Risk Notes Problem Neuropathy (834174473) Neuropathy (G62.9) Active confirmed Vital Signs Blood pressure diastolic 75 mm Hg 05/21/2025 Height 5 ft 10 in in 05/21/2025 Blood pressure systolic 115 mm Hg 05/21/2025 Weight 183 lbs 05/21/2025 BMI 26.25 kg/m2 05/21/2025 Encounters Encounter Location Date Provider Diagnosis [address] [address] 09/13/2024 Linda Perica Tinea unguium B35.1 ; Tinea pedis of both feet B35.3 ; Pain in right toe(s) M79.674 ; Pain in left toe(s) M79.675 and Neuropathy G62.[address] [address] 12/06/2024 Linda Perica Tinea unguium B35.1 ; Tinea pedis of both feet B35.3 ; Pain in right toe(s) M79.674 ; Pain in left toe(s) M79.675 and Neuropathy G62.[address] [address] 02/28/2025 Linda Perica Tinea unguium B35.1 ; Tinea pedis of both feet B35.3 ; Pain in right toe(s) M79.674 ; Pain in left toe(s) M79.675 and Neuropathy G62.[address] [address] 05/21/2025 Linda Perica Tinea unguium B35.1 ; Pain in right toe(s) M79.674 ; Pain in left toe(s) M79.675 and Neuropathy G62.9 Assessments Encounter Date Diagnosis (ICD Code) Assessment Notes Treatment Notes Treatment Clinical Notes Section Notes 09/13/2024 Tinea unguium (ICD-10 - B35.1) 12/06/2024 Tinea unguium (ICD-10 - B35.1) 12/06/2024 Tinea pedis of both feet (ICD-10 - B35.3) 02/28/2025 Tinea unguium (ICD-10 - B35.1) 02/28/2025 Tinea pedis of both feet (ICD-10 - B35.3) 05/21/2025 Tinea unguium (ICD-10 - B35.1) 05/21/2025 Pain in right toe(s) (ICD-10 - M79.674) 05/21/2025 Pain in left toe(s) (ICD-10 - M79.675) 02/28/2025 Pain in right toe(s) (ICD-10 - M79.674) 12/06/2024 Pain in right toe(s) (ICD-10 - M79.674) 09/13/2024 Tinea pedis of both feet (ICD-10 - B35.3) 12/06/2024 Pain in left toe(s) (ICD-10 - M79.675) 09/13/2024 Pain in right toe(s) (ICD-10 - M79.674) 02/28/2025 Pain in left toe(s) (ICD-10 - M79.675) 05/21/2025 Neuropathy (ICD-10 - G62.9) 12/06/2024 Neuropathy (ICD-10 - G62.9) 02/28/2025 Neuropathy (ICD-10 - G62.9) 09/13/2024 Pain in left toe(s) (ICD-10 - M79.675) 09/13/2024 Neuropathy (ICD-10 - G62.9) Plan Of Treatment Next Appt Details Provider Name:Linda caraballo, 08/15/2025 12:00:00 PM, [address] [facility], [place], [address], Insurance Providers Payer Name Payer Address Payer Phone Subscriber Number Group Number Insured Name Patient Relationship to Insured Coverage Start Date Coverage End Date Medicare National Govt Svcs Inc [address] [place] [address] [id number] Matias Jay Self - patient is the insured [facility] ([employer]) [address] [place] [address] [id number] Matias Jay Self - patient is the insured Medical (General) History Medical History History ICD Code Arthritis Cancer High blood pressure Macular degeneration Numbness Measles Mumps Chicken pox Gall bladder problems Surgical History Surgery Date(Month/Year) 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
== END 2025-06-26 06:11 | disposition home or self-care (01) ==
LOC: CF 06:10
PROVIDERS: Visit Provider Internal Medicine
DX: M54.16 Radiculopathy, lumbar region (principal)
CPT/HCPCS: 62323; J2003; J3301; Q9967

== ENCOUNTER 2025-06-26 10:41 | Outpatient (AMB) | payer MEDICARE, OTHER, SELFPAY ==
[2025-06-26 10:54] VITALS: BP 153/78; PULSE 98; RESP 16; O2SAT 93; BMI 26.1
--- NOTE | 2025-06-26 10:54 | A.OFFVIS_ITS ---
Vital Signs 06/26/25 10:54 06/26/25 11:28 Height 5 ft 10 in Weight 182 lb BMI 26.1 BP 153/78 H 143/66 H Blood Pressure Location Lt brachial Lt brachial Position Sitting Sitting Respiration 16 16 Pulse 98 97 Pulse Source Pulse Oximeter Pulse Oximeter Pulse Oximetry (%) 93 98 Oxygen Delivery Method Room Air Room Air Intake Visit Reasons: L2-L3 midline interlaminr ENEIDA Allergies No Known Allergies Allergy (Verified 05/26/25 09:48) HPI HPI L2-L3 midline interlaminr ENEIDA: Details: Patient presents for scheduled procedure. Denies any recent cough, cold, infection, fever or other significant changes in medical history since last office visit. [facility] Medical History (Updated 05/27/25 @ 09:18 by Mike Venegas MD) Chronic kidney disease Gallstone Dorsalgia Prostate cancer Urinary frequency HTN (hypertension) Surgical History (Updated 02/09/24 @ 10:45 by Margie Lewis RN) History of ERCP History of back surgery Social History Household Members: Spouse Housing: House Do you presently have visiting nurse or other home services: No Patient Tobacco Use Status: Never used Tobacco Advance Directives Date on File: 11/15/23 service: Yes Physical Exam Vital Signs: Last Vital Signs Pulse 97 06/26/25 11:28 Resp 16 06/26/25 11:28 BP 143/66 H 06/26/25 11:28 Pulse Ox 98 06/26/25 11:28 Oxygen Delivery Method Room Air 06/26/25 11:28 BMI result Body Mass Index 26.1 Office Procedures AMB Joint Injection/Aspiration Joint Injection/Aspiration Details: Interlaminar epidural steroid injection, L2-3 After obtaining written consent, pre-procedure blood pressure and heart rate were stable and recorded in the nursing record. The patient was placed in the prone position. The lumbar area was widely prepped with chloraprep and draped in sterile fashion. Fluoroscopic guidance was used to identify the desired interlaminar space and for needle placement. Subcutaneous 0.5% lidocaine was used to anesthetize the skin overlying the target. A 20-gauge Chris needle was advanced to the epidural space using loss of resistance to contrast technique under fluoroscopic AP and contralateral oblique views. There was no evidence of heme or CSF and no paresthesias were elicited with needle placement. Confirmation of epidural needle placement was performed with 1cc of omnipaque 180. Next 3 ml 0.5% lidocaine mixed with 80 mg triamcinilone was administered epidurally with no pain elicited on injection. The needle tract tubing was then cleared with 1 ml of 0.5% lidocaine. The needle was removed, skin cleansed and a sterile bandage was applied. The patient tolerated the procedure well and no complications were encountered. Following the procedure the patient's vital signs were stable. The patient was discharged home in good condition with post-procedural instructions. Time Out: Immediately prior to the procedure, the following was verbally c onfirmed that there is a signed consent form and that the correct patient, planned procedure, site and side are consistent with documentation and that necessary equipment and/or blood products are available prior to the start of the case. Complications: none EBL: <2 cc Coding 08877 - Caudal/Lumbar Epidural/Interlaminar with fluoroscopy Procedure code (CPT) selection complete Assessment & Plan Assessment & Plan (1) Lumbar radicular pain: Code(s): M54.16 - Radiculopathy, lumbar region Category: Medical Plan Patient is status post L2-3 interlaminar ENEIDA. Patient tolerated procedure well and was discharged home in stable condition with discharge instructions. All questions were answered. We will follow-up via telephone or in clinic to assess response to therapy. A follow-up appointment was made during today's visit. Orders: Orders AMB Joint Injection/Aspiration Today Mike Venegas MD M54.16 - Radiculopathy, lumbar region FL guidance in treatment room Today Shannon Fiore APRN, DATA ANALYST ETL DEVELOPER M54.16 - Radiculopathy, lumbar region Coding Level of Care Code Procedure Only Diagnoses Lumbar radicular pain M54.16 CPT Codes Coding - Joint 11: 07918 - Caudal/Lumbar Epidural/Interlaminar with fluoroscopy ([id number])
[2025-06-26 11:28] VITALS: BP 143/66; PULSE 97; RESP 16; O2SAT 98
== END 2025-06-26 11:29 | disposition home or self-care (01) ==
LOC: HO.PMCPRC 10:41
PROVIDERS: PCP Family Medicine; Visit Provider Internal Medicine
DX: M54.16 Radiculopathy, lumbar region (principal)
CPT/HCPCS: 62323

== ENCOUNTER 2025-07-21 10:43 | Outpatient (AMB) | payer MEDICARE, OTHER, SELFPAY ==
--- OUTSIDE RECORDS SUMMARY | 2024-01-31 09:00 | XMS_ITS ---
Author Organization [facility] Address [address] [place] [address] Care Team Providers Care Pilot Boat Operator Name Role Phone Jordan (RETIRED) , Jefry Primary Care Provider Unavailable Wolf Whaley Jr REASON FOR VISIT Bile leak Encounters Encounter Location Date Provider Diagnosis [facility] [place] [address] [place] [id number] 01/31/2024 Wolf Whaley Jr Plan Of Treatment No Information Progress Notes * AALIYAH FAUSTINDOB:1935 (89 yo M)Acc No.[id number]:01/31/2024 Progress Notes Patient: AALIYAH ESCALANTE Provider: Alicia Whaley MD :1935 A ge:88 Y S ex:Male Date:01/31/2024 Address:[address] [place], [place] [phone] Pcp:Jefry Ortega (RETIRED) MD Subjective: * Chief [...] MD Date: 0 01/31/2024 Generated for Thom rodriguez/Carlos/eTrickeysmitting on: 07/21/2025 01:56 PM EDT
--- OUTSIDE RECORDS SUMMARY | 2024-02-09 07:30 | XMS_ITS ---
Author Organization [facility] Address [address] [place] [address] Care Team Providers Care Regional Director Of Admissions Name Role Phone Jordan (RETIRED) , Jefry Primary Care Provider Unavailable Wolf Whaley Jr Unavailable [phone] REASON FOR VISIT BILE LEAK Encounters Encounter Location Date Provider Diagnosis [facility] [address] [place] [phone] 02/09/2024 Wolf Whaley Jr Bile leak K83.9 ; Other specified postprocedural states Z98.890 and Common bile duct stone K80.50 Assessments Encounter Date Diagnosis (ICD Code) Assessment Notes Treatment Notes Treatment Clinical Notes Section Notes 02/09/2024 Bile leak (ICD-10 - K83.9) 02/09/2024 Other specified postprocedural states (ICD-10 - Z98.890) 02/09/2024 Common bile duct stone (ICD-10 - K80.50) Plan Of Treatment No Information Progress Notes * AALIYAH FAUSTINDOB:1935 (89 yo M)Acc No.[id number]:02/09/2024 Progress Notes Patient: AALIYAH ESCALANTE Provider: Alicia Whaley MD :1935 A ge:88 Y S ex:Male Date:02/09/2024 Address:[address] [place], [place] [phone] Pcp:Jefry Ortega (RETIRED) MD Subjective: * Chief Complaints: * 1 . BILE LEAK. * Medical History: Objective: * Vitals: Assessment: * Assessment: 1. B ile leak - K83.9 (Primary) 2 . O ther specified postprocedural states - Z98.890 3 . C ommon bile duct stone - K80.50 Plan: * Treatment: * Procedure Codes: 4 3264 ENDO CHOLANGIOPANCREATOGRAPH, Modifiers: 22 , 31940 ERCP REMOVE FORGN BODY DUCT, Modifiers: 59 * * The named appointment provid er may or may not be the originator of this progress note, and it is not deemed complete until electronically signed by the appointment provider. Sign off status: Pending * Provider: Alicia Whaely MD Date: 0 02/09/2024 Generated for Thom rodriguez/Carlos/Cristinaitting on: 0 07/21/2025 01:56 PM EDT
--- NOTE | 2025-07-21 10:56 | A.OFFPC_ITS ---
Vital Signs 07/21/25 11:07 Height 5 ft 10 in Weight 180 lb BMI 25.8 BP 110/64 Blood Pressure Location Lt brachial Position Sitting Respiration 16 Pulse 69 Pulse Source Pulse Oximeter Temp 97.7 F Temp Source Temporal Artery Scan Pulse Oximetry (%) 99 Oxygen Delivery Method Room Air Intake Visit Reasons: Routine / Dr Ortega Trauma Coordinator Required: No Accompanied by: Spouse Allergies No Known Allergies Allergy (Verified 07/21/25 10:56) Tobacco use date assessed: 07/21/25 Fall risk assessment: No Falls in past year Last assessed Fall Risk: 07/21/25 Dental Screening Dental Screen Date: 07/21/25 Did you have a dental visit in the last 12 months?: Yes Did you have a dental problem in the last 6 months where you did not have access to dental care?: No Was dental information given to patient?: Patient has dentist HPI HPI Comments History of Present Illness Details The patient is an 89-year-old male presenting with chronic back pain. He reports that the pain began following an operation approximately four or five years ago. 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 The back pain is persistent, and he manages the condition with pain management services. He takes gabapentin at night for pain relief. The patient's back pain does not associate with any recent trauma but has been significantly affecting his physical activity levels, as he has noted limitations due to discomfort. He reports that his back pain remains bothersome despite regular pain management interventions. Additionally, he has a history of prostate cancer, for which he is undergoing bi-annual treatment injections. He also has a history of essential hypertension, which he manages with Lisinopril 5 mg daily. His blood pressure has been stable and well-controlled with this medication regimen. Furthermore, the patient had his gallbladder removed due to cholecystectomy last year. He denies any nausea, vomiting, chest pain, or changes in vision or hearing, though he acknowledges having hearing problems. His peeing and bowel movements are normal. Laboratory tests from March suggested impaired kidney function, indicative of chronic kidney disease stage 3. He has not experienced any symptoms consistent with worsening renal impairment. There is no reported use of tobacco, alcohol, or illicit substances. Medical History: - Chronic Back Pain managed with gabapen tin - Prostate Cancer receiving biannual inj ections - Essential Hypertension on Lisinopril 5 mg daily - Chronic Kidney Disease, Stage 3 - Status Post-Cholecystectomy Surgical History: - Cholecystectomy - Tonsillectomy in childhood Medications: - Lisinopril 5 mg daily for hypertension - Aspirin 81 mg for prophylaxis - Gabapentin taken nightly for back pain - Calcium supplements - Docusate - Magnesium 500 mg daily Family History: - Brother from cancer (specific type unknown described as a lump on his head) - Father , unknown cause - Aunts and uncles with a history of kb betes Diagnostic Results: - Labs (previous blood work from March ind icated chronic kidney disease stage 3) - PET scan results were reported as norm al Social: - 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 - Lives with in a stable home envir onment - No tobacco, alcohol, or illicit drug u se - Limited physical activity due to back pain [facility] Medical History (Updated 07/21/25 @ 11:22 by Efren Pool MD) HTN (hypertension) Chronic kidney disease Gallstone Dorsalgia Prostate cancer Urinary frequency Surgical History (Updated 02/09/24 @ 10:45 by Margie Lewis RN) History of ERCP History of back surgery Social History Household Members: Spouse Housing: House Do you presently have visiting nurse or other home services: No Patient Tobacco Use Status: Never used Tobacco e-Cigarette/Vaping Use: Never Used Advance Directives Date on File: 11/15/23 service: Yes Current occupational status: retired Questionnaire PHQ-9 Over the last 2 weeks, how often have you been bothered by any of the following problems? 1. Little interest or pleasure in doing things: not at all 2. Feeling down, depressed, or hopeless: not at all 3. Trouble falling or staying asleep, or sleeping too much: not at all 4. Feeling tired or having little energy: not at all 5. Poor appetite or overeating: not at all 6. Feeling bad about yourself - or that you are a failure or have let yourself or your family down: not at all 7. Trouble concentrating on things, such as reading the newspaper or watching television: not at all 8. Moving or speaking so slowly that other people could have noticed. Or the opposite - being so fidgety or restless that you have been moving around a lot more than usual: not at all 9. Thoughts that you would be better off or of hurting yourself in some way: not at all Total score: 0 Depression Screening Interpretation: Negative Depression Screening Done: Yes 57956 - PHQ-9 Billing: Yes Source: Developed by Drs. Talat Sandhu, Marianna Esparza, Patrick Goodman and colleagues, with an educational johnny from [employer]. Thrive Questionnaire Date Thrive assessed: 11/15/23 AUDIT C Alcohol Use Questionnaire (AUDIT-C) 1. How often do you have a drink containing alcohol?: Monthly or less 2. How many drinks containing alcohol do you have on a typical day when you are drinking?: 1 or 2 Total Score: 1 Score Reviewed/Action Taken: Yes RENAE-7 AMB Questionnaire RENAE-7 Date RENAE - 7 assessed: 07/21/25 Feeling nervous, anxious, or on edge: 0 = Not at all Not being able to stop or control worryin = Not at all Worrying too much about different things: 0 = Not at all Trouble relaxin = Not at all Being so restless that it is hard to sit still: 0 = Not at all Becoming easily annoyed or irritable: 0 = Not at all Feeling afraid as if something awful might happen: 0 = Not at all Total RENAE-7 score (0-4 normal; 5-9 mild; 10-14 moderate; 15-21 severe): 0 Source: Developed by Drs. Talat Sandhu, Marianna Esparza, Patrick Goodman and colleagues, with an educational johnny from [employer]. RENAE-7 Assessment Billing RENAE-7 Assessment Tool: RENAE-7 Assessment 13650 Review of Systems Const Details: - Musculoskeletal: Reports chronic back pain - Genitourinary: Denies abnormalities in peeing, reports normal bowel movements - Neurological: Denies headaches, changes in vision; reports issues with hearing - Gastrointestinal: Denies nausea and vomiting - Cardiovascular: Denies chest pain All systems reviewed & are unremarkable except as reviewed in HPI and above Physical exam (Primary Care) Vital Signs: Last Vital Signs Temp 97.7 F 07/21/25 11:07 Pulse 69 07/21/25 11:07 Resp 16 07/21/25 11:07 BP 110/64 07/21/25 11:07 Pulse Ox 99 07/21/25 11:07 Oxygen Delivery Method Room Air 07/21/25 11:07 BMI result Body Mass Index 25.8 Tobacco/Smoking Status: Tobacco use Status Tobacco use date assessed 07/21/25 07/21/25 10:58 Patient Tobacco Use Status Never used Tobacco 07/21/25 10:58 e-Cigarette/Vaping Use Never Used 07/21/25 10:58 Depression Screening Interpretation: Negative Thrive Assessment: Date of Thrive Assessment Date Thrive assessed 11/15/23 07/21/25 10:58 Const Other: General: +Alert and oriented, Well nourished, No acute distress. Eye: Pupils are equal, round and reactive to light, Intact accommodation, Extraocular movements are intact, Normal conjunctiva, Vision unchanged. HENT: Normocephalic, Atraumatic, Tympanic membranes are clear, Normal hearing, Oral mucosa is moist, No pharyngeal erythema, Ear canals patent. Respiratory: Lungs CTA bilaterally, No wheeze, Respirations are non-labored. Cardiovascular: Regular rate, Regular rhythm, S1 auscultated, S2 auscultated, No murmur, Good pulses equal in all extremities, Normal peripheral perfusion, No edema. Gastrointestinal: Soft, Non-tender, Non-distended, Normal bowel sounds, No organomegaly. Musculoskeletal: Normal range of motion, Normal strength, No tenderness, No swelling, No deformity, Normal gait. Integumentary: Warm, Dry, [place], Intact. Neurologic: Alert, Oriented, Normal sensory, Normal motor function, No focal defects, Cranial Nerves II-XII are grossly intact, Normal deep tendon reflexes. Psychiatric: Cooperative, Appropriate mood & affect, Normal judgment. Mood is very beautiful. Coding Level of Care Code New Pt Level 4 (74803) Complex EM visit Add On G2211 Diagnoses Hypertension, unspecified type I10 Hypertension type: unspecified Lumbar radicular pain M54.16 Stage 3a chronic kidney disease N18.31 Chronic kidney disease stage: stage 3 (moderate) Chronic kidney disease stage 3 subtype: stage 3a (GFR 45-59) Prostate cancer C61 Additional Codes PHQ-9 - 58945 - PHQ-9 Billing: Yes ([id number]) RENAE-7 Assessment Billing - RENAE-7 Assessment Tool: RENAE-7 Assessment 81344 ([id number]) Assessment & Plan Assessment & Plan (1) HTN (hypertension): Comment: - Continue Lisinopril 5 mg daily; monitor blood pressure at home and during follow-ups. Code(s): I10 - Essential (primary) hypertension Category: Medical Qualifiers: Hypertension type: unspecified Qualified Code(s): I10 - Essential (primary) hypertension (2) Lumbar radicular pain: Comment: - Continue current pain management regimen including gabapentin at night. - Continued follow up with [facility] Pain management Code(s): M54.16 - Radiculopathy, lumbar region Category: Medical (3) Chronic kidney disease: Comment: - Plan for lab work to monitor kidney function, electrolytes, cholesterol, and A1c levels to manage and monitor progression. Code(s): N18.9 - Chronic kidney disease, unspecified Category: Medical Qualifiers: Chronic kidney disease stage: stage 3 (moderate) Chronic kidney disease stage 3 subtype: stage 3a (GFR 45-59) Qualified Code(s): N18.31 - Chronic ki dney disease, stage 3a (4) Prostate cancer: Comment: - Maintain current bi-annual treatment injections; monitor progression and response. Code(s): C61 - Malignant neoplasm of prostate Category: Medical Plan: Health Maintenance: - Recommended blood work to evaluate thyroid function, vitamin D level, lipid profile, and A1c. - Provided guidance on the importance of maintaining normal blood pressure and kidney function. Plan During our visit, we discussed the patient?s chronic back pain management through established pain treatment and the use of gabapentin. I advised continuing medication as currently prescribed and monitor effects. We also reviewed ongoing treatment for prostate cancer and stressed the significance of maintaining his Lisinopril regimen to manage hypertension effectively. We discussed monitoring renal function closely due to chronic kidney disease and plans were made for appropriate blood work to assess thyroid function, vitamin D, lipid levels, and glycemic control. I reassured the patient that if blood tests revealed significant deviations, further management steps would be taken. No immediate alterations in current treatment were necessary as blood pressure readings and kidney functions were stable at present. Orders: Orders Complete Blood Count Auto Diff Today I10 - Essential (primary) hypertension Comprehensive Met. Panel Today I10 - Essential (primary) hypertension Lipid Panel Today I10 - Essential (primary) hypertension TSH reflex Free T4 Today I10 - Essential (primary) hypertension Hemoglobin A1c Today I10 - Essential (primary) hypertension Vitamin D 25-OH Total Today I10 - Essential (primary) hypertension Patient Instructions: - Continue taking your medication regimen as prescribed. - Follow-up in six months for regular check-up and blood work results, unless notified otherwise. - Contact the office if experiencing new or worsening symptoms. - Make sure to have the blood work completed at the earliest convenience for ongoing monitoring. - Maintain a healthy lifestyle and keep activity within comfort levels, respecting any limitations due to back pain.
[2025-07-21 11:07] VITALS: BP 110/64; PULSE 69; RESP 16; TEMP 36.5; O2SAT 99; BMI 25.8
--- OUTSIDE RECORDS SUMMARY | 2025-07-21 13:56 | XMS_ITS | Patient Health Record ---
Author Organization [facility] Address [address] [place] [address] Care Team Providers Care Scrip Clerk Name Role Phone Jordan (RETIRED) Jefry BALDERRAMA Primary Care Provider Unavailable Wolf Whaley Jr Unavailable Reason For Referral No Information Problems Problem Type SNOMED Code ICD Code Onset Dates Problem Status W/U Status Risk Notes Problem [id number] Bile leak (K83.9) Active confirmed Problem 945539273 History of biliary duct stent placement (Z98.890) Active confirmed Plan Of Treatment Pending Test Test Name Order Date XR abdomen 1V 11/21/2023 Insurance Providers Payer Name Payer Address Payer Phone Subscriber Number Group Number Insured Name Patient Relationship to Insured Coverage Start Date Coverage End Date MEDICARE OF [place] [address] [place] [address] [id number] AALIYAH FAUSTIN Self - patient is the insured [facility] [employer] [address] [place] [address] [id number] AALIYAH FAUSTIN Self - patient is the insured
--- OUTSIDE RECORDS SUMMARY | 2025-07-21 13:56 | XMS_ITS | Patient Health Record ---
Author Organization [facility] Address [address] [place] [address] Care Team Providers Care Supervisor Mending Name Role Phone Jordan BALDERRAMA, Jefry Primary Care Provider Linda Cesar Unavailable [phone] Allergies No Known Allergies Reason For Referral [...] Gabapentin 300 MG TAKE 1 CAPSULE BY [facility] EVERYDAY AT BEDTIME Oral; Duration: 90 Days [...] Status W/U Status Risk Notes Problem Neuropathy ([id number]) Neuropathy (G62.9) Active confirmed Vital Signs Blood pressure diastolic 75 mm Hg 05/21/2025 Height 5 ft 10 in in 05/21/2025 Blood pressure systolic 115 mm Hg 05/21/2025 Weight 183 lbs 05/21/2025 BMI 26.25 kg/m2 05/21/2025 Encounters Encounter Location Date Provider Diagnosis [address] [address] 09/13/2024 Linda Perica Tinea unguium B35.1 ; Tinea pedis of both feet B35.3 ; Pain in right toe(s) M79.674 ; Pain in left toe(s) M79.675 and Neuropathy G62.[address] [address] 12/06/2024 Linda Perica Tinea unguium B35.1 ; Tinea pedis of both feet B35.3 ; Pain in right toe(s) M79.674 ; Pain in left toe(s) M79.675 and Neuropathy G62.[address] [address] 02/28/2025 Linda Perica Tinea unguium B35.1 ; Tinea pedis of both feet B35.3 ; Pain in right toe(s) M79.674 ; Pain in left toe(s) M79.675 and Neuropathy G62.[address] [address] 05/21/2025 Linda Perica Tinea unguium B35.1 ; Pain in right toe(s) M79.674 ; Pain in left toe(s) M79.675 and Neuropathy G62.9 Assessments Encounter Date Diagnosis (ICD Code) Assessment Notes Treatment Notes Treatment Clinical Notes Section Notes 05/21/2025 Tinea unguium (ICD-10 - B35.1) 05/21/2025 Pain in right toe(s) (ICD-10 - M79.674) 02/28/2025 Tinea unguium (ICD-10 - B35.1) 02/28/2025 Tinea pedis of both feet (ICD-10 - B35.3) 12/06/2024 Tinea unguium (ICD-10 - B35.1) 12/06/2024 Tinea pedis of both feet (ICD-10 - B35.3) 09/13/2024 Tinea unguium (ICD-10 - B35.1) 12/06/2024 Pain in right toe(s) (ICD-10 - M79.674) 09/13/2024 Tinea pedis of both feet (ICD-10 - B35.3) 02/28/2025 Pain in right toe(s) (ICD-10 - M79.674) 05/21/2025 Pain in left toe(s) (ICD-10 - M79.675) 05/21/2025 Neuropathy (ICD-10 - G62.9) 02/28/2025 Pain in left toe(s) (ICD-10 - M79.675) 12/06/2024 Pain in left toe(s) (ICD-10 - M79.675) 09/13/2024 Pain in right toe(s) (ICD-10 - M79.674) 09/13/2024 Pain in left toe(s) (ICD-10 - M79.675) 12/06/2024 Neuropathy (ICD-10 - G62.9) 02/28/2025 Neuropathy (ICD-10 - G62.9) 09/13/2024 Neuropathy (ICD-10 - G62.9) Plan Of Treatment Next Appt Details Provider Name:Linda caraballo, 08/15/2025 12:00:00 PM, [address] [facility], [place], [address], Insurance Providers Payer Name Payer Address Payer Phone Subscriber Number Group Number Insured Name Patient Relationship to Insured Coverage Start Date Coverage End Date Medicare [employer] [address] [place] [address] [id number] Matias Jay Self - patient is the insured [facility] [employer] [address] [place] [address] [phone] [id number] Matias Jay Self - patient is the insured Medical (General) History Medical History History ICD Code Arthritis Cancer High blood pressure Macular degeneration Numbness Measles Mumps Chicken pox Gall bladder problems Surgical History Surgery Date(Month/Year) 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
== END 2025-07-21 11:22 | disposition home or self-care (01) ==
LOC: HO.HMCHD 10:44
PROVIDERS: PCP Family Medicine; Visit Provider Student in an Organized Health Care Education/Training Program
DX: I10 Essential (primary) hypertension (principal); M54.16 Radiculopathy, lumbar region; N18.31 Chronic kidney disease, stage 3a; C61 Malignant neoplasm of prostate

== ENCOUNTER → 2025-07-21 10:43 | Outpatient (BNVA) | payer MEDICARE, OTHER, SELFPAY | PROVIDERS: PCP Family Medicine; Visit Provider Student in an Organized Health Care Education/Training Program | DX: I12.9 Hypertensive chronic kidney disease with stage 1 through stage 4 chronic kidney disease, or unspecified chronic kidney disease (principal); N18.31 Chronic kidney disease, stage 3a; M54.16 Radiculopathy, lumbar region; C61 Malignant neoplasm of prostate; Z79.899 Other long term (current) drug therapy; Z13.31 Encounter for screening for depression; Z13.39 Encounter for screening examination for other mental health and behavioral disorders | CPT/HCPCS: 96127; 99202 ==

== ENCOUNTER 2025-07-21 11:53 | Outpatient (REF) | payer MEDICARE, OTHER, SELFPAY ==
[2025-07-21 12:40] LABS: MANUAL DIFF FLAG NO
[2025-07-21 12:53] LABS: Hematocrit 39.0 % (42.0-52.0); Hemoglobin 12.7 g/dl (14.0-18.0); Hemoglobin A1C 132.6075 umol/L; Imm Gran Abs Auto 0.03 X10*3/uL (0.00-0.03); Imm Gran Pct Auto 0.5 % (0.0-0.4); Lymphocytes Absolute Auto 1.2 X10*3/uL (1.2-4.9); Mean Corpuscular HGB Conc 32.6 g/dl (31.0-36.0); Mean Corpuscular Hemoglobin 31.1 pg (27.0-33.0); Mean Corpuscular Volume 95.4 fL (80.0-98.0); NRBC Abs Auto 0.000 X10*3/uL (0.0-0.012); NRBC Pct Auto 0.0 /100WBC (0.0-0.2); Platelet Count 140 X10*3/uL (160-400); Red Blood Count 4.09 X10*6/uL (4.60-5.80); Total Hemoglobin (HGBA1C) 3347.1169 umol/L; White Blood Count 6.5 X10*3/uL (4.8-10.8)
[2025-07-21 13:01] LABS: Alanine Aminotransferase 22 U/L (0-40); Albumin Level 4.0 g/dL (3.5-5.0); Alkaline Phosphatase 67 U/L (39-117); Anion Gap 10 (12-20); Aspartate Amino Transferase 27 U/L (5-37); Blood Urea Nitrogen 31 mg/dL (9-16); Calcium 9.2 mg/dL (8.4-10.2); Carbon Dioxide 33 mmol/L (22-29); Chloride 106 mmol/L (96-108); Cholesterol 163 mg/dL (<200); Estimated Glomerular Filt Rate 42; HDL Cholesterol 47 mg/dL (>40); Potassium 4.8 mmol/L (3.3-5.1); Sodium 144 mmol/L (135-145); Total Protein 6.7 g/dL (6.5-8.0); Triglycerides 108 mg/dL (<150)
== END 2025-07-21 11:54 | disposition home or self-care (01) ==
LOC: HO.10HDL 11:53
PROVIDERS: Visit Provider Student in an Organized Health Care Education/Training Program
DX: Z13.1 Encounter for screening for diabetes mellitus (principal); I10 Essential (primary) hypertension
CPT/HCPCS: 36415; 80053; 80061; 82306; 83036; 84443; 85025

== ENCOUNTER 2025-07-23 09:57 | Outpatient (AMB) | payer MEDICARE, OTHER, SELFPAY ==
--- NOTE | 2025-07-23 09:59 | A.OFFVIS_ITS ---
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 Operator Required: No Allergies No Known Allergies Allergy (Verified 07/23/25 10:02) Medication List - Last Reconciled 07/23/25 by Ruth Porras LPN ascorbic acid (vitamin C) (Vitamin C) 500 mg PO DAILY aspirin 81 mg PO DAILY calcium citrate 500 mg PO DAILY cholecalciferol (vitamin D3) 125 mcg PO DAILY docusate sodium 100 mg PO ONCE PRN gabapentin 300 mg PO BEDTIME lisinopril 5 mg PO DAILY magnesium 500 mg PO DAILY vitamins A,C,U-nuce-mgwips 2,148 mcg-113 mg-45 mg-17.4mg (PreserVision AREDS) 2 tabs PO BID HPI HPI s/p L2-L3 ENEIDA: Details: History of Present Illness The patient is an 89-year-old male presenting with axial low back pain. He underwent a lumbar interlaminar epidural steroid injection at L2-3, which provided significant relief for approximately 20 days before the pain returned. The pain is described as worsening, particularly affecting his lower back and right knee, and is exacerbated by movement. The patient has a history of failed back syndrome and chronic lumbar radiculopathy, contributing to his current condition. He reports that his walking has not improved since the injection, and he experiences significant discomfort. The patient is currently taking gabapentin, but its administration is managed by his , and he is unsure of the dosage schedule. The patient has been advised to consider a spinal cord stimulator for long-term pain management. This involves a trial period followed by potential implantation, pending psychological clearance and insurance authorization. Pain Description - Onset: Pain relief lasted approximately 20 days post-injection before returning. - Quality: Worsening pain, particularly in the lower back and right knee. - Exacerbating factors: Movement increases pain. - Interference: Pain affects walking and daily activities. Physical Exam - Appears afebrile. - Alert and oriented. - Mood and affect appropriate. - Follows and participates in conversation appropriately. - Respiratory effort is unlabored. Pain Management - Affect: Pain significantly impacts daily activities and mobility. - Analgesia: Currently using gabapentin, with limited relief noted. - Adverse Effects: Constipation reported as a side effect of medication. - Activities of Daily Living: Pain interferes with walking and general mobility. COUNT INCLUDES [facility] Medical History (Updated 07/29/25 @ 09:48 by Mike Venegas MD) HTN (hypertension) Chronic kidney disease Gallstone Dorsalgia Prostate cancer Urinary frequency Surgical History (Updated 02/09/24 @ 10:45 by Margie Lewis RN) History of ERCP History of back surgery Social History Household Members: Spouse Housing: House Do you presently have visiting nurse or other home services: No Patient Tobacco Use Status: Never used Tobacco e-Cigarette/Vaping Use: Never Used Advance Directives Date on File: 11/15/23 service: Yes Current occupational status: retired Physical Exam Vital Signs: Last Vital Signs Pulse 90 07/23/25 10:00 Resp 16 07/23/25 10:00 BP 140/62 H 07/23/25 10:00 Pulse Ox 96 07/23/25 10:00 Oxygen Delivery Method Room Air 07/23/25 10:00 BMI result Body Mass Index 25.7 Assessment & Plan Assessment & Plan (1) Post laminectomy syndrome: Code(s): M96.1 - Postlaminectomy syndrome, not elsewhere classified Category: Medical (2) Lumbar radicular pain: Comment: - Continue current pain management regimen including gabapentin at night. - Continued follow up with [facility] Pain management Code(s): M54.16 - Radiculopathy, lumbar region Category: Medical Plan Plan Patient was informed and verbally consented to the use of an ambient scribe for clinic note documentation during this visit. 1. Axial Low Back Pain - Plan to initiate psychological clearance for spinal cord stimulator trial. - Continue current medications with consideration for stronger analgesics if needed. 2. Failed Back Syndrome - Discussed spinal cord stimulator as a long-term management option. - Psychological clearance and insurance authorization required before trial. 3. Chronic Lumbar Radiculopathy - Consideration of spinal cord stimulator for symptom management. 4. Neurogenic Claudication - Evaluate effectiveness of spinal cord stimulator trial for symptom relief. Discussion Notes I discussed with the patient the limited relief obtained from the lumbar interlaminar epidural steroid injection and the potential benefits of a spinal cord stimulator for long-term pain management. We reviewed the process, including the need for psychological clearance and a trial period before implantation. I explained the insurance requirements and the steps involved in obtaining authorization for the procedure. Patient Instructions - Await a call from [facility] for psychological assessment. - Continue current medications as prescribed, including gabapentin. - Use [id number] pain relief as needed, such as Advil or Tylenol. - Expect follow-up instructions once insurance authorization is obtained. Coding Level of Care Code Est Pt Level 4 (22842) Diagnoses Post laminectomy syndrome M96.1 Lumbar radicular pain M54.16
[2025-07-23 10:00] VITALS: BP 140/62; PULSE 90; RESP 16; O2SAT 96; BMI 25.7
== END 2025-07-23 10:46 | disposition home or self-care (01) ==
LOC: HO.PMC 09:57
PROVIDERS: PCP Family Medicine; Visit Provider Internal Medicine
DX: M96.1 Postlaminectomy syndrome, not elsewhere classified (principal); M54.16 Radiculopathy, lumbar region
CPT/HCPCS: 99214

== ENCOUNTER → 2025-07-23 09:57 | Outpatient (BNVA) | payer MEDICARE, OTHER, SELFPAY | PROVIDERS: PCP Family Medicine; Visit Provider Internal Medicine | DX: M54.16 Radiculopathy, lumbar region (principal); M96.1 Postlaminectomy syndrome, not elsewhere classified | CPT/HCPCS: 99212 ==

== ENCOUNTER 2025-10-01 12:47 | Day surgery (SDC) | payer MEDICARE, OTHER, SELFPAY ==
--- OUTSIDE RECORDS SUMMARY | 2024-04-16 03:30 | XMS_ITS ---
Author Organization [facility] Address [address] [place] [address] Care Team Providers Care Seniour Insight Manager Name Role Phone Jordan BALDERRAMA, Jefry Primary Care Provider UnavailLinda Garcia [phone] Encounters Encounter Location Date Provider Diagnosis [address] [address] 04/16/2024 Linda Castro Plan Of Treatment Next Appt Details Provider Name:Linda caraballo, 11/21/2025 12:00:00 PM, [address] [place], [address], Progress Notes * FAUSTINMatias WALLACEDOB:1935 (89 yo M)Acc No.[id number]:04/16/2024 Progress Notes Patient: Matias ESCALANTE Provider: Parish Castro DPM :1935 A ge:88 Y S ex:Male Date:04/16/2024 Address:[address] [place] [address] Pcp:Jefry Ortega MD Subjective: * Chief Complaints: [...] 04/16/2024 Generated for Thom rodriguez/Carlos/Jozef on: 1 11/18/2024 03:46 PM EST
--- OUTSIDE RECORDS SUMMARY | 2025-09-18 15:47 | XMS_ITS | Patient Health Record ---
Author Organization [facility] Address [address] [place] [address] Care Team Providers Care Watch And Clock Repairer Name Role Phone Jordan BALDERRAMA, Jefry Primary Care Provider Linda Cesar Unavailable [phone] Allergies No Known Allergies Reason For Referral No Information Medications Medication SIG (Take, Route, Frequency, Duration) Notes Start Date End Date Status Gabapentin 300 MG TAKE 1 CAPSULE BY ARGELIA NEWTON EVERYDAY AT BEDTIME Oral; Duration: 90 Days Active Omeprazole 20 MG Oral; Duration: 90 Days Active Lisinopril 5 MG Oral; Duration: 90 Days Active Turmeric 01/18/2024 Not-Ross g Ciclopirox Olamine 0.77 % 1 APPLICATION EXTERNALLY TWICE A DAY 30 DAYS; Duration: 30 Active Ketoconazole 2 % 1 application Externally Once a day to both feet for Athletes feet; Duration: 30 days 02/28/2025 Active Vitamin C 01/18/2024 Active Magnesium 01/18/2024 Active Calcium Citrate 01/18/2024 Act lacey Vitamin D3 01/18/2024 Active Aspirin 81 MG 1 tablet Orally Once a day; Duration: 30 day(s) 01/18/2024 Active Immunizations Vaccine Route Administration Date Status [...] past year? Monthly or less (1 point) How many drinks did you have on a typical day when you were drinking in the past year? 1 or 2 drinks (0 point) How often did you have six o r more drinks on one occasion in the past year? Never (0 point) Points 1 Interpretation Negative Problems Problem Type SNOMED Code ICD Code Onset Dates Problem Status W/U Status Risk Notes Problem Neuropathy (354549085) Neuropathy (G62.9) Active confirmed Vital Signs Blood pressure diastolic 70 mm Hg 08/15/2025 Height 5 ft 10 in in 08/15/2025 Blood pressure systolic 120 mm Hg 08/15/2025 Weight 180 lbs 08/15/2025 BMI 25.82 kg/m2 08/15/2025 Encounters Encounter Location Date Provider Diagnosis [address] [address] 12/06/2024 Linda Perica Tinea unguium B35.1 ; Tinea pedis of both feet B35.3 ; Pain in right toe(s) M79.674 ; Pain in left toe(s) M79.675 and Neuropathy G62.[address] [address] 02/28/2025 Linda Perica Tinea unguium B35.1 ; Tinea pedis of both feet B35.3 ; Pain in right toe(s) M79.674 ; Pain in left toe(s) M79.675 and Neuropathy G62.[address] [address] 05/21/2025 Linda Perica Tinea unguium B35.1 ; Pain in right toe(s) M79.674 ; Pain in left toe(s) M79.675 and Neuropathy G62.[address] [address] 08/15/2025 Linda Perica Tinea unguium B35.1 ; Tinea [...] Pain in right toe(s) (ICD-10 - M79.674) 08/15/2025 Tinea unguium (ICD-10 - B35.1) 08/15/2025 Tinea pedis of both feet (ICD-10 - B35.3) 08/15/2025 Pain in right toe(s) (ICD-10 - M79.674) 05/21/2025 Pain in left toe(s) (ICD-10 - M79.675) 02/28/2025 Pain in right toe(s) (ICD-10 - M79.674) 12/06/2024 Pain in right toe(s) (ICD-10 - M79.674) 12/06/2024 Pain in left toe(s) (ICD-10 - M79.675) 02/28/2025 Pain in left toe(s) (ICD-10 - M79.675) 08/15/2025 Pain in left toe(s) (ICD-10 - M79.675) 05/21/2025 Neuropathy (ICD-10 - G62.9) 08/15/2025 Neuropathy (ICD-10 - G62.9) 12/06/2024 Neuropathy (ICD-10 - G62.9) 02/28/2025 Neuropathy (ICD-10 - G62.9) Plan Of Treatment Next Appt Details Provider Name:Linda caraballo, 11/21/2025 12:00:00 PM, [address] [place] [address], [place], [address], Insurance Providers Payer Name Payer Address Payer Phone Subscriber Number Group Number Insured Name Patient Relationship to Insured Coverage Start Date Coverage End Date Medicare National Govt Svcs Inc [address] [place] [address] [id number] Matias Jay Self - patient is the insured [facility] [address] [place] [address] [id number] Matias Jay Self - patient is the insured Medical (General) History Medical History History ICD Code Arthritis Cancer High blood pressure Macular degeneration Numbness Measles Mumps Chicken pox Gall bladder problems cortisone injection in back Surgical History Surgery Date(Month/Year) 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
--- OUTSIDE RECORDS SUMMARY | 2025-09-18 15:47 | XMS_ITS | Patient Health Record ---
Author Organization [facility] Address [address] [place] [address] Care Team Providers Care Receiver Setter Name Role Phone Jordan (RETIRED) Jefry BALDERRAMA Primary Care Provider Unavailable Wolf Whaley Jr Unavailable [phone] Reason For Referral No Information Problems Problem Type SNOMED Code ICD Code Onset Dates Problem Status W/U Status Risk Notes Problem Disorder of biliary tract (530509209) Bile leak (K83.9) Active confirmed Problem Postprocedural states (462087621) History of biliary duct stent placement (Z98.890) Active confirmed Plan Of Treatment Pending Test Test Name Order Date XR abdomen 1V 11/21/2023 Insurance Providers Payer Name Payer Address Payer Phone Subscriber Number Group Number Insured Name Patient Relationship to Insured Coverage Start Date Coverage End Date MEDICARE OF [place] [address] [place] [address] [id number] AALIYAH FAUSTIN Self - patient is the insured [facility] TH INDEMNITY [address] [place] [address] [id number] AALIYAH FAUSTIN Self - patient is the insured
[2025-09-29 08:38] VITALS: BMI 25.7
--- NOTE | ~2025-10-01 | FL_ITS ---
EXAMINATION: FL GUIDANCE ONLY HISTORY: SPINAL CORD STIM TRIAL COMPARISON: None available. TECHNIQUE: Fluoroscopy time: 2 minutes, 24.3 seconds. Cumulative Dose: 55.954 mGy. DAP: 7.9501 Gycm2 Images: 2. FINDINGS: Fluoroscopic spot films of the thoracic spine demonstrate a spinal stimulator in place with the tip of the lead at the superior endplate of T7. FL/FL guidance in OR IMPRESSION: Fluoroscopy during procedure. Please see procedure report for additional information. Electronically signed by: Talat Torres MD 10/03/2025 07:03 AM GAM[facility]IEL
[2025-10-01 13:02] VITALS: BMI 26.0
[2025-10-01 13:11] VITALS: BP 146/64; PULSE 80; RESP 16; TEMP 36.3; O2SAT 96
[2025-10-01] MEDS: Lactated Ringers 1,000 ML 100 ML IVCONT (13:30)
--- NOTE | 2025-10-01 13:59 | HO.ANESPROP2 ---
Documented by User: Gege Figueroa NP 09/30/25 08:54 HPI - Anesthesia Eval Consult details Narrative: 89yo M for Spinal Cord Stimulation Trial [facility] Active Problems Active Problems: All Active Problems Post laminectomy syndrome (Acute) Prostate cancer (Acute) Chronic kidney disease (Acute) HTN (hypertension) (Acute) Lumbar radicular pain (Acute) Back pain (Acute) Status post cholecystectomy (Acute) Past Medical History Medical History (Updated 10/01/25 @ 13:00 by Theoodra Hammonds RN) Bilateral cataracts HTN (hypertension) Chronic kidney disease Gallstone Dorsalgia Prostate cancer Urinary frequency Surgical History Surgical History (Updated 10/01/25 @ 13:00 by Theodora Hammonds RN) Hx of cholecystectomy History of ERCP History of back surgery History of Problems with Anesthesia: No Social History Social History Household Members: Spouse Housing: House Do you presently have visiting nurse or other home services: No Patient Tobacco Use Status: Never used Tobacco e-Cigarette/Vaping Use: Never Used Use of substances other than those prescribed or required for medical reasons: No Are you DNR?: No Advance Directives: No Advance Directives Information Provided: Yes Advance Directives Date on File: 11/15/23 service: Yes Current occupational status: retired Meds Allergies Allergy/AdvReac Type Severity Reaction Status Date / Time No Known Allergies Allergy Verified 07/23/25 10:02 Home Medications ?Medication ?Instructions ?Recorded ?Confirmed ?Last Taken ?Type ascorbic acid (vitamin C) 500 mg 500 mg PO DAILY 11/14/23 09/29/25 11/14/23 History tablet (Vitamin C) aspirin 81 mg chewable tablet 81 mg PO DAILY 11/14/23 09/29/25 09/24/25 History calcium citrate 500 mg (2,376 mg) 500 mg PO DAILY 11/14/23 09/29/25 11/14/23 History effervescent tablet cholecalciferol (vitamin D3) 125 125 mcg PO DAILY 11/14/23 09/29/25 11/14/23 History mcg (5,000 unit) tablet lisinopril 5 mg tablet 5 mg PO DAILY 11/14/23 09/29/25 10/01/25 History magnesium 500 mg tablet 500 mg PO DAILY 11/14/23 09/29/2511/14/24 History vitamins A,C,T-obzr-vuwhou 2,148 2 tab PO BID 11/14/23 09/29/25 11/14/23 History mcg-113 mg-45 mg-17.4 mg tablet (PreserVision AREDS) docusate sodium 100 mg capsule 100 mg PO ONCE 07/21/25 09/29/25 Unknown History Exam Height,Weight and Vital Signs: Height 5 ft 10 in Weight 81.193 kg Pertinent Lab Results Pertinent Lab Results: Laboratory Tests 07/21/25 11:56 WBC 6.5 Hgb 12.7 L Hct 39.0 L Plt Count 140 L Sodium 144 Potassium 4.8 Chloride 106 Carbon Dioxide 33 H BUN 31 H Creatinine 1.56 H Narrative Narrative: ECHO 2023 Conclusions: - The left ventricular systolic function is normal. The calculated ejection fraction is 61% by biplane method. - No obvious valvular pathology seen on this study. Assessment and Plan Assessment Anesthesia Assessment: Chart Reviewed Final Anesthetic Review History of Problems with Anesthesia: No Documented by User: Margie Polo DO 10/01/25 14:00 [facility] Past Medical History Medical History (Updated 10/01/25 @ 13:00 by Theodora Hammonds RN) Bilateral cataracts HTN (hypertension) Chronic kidney disease Gallstone Dorsalgia Prostate cancer Urinary frequency Family History Family history of problems with anesthesia: No Surgical History Surgical History (Updated 10/01/25 @ 13:00 by Theodora Hammonds RN) Hx of cholecystectomy History of ERCP History of back surgery History of Problems with Anesthesia: No Social History Social History Household Members: Spouse Housing: House Do you presently have visiting nurse or other home services: No Patient Tobacco Use Status: Never used Tobacco e-Cigarette/Vaping Use: Never Used Use of substances other than those prescribed or required for medical reasons: No Are you DNR?: No Advance Directives: No Advance Directives Information Provided: Yes Advance Directives Date on File: 11/15/23 service: Yes Current occupational status: retired Meds Allergies Allergy/AdvReac Type Severity Reaction Status Date / Time No Known Allergies Allergy Verified 07/23/25 10:02 Home Medications ?Medication ?Instructions ?Recorded ?Confirmed ?Last Taken ?Type ascorbic acid (vitamin C) 500 mg 500 mg PO DAILY 11/14/23 09/29/25 11/14/23 History tablet (Vitamin C) aspirin 81 mg chewable tablet 81 mg PO DAILY 11/14/23 09/29/25 09/24/25 History calcium citrate 500 mg (2,376 mg) 500 mg PO DAILY 11/14/23 09/29/25 11/14/23 History effervescent tablet cholecalciferol (vitamin D3) 125 125 mcg PO DAILY 11/14/23 09/29/25 11/14/23 History mcg (5,000 unit) tablet lisinopril 5 mg tablet 5 mg PO DAILY 11/14/23 09/29/25 10/01/25 History magnesium 500 mg tablet 500 mg PO DAILY 11/14/23 09/29/25 11/14/23 History vitamins A,C,U-ddta-wyljfh 2,148 2 tab PO BID 11/14/23 09/29/25 11/14/23 History mcg-113 mg-45 mg-17.4 mg tablet (PreserVision AREDS) docusate sodium 100 mg capsule 100 mg PO ONCE 07/21/25 09/29/25 Unknown History Exam Exam Date and Time: 10/01/25 1400 Height 5 ft 10 in Weight 82.3 kg Vital Signs Temperature 97.3 F 10/01/25 13:11 Pulse Rate 80 10/01/25 13:11 Respiratory Rate 16 10/01/25 13:11 Blood Pressure 146/64 H 10/01/25 13:11 Pulse Oximetry 96 10/01/25 13:11 Oxygen Delivery Method Room Air 10/01/25 13:11 Temperature 97.3 F 10/01/25 13:11 Pulse Rate 80 10/01/25 13:11 Respiratory Rate 16 10/01/25 13:11 Blood Pressure 146/64 H 10/01/25 13:11 Pulse Oximetry 96 10/01/25 13:11 Oxygen Delivery Method Room Air 10/01/25 13:11 Airway Mallampati Class: II TM Dist: >3cm Neck ROM: Limited Partial: Upper and Lower Heart: S1S2 Lungs: CTAB Assessment and Plan Assessment Anesthesia Assessment: Anesthesia Plan Discussed and Chart Reviewed Final Anesthetic Review Family History of Problems with Anesthesia: No History of Problems with Anesthesia: No NPO: Yes ASA Class: III Final Preanesthetic Review: No Changes in Pt Med Stat, Meds/Allgs Chart Reviewed, Consent Obtained/Reviewed and Anes Risks/Benef Reviewed Patient Risk: Intermediate Procedure Risk: Low Anesthetic Plan Anesthetic Plan: MAC: and Agree w/ Assess. and Plan Disposition: Standard PACU
--- NOTE | 2025-10-01 14:08 | MHC.SHP ---
Pre-Procedural Eval Section A - 24 Hr Update-Section A only Date of Service: 10/01/25 The patient is an INPATIENT: No Changes since office visit: Yes Patient answered all questions The patient has been examined within 24 hours of the surgical procedure. The History & Physical has been completed within 30 days and I have reviewed it.: No Section B - Complete if H&P > 30 days Chief Complaint: Postlaminectomy syndrome,Radiculopathy Relevant Family History (Specify if Yes): No Relevant Social History: None Present Medications: see Short Stay Collaborative assessment Medical History: No relevant PMH History of Previous Operations: No relevant previous surgery Allergies: Allergies Allergy/AdvReac Type Severity Reaction Status Date / Time No Known Allergies Allergy Verified 07/23/25 10:02 Review of Systems Sugical H&P ROS: Negative: Constitution, Cardiovascular and Respiratory Exam Surgical H&P Exam: Normal: HEENT, Normal: Heart and Normal: Lungs Plan Diagnosis/Plan: Unchanged I have reviewed the history and physical and performed a pertinent physical examination on my patient. No changes have occurred unless specified. Time Spent With Patient Time: Total time managing care of this patient today ____ minutes.
[2025-10-01 14:24] LABS: MRSA Nasal PCR NEGATIVE (Negative); SA Nasal PCR NEGATIVE (Negative)
[2025-10-01 15:24] VITALS: BP 125/64; PULSE 64; RESP 13; TEMP 36.1; O2SAT 94
--- NOTE | 2025-10-01 15:26 | P.OP_ITS ---
Operative Note Operative Note Date of Service: 10/01/25 Narrative: Preoperative diagnosis: Post-laminectomy syndrome Postoperative diagnosis: Same Percutaneous Spinal Cord Stimulator Trial, Lumbar After obtaining written consent, pre-procedure blood pressure and heart rate were recorded and are in the nursing record for review. A peripheral IV was started. Antibiotics, cefazolin 2 gram, were given intraoperatively. The patient was placed in a prone position.? The patient was sedated by the anesthesiologist. The thoracolumbar area was widely prepped with ChloraPrep, allowed to dry and draped in sterile fashion. Fluoroscopy was used to identify the target interlaminar spaces and appropriate needle insertion sites. The skin and subcutaneous tissue was anesthetized with 0.5% lidocaine. Two separate 14 gauge epimed epidural needles were then advanced from a left parasagittal position in a paramedian approach to the epidural space opening at T12/L1 interspace, where loss of resistance was found using air. No paresthesias were e licited with needle placement. No CSF or heme was present upon needle placement. A guide wire was then used to confirm placement into the epidural space at each level under live fluoroscopy. The 1x16 stimulator lead wires were then threaded to the top of T7 in the left and right parasagittal positions under live fluoroscopy. The leads advanced dorsally and midline.?Position was confirmed in AP and lateral fluoroscopy. The needles were then completely removed under live fluoroscopy. The stimulator wires were then secured with Steri strips, Dermabond, gauze and tegaderm for skin dressing. The patient tolerated the procedure well and no complications were encountered. Following the procedure the patient's vital signs were stable. The patient was discharged home in good condition after being given discharge instructions. Time Out: Immediately prior to the procedure, the following was verbally confirmed that there is a signed consent form and that the correct patient, planned procedure, site and side are consistent with documentation and that necessary equipment and/or blood products are available prior to the start of the case. Complications: none EBL: 10 cc
--- NOTE | 2025-10-01 15:26 | PM.OP ---
Brief Operative Note Date of Service: 10/01/25 Pre-op diagnosis: Post-laminectomy syndrome Post-op diagnosis: same Procedure: Lumbar spinal cord stimulation trial Implants: [employer] scientific SCS trial leads Surgeon: Mike Venegas MD Anesthesia: MAC Was an Refuge Worker used for this Procedure?: No Estimated blood loss (mL): 5 Pathology: none sent Condition: stable Disposition: PACU
[2025-10-01 15:39] VITALS: BP 123/56; PULSE 58; RESP 15; O2SAT 94
[2025-10-01 15:54] VITALS: BP 118/55; PULSE 56; RESP 12; O2SAT 94
[2025-10-01 16:14] VITALS: BP 118/59; PULSE 60; RESP 16; TEMP 36.5; O2SAT 95
== END 2025-10-01 16:43 | disposition home or self-care (01) ==
PROVIDERS: Registered Nurse Emergency; Visit Provider Internal Medicine
PROC: (CPT 63650; principal; 2025-10-01 14:30)
DX: M54.16 Radiculopathy, lumbar region (principal); M96.1 Postlaminectomy syndrome, not elsewhere classified; M54.50 Low back pain, unspecified; M25.561 Pain in right knee; R26.2 Difficulty in walking, not elsewhere classified; I12.9 Hypertensive chronic kidney disease with stage 1 through stage 4 chronic kidney disease, or unspecified chronic kidney disease; N18.9 Chronic kidney disease, unspecified; Z79.82 Long term (current) use of aspirin; Z79.899 Other long term (current) drug therapy; Z98.890 Other specified postprocedural states
CPT/HCPCS: 63650 ×2; 87640; 87641; C1897; J0690; J2003; J2371; J2704; J3010

== ENCOUNTER → 2025-10-01 12:47 | Outpatient (BNV) | payer MEDICARE, OTHER, SELFPAY | PROVIDERS: Visit Provider Internal Medicine | DX: M96.1 Postlaminectomy syndrome, not elsewhere classified (principal) | CPT/HCPCS: 63650 ==

== ENCOUNTER 2025-10-08 11:05 | Outpatient (AMB) | payer MEDICARE, OTHER, SELFPAY ==
--- OUTSIDE RECORDS SUMMARY | 2024-04-16 03:30 | XMS_ITS ---
Author Organization [facility] Address [address] [place] [address] Care Team Providers Care Clinical Informatics Director Name Role Phone Jordan BALDERRAMA, Jefry Primary Care Provider UnavailLinda Garcia [phone] Encounters Encounter Location Date Provider Diagnosis [facility] [address] [place] [address] 04/16/2024 Linda Castro Plan Of Treatment Next Appt Details Provider Name:Linda caraballo, 11/21/2025 12:00:00 PM, [address] [place], [address], Progress Notes * FAUSTINMatias WALLACEDOB:1935 (89 yo M)Acc No.[id number]:04/16/2024 Progress Notes Patient: Matias ESCALANTE Provider: Parish Castro DPM :1935 A ge:88 Y S ex:Male Date:04/16/2024 Address:[address] [place], [place] [phone] Pcp:Jefry Ortega MD Subjective: * Chief Complaints: * * Medical History: Objective: * Vitals: Assessment: Plan: * Treatment: * Images: * The named appointment provid er may or may not be the originator of this progress note, and it is not deemed complete until electronically signed by the appointment provider. Sign off status: Pending * Provider: Parish Castro DPM Date: 0 04/16/2024 Generated for Thom rodriguez/Carlos/Jozef on: 1 12/09/2024 01:13 PM EST
--- NOTE | 2025-10-08 11:38 | MHC.OFFVIS ---
Vital Signs 10/08/25 11:40 Height 5 ft 10 in Weight 180 lb BMI 25.8 BP 116/60 Blood Pressure Location Lt brachial Position Sitting Pulse 94 Pulse Source Pulse Oximeter Pulse Oximetry (%) 98 Oxygen Delivery Method Room Air Intake Visit Reasons: S/p Soddy Daisy Sci SCS Trial 10/01/25 Auto Slip Cover Installer Required: No Allergies No Known Allergies Allergy (Verified 10/08/25 11:43) Medication List - Last Reconciled 10/08/25 by Tess Olmos RRT ascorbic acid (vitamin C) (Vitamin C) 500 mg PO DAILY aspirin 81 mg PO DAILY calcium citrate 500 mg PO DAILY cholecalciferol (vitamin D3) 125 mcg PO DAILY docusate sodium 100 mg PO ONCE gabapentin 300 mg PO BEDTIME lisinopril 5 mg PO DAILY magnesium 500 mg PO DAILY omeprazole 20 mg PO DAILY vitamins A,C,H-nwcj-ytaxrh 2,148 mcg-113 mg-45 mg-17.4mg (PreserVision AREDS) 2 tabs PO BID HPI HPI S/p S[employer]dy Daisy Sci SCS Trial 10/01/25: Details: History of Present Illness The patient is an 89 year old individual presenting for follow-up after a spinal cord stimulator trial for chronic back pain. The patient reports greater than 80% relief from the trial and expressed satisfaction with the results. During the trial, the patient noted a preference for the paresthesia program over the high-frequency, non-paresthesia programs, though is willing to try the silent programs in the future. The patient experienced throbbing in the legs when the device was turned up too high, but this resolved when the stimulation was turned down and remained localized to the back. The stimulator leads were placed at T7-T8. Pain Description - Location: The patient's primary pain is in the back. - Relieving Factors: The patient reported greater than 80% pain relief with the spinal cord stimulator trial. - Interference: The patient disliked the external wires and benji pack associated with the trial device. Physical Exam - Leads removed intact. Site c/d/i Results Pain Management - Analgesia: The patient reported good relief, estimated at over 80%, from the spinal cord stimulator trial. - Activities of Daily Living: The patient disliked the external wires and benji pack from the trial and is looking forward to having an implanted device. - Adverse Effects: The patient experienced leg throbbing when the stimulation was too high, which resolved by turning it down. [facility] Medical History (Updated 10/01/25 @ 13:00 by Theodora Hammonds RN) Bilateral cataracts HTN (hypertension) Chronic kidney disease Gallstone Dorsalgia Prostate cancer Urinary frequency Surgical History (Updated 10/01/25 @ 13:00 by Theodora Hammonds RN) Hx of cholecystectomy History of ERCP History of back surgery Social History Household Members: Spouse Housing: House Do you presently have visiting nurse or other home services: No Patient Tobacco Use Status: Never used Tobacco e-Cigarette/Vaping Use: Never Used Advance Directives Date on File: 11/15/23 service: Yes Current occupational status: retired Physical Exam Vital Signs: Last Vital Signs Pulse 94 10/08/25 11:40 BP 116/60 10/08/25 11:40 Pulse Ox 98 10/08/25 11:40 Oxygen Delivery Method Room Air 10/08/25 11:40 BMI result Body Mass Index 25.8 Assessment & Plan Assessment & Plan (1) Post laminectomy syndrome: Code(s): M96.1 - Postlaminectomy syndrome, not elsewhere classified Category: Medical Plan Plan Patient was informed and verbally consented to the use of an ambient scribe for clinic note documentation during this visit. 1. Chronic Back Pain - The patient had a successful spinal cord stimulator trial, with leads at T7-8, reporting over 80% pain relief. - The patient wishes to proceed with a permanent spinal cord stimulator implant. - The plan is to schedule the patient for the implant surgery, with an estimated timeframe of 2 months. Discussion Notes I reviewed the results of the spinal cord stimulator trial with the patient. The patient reported significant relief, greater than 80%, and expressed a desire to move forward with a permanent implant. We discussed that the patient preferred the paresthesia-based program and that the leads were placed at T7-8, which provided good coverage for the back pain. Given the successful trial, I recommended proceeding with the implant, and informed the patient that the office will contact them to schedule the procedure, likely within the next couple of months. Patient Instructions - Your trial of the spinal cord stimulator was successful in reducing your pain. - We will proceed with scheduling the surgery for a permanent implant. - My office will contact you to schedule the surgery, which will likely happen in the next couple of months. Coding Level of Care Code Est Pt Level 3 (85774) Diagnoses Post laminectomy syndrome M96.1
[2025-10-08 11:40] VITALS: BP 116/60; PULSE 94; O2SAT 98; BMI 25.8
--- OUTSIDE RECORDS SUMMARY | 2025-10-08 13:12 | XMS_ITS | Patient Health Record ---
Author Organization [facility] Address [address] [place] [address] Care Team Providers Care Ring Packer Name Role Phone Jordan BALDERRAMA, Jefry Primary Care Provider Linda Cesar Unavailable [phone] Allergies No Known Allergies Reason For Referral [...] Status W/U Status Risk Notes Problem Neuropathy (448961886) Neuropathy (G62.9) Active confirmed Vital Signs Blood pressure diastolic 70 mm Hg 08/15/2025 Height 5 ft 10 in in 08/15/2025 Blood pressure systolic 120 mm Hg 08/15/2025 Weight 180 lbs 08/15/2025 BMI 25.82 kg/m2 08/15/2025 Encounters Encounter Location Date Provider Diagnosis [address] [address] 12/06/2024 Linda Perica Tinea unguium B35.1 ; Tinea pedis of both feet B35.3 ; Pain in right toe(s) M79.674 ; Pain in left toe(s) M79.675 [address] G[address] [address] 02/28/2025 Linda Perica Tinea unguium B35.1 ; Tinea pedis of both feet B35.3 ; Pain in right toe(s) M79.674 ; Pain in left toe(s) M79.675 [address] G62[address] [address] 05/21/2025 Linda Perica Tinea unguium B35.1 ; Pain in right toe(s) M79.674 ; Pain in left toe(s) M79.675 [address] Ne[address] G62[address] [address] 08/15/2025 Linda Perica Tinea unguium B35.1 ; [...] Details Provider Name:Linda caraballo, 11/21/2025 12:00:00 PM, [address] [place] [address], [place], [address], Insurance Providers Payer Name Payer Address Payer Phone Subscriber Number Group Number Insured Name Patient Relationship to Insured Coverage Start Date Coverage End Date Medicare National Govt Svcs Inc [address] [place] [address] [id number] Matias Jay Self - patient is the insured [employer] [address] [place] [address] [id number] Matias Jay Self - patient is the insured Medical (General) History Medical History History ICD Code Arthritis Cancer High blood pressure Macular degeneration Numbness Measles Mumps Chicken pox Gall bladder problems cortisone injection in back Surgical History Surgery Date(Month/Year) 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
--- OUTSIDE RECORDS SUMMARY | 2025-10-08 13:13 | XMS_ITS | Patient Health Record ---
Author Organization [facility] Address [address] [place] [address] Care Team Providers Care It Business Process Architect Name Role Phone Jordan (RETIRED) Jefry BALDERRAMA Primary Care Provider Unavailable Wolf Whaley Jr Unavailable [phone] Reason For Referral No Information Problems Problem Type SNOMED Code ICD Code Onset Dates Problem Status W/U Status Risk Notes Problem Disorder of biliary tract (566650189) Bile leak (K83.9) Active confirmed Problem Postprocedural states (362772442) History of biliary duct stent placement (Z98.890) Active confirmed Plan Of Treatment Pending Test Test Name Order Date XR abdomen 1V 11/21/2023 Insurance Providers Payer Name Payer Address Payer Phone Subscriber Number Group Number Insured Name Patient Relationship to Insured Coverage Start Date Coverage End Date MEDICARE OF [place] [address] [place] [address] [id number] AALIYAH FAUSTIN Self - patient is the insured [facility] TH INDEMNITY [address] [place] [address] [id number] AALIYAH FAUSTIN Self - patient is the insured
== END 2025-10-08 11:53 | disposition home or self-care (01) ==
PROVIDERS: PCP Student in an Organized Health Care Education/Training Program; Visit Provider Internal Medicine
DX: M96.1 Postlaminectomy syndrome, not elsewhere classified (principal)
CPT/HCPCS: 99024

== ENCOUNTER → 2025-10-08 11:05 | Outpatient (BNVA) | payer MEDICARE, OTHER, SELFPAY | PROVIDERS: Visit Provider Internal Medicine | DX: M96.1 Postlaminectomy syndrome, not elsewhere classified (principal); Z79.82 Long term (current) use of aspirin | CPT/HCPCS: 99212 ==